=== PATIENT | female | born 1950 | race Caucasian/White ===

== ENCOUNTER 2016-12-21 20:24 | Emergency (ER) | payer MEDICARE, MEDICAID ==
[~2016-12-21] VITALS: Ht 152.4 cm; Wt 83.9 kg
[~2016-12-21 20:24] MED LIST: ACET-2267 PO; ALBU8.5H2 IH; ALPR.5T PO; ALPR0.5T7 PO; ALPR1T PO; AMIT75TA2 PO; AMLO2.5T PO; ASPI-693 PO; ASPI-983 PO; ATOR10TA66 PO; Atorvastatin Calcium PO; BUDE10.2 INH; CEFD300C3 PO; CELE-63 PO; CETI10TA17 PO; DULO30CA PO; DULO30CA48 PO; ETOD400T PO; FAMO-119 PO; FURO40TA4 PO; GABA-488 PO; GLIP10TA13 PO; HYDR1TAB75 PO; LANS30CA PO; LISI1TAB8 PO; MTF500T PO; MULT-874 PO; NF-ROPIN4T PO; NITR-33 PO; OMEP20CA12 PO; ONDA8TAB9 PO; OXYC-272 PO; OXYC-465 PO; PROM25TA14 PO; PROP40TA5 PO; ROPI2TAB3 PO; ROPI3TAB2 PO; ROPI4TAB3 PO; RT-ALBUINH INH; RT-COMBINH IH; SULF1TAB35 PO; TRZ100T PO; ZLP10T PO; ZOLP10TA5 PO; tylenol 3 PO
[2016-12-21] MEDS ORDERED: KETOROLAC 60 MG/2 ML VIAL IM STA (21:34)
[2016-12-21] MEDS ORDERED: CYCLOBENZAPRINE 10 MG (FLEXERIL) TAB PO STA (21:34)
[2016-12-21] MEDS ORDERED: CYCL10TA9 PO (22:37)
--- NOTE | 2016-12-21 22:37 | ED Lower Extremity ---
General Chief Complaint: Lower Extremity Stated Complaint: R FOOT PAIN Nursing Triage Note: c/o R foot pain, reports her percocet isn't helping pain Nursing Sepsis Screen: No Definite Risk History of Present Illness Time seen by provider: 21:15 Initial Comments Patient presents for acute right foot pain, she has history of peripheral neuropathy. She denies any injury but awoke this morning with acute right foot pain. She is on Neurontin and Percocet for her neuropathy. Onset: this morning Pain/Injury Location: right foot Method of Injury: unknown Modifying Factors: Improves With Pain Medication, Improves With Rest Allergies and Home Medications Allergies Coded Allergies: Iodinated Contrast Media - IV Dye (Verified Allergy, Unknown, 03/17/15) Home Medications Albuterol Sulfate 8.5 Gm Hfa.aer.ad, 2 PUFF INH Q4H PRN for SHORTNESS OF BREATH, (Reported) Alprazolam 0.5 Mg Tablet, 0.5 MG PO Q6H PRN for ANXIETY, (Reported) Aspirin 81 Mg Tablet.dr, 81 MG PO DAILY, (Reported) Atorvastatin Calcium 10 Mg Tablet, 10 MG PO HS, (Reported) Celecoxib 200 Mg Capsule, 200 MG PO DAILY, (Reported) Cyclobenzaprine HCl 10 Mg Tablet, 10 MG PO Q8H PRN for SPASMS, #15 Ref 0 Prescribed by: MYNOR ALEMNA on 12/21/162236 Duloxetine HCl 30 Mg Capsule.dr, 30 MG PO DAILY, (Reported) Etodolac 400 Mg Tablet, 400 MG PO BID, (Reported) Furosemide 40 Mg Tablet, 40 MG PO ROBERTSON,WE, (Reported) Gabapentin 300 Mg Capsule, 600 MG PO TID, (Reported) TAKES 2 (300MG) CAPSULES Omeprazole 20 Mg Capsule.dr, 20 MG PO DAILY, (Reported) Oxycodone Hcl/Acetaminophen 1 Tab Tablet, 1 TAB PO Q6H PRN for PAIN, (Reported) Propranolol HCl 40 Mg Tablet, 40 MG PO BID, (Reported) Ropinirole HCl 3 Mg Tablet, 3 MG PO HS, (Reported) Constitutional: no symptoms reported, see HPI EENTM: no symptoms reported, see HPI Respiratory: no symptoms reported, see HPI Cardiovascular: see HPI, other (peripheral neuropathy) Gastrointestinal: no symptoms reported, see HPI Genitourinary: no symptoms reported, see HPI Musculoskeletal: no symptoms reported, see HPI Skin: no symptoms reported, see HPI Psychiatric/Neurological: No Symptoms Reported, See HPI All Other Systems Reviewed Negative Unless Noted: Yes Past Xtnungd-Ixuvev-Ijcvef Hx Patient Social History Alcohol Use: Denies Use Recreational Drug Use: No Drug of Choice: marijuana Smoking Status: Current Everyday Smoker Type Used: Cigarettes Recent Foreign Travel: No Contact w/Someone Who Travel: No Recent Infectious Disease Expo: No Recent Hopitalizations: No Immunizations Up To Date Tetanus Booster (TDap): More than 5yrs Seasonal Allergies Seasonal Allergies: Yes Surgeries HX Surgeries: Yes Surgeries: Appendectomy, Gallbladder, Tubal Ligation Respiratory Hx Respiratory Disorders: Yes Respiratory Disorders: Asthma, Chronic Bronchitis, Sleep Apnea, COPD Cardiovascular Hx Cardiac Disorders: Yes Cardiac Disorders: Hypertension Neurological Hx Neurological Disorders: Yes (CVA'S) Neurological Disorders: Headaches /Migraines, Seizure Disorder, Stroke Reproductive System Hx Reproductive Disorders: No Sexually Transmitted Disease: No HIV/AIDS: No [employer] History: Tubal Ligation Genitourinary Hx Genitourinary Disorders: No Gastrointestinal Hx Gastrointestinal Disorders: Yes Gastrointestinal Disorders: Gastroesophageal Reflux, Chronic Constipation, Gall Bladder Disease Musculoskeletal Hx Musculoskeletal Disorders: Yes ([place]) Musculoskeletal Disorders: Arthritis, Chronic Back Pain Endocrine Hx Endocrine Disorders: No HEENT HX ENT Disorders: No Loss of Vision: Denies Hearing Impairment: Denies Cancer Hx Cancer: No Psychosocial Hx Psychiatric Problems: Yes Behavioral Health Disorders: Sleep Difficulties, Anxiety Integumentary HX Skin/Integumentary Disorder: No Blood Transfusions Hx Blood Disorders: No Reviewed Nursing Assessment Reviewed/Agree w Nursing PMH: Yes Family Medical History Significant Family History: No Pertinent Family Hx, Diabetes Family Medial History: Alzheimer's disease G8 BROTHER Completed stroke G8 BROTHER Diabetes mellitus 19 MOTHER Glaucoma 19 FATHER G8 BROTHER Hypertension 19 FATHER G8 BROTHER Myocardial infarction 19 FATHER Physical Exam Vital Signs Vital Sign - Last 12Hours 12/21/16 20:45 Temp 97.5 Pulse 79 Resp 18 B/P (MAP) 169/56 Pulse Ox 98 O2 Delivery Room Air Capillary Refill : Less Than 3 Seconds General Appearance: WD/WN, no apparent distress Neck: non-tender, full range of motion, normal inspection Cardiovascular: normal peripheral pulses, regular rate, rhythm, no edema, no JVD, no murmur Respiratory: chest non-tender, lungs clear, normal breath sounds Back: normal inspection, no CVA tenderness, no vertebral tenderness Feet: left foot non-tender, bilateral foot normal inspection, bilateral foot normal range of motion, bilateral foot no evidence of injury, right foot pain ( mid foot), right foot soft tissue tenderness (plantar surface) Neurologic/Tendon: normal sensation, normal motor functions, normal tendon functions Neurologic/Psychiatric: no motor/sensory deficits, alert, normal mood/affect, oriented x 3 Skin: normal color, warm/dry Lymphatic: no adenopathy Progress/Results/Core Measures Results/Orders My Orders Orders - MYNOR ALEMAN Cyclobenzaprine Tablet (Flexeril Tablet) (12/21/16 21:34) Ketorolac Injection (Toradol Injection) (12/21/16 21:34) Vital Signs/I&O Vital Sign - Last 12Hours 12/21/16 20:45 Temp 97.5 Pulse 79 Resp 18 B/P (MAP) 169/56 Pulse Ox 98 O2 Delivery Room Air Blood Pressure Mean: 93 Progress Note : Time: 22:15 Progress Note Patient reports improvement after Toradol 60 mg IM and Flexeril 10 mg by mouth. Will follow up with Dr. Mccarthy if symptoms persist. Departure Impression Impression: Primary Impression: Right foot pain Additional Impression: Peripheral neuropathy Qualified Codes: G58.9 - Mononeuropathy, unspecified Disposition: 01 HOME, SELF-CARE Condition: Stable Departure-Patient Inst. Decision time for Depature: 21:30 Referrals: NATALYA MCCARTHY MD (PCP/Family) Primary Care Physician Patient Instructions: Peripheral Neuropathy (DC) Add. Discharge Instructions: All discharge instructions reviewed with patient and/or family. Voiced understanding. Limit activities that cause pain in the right foot. Follow-up with Dr. Mccarthy for continued pain. Return to emergency department if symptoms worsen. Scripts Cyclobenzaprine HCl (Cyclobenzaprine HCl) 10 Mg Tablet 10 MG PO Q8H Y for SPASMS, #15 TAB 0 Refills Prov: MYNOR ALEMAN 12/21/16 MYNOR ALEMAN Dec 21, 2016 22:37
[2016-12-21 22:40] VITALS: BP 169/56
== END 2016-12-21 22:40 | disposition home or self-care (01) ==
LOC: EDUNIT# 20:24 → ER 20:26
DX: M79.671 Pain in right foot (principal); G62.9 Polyneuropathy, unspecified; J44.9 Chronic obstructive pulmonary disease, unspecified; F17.210 Nicotine dependence, cigarettes, uncomplicated; Z79.82 Long term (current) use of aspirin; Z79.899 Other long term (current) drug therapy
CPT/HCPCS: 96372; 99285

== ENCOUNTER 2016-12-24 16:15 | Emergency (ER) | payer MEDICARE, MEDICAID ==
[~2016-12-24] VITALS: Ht 152.4 cm; Wt 83.9 kg
[~2016-12-24 16:15] MED LIST changes: +CYCL10TA9 PO
[2016-12-24] MEDS ORDERED: ORPHENADRINE 60 MG/2 ML (NORFLEX) AMP IM STA (16:35)
[2016-12-24] MEDS ORDERED: oxyCODONE/APAP 5/325MG (PERCOCET 5) TABLET PO STA (17:30)
[2016-12-24] MEDS ORDERED: oxyCODONE/APAP 5/325MG (PERCOCET 5) TABLET ONE ×2 (17:33→17:35)
--- NOTE | 2016-12-24 17:45 | ED Lower Extremity ---
General Chief Complaint: General Problems/Pain Stated Complaint: BILAT FOOT AND HAND PAIN Nursing Triage Note: PT REPORTS BILAT HAND AND FEET PAIN. SHE HAS BEEN SEEN MULTIPLE TIMES BY DIFFERENT PROVIDERS IN THE LAST WEEK. SHE REPORTS NO IMPROVEMENT. Nursing Sepsis Screen: No Definite Risk History of Present Illness Time seen by provider: 16:25 Initial Comments reevaluation for pain. The patient reports her pain is now in both lower extremities and upper extremities. She was evaluated at [facility] on 12/22/16, they added Alupent when necessary I'll twice a day for treatment. the patient reports taking her Flexeril at 0600. she did not take a dose 8 hours after that. she denies any injuries. Her last pain medication was oxycodone 10 mg at 0600. she takes Celebrex 200 mg twice a day. Onset: this afternoon (symptoms got worse this afternoon) Pain/Injury Location: bilateral foot, bilateral ankle, bilateral other ( bilateral upper extremities) Method of Injury: unknown Modifying Factors: Improves With Pain Medication, Improves With Rest Associated Symptoms: she denies any neck or back pain. Allergies and Home Medications Allergies Coded Allergies: Iodinated Contrast Media - IV Dye (Verified Allergy, Unknown, 03/17/15) Home Medications Albuterol Sulfate 8.5 Gm Hfa.aer.ad, 2 PUFF INH Q4H PRN for SHORTNESS OF BREATH, (Reported) Alprazolam 0.5 Mg Tablet, 0.5 MG PO Q6H PRN for ANXIETY, (Reported) Aspirin 81 Mg Tablet.dr, 81 MG PO DAILY, (Reported) Atorvastatin Calcium 10 Mg Tablet, 10 MG PO HS, (Reported) Celecoxib 200 Mg Capsule, 200 MG PO DAILY, (Reported) Cyclobenzaprine HCl 10 Mg Tablet, 10 MG PO Q8H PRN for SPASMS, #15 Ref 0 Prescribed by: MYNOR ALEMAN on 12/21/162236 Duloxetine HCl 30 Mg Capsule.dr, 30 MG PO DAILY, (Reported) Etodolac 400 Mg Tablet, 400 MG PO BID, (Reported) Furosemide 40 Mg Tablet, 40 MG PO ROBERTSON,WE, (Reported) Gabapentin 300 Mg Capsule, 600 MG PO TID, (Reported) TAKES 2 (300MG) CAPSULES Omeprazole 20 Mg Capsule.dr, 20 MG PO DAILY, (Reported) Oxycodone Hcl/Acetaminophen 1 Tab Tablet, 1 TAB PO Q6H PRN for PAIN, (Reported) Propranolol HCl 40 Mg Tablet, 40 MG PO BID, (Reported) Ropinirole HCl 3 Mg Tablet, 3 MG PO HS, (Reported) Constitutional: no symptoms reported, see HPI EENTM: no symptoms reported, see HPI Respiratory: no symptoms reported, see HPI Cardiovascular: no symptoms reported, see HPI Gastrointestinal: no symptoms reported, see HPI Genitourinary: no symptoms reported, see HPI Musculoskeletal: no symptoms reported, see HPI Skin: no symptoms reported, see HPI Psychiatric/Neurological: No Symptoms Reported, See HPI All Other Systems Reviewed Negative Unless Noted: Yes Past Alkclyv-Apoyph-Antfad Hx Patient Social History Alcohol Use: Denies Use Recreational Drug Use: Yes Drug of Choice: marijuana Smoking Status: Current Everyday Smoker Type Used: Cigarettes Recent Foreign Travel: No Contact w/Someone Who Travel: No Recent Infectious Disease Expo: No Recent Hopitalizations: No Immunizations Up To Date Tetanus Booster (TDap): More than 5yrs Seasonal Allergies Seasonal Allergies: Yes Surgeries HX Surgeries: Yes Surgeries: Appendectomy, Gallbladder, Tubal Ligation Respiratory Hx Respiratory Disorders: Yes Respiratory Disorders: Asthma, Chronic Bronchitis, Sleep Apnea, COPD Cardiovascular Hx Cardiac Disorders: Yes Cardiac Disorders: Hypertension Neurological Hx Neurological Disorders: Yes (CVA'S) Neurological Disorders: Headaches /Migraines, Seizure Disorder, Stroke Reproductive System Hx Reproductive Disorders: No Sexually Transmitted Disease: No HIV/AIDS: No 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 Genitourinary Hx Genitourinary Disorders: No Gastrointestinal Hx Gastrointestinal Disorders: Yes Gastrointestinal Disorders: Gastroesophageal Reflux, Chronic Constipation, Gall Bladder Disease Musculoskeletal Hx Musculoskeletal Disorders: Yes ([place]) Musculoskeletal Disorders: Arthritis, Chronic Back Pain Endocrine Hx Endocrine Disorders: No HEENT HX ENT Disorders: No Loss of Vision: Denies Hearing Impairment: Denies Cancer Hx Cancer: No Psychosocial Hx Psychiatric Problems: Yes Behavioral Health Disorders: Sleep Difficulties, Anxiety Integumentary HX Skin/Integumentary Disorder: No Blood Transfusions Hx Blood Disorders: No Reviewed Nursing Assessment Reviewed/Agree w Nursing PMH: Yes Family Medical History Significant Family History: No Pertinent Family Hx, Diabetes Family Medial History: Alzheimer's disease G8 BROTHER Completed stroke G8 BROTHER Diabetes mellitus 19 MOTHER Glaucoma 19 FATHER G8 BROTHER Hypertension 19 FATHER G8 BROTHER Myocardial infarction 19 FATHER Physical Exam Vital Signs Vital Sign - Last 12Hours 12/24/16 16:24 Temp 97.3 Pulse 75 Resp 20 B/P (MAP) 155/75 Pulse Ox 97 O2 Delivery Room Air Capillary Refill : Less Than 3 Seconds General Appearance: WD/WN HEENT: PERRL/EOMI, normal ENT inspection, TMs normal, pharynx normal Neck: non-tender, full range of motion, supple Cardiovascular: normal peripheral pulses, regular rate, rhythm, no JVD Respiratory: chest non-tender Hips: bilateral hip non-tender, bilateral hip normal inspection, bilateral hip normal range of motion Ankles: bilateral ankle normal inspection, bilateral ankle normal range of motion, bilateral ankle no evidence of injury, bilateral ankle pain, bilateral ankle soft tissue tenderness Feet: bilateral foot normal inspection, bilateral foot normal range of motion, bilateral foot soft tissue tenderness Neurologic/Tendon: normal sensation, normal motor functions, normal tendon functions Neurologic/Psychiatric: no motor/sensory deficits, alert, normal mood/affect, oriented x 3 Skin: normal color, warm/dry Progress/Results/Core Measures Results/Orders My Orders Orders - MYNOR ALEMAN Orphenadrine Injection (Norflex Injectio (12/24/16 16:35) Tramadol Tablet (Ultram Tablet) (12/24/16 16:36) Oxycodone/Apap 5/325mg Tablet (Percocet (12/24/16 17:30) Oxycodone/Apap 5/325mg Tablet (Percocet (12/24/16 17:33) Oxycodone/Apap 5/325mg Tablet (Percocet (12/24/16 17:35) Vital Signs/I&O Vital Sign - Last 12Hours 12/24/16 16:24 Temp 97.3 Pulse 75 Resp 20 B/P (MAP) 155/75 Pulse Ox 97 O2 Delivery Room Air Blood Pressure Mean: 101 Progress Note : Time: 16:25 Progress Note initial evaluation completed. Will use Norflex 60 mg IM and Ultram 50 mg by mouth for pain management. Discussed at length with the patient that she needs to be compliant with her medication regimen. 1645 Per [facility], the patient filled Xanax and Oxycodone 10 mg on 12/06/16, prescribed by Dr. Mccarthy. [facility] reports she picked up Flexeril and Xanax on 12/22/16. patient does report concerns because she is out of Neurontin and oxycodone at home. This was discussed with her and the recommendation was that she get her scheduled medications from Dr. Mccarthy. 1740 within 5 minutes of being given the oxycodone, the patient requested discharge to home. She reports her pain is not relieved, but she wishes to return home to take care of her dog. Discussed the importance of taking medications as prescribed. And following up with Dr. Mancilla's office for refills of her medication. She verbalized understanding of this and agreed with this treatment plan. Departure Impression Impression: Primary Impression: Chronic pain Qualified Codes: G89.4 - Chronic pain syndrome Disposition: HOME, SELF-CARE Condition: Stable Departure-Patient Inst. Decision time for Depature: 17:30 Referrals: NATALYA MCCARTHY MD (PCP/Family) Primary Care Physician Patient Instructions: Chronic Pain (DC) Add. Discharge Instructions: Follow up with Dr. Mccarthy for medical management of Chronic Pain and medication refills. Return to emergency department for uncontrolled pain, difficulty breathing or fever. take prescription medication as directed. All discharge instructions reviewed with patient and/or family. Voiced understanding. Copy Copies To 1: NATALYA MCCARTHY MD, AMY ARNP Dec 24, 2016 17:45
[2016-12-24 17:55] VITALS: BP 155/75
== END 2016-12-24 17:55 | disposition home or self-care (01) ==
LOC: EDUNIT# 16:15 → ER 16:17
DX: M79.642 Pain in left hand (principal); M79.641 Pain in right hand; M79.671 Pain in right foot; M79.672 Pain in left foot; G89.29 Other chronic pain; F17.210 Nicotine dependence, cigarettes, uncomplicated; Z79.82 Long term (current) use of aspirin; Z79.899 Other long term (current) drug therapy
CPT/HCPCS: 96372; 99281

== ENCOUNTER → 2017-02-28 | Outpatient (CLI) | payer MEDICARE, MEDICAID ==
--- NOTE | 2017-02-28 18:02 | Diagnostic Imaging Report ---
PROCEDURE: US Bilateral lower extremity arterial. TECHNIQUE: Multiple real-time grayscale images are obtained through both lower extremity arterial systems with color Doppler imaging and color Doppler spectral analysis. INDICATION: Pulseless disease. Cold legs and tingling in the feet. FINDINGS: There is mild intimal irregularity seen in the femoropopliteal segments noted on grayscale images. Color Doppler demonstrates patency of the arteries from the common femoral to dorsalis pedis and posterior tibial arteries bilaterally. On the right side, there is triphasic waveforms seen in the femoropopliteal segments with velocities in the range of 86 to 177 cm/s. Triphasic waveform in the posterior tibial artery is also seen with normal velocity of 91 cm/s. The dorsalis pedis however demonstrates monophasic waveform with diminished flow velocity of 21 cm/s. The left lower extremity demonstrates biphasic waveforms in the femoropopliteal segments with normal velocities ranging from 105 to 146 cm/s. The posterior tibial artery has triphasic waveform with velocity of 43 cm/s. The dorsalis pedis has biphasic waveform with velocity of 100 cm/s. IMPRESSION: 1. Right lower extremity arteries are patent with no high-grade focal stenosis identified. Diminished monophasic waveforms in the right dorsalis pedis artery is suggestive of significant disease in the anterior tibial artery. 2. Left lower extremity demonstrates mostly biphasic waveforms which may relate to aortoiliac inflow disease. No evidence of focal high-grade stenosis. Dictated by: Dictated on workstation # [id number]
== END ==
LOC: RAD 14:36
PROVIDERS: ATTEND Family Medicine
DX: M31.4 Aortic arch syndrome [Takayasu] (principal); R20.2 Paresthesia of skin
CPT/HCPCS: 93925

== ENCOUNTER 2017-09-21 12:13 | Emergency (ER) | payer MEDICARE, MEDICAID ==
[~2017-09-21] VITALS: Ht 152.4 cm; Wt 83.9 kg
--- OUTSIDE RECORDS SUMMARY | 2017-09-21 12:20 | XMS REPORT | Continuity of Care Document ---
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 mg/dL <10 Complete blood count (CBC) with automated white blood cell (WBC) differential - 06/06/16 14:38 Blood leukocytes automated count (number/volume) 6.4 10*3/uL 4.3-11.0 Blood erythrocytes automated count (number/volume) 4.02 10*6/uL 4.35-5.85 Venous blood hemoglobin measurement (mass/volume) 11.2 g/dL 11.5-16.0 Blood hematocrit (volume fraction) 35 % 35-52 Automated erythrocyte mean corpuscular volume 88 [foz_us] 80-99 Automated erythrocyte mean corpuscular hemoglobin (mass per erythrocyte) 28 pg 25-34 Automated erythrocyte mean corpuscular hemoglobin concentration measurement ( mass/volume) 32 g/dL 32-36 Automated erythrocyte distribution width ratio 16.1 % 10.0-14.5 Automated blood platelet count (count/volume) 292 10*3/uL 130-400 Automated blood platelet mean volume measurement 9.8 [foz_us] 7.4-10.4 Automated blood neutrophils/100 leukocytes 65 % 42-75 Automated blood lymphocytes/100 leukocytes 19 % 12-44 Blood monocytes/100 leukocytes 13 % 0-12 Automated blood eosinophils/100 leukocytes 3 % 0-10 Automated blood basophils/100 leukocytes 1 % 0-10 Blood neutrophils automated count (number/volume) 4.2 10*3 1.8-7.8 Blood lymphocytes automated count (number/volume) 1.2 10*3 1.0-4.0 Blood monocytes automated count (number/volume) 0.9 10*3 0.0-1.0 Automated eosinophil count 0.2 10*3/uL 0.0-0.3 Automated blood basophil count (count/volume) 0.0 10*3/uL 0.0-0.1 Comprehensive metabolic panel - 06/06/16 14:38 Serum or plasma sodium measurement (moles/volume) 138 mmol/L 135-145 Serum or plasma potassium measurement (moles/volume) 4.7 mmol/L 3.6-5.0 Serum or plasma chloride measurement (moles/volume) 105 mmol/L 98-107 Carbon dioxide 20 mmol/L 21-32 Serum or plasma anion gap determination (moles/volume) 13 mmol/L 5-14 Serum or plasma urea nitrogen measurement (mass/volume) 28 mg/dL 7-18 Serum or plasma creatinine measurement (mass/volume) 1.74 mg/dL 0.60-1.30 Serum or plasma urea nitrogen/creatinine mass ratio 16 NRG Serum or plasma creatinine measurement with calculation of estimated glomerular filtration rate 29 NRG Serum or plasma glucose measurement (mass/volume) 145 mg/dL 70-105 Serum or plasma calcium measurement (mass/volume) 9.0 mg/dL 8.5-10.1 Serum or plasma total bilirubin measurement (mass/volume) 0.8 mg/dL 0.1-1.0 Serum or plasma alkaline phosphatase measurement (enzymatic activity/volume) 122 U/L 40-136 Serum or plasma aspartate aminotransferase measurement (enzymatic activity/ volume) 20 U/L 5-34 Serum or plasma alanine aminotransferase measurement (enzymatic activity/volume ) 16 U/L 0-55 Serum or plasma protein measurement (mass/volume) 6.7 g/dL 6.4-8.2 Serum or plasma albumin measurement (mass/volume) 3.7 g/dL 3.2-4.5 Serum or plasma troponin i.cardiac measurement (mass/volume) - 06/06/16 14:38 Serum or plasma troponin i.cardiac measurement (mass/volume) < ng/ mL <0.30 Lipase - 06/06/16 14:38 Lipase 13 U/L 878 Liver function panel (serum or plasma alk phos, alb, total and direct bili, total protein, ALT, AST) - 06/07/16 19:10 Serum or plasma total bilirubin measurement (mass/volume) 0.8 mg/dL 0.1-1.0 Serum or plasma alkaline phosphatase measurement (enzymatic activity/volume) 102 U/L 40-136 Serum or plasma aspartate aminotransferase measurement (enzymatic activity/ volume) 19 U/L 5-34 Serum or plasma alanine aminotransferase measurement (enzymatic activity/volume ) 20 U/L 0-55 Serum or plasma protein measurement (mass/volume) 6.4 g/dL 6.4-8.2 Serum or plasma albumin measurement (mass/volume) 3.6 g/dL 3.2-4.5 Bilirubin direct 0.4 mg/dL 0.0-0.3 Serum or plasma indirect bilirubin measurement (mass/volume) 0.4 mg/ dL NRG Magnesium - 06/07/16 19:10 Magnesium 1.8 mg/dL 1.8-2.4 Lipase - 06/07/16 19:10 Lipase 22 U/L 8-78 Complete blood count (CBC) with automated white blood cell (WBC) differential - 06/08/16 05:16 Blood leukocytes automated count (number/volume) 4.9 10*3/uL 4.3-11.0 Blood erythrocytes automated count (number/volume) 3.69 10*6/uL 4.35-5.85 Venous blood hemoglobin measurement (mass/volume) 10.1 g/dL 11.5-16.0 Blood hematocrit (volume fraction) 33 % 35-52 Automated erythrocyte mean corpuscular volume 88 [foz_us] 80-99 Automated erythrocyte mean corpuscular hemoglobin (mass per erythrocyte) 27 pg 25-34 Automated erythrocyte mean corpuscular hemoglobin concentration measurement ( mass/volume) 31 g/dL 32-36 Automated erythrocyte distribution width ratio 15.9 % 10.0-14.5 Automated blood platelet count (count/volume) 242 10*3/uL 130-400 Automated blood platelet mean volume measurement 10.4 [foz_us] 7.4-10.4 Automated blood neutrophils/100 leukocytes 59 % 42-75 Automated blood lymphocytes/100 leukocytes 25 % 12-44 Blood monocytes/100 leukocytes 11 % 0-12 Automated blood eosinophils/100 leukocytes 5 % 0-10 Automated blood basophils/100 leukocytes 0 % 0-10 Blood neutrophils automated count (number/volume) 2.9 10*3 1.8-7.8 Blood lymphocytes automated count (number/volume) 1.2 10*3 1.0-4.0 Blood monocytes automated count (number/volume) 0.5 10*3 0.0-1.0 Automated eosinophil count 0.3 10*3/uL 0.0-0.3 Automated blood basophil count (count/volume) 0.0 10*3/uL 0.0-0.1 Comprehensive metabolic panel - 06/08/16 05:16 Serum or plasma sodium measurement (moles/volume) 135 mmol/L 135-145 Serum or plasma potassium measurement (moles/volume) 4.5 mmol/L 3.6-5.0 Serum or plasma chloride measurement (moles/volume) 102 mmol/L 98-107 Carbon dioxide 19 mmol/L 21-32 Serum or plasma anion gap determination (moles/volume) 14 mmol/L 5-14 Serum or plasma urea nitrogen measurement (mass/volume) 42 mg/dL 7-18 Serum or plasma creatinine measurement (mass/volume) 2.92 mg/dL 0.60-1.30 Serum or plasma urea nitrogen/creatinine mass ratio 14 NRG Serum or plasma creatinine measurement with calculation of estimated glomerular filtration rate 16 NRG Serum or plasma glucose measurement (mass/volume) 89 mg/dL 70-105 Serum or plasma calcium measurement (mass/volume) 7.7 mg/dL 8.5-10.1 Serum or plasma total bilirubin measurement (mass/volume) 0.4 mg/dL 0.1-1.0 Serum or plasma alkaline phosphatase measurement (enzymatic activity/volume) 94 U/L 40-136 Serum or plasma aspartate aminotransferase measurement (enzymatic activity/ volume) 17 U/L 5-34 Serum or plasma alanine aminotransferase measurement (enzymatic activity/volume ) 17 U/L 0-55 Serum or plasma protein measurement (mass/volume) 5.9 g/dL 6.4-8.2 Serum or plasma albumin measurement (mass/volume) 3.3 g/dL 3.2-4.5 Complete urinalysis with reflex to culture - 06/08/16 08:48 Urine color determination YELLOW NRG Urine clarity determination CLEAR NRG Urine pH measurement by test strip 5 5-9 Specific gravity of urine by test strip 1.010 1.016- 1.022 Urine protein assay by test strip, semi-quantitative 2+ NEGATIVE Urine glucose detection by automated test strip NEGATIVE NEGATIVE Erythrocytes detection in urine sediment by light microscopy 3+ NEGATIVE Urine ketones detection by automated test strip NEGATIVE NEGATIVE Urine nitrite detection by test strip NEGATIVE NEGATIVE Urine total bilirubin detection by test strip NEGATIVE NEGATIVE Urine urobilinogen measurement by automated test strip (mass/volume) NORMAL NORMAL Urine leukocyte esterase detection by dipstick NEGATIVE NEGATIVE Automated urine sediment erythrocyte count by microscopy (number/high power field) [HPF] NRG Automated urine sediment leukocyte count by microscopy (number/high power field ) NONE NRG Bacteria detection in urine sediment by light microscopy TRACE NRG Squamous epithelial cells detection in urine sediment by light microscopy 2-5 NRG Crystals detection in urine sediment by light microscopy NONE NRG Casts detection in urine sediment by light microscopy NONE NRG Mucus detection in urine sediment by light microscopy NEGATIVE NRG Complete urinalysis with reflex to culture NO NRG Complete blood count (CBC) with automated white blood cell (WBC) differential - 06/09/16 04:47 Blood leukocytes automated count (number/volume) 5.5 10*3/uL 4.3-11.0 Blood erythrocytes automated count (number/volume) 3.65 10*6/uL 4.35-5.85 Venous blood hemoglobin measurement (mass/volume) 10.1 g/dL 11.5-16.0 Blood hematocrit (volume fraction) 34 % 35-52 Automated erythrocyte mean corpuscular volume 92 [foz_us] 80-99 Automated erythrocyte mean corpuscular hemoglobin (mass per erythrocyte) 28 pg 25-34 Automated erythrocyte mean corpuscular hemoglobin concentration measurement ( mass/volume) 30 g/dL 32-36 Automated erythrocyte distribution width ratio 16.3 % 10.0-14.5 Automated blood platelet count (count/volume) 259 10*3/uL 130-400 Automated blood platelet mean volume measurement 10.3 [foz_us] 7.4-10.4 Automated blood neutrophils/100 leukocytes 69 % 42-75 Automated blood lymphocytes/100 leukocytes 20 % 12-44 Blood monocytes/100 leukocytes 10 % 0-12 Automated blood eosinophils/100 leukocytes 2 % 0-10 Automated blood basophils/100 leukocytes 1 % 0-10 Blood neutrophils automated count (number/volume) 3.8 10*3 1.8-7.8 Blood lymphocytes automated count (number/volume) 1.1 10*3 1.0-4.0 Blood monocytes automated count (number/volume) 0.5 10*3 0.0-1.0 Automated eosinophil count 0.1 10*3/uL 0.0-0.3 Automated blood basophil count (count/volume) 0.0 10*3/uL 0.0-0.1 Comprehensive metabolic panel - 06/09/16 04:47 Serum or plasma sodium measurement (moles/volume) 140 mmol/L 135-145 Serum or plasma potassium measurement (moles/volume) 4.9 mmol/L 3.6-5.0 Serum or plasma chloride measurement (moles/volume) 111 mmol/L 98-107 Carbon dioxide 19 mmol/L 21-32 Serum or plasma anion gap determination (moles/volume) 10 mmol/L 5-14 Serum or plasma urea nitrogen measurement (mass/volume) 24 mg/dL 7-18 Serum or plasma creatinine measurement (mass/volume) 1.83 mg/dL 0.60-1.30 Serum or plasma urea nitrogen/creatinine mass ratio 13 NRG Serum or plasma creatinine measurement with calculation of estimated glomerular filtration rate 28 NRG Serum or plasma glucose measurement (mass/volume) 157 mg/dL 70-105 Serum or plasma calcium measurement (mass/volume) 7.6 mg/dL 8.5-10.1 Serum or plasma total bilirubin measurement (mass/volume) 0.2 mg/dL 0.1-1.0 Serum or plasma alkaline phosphatase measurement (enzymatic activity/volume) 89 U/L 40-136 Serum or plasma aspartate aminotransferase measurement (enzymatic activity/ volume) 16 U/L 5-34 Serum or plasma alanine aminotransferase measurement (enzymatic activity/volume ) 15 U/L 0-55 Serum or plasma protein measurement (mass/volume) 6.3 g/dL 6.4-8.2 Serum or plasma albumin measurement (mass/volume) 3.5 g/dL 3.2-4.5 Complete blood count (CBC) with automated white blood cell (WBC) differential - 08/03/16 20:20 Blood leukocytes automated count (number/volume) 12.0 10*3/uL 4.3-11.0 Blood erythrocytes automated count (number/volume) 3.64 10*6/uL 4.35-5.85 Venous blood hemoglobin measurement (mass/volume) 9.6 g/dL 11.5-16.0 Blood hematocrit (volume fraction) 30 % 35-52 Automated erythrocyte mean corpuscular volume 82 [foz_us] 80-99 Automated erythrocyte mean corpuscular hemoglobin (mass per erythrocyte) 26 pg 25-34 Automated erythrocyte mean corpuscular hemoglobin concentration measurement ( mass/volume) 32 g/dL 32-36 Automated erythrocyte distribution width ratio 16.6 % 10.0-14.5 Automated blood platelet count (count/volume) 352 10*3/uL 130-400 Automated blood platelet mean volume measurement 9.0 [foz_us] 7.4-10.4 Automated blood neutrophils/100 leukocytes 74 % 42-75 Automated blood lymphocytes/100 leukocytes 17 % 12-44 Blood monocytes/100 leukocytes 8 % 0-12 Automated blood eosinophils/100 leukocytes 1 % 0-10 Automated blood basophils/100 leukocytes 0 % 0-10 Blood neutrophils automated count (number/volume) 8.9 10*3 1.8-7.8 Blood lymphocytes automated count (number/volume) 2.1 10*3 1.0-4.0 Blood monocytes automated count (number/volume) 1.0 10*3 0.0-1.0 Automated eosinophil count 0.1 10*3/uL 0.0-0.3 Automated blood basophil count (count/volume) 0.0 10*3/uL 0.0-0.1 Comprehensive metabolic panel - 08/03/16 20:20 Serum or plasma sodium measurement (moles/volume) 126 mmol/L 135-145 Serum or plasma potassium measurement (moles/volume) 3.5 mmol/L 3.6-5.0 Serum or plasma chloride measurement (moles/volume) 76 mmol/L 98-107 Carbon dioxide 34 mmol/L 21-32 Serum or plasma anion gap determination (moles/volume) 16 mmol/L 5-14 Serum or plasma urea nitrogen measurement (mass/volume) 19 mg/dL 7-18 Serum or plasma creatinine measurement (mass/volume) 1.76 mg/dL 0.60-1.30 Serum or plasma urea nitrogen/creatinine mass ratio 11 NRG Serum or plasma creatinine measurement with calculation of estimated glomerular filtration rate 29 NRG Serum or plasma glucose measurement (mass/volume) 127 mg/dL 70-105 Serum or plasma calcium measurement (mass/volume) 10.0 mg/dL 8.5-10.1 Serum or plasma total bilirubin measurement (mass/volume) 0.4 mg/dL 0.1-1.0 Serum or plasma alkaline phosphatase measurement (enzymatic activity/volume) 103 U/L 40-136 Serum or plasma aspartate aminotransferase measurement (enzymatic activity/ volume) 27 U/L 5-34 Serum or plasma alanine aminotransferase measurement (enzymatic activity/volume ) 18 U/L 0-55 Serum or plasma protein measurement (mass/volume) 6.8 g/dL 6.4-8.2 Serum or plasma albumin measurement (mass/volume) 3.9 g/dL 3.2-4.5 Serum or plasma troponin i.cardiac measurement (mass/volume) - 08/03/16 20:20 Serum or plasma troponin i.cardiac measurement (mass/volume) < ng/ mL <0.30 Lipase - 08/03/16 20:20 Lipase 41 U/L 8-78 Complete urinalysis with reflex to culture - 08/03/16 20:24 Urine color determination YELLOW NRG Urine clarity determination SLIGHTLY CLOUDY NRG Urine pH measurement by test strip 6.5 5-9 Specific gravity of urine by test strip 1.010 1.016- 1.022 Urine protein assay by test strip, semi-quantitative 3+ NEGATIVE Urine glucose detection by automated test strip NEGATIVE NEGATIVE Erythrocytes detection in urine sediment by light microscopy 3+ NEGATIVE Urine ketones detection by automated test strip NEGATIVE NEGATIVE Urine nitrite detection by test strip NEGATIVE NEGATIVE Urine total bilirubin detection by test strip NEGATIVE NEGATIVE Urine urobilinogen measurement by automated test strip (mass/volume) NORMAL NORMAL Urine leukocyte esterase detection by dipstick 1+ NEGATIVE Automated urine sediment erythrocyte count by microscopy (number/high power field) [HPF] NRG Automated urine sediment leukocyte count by microscopy (number/high power field ) [HPF] NRG Bacteria detection in urine sediment by light microscopy LARGE NRG Squamous epithelial cells detection in urine sediment by light microscopy 5-10 NRG Crystals detection in urine sediment by light microscopy NONE NRG Casts detection in urine sediment by light microscopy NONE NRG Mucus detection in urine sediment by light microscopy NEGATIVE NRG Complete urinalysis with reflex to culture YES NRG Bacterial urine culture - 08/03/16 20:24 Bacterial urine culture [id number] NRG COLONY COUNT >100,000/ML NRG FTX;REPORTABLE SENSITIVITY REPORTED 08/04 14:25 NRG URINE CULTURE RESULTS PLUS NRG Bacterial susceptibility panel - 08/03/16 20:24 Gentamicin susceptibility test by minimum inhibitory concentration < = NRG Trimethoprim/sulfamethoxazole susceptibility test by minimum inhibitoryconcentration <= NRG Ampicillin susceptibility test by minimum inhibitory concentration < = NRG Tobramycin susceptibility test by minimum inhibitory concentration < = NRG Cefazolin susceptibility test by minimum inhibitory concentration < = NRG Ceftriaxone susceptibility test by minimum inhibitory concentration <= NRG Ampicillin/sulbactam susceptibility test by minimum inhibitory concentration <= NRG Piperacillin/tazobactam susceptibility test by minimum inhibitory concentration <= NRG Ciprofloxacin susceptibility test by minimum inhibitory concentration <= NRG Meropenem susceptibility test by minimum inhibitory concentration < = NRG Nitrofurantoin susceptibility test by minimum inhibitory concentration <= NRG Aztreonam susceptibility test by minimum inhibitory concentration < = NRG Extended spectrum beta lactamase (ESBL) producing bacteria susceptibility test by minimum inhibitory concentration - NRG Encounters ACCT No. Visit Date/Time Discharge Status Pt. 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 [id number] 12/24/2016 16:17:00 12/24/2016 17:55:00 DIS Emergency MYNOR ALEMAN [facility] ER BILAT FOOT AND HAND PAIN [id number] 12/21/2016 20:26:00 12/21/2016 22:40:00 DIS Emergency MYNOR ALEMAN [facility] ER R FOOT PAIN [id number] 08/03/2016 20:11:00 08/03/2016 22:00:00 DIS Emergency ABDIEL BE DO [facility] ER NAUSEA VOMITING [id number] 06/07/2016 15:00:00 06/09/2016 12:58:00 DIS Inpatient NATALYA MCKEON MD [facility] 4TH VOMITING,VOLUME DEPLETION [id number] 06/06/2016 14:27:00 06/06/2016 16:39:00 DIS Emergency BRYANT SHORT APRN [facility] ER CHEST TIGHTNESS/VOMITING [id number] 05/31/2016 11:55:00 05/31/2016 23:59:59 CLS Emergency VALENTINE COLES MD [facility] ER POSS MED OVERDOSE [id number] 04/04/2016 22:15:00 04/05/2016 00:29:00 DIS Emergency ABDIEL BE DO [facility] ER BRUISING/PAIN R LEG [id number] 04/03/2016 07:08:00 04/03/2016 08:31:00 DIS Emergency MIKE MAURICIO DO [facility] ER LOWER EXTREMITY [id number] 03/08/2016 10:47:00 03/08/2016 23:59:59 CLS Outpatient NATALYA MCKEON MD [facility] RAD CAN NOT EXTEND FINGER [id number] 01/24/2016 13:50:00 01/26/2016 06:54:00 DIS Inpatient NATALYA MCKEON MD [facility] 4TH ACUTE UPPER QUAD PAIN [id number] 01/12/2016 09:44:00 01/12/2016 23:59:59 CLS Outpatient NATALYA MCKEON MD [facility] RAD FALLING,BLURRED VISION [id number] 05/21/2015 19:49:00 05/22/2015 06:45:00 DIS Outpatient MANJIT TEAGUE DO [facility] SLEEP OBSERVED APNEAS SNORING CHOKING GASPING DRUING SLE [id number] 04/14/2015 13:07:00 04/14/2015 23:59:59 CLS Outpatient MANJIT TEAGUE DO [facility] RT OBESITY SNORING TOBACCO USER [id number] 03/17/2015 15:50:00 03/19/2015 10:41:00 DIS Inpatient NATALYA MCKEON MD [facility] 4TH UTI,AMS,RENAL INSUFFICIENCY,FREQUENT FALL [id number] 03/02/2015 08:34:00 03/02/2015 23:59:59 CLS Outpatient NAZIA POWELL APRN [facility] RAD PAD BILATERAL CLAUTIFICATION RESTLESS LEG SYNDROME [id number] 02/18/2015 11:07:00 02/18/2015 12:54:00 DIS Emergency BRYANT SHORT APRN [facility] ER FEET SWOLLEN RIGHT KNEE PAIN [id number] 01/04/2015 15:52:00 01/04/2015 23:59:59 CLS Outpatient NATALYA MCKEON MD [facility] RAD EDEMA LT LEG [id number] 01/02/2015 11:52:00 01/02/2015 23:59:59 CLS Outpatient NATALYA MCKEON MD [facility] RAD COOL;EDAMATOUS LT LEG [id number] 03/04/2014 13:25:00 03/04/2014 13:55:00 DIS Outpatient MARSHALL DAY MD [facility] REHAB BPPV [id number] 03/25/2013 10:06:00 03/25/2013 14:43:00 DIS Outpatient JUANA HORTON DO [facility] SDC LEFT CARPAL TUNNEL SYNDROME [id number] 03/19/2013 12:20:00 03/19/2013 23:59:59 CLS Outpatient JUANA HORTON DO [facility] PREOP LEFT CARPAL TUNNEL SYNDROME [id number] 01/21/2013 08:16:00 01/21/2013 13:22:00 DIS Outpatient JUANA HORTON DO [facility] SD RIGHT CARPAL CUBITAL TUNNEL SYNDROME [id number] 01/14/2013 07:38:00 01/14/2013 23:59:59 CLS Outpatient JUANA HORTON DO [facility] PREOP RIGHT CARPAL CUBITAL TUNNEL SYNDROMES [id number] 01/04/2015 15:52:00 Document Registration [id number] 12/11/2012 14:58:00 Document Registration [id number] 02/20/2012 11:07:00 Document Registration [id number] 02/14/2012 10:05:00 Document Registration [id number] 02/13/2012 20:49:00 Document Registration [id number] 01/20/2012 18:17:00 Document Registration [id number] 01/06/2012 19:10:00 Document Registration [id number] 12/11/2011 05:42:00 Document Registration [id number] 12/04/2011 09:31:00 Document Registration [id number] 03/01/2011 12:57:00 Document Registration [id number] 03/31/2010 13:31:00 Document Registration
[2017-09-21] MEDS ORDERED: NS IV 500 ML 500 ML IV ONE (12:25)
[2017-09-21 12:35] LABS: BASOPHILS % (AUTO) 1 % (0-10); EOSINOPHILS # (AUTO) 0.1 10^3/uL (0.0-0.3); EOSINOPHILS % (AUTO) 2 % (0-10); HEMATOCRIT 37 % (35-52); HEMOGLOBIN 11.7 G/DL (11.5-16.0); LYMPHOCYTES # (AUTO) 1.7 X 10^3 (1.0-4.0); LYMPHOCYTES % (AUTO) 23 % (12-44); MEAN CORPUSCULAR HEMOGLOBIN 27 PG (25-34); MEAN CORPUSCULAR HGB CONC 32 G/DL (32-36); MEAN CORPUSCULAR VOLUME 85 FL (80-99); MEAN PLATELET VOLUME 10.2 FL (7.4-10.4); MONOCYTES # (AUTO) 0.6 X 10^3 (0.0-1.0); MONOCYTES % (AUTO) 8 % (0-12); NEUTROPHILS # (AUTO) 4.8 X 10^3 (1.8-7.8); NEUTROPHILS % (AUTO) 66 % (42-75); PLATELET COUNT 265 10^3/uL (130-400); RED BLOOD COUNT 4.36 10^6/uL (4.35-5.85); RED CELL DISTRIBUTION WIDTH 17.1 % (10.0-14.5); WHITE BLOOD COUNT 7.2 10^3/uL (4.3-11.0)
[2017-09-21 12:46] LABS: INR 0.9 (0.8-1.4); PROTHROMBIN TIME PATIENT 12.1 SEC (12.2-14.7)
[2017-09-21 12:49] LABS: FIBRIN DEGRADATION PRODUCTS 0.49 UG/ML (0.00-0.49)
[2017-09-21 12:55] LABS: ALANINE AMINOTRANSFERASE 13 U/L (0-55); ALBUMIN 3.7 GM/DL (3.2-4.5); ALKALINE PHOSPHATASE 104 U/L (40-136); BILIRUBIN,TOTAL 0.2 MG/DL (0.1-1.0); BUN/CREATININE RATIO 12; CALCIUM 9.2 MG/DL (8.5-10.1); CARBON DIOXIDE 28 MMOL/L (21-32); CHLORIDE 104 MMOL/L (98-107); CREATININE SERUM 1.23 MG/DL (0.60-1.30); GFR ESTIMATED 44; GLUCOSE 133 MG/DL (70-105); POTASSIUM 5.3 MMOL/L (3.6-5.0); SODIUM 140 MMOL/L (135-145); TOTAL PROTEIN 6.9 GM/DL (6.4-8.2)
--- NOTE | 2017-09-21 12:56 | ED Neurological Problem ---
General Stated Complaint: ALTERED MENTAL STATUS Source: patient Exam Limitations: clinical condition History of Present Illness Time seen by provider: 12:22 Initial Comments Here with report of waking up this morning and having weakness of her legs. Friends report that it looked like she was walking drunk. They did assist her to the car and actually did go to [facility]. She was able to drive a powered cart at [facility] without difficulty. Afterwards things got worse in the could hardly get her in the car because her legs were too weak and ultimately decided to bring her to the hospital for evaluation. Last known well time was last night. After some time in the emergency department patient was able to relate better story. Woke up this morning with symptoms at 8 a.m. arrives greater than 3 hours after onset of symptoms. Denies nausea or vomiting. Patient states that she is very weak and can't move her legs although does have balance strength with her legs. Patient admits to take an extra dose of her Xanax due to being out of her Percocet and this may be partly what exacerbated her problems. Timing/Duration: other (last known well time midnight and woke up with symptoms at 8 a.m.) Severity: moderate Associated Symptoms: confusion, No fever/chills, No muscle spasms, No nausea/ vomiting, No paresthesia, sleepy, slurred speech, weakness Allergies and Home Medications Allergies Coded Allergies: Iodinated Contrast- Oral and IV Dye (Verified Allergy, Unknown, 09/21/17) Home Medications Albuterol Sulfate 8.5 Gm Hfa.aer.ad, 2 PUFF INH Q4H PRN for SHORTNESS OF BREATH, (Reported) Alprazolam 0.5 Mg Tablet, 0.5 MG PO Q6H PRN for ANXIETY, (Reported) Aspirin 81 Mg Tablet.dr, 81 MG PO DAILY, (Reported) Atorvastatin Calcium 10 Mg Tablet, 10 MG PO HS, (Reported) Celecoxib 200 Mg Capsule, 200 MG PO DAILY, (Reported) Cyclobenzaprine HCl 10 Mg Tablet, 10 MG PO Q8H PRN for SPASMS, #15 Ref 0 Prescribed by: MYNOR ALEMAN on 12/21/167 Duloxetine HCl 30 Mg Capsule.dr, 30 MG PO DAILY, (Reported) Etodolac 400 Mg Tablet, 400 MG PO BID, (Reported) Furosemide 40 Mg Tablet, 40 MG PO ROBERTSON,WE, (Reported) Gabapentin 300 Mg Capsule, 600 MG PO TID, (Reported) TAKES 2 (300MG) CAPSULES Omeprazole 20 Mg Capsule.dr, 20 MG PO DAILY, (Reported) Oxycodone Hcl/Acetaminophen 1 Tab Tablet, 1 TAB PO Q6H PRN for PAIN, (Reported) Propranolol HCl 40 Mg Tablet, 40 MG PO BID, (Reported) Ropinirole HCl 3 Mg Tablet, 3 MG PO HS, (Reported) Constitutional: see HPI, No chills, No fever Eyes: No Symptoms Reported Ears, Nose, Mouth, Throat: no symptoms reported Respiratory: No orthopnea, No short of breath Cardiovascular: no symptoms reported Gastrointestinal: No abdominal pain Genitourinary: no symptoms reported Musculoskeletal: muscle weakness Skin: no symptoms reported Psychiatric/Neurological: Weakness All Other Systems Reviewed Negative Unless Noted: Yes Past Suxwvkt-Zxtlcc-Wwslzl Hx Patient Social History Alcohol Use: Denies Use Recreational Drug Use: No Drug of Choice: marijuana Smoking Status: Current Everyday Smoker Type Used: Cigarettes Recent Foreign Travel: No Contact w/Someone Who Travel: No Recent Hopitalizations: No Immunizations Up To Date Tetanus Booster (TDap): More than 5yrs Seasonal Allergies Seasonal Allergies: Yes Surgeries History of Surgeries: Yes Surgeries: Appendectomy, Gallbladder, Tubal Ligation Respiratory Respiratory Disorders: Asthma, Chronic Bronchitis, Sleep Apnea, COPD Currently Using CPAP: No Currently Using BIPAP: No Cardiovascular Cardiac Disorders: Hypertension Neurological Neurological Disorders: Headaches /Migraines, Seizure Disorder, Stroke Reproductive System Hx Reproductive Disorders: No Sexually Transmitted Disease: No HIV/AIDS: No PROPERTY 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 History: Tubal Ligation Gastrointestinal Gastrointestinal Disorders: Gastroesophageal Reflux, Chronic Constipation, Gall Bladder Disease Musculoskeletal Musculoskeletal Disorders: Arthritis, Chronic Back Pain HEENT Loss of Vision: Denies Hearing Impairment: Denies Psychosocial Behavioral Health Disorders: Sleep Difficulties, Anxiety Reviewed Nursing Assessment Reviewed/Agree w Nursing PMH: Yes Family Medical History Significant Family History: No Pertinent Family Hx, Diabetes Family Medial History: Alzheimer's disease G8 BROTHER Completed stroke G8 BROTHER Diabetes mellitus 19 MOTHER Glaucoma 19 FATHER G8 BROTHER Hypertension 19 FATHER G8 BROTHER Myocardial infarction 19 FATHER Physical Exam Vital Signs Vital Sign - Last 12Hours 09/21/17 09/21/17 12:15 13:11 Temp 98.3 Pulse 62 Resp 18 B/P (MAP) 167/77 (107) Pulse Ox 99 O2 Delivery Nasal Cannula O2 Flow Rate 2.00 Capillary Refill : General Appearance: WD/WN, no apparent distress HEENT: PERRL/EOMI, pharynx normal Neck: full range of motion, supple Respiratory: lungs clear, normal breath sounds Cardiovascular: regular rate, rhythm, no murmur Peripheral Pulses: 2+ Dorsalis Pedis (R), 2+ Left Dors-Pedis (L), 2+ Radial Pulses (R), 2+ Radial Pulses (L) Gastrointestinal: non tender, soft Back: normal inspection, no CVA tenderness, no vertebral tenderness Extremities: non-tender, no pedal edema, other (reports unable to move her leg splint using X for balance when sitting and when transferring. No sensation problems noted on the extremities.) Neurologic/Psychiatric: depressed affect, other (slurred words and weak.) Crainal Nerves: abnormal speech, No facial asymmetry, No facial droop, No facial weakness Coordination/Gait: abnormal gait Motor/Sensory: weak motor strength RUE, weak motor strength LUE, weak motor strength RLE, weak motor strength LLE Skin: normal color, warm/dry Focused Exam Evaluation Lactate Level Laboratory Tests 09/21/17 12:24: Lactic Acid Level 1.01 Lactic Acid Level Laboratory Tests Test 09/21/17 12:24 Lactic Acid Level 1.01 MMOL/L (0.50-2.00) Progress/Results/Core Measures Results/Orders Lab Results Laboratory Tests Test 09/21/17 12:24 09/21/17 12:49 Range/Units White Blood Count 7.2 4.3-11.0 10^3/uL Red Blood Count 4.36 4.35-5.85 10^6/uL Hemoglobin 11.7 11.5-16.0 G/DL Hematocrit 37 35-52 % Mean Corpuscular Volume 85 80-99 FL Mean Corpuscular Hemoglobin 27 25-34 PG Mean Corpuscular Hemoglobin Concent 32 32-36 G/DL Red Cell Distribution Width 17.1 H 10.0-14.5 % Platelet Count 265 130-400 10^3/uL Mean Platelet Volume 10.2 7.4-10.4 FL Neutrophils (%) (Auto) 66 42-75 % Lymphocytes (%) (Auto) 23 12-44 % Monocytes (%) (Auto) 8 0-12 % Eosinophils (%) (Auto) 2 0-10 % Basophils (%) (Auto) 1 0-10 % Neutrophils # (Auto) 4.8 1.8-7.8 X 10^3 Lymphocytes # (Auto) 1.7 1.0-4.0 X 10^3 Monocytes # (Auto) 0.6 0.0-1.0 X 10^3 Eosinophils # (Auto) 0.1 0.0-0.3 10^3/uL Basophils # (Auto) 0.0 0.0-0.1 10^3/uL Prothrombin Time 12.1 L 12.2-14.7 SEC INR Comment 0.9 0.8-1.4 Activated Partial Thromboplast Time 32 24-35 SEC D-Dimer 0.49 0.00-0.49 UG/ML Sodium Level 140 135-145 MMOL/L Potassium Level 5.3 H 3.6-5.0 MMOL/L Chloride Level 104 98-107 MMOL/L Carbon Dioxide Level 28 21-32 MMOL/L Anion Gap 8 5-14 MMOL/L Blood Urea Nitrogen 15 7-18 MG/DL Creatinine 1.23 0.60-1.30 MG/DL Estimat Glomerular Filtration Rate 44 BUN/Creatinine Ratio 12 Glucose Level 133 H 70-105 MG/DL Lactic Acid Level 1.01 0.50-2.00 MMOL/L Calcium Level 9.2 8.5-10.1 MG/DL Total Bilirubin 0.2 0.1-1.0 MG/DL Aspartate Amino Transf (AST/SGOT) 13 5-34 U/L Alanine Aminotransferase (ALT/SGPT) 13 0-55 U/L Alkaline Phosphatase 104 40-136 U/L Troponin I < 0.30 <0.30 NG/ML Total Protein 6.9 6.4-8.2 GM/DL Albumin 3.7 3.2-4.5 GM/DL Urine Color YELLOW Urine Clarity SLIGHTLY CLOUDY Urine pH 6.5 5-9 Urine Specific [place] 1.010 L 1.016-1.022 Urine Protein 3+ H NEGATIVE Urine Glucose (UA) NEGATIVE NEGATIVE Urine Ketones NEGATIVE NEGATIVE Urine Nitrite NEGATIVE NEGATIVE Urine Bilirubin NEGATIVE NEGATIVE Urine Urobilinogen NORMAL NORMAL MG/DL Urine Leukocyte Esterase 2+ H NEGATIVE Urine RBC (Auto) 2+ H NEGATIVE Urine RBC 5-10 H /HPF Urine WBC 10-25 H /HPF Urine Squamous Epithelial Cells 2-5 /HPF Urine Crystals NONE /LPF Urine Bacteria LARGE H /HPF Urine Casts NONE /LPF Urine Mucus NEGATIVE /LPF Urine Culture Indicated YES Urine Opiates Screen NEGATIVE NEGATIVE Urine Oxycodone Screen NEGATIVE NEGATIVE Urine Methadone Screen NEGATIVE NEGATIVE Urine Propoxyphene Screen NEGATIVE NEGATIVE Urine Barbiturates Screen NEGATIVE NEGATIVE Ur Tricyclic Antidepressants Screen NEGATIVE NEGATIVE Urine Phencyclidine Screen NEGATIVE NEGATIVE Urine Amphetamines Screen NEGATIVE NEGATIVE Urine Methamphetamines Screen NEGATIVE NEGATIVE Urine Benzodiazepines Screen POSITIVE H NEGATIVE Urine Cocaine Screen NEGATIVE NEGATIVE Urine Cannabinoids Screen NEGATIVE NEGATIVE My Orders Orders - VALENTINE COLES MD Cbc With Automated Diff (09/21/17 12:25) Protime With Inr (09/21/17 12:25) Partial Thromboplastin Time (09/21/17 12:25) Comprehensive Metabolic Panel (09/21/17 12:) Fibrin Degradation Products (09/21/17 12:25) Troponin I (09/21/17 12:25) Ua Culture If Indicated (09/21/17 12:25) Chest 1 View, Ap/Pa Only (09/21/17 12:25) Catheter(Urinary) Insert & Ass 03,15 (09/21/17 12:25) Ekg Tracing (09/21/17 12:25) Nothing By Mouth (09/21/17 Dinner) Accucheck Stat ONCE (09/21/17 12:25) Saline Lock/Iv-Start (09/21/17 12:25) Vital Signs - Stroke Q15M (09/21/17 12:25) Ct Head Wo-R/O Stroke (09/21/17 12:25) O2 (09/21/17 12:25) Intake & Output 06,14,22 (09/21/17 12:25) Monitor-Rhythm Ecg Trace Only (09/21/17 12:25) Dysphagia Screening Tool (09/21/17 12:25) Lactic Acid Analyzer (09/21/17 12:25) Blood Culture (09/21/17 12:25) Sputum Culture (09/21/17 12:25) Vital Signs Adult Sepsis Patie Q1H (09/21/17 12:25) Remove Rings In Anticipation O (09/21/17 12:25) Ns Iv 500 Ml (Sodium Chloride 0.9%) (09/21/17 12:25) Drug Screen Stat (Urine) (09/21/17 12:46) Urine Culture (09/21/17 12:49) Ceftriaxone Injection (Rocephin Injectio (09/21/17 13:30) Medications Given in ED Current Medications Medications Dose Ordered Sig/Rylee Route Start Time Stop Time Status Last Admin Dose Admin Ceftriaxone Sodium 1000 mg/ Sodium Chloride 50 ml @ 100 mls/hr ONCE ONCE IV 09/21/17 13:30 09/21/17 13:59 DC 09/21/17 13:30 100 MLS/HR Sodium Chloride 500 ml @ 0 mls/hr Q0M ONCE IV 09/21/17 12:25 09/21/17 12:30 DC 09/21/17 12:30 500 MLS/HR Vital Signs/I&O Vital Sign - Last 12Hours 09/21/17 09/21/17 09/21/17 12:15 13:08 13:11 Temp 98.3 Pulse 62 65 Resp 18 18 B/P (MAP) 167/77 (107) 153/90 Pulse Ox 99 92 93 O2 Delivery Nasal Cannula O2 Flow Rate 2.00 Progress Note : Progress Note Seen and evaluated. We will initiate both stroke and sepsis workup. IV, labs, EKG, chest x-ray, blood cultures, chest x-ray, CT head, lactic acid and normal saline 500 mL bolus ordered. UA and UDS ordered. This was gained via urinary catheter placement. Monitor patient. 1330: Patient's improved overall. She was able answer questions and follow more details of the story. Rocephin 1 g IV for urinary tract infection that was noted on evaluation. Repeat normal saline 500 mL bolus. Monitor patient. 1455: Patient had walked to the bathroom without difficulty. She walked to the dentist asked to get her IV removed and is ready to go home. No acute findings otherwise except for urinary tract infection. We will treat that outpatient as well. Discharged home with return precautions. Patient verbalize understanding instructions and agreement with plan. ECG Initial ECG Impression Date: Sep 21, 2017 Initial ECG Impression Time: 12:25 Initial ECG Rate: 63 Initial ECG Comparisson: No Previous ECG Available Comment Sinus rhythm with normal axis. No evidence of ST elevation ME. No previous for comparison. Interpreted by me. Diagnostic Imaging Diagonstic Imaging: Xray Plain Films/CT/US/NM/MRI: chest Comments [place], [place] NAME: DENISE ALCOCER [facility] REC#: [id number] PT STATUS: REG ER : 1950 PHYSICIAN: VALENTINE COLES MD ADMIT DATE: 09/21/17/ER Draft Date of Exam:09/21/17 CHEST 1 VIEW, AP/PA ONLY INDICATION: Altered mental status. FINDINGS: The lungs are clear. The heart size and vascularity are normal. There is no effusion or pneumothorax. No acute finding or adverse change from the prior dated 06/07/2016. IMPRESSION: No acute-appearing abnormality. Dictated on workstation # [id number] Dict: 09/21/17 1252 Trans: 09/21/17 1258 [facility] [id number] Interpreted by: BRUCE BA Electronically signed by: Clementina Imaging: CT Plain Films/CT/US/NM/MRI: head Comments [place], [place] NAME: DENISE ALCOCER [facility] REC#: [id number] PT STATUS: REG ER : 1950 PHYSICIAN: VALENTINE COLES MD ADMIT DATE: 09/21/17/ER Draft Date of Exam:09/21/17 CT HEAD WO-R/O STROKE EXAM: CT HEAD WO-R/O STROKE INDICATION: Stroke. Upper and lower extremity weakness. COMPARISON: CT head without contrast 01/12/2016. FINDINGS: No CT evidence of acute infarction. No intracranial hemorrhage, mass effect, hydrocephalus or extra-axial fluid collection. Osseous structures are intact. The visualized paranasal sinuses and mastoids are clear. IMPRESSION: No acute intracranial CT findings. Dictated on workstation # [id number] Dict: 09/21/17 1312 Trans: 09/21/17 1319 [facility] [id number] Interpreted by: EVERETTE BOGGS MD Electronically signed by: Departure Impression Impression: Primary Impression: Benzodiazepine intoxication Additional Impression: Urinary tract infection Qualified Codes: N30.00 - Acute cystitis without hematuria Disposition: HOME, SELF-CARE Condition: Improved Departure-Patient Inst. Decision time for Depature: 15:01 Referrals: NATALYA MCKEON MD (PCP/Family) Primary Care Physician Patient Instructions: Urinary Tract Infection, Adult (DC) Add. Discharge Instructions: Take medications as directed. Drink plenty of fluids. Follow-up with your DrJenny next week for recheck and further evaluation. Return for worse pain, fever, vomiting, weakness, breathing problems or other concerns as needed. Scripts Cephalexin (Cephalexin) 500 Mg Tablet 500 MG PO BID, #14 TAB 0 Refills Prov: VALENTINE COLES MD 09/21/17 Copy Copies To 1: NATALYA MCKEON MD, TIMOTHY D MD Sep 21, 2017 12:56
--- NOTE | 2017-09-21 12:59 | Diagnostic Imaging Report ---
INDICATION: Altered mental status. FINDINGS: The lungs are clear. The heart size and vascularity are normal. There is no effusion or pneumothorax. No acute finding or adverse change from the prior dated 06/07/2016. IMPRESSION: No acute-appearing abnormality. Dictated by: Dictated on workstation # [id number]
[2017-09-21 13:00] LABS: BILIRUBIN,URINE NEGATIVE (NEGATIVE); CLARITY,URINE SLIGHTLY CLOUDY; COLOR,URINE YELLOW; GLUCOSE, URINE (UA) NEGATIVE (NEGATIVE); KETONES,URINE NEGATIVE (NEGATIVE); LEUKOCYTE ESTERASE ,URINE 2+ (NEGATIVE); NITRITE,URINE NEGATIVE (NEGATIVE); PH,URINE 6.5 (5-9); PROTEIN,URINE 3+ (NEGATIVE); UROBILINOGEN,URINE NORMAL (NORMAL)
[2017-09-21 13:08] VITALS: BP 153/90
[2017-09-21 13:09] LABS: AMPHETAMINE SCREEN, URINE NEGATIVE (NEGATIVE); BARBITURATE SCREEN URINE NEGATIVE (NEGATIVE); BENZODIAZEPINES SCREEN URINE POSITIVE (NEGATIVE); CANNABINOID SCREEN, URINE NEGATIVE (NEGATIVE); COCAINE SCREEN URINE NEGATIVE (NEGATIVE); METHADONE STAT NEGATIVE (NEGATIVE); METHAMPHETAMINE SCREEN URINE S NEGATIVE (NEGATIVE); OPIATE SCREEN URINE NEGATIVE (NEGATIVE); OXYCODONE STAT NEGATIVE (NEGATIVE); PROPOXYPHENE STAT NEGATIVE (NEGATIVE); TRICYCLIC ANTIDEPRESSANTS SCRE NEGATIVE (NEGATIVE)
[2017-09-21 13:15] LABS: BACTERIA,URINE LARGE /HPF
--- NOTE | 2017-09-21 13:19 | Diagnostic Imaging Report ---
EXAM: CT HEAD WO-R/O STROKE INDICATION: Stroke. Upper and lower extremity weakness. COMPARISON: CT head without contrast 01/12/2016. FINDINGS: No CT evidence of acute infarction. No intracranial hemorrhage, mass effect, hydrocephalus or extra-axial fluid collection. Osseous structures are intact. The visualized paranasal sinuses and mastoids are clear. IMPRESSION: No acute intracranial CT findings. Dictated by: Dictated on workstation # [id number]
[2017-09-21] MEDS ORDERED: cefTRIAXone INJECTION 1,000 MG in NS (IVPB) 50 ML IV ONE (13:30)
[2017-09-21] MEDS ORDERED: CEPH500T PO (15:03)
[2017-09-21 15:11] VITALS: BP 148/99
== END 2017-09-21 15:10 | disposition home or self-care (01) ==
LOC: EDUNIT# 12:13 → ER 12:14
DX: M62.81 Muscle weakness (generalized) (principal); T42.4X5A Adverse effect of benzodiazepines, initial encounter; N39.0 Urinary tract infection, site not specified; J44.9 Chronic obstructive pulmonary disease, unspecified; G47.30 Sleep apnea, unspecified; I10 Essential (primary) hypertension; G43.909 Migraine, unspecified, not intractable, without status migrainosus; G40.909 Epilepsy, unspecified, not intractable, without status epilepticus; K21.9 Gastro-esophageal reflux disease without esophagitis; F41.9 Anxiety disorder, unspecified; F17.210 Nicotine dependence, cigarettes, uncomplicated; F12.10 Cannabis abuse, uncomplicated; Z90.49 Acquired absence of other specified parts of digestive tract; Z82.49 Family history of ischemic heart disease and other diseases of the circulatory system; Z87.19 Personal history of other diseases of the digestive system; Z98.51 Tubal ligation status; Z79.82 Long term (current) use of aspirin
CPT/HCPCS: 36415; 70450; 71045; 80053; 80306; 81000; 83605; 84484; 85025; 85379; 85610; 85730; 87040; 87077; 87088; 87186; 93005; 93041

== ENCOUNTER 2019-07-13 05:28 | Observation (INO) | payer MEDICARE, MEDICAID ==
[2019-07-13] VITALS (12 sets, daily range): BP systolic 131–199; BP diastolic 60–109
[~2019-07-13] VITALS: Ht 152.4 cm; Wt 75.3 kg
[~2019-07-13 05:28] MED LIST changes: +CEPH500T PO; -DULO30CA48 PO; +DULO30CA49 PO; +OMEP20CA13 PO; +ROPI3TAB4 PO; -ROPI4TAB3 PO; +ROPI4TAB5 PO
[2019-07-13] MEDS: NITROGLYCERIN 0.4 MG SL TABS BTL 25'S SL PRN ×2 (05:30→05:45)
[2019-07-13 05:44] LABS: BASOPHILS # (AUTO) 0.1 10^3/uL (0.0-0.1); BASOPHILS % (AUTO) 1 % (0-10); EOSINOPHILS # (AUTO) 0.2 10^3/uL (0.0-0.3); EOSINOPHILS % (AUTO) 2 % (0-10); HEMATOCRIT 43 % (35-52); HEMOGLOBIN 14.2 G/DL (11.5-16.0); LYMPHOCYTES # (AUTO) 1.9 X 10^3 (1.0-4.0); LYMPHOCYTES % (AUTO) 20 % (12-44); MEAN CORPUSCULAR HEMOGLOBIN 31 PG (25-34); MEAN CORPUSCULAR HGB CONC 33 G/DL (32-36); MEAN CORPUSCULAR VOLUME 93 FL (80-99); MEAN PLATELET VOLUME 9.9 FL (7.4-10.4); MONOCYTES # (AUTO) 0.7 X 10^3 (0.0-1.0); MONOCYTES % (AUTO) 8 % (0-12); NEUTROPHILS # (AUTO) 6.6 X 10^3 (1.8-7.8); NEUTROPHILS % (AUTO) 70 % (42-75); PLATELET COUNT 244 10^3/uL (130-400); RED CELL DISTRIBUTION WIDTH 15.3 % (10.0-14.5); WHITE BLOOD COUNT 9.4 10^3/uL (4.3-11.0)
[2019-07-13] MEDS ORDERED: ASPIRIN 81 MG CHEW (CHILDREN'S ASA) PO ONE (05:45)
[2019-07-13] MEDS ORDERED: NITROGLYCERIN 2% OINT 1 GM UNIT DOSE PACKET TOP ONE (05:45)
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
[2019-07-13 05:58] LABS: INR 0.9 (0.8-1.4); PROTHROMBIN TIME PATIENT 12.6 SEC (12.2-14.7)
[2019-07-13 06:05] LABS: ALANINE AMINOTRANSFERASE 16 U/L (0-55); ALBUMIN 4.7 GM/DL (3.2-4.5); ALKALINE PHOSPHATASE 97 U/L (40-136); AMYLASE 30 U/L (25-125); BILIRUBIN,TOTAL 0.4 MG/DL (0.1-1.0); BUN/CREATININE RATIO 16; CALCIUM 10.7 MG/DL (8.5-10.1); CARBON DIOXIDE 23 MMOL/L (21-32); CHLORIDE 103 MMOL/L (98-107); CREATINE KINASE 75 U/L (29-168); GFR ESTIMATED 32; GLUCOSE 127 MG/DL (70-105); LIPASE 16 U/L (8-78); POTASSIUM 4.2 MMOL/L (3.6-5.0); SODIUM 138 MMOL/L (135-145); TOTAL PROTEIN 8.1 GM/DL (6.4-8.2)
[2019-07-13 06:13] LABS: CREATINE KINASE MB 1.5 NG/ML (<6.6)
[2019-07-13] MEDS ORDERED: hydrALAZINE (APESOLINE) 20 MG/ML VIAL IV ONE ×2 (06:30→07:45)
[2019-07-13] MEDS ORDERED: ENOXAPARIN 80 MG/0.8 ML (LOVENOX) SYR SC ONE (07:00)
--- NOTE | 2019-07-13 07:09 | Diagnostic Imaging Report ---
INDICATION: Chest pain COMPARISON: 09/21/2017 FINDINGS: Single view of the chest demonstrates clear lungs bilaterally. The heart is normal. There is no pneumothorax. Osseous structures are normal. IMPRESSION: Negative chest. Dictated by: Dictated on workstation # [id number]
[2019-07-13] MEDS ORDERED: morphine INJ 4 MG/ML 1 ML (VIAL/SYRINGE) IV PRN (09:30)
[2019-07-13] MEDS ORDERED: LORazepam INJ 2 MG/ML (ATIVAN) VIAL IV PRN (09:30)
[2019-07-13] MEDS ORDERED: hydrALAZINE (APESOLINE) 20 MG/ML VIAL IV PRN (09:30)
[2019-07-13] MEDS ORDERED: NS IV 1000 ML 1,000 ML ONE (09:37)
[2019-07-13] MEDS ORDERED: NS IV 1000 ML 1,000 ML IV SCH (09:45)
[2019-07-13] MEDS ORDERED: amLODIPine 10 MG (NORVASC) TAB PO ONE (11:15)
[2019-07-13] MEDS ORDERED: CLOPIDOGREL 300 MG (PLAVIX) TABLET PO ONE (11:15)
[2019-07-13] MEDS ORDERED: meTOprolol SUCCINATE 100 MG (TOPROL XL) TAB PO ONE (11:15)
[2019-07-13] MEDS: NITROGLYCERIN 2% OINT 1 GM UNIT DOSE PACKET TOP SCH ×2 (12:06→16:15)
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
[2019-07-13] MEDS ORDERED: NICOTINE 2 MG GUM (NICORETTE) PO PRN (14:00)
[2019-07-13] MEDS ORDERED: NICOTINE 21 MG (NICODERM) PATCH TD ONE (14:00)
[2019-07-13] MEDS ORDERED: ACETAMINOPHEN 325 MG TABLET PO PRN (20:15)
[2019-07-13] MEDS: RT-LEVALBUTEROL (XOPENEX) 1.25 MG/3 ML NEB NON-FORMULARY INH SCH ×2 (20:23→21:37)
[2019-07-13] MEDS: NS IV 1000 ML 1,000 ML IV SCH (21:40)
[2019-07-14] VITALS (7 sets, daily range): BP systolic 146–184; BP diastolic 60–112
[2019-07-14] MEDS: NITROGLYCERIN 2% OINT 1 GM UNIT DOSE PACKET TOP SCH ×3 (00:50→11:28)
[2019-07-14 03:53] LABS: BASOPHILS % (AUTO) 0 % (0-10); EOSINOPHILS # (AUTO) 0.2 10^3/uL (0.0-0.3); EOSINOPHILS % (AUTO) 3 % (0-10); HEMATOCRIT 39 % (35-52); HEMOGLOBIN 12.8 G/DL (11.5-16.0); LYMPHOCYTES # (AUTO) 1.5 X 10^3 (1.0-4.0); LYMPHOCYTES % (AUTO) 26 % (12-44); MEAN CORPUSCULAR HEMOGLOBIN 31 PG (25-34); MEAN CORPUSCULAR HGB CONC 33 G/DL (32-36); MEAN CORPUSCULAR VOLUME 94 FL (80-99); MEAN PLATELET VOLUME 10.3 FL (7.4-10.4); MONOCYTES # (AUTO) 0.4 X 10^3 (0.0-1.0); MONOCYTES % (AUTO) 8 % (0-12); NEUTROPHILS # (AUTO) 3.6 X 10^3 (1.8-7.8); NEUTROPHILS % (AUTO) 63 % (42-75); PLATELET COUNT 196 10^3/uL (130-400); RED CELL DISTRIBUTION WIDTH 15.2 % (10.0-14.5); WHITE BLOOD COUNT 5.8 10^3/uL (4.3-11.0)
[2019-07-14 04:12] LABS: ALBUMIN 3.5 GM/DL (3.2-4.5); BILIRUBIN,TOTAL 0.3 MG/DL (0.1-1.0); CALCIUM 9.1 MG/DL (8.5-10.1); CREATININE SERUM 1.15 MG/DL (0.60-1.30); TOTAL PROTEIN 6.1 GM/DL (6.4-8.2)
[2019-07-14 04:13] LABS: CHOLESTEROL 202 MG/DL (< 200); HDL CHOLESTEROL 35 MG/DL (40-60); TRIGLYCERIDES 201 MG/DL (<150); VLDL CHOLESTEROL 40 MG/DL (5-40)
[2019-07-14] MEDS: RT-LEVALBUTEROL (XOPENEX) 1.25 MG/3 ML NEB NON-FORMULARY INH SCH (07:03)
[2019-07-14] MEDS: NS IV 1000 ML 1,000 ML IV SCH (07:26)
--- NOTE | 2019-07-14 08:13 | Discharge Inst-Simple/Standard ---
Discharge Inst-Standard Reconcile Patient Problems Problems Reviewed?: Yes Patient Instructions/Follow Up Plan of Care/Instructions/FU: Please continue to take your medications as written. Please follow up with Dr Mccarthy and with Dr Sahu as scheduled to follow up this hospital stay. Activity as Tolerated: Yes Discharge Diet: Cardiac Diet Return to The Hospital For: Chest pain, shortness of breath, if you feel you are getting worse. FREDO GRANDE MD Jul 14, 2019 08:13 POS
--- NOTE | 2019-07-14 08:24 | NUR ---
THIS NURSE NOTIFIED DR LROA THAT PT HEART RATE WAS IN THE 40S LAST NIGHT. DC 200 MG OF METOPROLOL XL PO DAILY. NEW ORDER GIVEN FOR 100 MG OF METOPROLOL XL PO DAILY.
[2019-07-14] MEDS ORDERED: amLODIPine 10 MG (NORVASC) TAB PO SCH (09:00)
[2019-07-14] MEDS ORDERED: ASPIRIN 81 MG CHEW (CHILDREN'S ASA) PO SCH (09:00)
[2019-07-14] MEDS ORDERED: PATCH REMOVAL TP SCH (09:00)
[2019-07-14] MEDS ORDERED: meTOprolol SUCCINATE 100 MG (TOPROL XL) TAB PO SCH (09:00)
[2019-07-14] MEDS ORDERED: CLOPIDOGREL 75 MG (PLAVIX) TABLET PO SCH (09:00)
[2019-07-14] MEDS ORDERED: NICOTINE 21 MG (NICODERM) PATCH TD SCH (09:00)
[2019-07-14] MEDS ORDERED: ASPIRIN E.C. 81 MG (ECOTRIN) TAB PO SCH (09:00)
--- NOTE | 2019-07-14 09:00 | NUR ---
PT NOTIFIED NURSE SHE TOOK 1/2 A TAB OF HER PERCOCET LAST NIGHT. PT REFUSED TO GIVE THE NURSE HER HOME MEDICATIONS. NOTIFIED HYDROMETER CALIBRATOR KELLY. NOTIFIED DR GRANDE AT 0926. DR GRANDE STATED SHE WILL LOOK OVER MEDICATIONS ONCE MED REC IS COMPLETED.
[2019-07-14] MEDS ORDERED: ALPR1TAB7 PO (09:47)
[2019-07-14] MEDS ORDERED: OXYC-465 PO (09:47)
[2019-07-14] MEDS ORDERED: ALBU18HF2 INH (09:47)
[2019-07-14] MEDS ORDERED: PANT40TA3 PO (09:47)
[2019-07-14] MEDS ORDERED: OXYB10TA PO ×2 (09:47)
[2019-07-14] MEDS ORDERED: ZOLP10TA5 PO (09:47)
[2019-07-14] MEDS ORDERED: ACET-2267 PO (09:47)
[2019-07-14] MEDS ORDERED: SILV25CR21 TOP (09:47)
--- NOTE | 2019-07-14 09:51 | NUR ---
WENT OVER THE EXT MED HX WITH THE PATIENT AND SHE VERIFIED HOW SHE TAKES EACH MEDICATION. SHE TAKES TYLENOL NEEDED AND ASPIRIN 81MG DAILY OTC.
[2019-07-14] MEDS ORDERED: ALPRAZolam 1 MG (XANAX) TAB PO PRN (10:15)
[2019-07-14] MEDS ORDERED: PATIENT MAY USE OWN MEDS, ALL MC SCH (10:15)
[2019-07-14] MEDS ORDERED: oxyCODONE/APAP 10/325MG (PERCOCET 10) TABLET PO PRN (10:15)
[2019-07-14] MEDS ORDERED: ACETAMINOPHEN 500 MG TAB (TYLENOL) PO PRN (10:15)
[2019-07-14] MEDS ORDERED: OXYBUTYNIN CHLORIDE 5 MG PO PRN (10:15)
--- NOTE | 2019-07-14 10:24 | Progress Note - Cardiology ---
Cardiology SOAP Progress Note Subjective: No cp Shortness of breath much improved No palp or syncope Feels well. Does not wish to stay in the hospital any longer. Refuses cardiac w/u Objective: I&O/Vital Signs 07/13/19 07/13/19 07/13/19 07/14/19 23:00 23:15 23:49 00:00 Pulse 44 44 53 Resp 15 13 11 B/P (MAP) 182/90 (120) 159/76 (103) 189/88 (121) Pulse Ox 95 91 96 95 O2 Delivery Room Air Room Air Nasal Cannula Nasal Cannula O2 Flow Rate 3.00 3.00 07/14/19 07/14/19 07/14/19 07/14/19 00:00 01:00 01:00 02:00 Pulse 50 54 54 49 Resp 14 17 19 B/P (MAP) 170/83 (112) 153/112 (126) 184/85 (118) Pulse Ox 96 97 97 O2 Delivery Nasal Cannula Nasal Cannula Nasal Cannula O2 Flow Rate 3.00 3.00 3.00 07/14/19 07/14/19 07/14/19 07/14/19 04:00 04:00 05:00 06:00 Pulse 40 45 45 Resp 13 14 15 B/P (MAP) 166/67 (100) 157/75 (102) 146/60 (88) Pulse Ox 96 98 98 100 O2 Delivery Nasal Cannula Nasal Cannula Nasal Cannula Nasal Cannula O2 Flow Rate 3.00 3.00 3.00 3.00 07/14/19 07/14/19 07/14/19 07/14/19 07:00 07:03 08:00 08:00 Pulse 49 50 Resp 21 B/P (MAP) 153/71 (98) Pulse Ox 95 91 O2 Delivery Room Air Nasal Cannula Room Air O2 Flow Rate 0.00 3.00 07/14/19 00:00 Intake Total 3550 ml Output Total 3200 ml Balance 350 ml Weight (Pounds): 185 Weight (Ounces): 1.0 Weight (Calculated Kilograms): 83.009471 Constitutional: AAO x 3, well-developed, well-nourished Respiratory: No accessory muscle use; other (generally diminished air entry and prolonged exp phase; exp wheezes present) Cardiovascular: regular rate-rhythm, S1 and S2, systolic murmur (soft CLARENCE at card base) Gastrointestional: No tender; soft; No guarding, No rebound; audible bowel sounds Extremities: No clubbing, No cyanosis, No significant edema Neurologic/Psychiatric: oriented x 3, other (moves all limbs equally) Skin: No rash on exposed areas, No ulcerations on exposed areas Results/Procedures: Labs Laboratory Tests 07/13/19 18:35: Troponin I < 0.028 07/14/19 03:30: White Blood Count 5.8, Red Blood Count 4.16L, Hemoglobin 12.8, Hematocrit 39, Mean Corpuscular Volume 94, Mean Corpuscular Hemoglobin 31, Mean Corpuscular Hemoglobin Concent 33, Red Cell Distribution Width 15.2H, Platelet Count 196, Mean Platelet Volume 10.3, Neutrophils (%) (Auto) 63, Lymphocytes (%) (Auto) 26, Monocytes (%) (Auto) 8, Eosinophils (%) (Auto) 3, Basophils (%) (Auto) 0, Neutrophils # (Auto) 3.6, Lymphocytes # (Auto) 1.5, Monocytes # (Auto) 0.4, Eosinophils # (Auto) 0.2, Basophils # (Auto) 0.0, Sodium Level 144, Potassium Level 4.0, Chloride Level 113#H, Carbon Dioxide Level 20L, Anion Gap 11, Blood Urea Nitrogen 13, Creatinine 1.15, Estimat Glomerular Filtration Rate 47, BUN/Creatinine Ratio 11, Glucose Level 101, Calcium Level 9.1, Corrected Calcium 9.5, Total Bilirubin 0.3, Aspartate Amino Transf (AST/SGOT) 19, Alanine Aminotransferase (ALT/SGPT) 13, Alkaline Phosphatase 81, Total Protein 6.1L, Albumin 3.5, Triglycerides Level 201H, Cholesterol Level 202H, LDL Cholesterol Direct 133H, VLDL Cholesterol 40, HDL Cholesterol 35L Laboratory Tests 07/13/19 05:35 07/14/19 03:30 A/P: Assessment: Chest discomfort of undetermined etiology. No evidence of ACS Severe hypertension, improved Echo of 07/13/19: LVEF 60-65%, grade 1 diastolic dysfunction, RVSP estimated to be within normal limits Ac exacerbation of COPD, likely due to lower respiratory infection Hyperlipidemia Anxiety Chronic heavy tobacco use (smoking cigarettes). Advised to quit Ac kidney injury 2-3, likely due to volume contraction due to chronic diuretic use, resolved after iv fluids on 07/13/19 Plan: * She has many cor risk factors. We discussed them all. We advised risk factor modification. We advised compliance with meds * We advised coronary risk stratification, given symptoms in the presence of multiple risk factors. She fully understands the issues, yet refuses any further w/u. Wishes to home. Does agree to compliance with meds and outpt f/u * We advised her to quit smoking immediately and completely * Treat with beta-cornelio, DAPT, amlodipine, and statin. BB reduced today because of sinus alicia (albeit aymptomatic) * Given ac kidney injury from diuretic use, we recommend d/c diuretics Clinical Quality Measures AMI/AHF: ASA po Prior to arrival: Yes (81) CLEMENT LORA MD FACP FAC CCDS Jul 14, 2019 10:24 POS
[2019-07-14] MEDS ORDERED: AMLO10TA7 PO (10:36)
[2019-07-14] MEDS ORDERED: ATOR40TA PO (10:36)
[2019-07-14] MEDS ORDERED: CLOP75TA28 PO (10:36)
[2019-07-14] MEDS ORDERED: METO-395 PO (10:36)
--- NOTE | 2019-07-14 10:37 | Discharge Summary ---
Diagnosis/Chief Complaint Date of Admission Jul 13, 2019 at 06:35 Date of Discharge Discharge Date: Jul 14, 2019 Admission Diagnosis Chest pain Primary Care Cliff Mccarthy MD Discharge Diagnosis (1) Chest pain Status: Acute (2) Hypertensive urgency Status: Acute (3) COPD without exacerbation Status: Chronic (4) Tobacco abuse Status: Chronic Discharge Summary Procedures/Consulations Dr Sahu. cardiology Discharge Physical Exam Allergies: Coded Allergies: Iodinated Contrast Media (Verified Allergy, Unknown, 09/21/17) Vitals & I&Os Vital Signs Date Time Temp Pulse Resp B/P (MAP) Pulse Ox O2 Delivery O2 Flow Rate FiO2 07/14/19 14:58 07/14/19 12:00 62 13 Nasal Cannula 3.00 07/14/19 08:00 91 07/13/19 20:00 36.1 General Appearance: No Apparent Distress, Chronically ill Respiratory: Lungs Clear, No Respiratory Distress Cardiovascular: Regular Rate, Rhythm, No Murmur Neurologic/Psychiatric: Alert, Oriented x3 Hospital Course patient is a 68-year-old female who was admitted with chest pain. Serial troponins were done and were negative. Given her risk factors it was felt that MPI or cardiac would be the most appropriate course of action the patient declined. I discussed with her the risk and benefits of this including undetected coronary artery disease that could lead to her . she expressed understanding and still declined further evaluation. she was treated with conservative measures. She was started on high intensity statin and Plavix. She is to follow-up with Dr. Sahu as an outpatient. Labs (last 24 hrs) Patient resulted labs reviewed. Pending Labs Imaging: Reviewed Imaging Report Discussion & Recommendations Discharge Planning: >30 minutes discharge planning Discharge Home Medications: Active Scripts Active Lipitor (Atorvastatin Calcium) 40 Mg Tablet 40 Mg PO HS Amlodipine Besylate 10 Mg Tablet 10 Mg PO DAILY Metoprolol Succinate 100 Mg Tab.er.24h 100 Mg PO DAILY Clopidogrel (Clopidogrel Bisulfate) 75 Mg Tablet 75 Mg PO DAILY Reported Tylenol Extra Strength (Acetaminophen) 500 Mg Tablet 1,000 Mg PO Q4H PRN Ventolin Hfa (Albuterol Sulfate) 18 Gm Hfa.aer.ad 2 Puff INH Q4H PRN Pantoprazole Sodium 40 Mg Tablet.dr 40 Mg PO DAILY Oxybutynin Chloride ER (Oxybutynin Chloride) 10 Mg Tab.er.24 5 Mg PO HS PRN TAKES 1/2 (10MG) TABLET Oxybutynin Chloride ER (Oxybutynin Chloride) 10 Mg Tab.er.24 5 Mg PO DAILY TAKES 1/2 (10MG) TABLET Oxycodone-Acetaminophen 10-325 (Oxycodone HCl/Acetaminophen) 1 Each Tablet 1 Tab PO Q8H PRN Zolpidem Tartrate 10 Mg Tablet 10 Mg PO HS Ssd (Silver Sulfadiazine) 25 Gm Cream..g. TOP DAILY APPLY TO SORE ON LEG Alprazolam 1 Mg Tablet 1 Mg PO TID PRN Aspirin EC (Aspirin) 81 Mg Tablet.dr 81 Mg PO DAILY Gabapentin 300 Mg Capsule 600 Mg PO QID TAKES 2 (300MG) CAPSULES Instructions to patient/family Please see electronic discharge instructions given to patient. Clinical Quality Measures AMI/AHF: ASA po Prior to arrival: Yes (81) DVT/VTE Risk/Contraindication: Risk Factor Score Per Nursin RFS Level Per Nursing on Admit: 3=High Problem Qualifiers (1) Chest pain: Qualified Codes: R07.9 - Chest pain, unspecified FREDO GRANDE MD Jul 14, 2019 10:37 POS
[2019-07-14] MEDS ORDERED: PROPRANOLOL HCL 40 MG PO SCH (10:45)
[2019-07-14] MEDS ORDERED: OXYBUTYNIN (DITROPAN) 5 MG TAB PO SCH (11:45)
[2019-07-14] MEDS ORDERED: GABAPENTIN 300 MG (NEURONTIN) CAP PO SCH (13:00)
--- NOTE | 2019-07-14 14:53 | NUR ---
Initial visit. The pt is Mos[facility]. Pt shared she was being discharged to today and was feeling better. She said staff were helpful and kind during her stay.
[2019-07-14] MEDS ORDERED: ZOLPIDEM 10 MG PO SCH (21:00)
[2019-07-15] MEDS ORDERED: meTOprolol SUCCINATE 100 MG (TOPROL XL) TAB PO SCH (09:00)
[2019-07-15] MEDS ORDERED: PANTOPRAZOLE 40 MG (PROTONIX) TAB PO SCH (09:00)
[2019-07-15] MEDS ORDERED: ASPIRIN E.C. 81 MG (ECOTRIN) TAB PO SCH (09:00)
== END 2019-07-14 10:38 | disposition home or self-care (01) ==
LOC: EDUNIT# 05:28 → ER 05:30 → UNDOADMOB 06:35 → ICU 06:35 → UNDODISOB 07-14 12:49
PROVIDERS: ADMIT Internal Medicine; ATTEND Family Medicine
DX: R07.9 Chest pain, unspecified (principal); I16.0 Hypertensive urgency; G47.30 Sleep apnea, unspecified; F17.210 Nicotine dependence, cigarettes, uncomplicated; G43.909 Migraine, unspecified, not intractable, without status migrainosus; G40.909 Epilepsy, unspecified, not intractable, without status epilepticus; K21.9 Gastro-esophageal reflux disease without esophagitis; K59.09 Other constipation; G25.81 Restless legs syndrome; M19.90 Unspecified osteoarthritis, unspecified site; N28.9 Disorder of kidney and ureter, unspecified; J44.9 Chronic obstructive pulmonary disease, unspecified; R26.9 Unspecified abnormalities of gait and mobility; F41.9 Anxiety disorder, unspecified; Z91.041 Radiographic dye allergy status; Z79.82 Long term (current) use of aspirin; Z79.891 Long term (current) use of opiate analgesic; Z90.89 Acquired absence of other organs; Z98.51 Tubal ligation status; Z90.49 Acquired absence of other specified parts of digestive tract; Z82.49 Family history of ischemic heart disease and other diseases of the circulatory system; Z82.3 Family history of stroke
CPT/HCPCS: 36415; 71045; 80053; 80061; 82150; 82550; 82553; 83690; 83735; 83874; 83880; 84484; 85025; 85610; 85730; 93005; 93041; 93306; 94640

== ENCOUNTER 2022-11-11 18:47 | Inpatient (IN) | payer MEDICARE, MEDICAID ==
[~2022-11-11] VITALS: Ht 149.9 cm; Wt 67.8 kg
[~2022-11-11 18:47] MED LIST changes: +ALBU18HF2 INH; +ALBU8.5H6 INH; +ALPR1TAB7 PO; +AMLO-251 PO; +ASPI-1238 PO; -ASPI-983 PO; +ATOR40TA PO; +CLOP75TA28 PO; +CYCL10TA25 PO; -CYCL10TA9 PO; +ETOD400T3 PO; +MTP100TCR PO; -OMEP20CA13 PO; +OMEP20CA18 PO; +OXYB10TA29 PO; +OXYC-556 PO; +PANT40TA52 PO; -RT-ALBUINH INH; +SILV25CR21 TOP; -SULF1TAB35 PO; +SULF1TAB38 PO
[2022-11-11] MEDS ORDERED: methylPREDNISolone 125 MG (Solu-MEDROL) VIAL IV STA (18:58)
--- NOTE | 2022-11-11 19:27 | Diagnostic Imaging Report ---
INDICATION: Dyspnea. COMPARISON: 07/13/2019. FINDINGS: The lungs are clear. No failure, effusion or pneumothorax. IMPRESSION: No acute abnormality. Dictated by: Dictated on workstation # [id number]
--- NOTE | 2022-11-11 19:34 | ED Respiratory ---
General Chief Complaint: Respiratory Problems Stated Complaint: SOB Nursing Triage Note: PT BROUGHT IN BY [facility] FROM HOME WITH COMPLAINT OF SOA. PT HAS COPD AND IS SUPPOSED TO WEAR HOME O2, BUT STATES SHE ONLY WEARS IT WHEN SHE WANTS TO. STATES IS OUT OF HER INHALERS, BECAUSE SHE DOESNT USE THEM ALL THE TIME. DENIES CP Source: patient (EXTREMELY DIFFICULT HISTORIAN AND GIVES MUCH CONFLICTING INFORMATION. ), old records (ALL PMH IS FROM OLD RECORDS) History of Present Illness Date Seen by Provider: Nov 11, 2022 Time Seen by Provider: 18:53 Initial Comments PT ARRIVES VIA EMS FROM HOME C/O SHORTNESS OF BREATH--IS UNABLE TO STATE HOW LONG SHE HAS FELT THIS WAY OR WHEN SYMPTOMS WORSENED. PT ARRIVES WITH HEAVILY TOBACCO-STAINED OXYGEN TUBING IN PLACE, YET ON QUESTIONING HER ABOUT HOME OXYGEN USE, SHE STATES THAT SHE DOES NOT HAVE HOME O XYGEN. SHE LATER TOLD RN THAT SHE "HAS A LITTLE MACHINE" THAT SHE USES WHEN SHE WANTS TO --IS UNCLEAR IF THIS IS ACTUAL O2 OR IF IT IS A NEBULIZER. SHE IS ALSO UNABLE TO STATE WHEN SHE LAST USED "THE LITTLE MACHINE" IS EXTREMELY DIFFICULT TO DETERMINE WHEN OR IF SHE HAS INHALERS AT HOME OR IF SHE HAS BEEN USING THEM SHE LATER REPORTED TO RN THAT SHE IS OUT OF HER INHALERS, BUT CANNOT STATE WHAT THEY ARE OR WHEN SHE RAN OUT/WHEN SHE LAST USED THEM. PT STATES SHE CONTINUES TO SMOKE BUT WILL N0T STATE HOW MUCH SHE SMOKES SHE DOES DENY CHEST PAIN ON DIRECT QUESTIONING SHE DOES ADMIT TO LEFT LEG SWELLING, BUT IS UNABLE TO STATE HOW LONG THIS HAS BEEN PRESENT UNABLE TO OBTAIN ANY HISTORY BEYOND THIS. PT IS YELLING ON ARRIVAL, AND IS VERY UNCOOPERATIVE, AND INITIALLY SHE REFUSED AND IV AND ALL TREATMENT PT STATES ON ARRIVAL "I'M A FULL-FLEDGED BITCH" EMS REPORTS THAT HER O2 SATS WERE IN THE LOW 90'S ON THEIR ARRIVAL, PLACED ON O2 AT 2L/NC AND O2 SATS UP TO MID 90'S EMS ALSO GAVE DUO NEB TREATMENT PRIOR TO ARRIVAL PT REFUSED IV BY EMS. PCP: DANNA Allergies and Home Medications Allergies Coded Allergies: Iodinated Contrast Media (Verified Allergy, Unknown, 09/21/17) Patient Home Medication List Home Medication List Reviewed: Yes Acetaminophen (Tylenol Extra Strength) 500 Mg Tablet, 1,000 MG PO Q4H PRN for PAIN-MILD, (Reported) Entered as Reported by: JUANPABLO BARAHONA on 07/14/19 09 Albuterol Sulfate (Ventolin Hfa) 18 Gm Hfa.aer.ad, 2 PUFF INH Q4H PRN for SHORTNESS OF BREATH, (Reported) Entered as Reported by: JUANPABLO BARAHONA on 07/14/19946 Alprazolam (Alprazolam) 1 Mg Tablet, 1 MG PO TID PRN for ANXIETY, (Reported) Entered as Reported by: JUANPABLO BARAHONA on 07/14/19946 Amlodipine Besylate (Amlodipine Besylate) 10 Mg Tablet, 10 MG PO DAILY Prescribed by: FREDO GRANDE on 07/14/19 103 Aspirin (Aspirin EC) 81 Mg Tablet.dr, 81 MG PO DAILY, (Reported) Entered as Reported by: JUANPABLO BARAHONA on 01/24/16 1523 Atorvastatin Calcium (Lipitor) 40 Mg Tablet, 40 MG PO HS Prescribed by: FREDO GRANDE on 07/14/19 103 Clopidogrel Bisulfate (Clopidogrel) 75 Mg Tablet, 75 MG PO DAILY Prescribed by: FREDO GRANDE on 07/14/19 103 Gabapentin (Gabapentin) 300 Mg Capsule, 600 MG PO QID, (Reported) Entered as Reported by: JUANPABLO BARAHONA on 01/24/16 1513 Metoprolol Succinate (Metoprolol Succinate) 100 Mg Tab.er.24h, 100 MG PO DAILY Prescribed by: FREDO GRANDE on 07/14/19 1036 Oxybutynin Chloride (Oxybutynin Chloride ER) 10 Mg Tab.er.24, 5 MG PO DAILY, (Reported) Entered as Reported by: JUANPABLO BARAHONA on 07/14/19946 Oxybutynin Chloride (Oxybutynin Chloride ER) 10 Mg Tab.er.24, 5 MG PO HS PRN for URGENCY, (Reported) Entered as Reported by: JUANPABLO BARAHONA on 07/14/19946 Oxycodone HCl/Acetaminophen (Oxycodone-Acetaminophen 10-325) 1 Each Tablet, 1 TAB PO Q8H PRN for PAIN-MODERATE, (Reported) Entered as Reported by: JUANPABLO BARAHONA on 07/14/19 09 Pantoprazole Sodium (Pantoprazole Sodium) 40 Mg Tablet.dr, 40 MG PO DAILY, (Reported) Entered as Reported by: JUANPABLO BARAHONA on 07/14/19946 Silver Sulfadiazine (Ssd) 25 Gm Cream..g., TOP DAILY, (Reported) Entered as Reported by: JUANPABLO BARAHONA on 07/14/19946 Zolpidem Tartrate (Zolpidem Tartrate) 10 Mg Tablet, 10 MG PO HS, (Reported) Entered as Reported by: JUANPABLO BARAHONA on 07/14/19946 Review of Systems Review of Systems Constitutional: see HPI Respiratory: see HPI Cardiovascular: see HPI Musculoskeletal: see HPI, other (LEFT LEG SWELLING NOTED--PT IS UNABLE TO STATE HOW LONG THAT HAS BEEN PRESENT. ) Past Uesinjf-Jdziuz-Hdyleo Hx Patient Social History Tobacco Use?: Yes Tobacco type used: Cigarettes Smoking Status: Current Everyday Smoker Use of E-Cig and/or Vaping dev: No Substance use?: No Alcohol Use?: No Pt feels they are or have been: No Immunizations Up To Date Tetanus Booster (TDap): More than 5yrs PED Vaccines UTD: Yes Seasonal Allergies Seasonal Allergies: Yes Past Medical History Surgeries: Yes Appendectomy, Gallbladder, Tubal Ligation Respiratory: Yes (NO COMPLICANT WITH WEARING O2, AND CONTINUES TO SMOKE 3 PPD) Asthma, Chronic Bronchitis, Sleep Apnea, COPD Currently Using CPAP: No Currently Using BIPAP: No Cardiac: Yes Hypertension Neurological: Yes (CVA'S--NO RESIDUAL DEFICITS) Headaches /Migraines, Seizure Disorder, Stroke Reproductive Disorders: No 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, Menopausal Sexually Transmitted Disease: No HIV/AIDS: No Genitourinary: No Gastrointestinal: Yes (S/P RIDDHI) Gastroesophageal Reflux, Chronic Constipation, Gall Bladder Disease Musculoskeletal: Yes (FREQUENT FALLS; RESTLESS LEG SYNDROME; ) Arthritis, Chronic Back Pain Endocrine: No HEENT: No (GLASSES) Loss of Vision: Denies Hearing Impairment: Denies Cancer: No Psychosocial: Yes Sleep Difficulties, Anxiety Integumentary: No Blood Disorders: No Family Medical History Alzheimer's disease G8 BROTHER Completed stroke G8 BROTHER Diabetes mellitus 19 MOTHER Glaucoma 19 FATHER G8 BROTHER Hypertension 19 FATHER G8 BROTHER Myocardial infarction 19 FATHER No Pertinent Family Hx, Diabetes SOCIAL HISTORY: -SMOKES 3 PPD -ETOH--HISTORY OF ABUSE, CLAIMS NO RECENT USE -DRUGS--THC, BENZODIAZEPINE ABUSE/EXCESSIVE USE. CHRONIC OPIATE USE/EXCESSIVE USE. LONG HISTORY OF NON-COMPLIANCE IN ALL ASPECTS OF CARE. PER OLD RECORDS, PT IS SUPPOSED TO WEAR O2 AT 2-3L/NC CONTINUOUSLY, BUT DOES NOT PAST SURGICAL HISTORY: -APPENDECTOMY -BILATERAL TUBAL LIGATION -CHOLECYSTECTOMY Physical Exam Vital Signs - First Documented Capillary Refill : Height: 5'0" Weight: 185lbs. 1.0oz. [id number]; 29.00 BMI Method:Stated General Appearance: WD/WN, no apparent distress, other (VERY UNKEMPT, REEKS OF CIGARETTES. DOES NOT APPEAR TO BE IN ANY DISCOMFORT OR DISTRESS. ) HEENT: PERRL/EOMI Neck: normal inspection Respiratory: no respiratory distress, no accessory muscle use, other (MINIMAL END EXPIRATORY WHEEZING BILATERALLY) Cardiovascular: regular rate, rhythm, no JVD, no murmur Gastrointestinal: non tender, soft Extremities: normal range of motion, no calf tenderness, normal capillary refill, other (1-2+ EDEMA OF LEFT LOWER LEG AND FOOT, NO CALF TENDERNESS, NO CORDING. NO ERYTHEMA OR CYANOSIS. PULSES +1/4 BILATERALLY. RIGHT LEG IS WITHOUT EDEMA. MOTOR/SENSORY/VASCULAR INTACT. 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 MULTIPLE AREAS OF BRUSING ON ARMS AND HANDS. FEW ON LEGS. ) Focused Exam Sepsis Stage: Ruled Out Reason for ruling out sepsis: DOES NOT MEET CRITERIA Possible Source: Pulmonary Lactate Level 11/11/22 19:45: Lactic Acid Level 0.63 Time of Focused Exam: 20:45 Respiratory: No Accessory Muscle Use, No Respiratory Distress, Other (FAINT END EXPIRATORY WHEEZING BILATERALLY) Cardiovascular: Regular Rate, Rhythm, No Murmur Capillary Refill: Less Than 3 Seconds Skin: normal color, warm/dry Lactic Acid Level Laboratory Tests Test 11/11/22 19:45 Lactic Acid Level 0.63 MMOL/L (0.50-2.00) Within 3hrs of presentation: Admin fluids, Admin ABX, Blood cultures prior to ABX's, Focus exam, Lactate level Progress/Results/Core Measures Suspected Sepsis SIRS Temperature: Pulse: 92 Respiratory Rate: 13 Laboratory Tests 11/11/22 19:45: White Blood Count 7.0 Blood Pressure 202 /81 Mean: 121 11/11/22 19:45: Lactic Acid Level 0.63 Laboratory Tests 11/11/22 19:45: Creatinine 1.98H, INR Comment 1.0, Platelet Count 254, Total Bilirubin 0.3 Results/Orders Lab Results Laboratory Tests Test 11/11/22 19:27 11/11/22 19:45 11/11/22 20:07 Range/Units Influenza Type A (RT-PCR) Not Detected Not Detecte Influenza Type B (RT-PCR) Not Detected Not Detecte SARS-CoV-2 RNA (RT-PCR) Not Detected Not Detecte White Blood Count 7.0 4.3-11.0 10^3/uL Red Blood Count 3.85 3.80-5.11 10^6/uL Hemoglobin 12.1 11.5-16.0 g/dL Hematocrit 38 35-52 % Mean Corpuscular Volume 98 80-99 fL Mean Corpuscular Hemoglobin 31 25-34 pg Mean Corpuscular Hemoglobin Concent 32 32-36 g/dL Red Cell Distribution Width 14.8 H 10.0-14.5 % Platelet Count 254 130-400 10^3/uL Mean Platelet Volume 9.8 9.0-12.2 fL Immature Granulocyte % (Auto) 0 % Neutrophils (%) (Auto) 79 H 42-75 % Lymphocytes (%) (Auto) 10 L 12-44 % Monocytes (%) (Auto) 7 0-12 % Eosinophils (%) (Auto) 3 0-10 % Basophils (%) (Auto) 1 0-10 % Neutrophils # (Auto) 5.6 1.8-7.8 10^3/uL Lymphocytes # (Auto) 0.7 L 1.0-4.0 10^3/uL Monocytes # (Auto) 0.5 0.0-1.0 10^3/uL Eosinophils # (Auto) 0.2 0.0-0.3 10^3/uL Basophils # (Auto) 0.0 0.0-0.1 10^3/uL Immature Granulocyte # (Auto) 0.0 0.0-0.1 10^3/uL Erythrocyte Sedimentation Rate 35 H 0-30 MM/HR Prothrombin Time 14.0 12.2-14.7 SEC INR Comment 1.0 0.8-1.4 Activated Partial Thromboplast Time 35 24-35 SEC D-Dimer 0.85 H 0.00-0.49 UG/ML Sodium Level 138 135-145 MMOL/L Potassium Level 5.1 H 3.6-5.0 MMOL/L Chloride Level 105 98-107 MMOL/L Carbon Dioxide Level 23 21-32 MMOL/L Anion Gap 10 5-14 MMOL/L Blood Urea Nitrogen 20 H 7-18 MG/DL Creatinine 1.98 H 0.60-1.30 MG/DL Estimat Glomerular Filtration Rate 27 BUN/Creatinine Ratio 10 Glucose Level 118 H 70-105 MG/DL Lactic Acid Level 0.63 0.50-2.00 MMOL/L Calcium Level 9.3 8.5-10.1 MG/DL Corrected Calcium 9.6 8.5-10.1 MG/DL Magnesium Level 2.2 1.6-2.4 MG/DL Total Bilirubin 0.3 0.1-1.0 MG/DL Aspartate Amino Transf (AST/SGOT) 22 5-34 U/L Alanine Aminotransferase (ALT/SGPT) 18 0-55 U/L Alkaline Phosphatase 144 H 40-136 U/L Ammonia 21 11-32 UMOL/L Total Creatine Kinase 63 29-168 U/L Creatine Kinase MB 2.1 <6.6 NG/ML Myoglobin 72.5 10.0-92.0 NG/ML Troponin I 0.035 H <0.028 NG/ML C-Reactive Protein High Sensitivity 2.54 H 0.00-0.50 MG/DL B-Type Natriuretic Peptide 851.3 H <100.0 PG/ML Total Protein 7.1 6.4-8.2 GM/DL Albumin 3.6 3.2-4.5 GM/DL TSH [place] Testing 1.53 0.35-4.94 UIU/ML Serum Alcohol < 10 <10 MG/DL Urine Color YELLOW Urine Clarity CLOUDY Urine pH 6.5 5-9 Urine Specific [place] >=1.030 1.016-1.022 Urine Protein 3+ H NEGATIVE Urine Glucose (UA) NEGATIVE NEGATIVE Urine Ketones NEGATIVE NEGATIVE Urine Nitrite POSITIVE H NEGATIVE Urine Bilirubin NEGATIVE NEGATIVE Urine Urobilinogen 0.2 < = 1.0 MG/DL Urine Leukocyte Esterase NEGATIVE NEGATIVE Urine RBC (Auto) 3+ H NEGATIVE Urine RBC 10-25 H /HPF Urine WBC 5-10 H /HPF Urine Squamous Epithelial Cells 25-50 H /HPF Urine Renal Epithelial Cells RARE /HPF Urine Crystals NONE /LPF Urine Bacteria LARGE H /HPF Urine Casts NONE /LPF Urine Mucus MODERATE H /LPF Urine Culture Indicated CULTURE PENDING Urine Opiates Screen NEGATIVE NEGATIVE Urine Oxycodone Screen POSITIVE H NEGATIVE Urine Methadone Screen NEGATIVE NEGATIVE Urine Propoxyphene Screen NEGATIVE NEGATIVE Urine Barbiturates Screen NEGATIVE NEGATIVE Ur Tricyclic Antidepressants Screen NEGATIVE NEGATIVE Urine Phencyclidine Screen NEGATIVE NEGATIVE Urine Amphetamines Screen NEGATIVE NEGATIVE Urine Methamphetamines Screen NEGATIVE NEGATIVE Urine Benzodiazepines Screen NEGATIVE NEGATIVE Urine Cocaine Screen NEGATIVE NEGATIVE Urine Cannabinoids Screen NEGATIVE NEGATIVE My Orders Orders - MIKE MAURICIO DO Ed Iv/Invasive Line Start (11/11/22 18:58) Ekg Tracing (11/11/22 18:58) O2 (11/11/22 18:58) Monitor-Rhythm Ecg Trace Only (11/11/22 18:58) Chest 1 View, Ap/Pa Only (11/11/22 18:58) Alcohol (11/11/22 18:58) Ammonia (11/11/22 18:58) Arterial Blood Gas (11/11/22 18:58) Bnp [place] (11/11/22 18:58) Cbc With Automated Diff (11/11/22 18:58) Comprehensive Metabolic Panel (11/11/22 18:58) Creatine Kinase (11/11/22 18:58) Creatine Kinase Mb (11/11/22 18:58) Hs C Reactive Protein (11/11/22 18:58) Fibrin Degradation Products (11/11/22 18:58) Drug Screen Stat (Urine) (11/11/22 18:58) Lactic Acid Analyzer (11/11/22 18:58) Magnesium (11/11/22 18:58) Protime With Inr (11/11/22 18:58) Partial Thromboplastin Time (11/11/22 18:58) Thyroid Analyzer (11/11/22 18:58) Ua Culture If Indicated (11/11/22 18:58) Blood Culture (11/11/22 18:58) Erythrocyte Sedimentation Rate (11/11/22 18:58) Myoglobin Serum (11/11/22 18:58) Troponin I [place] (11/11/22 18:58) Covid 19 Inhouse Test (11/11/22 18:58) Sputum Culture (11/11/22 18:58) Urine Culture (11/11/22 18:58) Ed Iv/Invasive Line Start (11/11/22 18:58) Vital Signs Adult Sepsis Patie Q15M (11/11/22 18:58) O2 (11/11/22 18:58) Remove Rings In Anticipation O (11/11/22 18:58) Influenza A And B By Pcr (11/11/22 18:58) Isolation Central Supply Req (11/11/22 18:58) Methylprednisolone Sod Succ (Solu-Medrol (11/11/22 18:58) Furosemide Injection (Lasix Injection) (11/11/22 21:15) Enoxaparin Injection (Lovenox Injection) (11/11/22 21:15) Ceftriaxone 1 Gm Pre-Mix (Rocephin 1 Gm (11/11/22 21:15) Nitroglycerin Ointment (Nitrobid Ointme (11/11/22 21:30) Aspirin Chewable Tablet (Baby Aspirin Ch (11/11/22 21:30) Catheter(Urinary) Insert & Ass 03,15 (11/11/22 21:18) Lidocaine 2% (Urojet) (Xylocaine Urojet) (11/11/22 21:30) Hydralazine Injection (Apresoline Inject (11/11/22 22:45) Hydralazine Injection (Apresoline Inject (11/11/22 23:00) Medications Given in ED Current Medications Medications Dose Ordered Sig/Rylee Route Start Time Stop Time Status Last Admin Dose Admin Aspirin 324 mg ONCE ONCE PO 11/11/22 21:30 11/11/22 21:31 DC 11/11/22 21:59 324 MG Ceftriaxone Sodium/Dextrose 50 ml @ 100 mls/hr ONCE ONCE IV 11/11/22 21:15 11/11/22 21:44 DC 11/11/22 22:01 100 MLS/HR Enoxaparin Sodium 70 mg ONCE ONCE SC 11/11/22 21:15 11/11/22 21:16 DC 11/11/22 22:01 70 MG Furosemide 40 mg ONCE ONCE IVP 11/11/22 21:15 11/11/22 21:16 DC 11/11/22 22:00 40 MG Hydralazine HCl 10 mg ONCE ONCE IV 11/11/22 22:45 11/11/22 22:46 DC 11/11/22 22:40 10 MG Hydralazine HCl 10 mg ONCE ONCE IV 11/11/22 23:00 11/11/22 23:01 DC 11/11/22 23:06 10 MG Nitroglycerin 1 inch ONCE ONCE TOP 11/11/22 21:30 11/11/22 21:31 DC 11/11/22 22:01 1 INCH Vital Signs/I&O 11/11/22 11/11/22 11/11/22 11/11/22 18:50 18:50 18:50 23:57 Temp 35.4 Pulse 92 54 Resp 13 18 B/P (MAP) 202/81 (121) 134/47 Pulse Ox 96 93 O2 Delivery Nasal Cannula Nasal Cannula Nasal Cannula Nasal Cannula O2 Flow Rate 3.00 2.00 2.00 2.00 11/12/22 00:00 Intake Total 50 ml Balance 50 ml Capillary Refill : Blood Pressure Mean: 121 Progress Note : Progress Note PPE WORN COVID AND FLU TESTING DONE PT EVENTUALLY CALMED, AND WAS COOPERATIVE FOR IV AND LABS, AND CATHETER, BUT SHE WAS VERY DEMANDING THROUGHOUT ENTIRE ER STAY, YELLING OUT TO STAFF LITERALLY EVERY 5 MINUTES, WANTING VARIOUS THINGS, COMPLAINING ABOUT BP CUFF A MULTITUDE OF TIMES, COMPLAINING ABOUT O2 SAT MONITOR, WANTING TO GO TO BED, ETC. UNABLE TO OBTAIN ABG'S BP CONSISTENTLY REMAINED ELEVATED IN 200'S SYSTOLIC WAS GIVEN: -NITROPASTE -HYDRALAZINE -SOLU-MEDROL -LASIX -LOVENOX -ANTIBIOTICS BP DOWN TO 134/47, HR 55, RR 22, O2 SAT 94% ON 2L/NC HEART RATE REMAINED IN 40'S-MID 50'S THROUGHOUT ER STAY NO DETERIORATION IN PT'S CONDITION DURING ER STAY PT VOICED NO COMPLAINTS OF DYSPNEA OR ANY OTHER PHYSICAL COMPLAINTS FOR ENTIRE ER STAY NO COUGH NO FEVER NO HYPOXIA PT IS ALLERGIC TO IV CONTRAST AND GFR IS LOW, UNABLE TO DO CT CHEST ANGIOGRAM AT THIS TIME WILL TREAT EMPIRICALLY WITH LOVENOX AT THIS TIME, AND OBTAIN V/Q SCAN IN AM, ALONG WITH VENOUS DOPPLER OF LEFT LEG. REVIEWED OLD CHARTS, INCLUDING ER VISITS, ADMITS, H&P'S, CONSULTS, TESTS/PROCEDURES, DISCHARGE SUMMARIES. DISCUSSED TEST RESULTS, NEED FOR ADMIT AND PT AGREES TO THIS PLAN ECG Initial ECG Impression Date: Nov 11, 2022 Initial ECG Impression Time: 19:13 Initial ECG Rate: 49 Initial ECG Rhythm: S.Roni Initial ECG Impression: Nonspecific Changes Initial ECG Comparisson: Unchanged (EXCEPT FOR MILD AXIS VARIATION) Comment INTERPRETED BY ME Diagnostic Imaging Comments CXR--PER RADIOLOGIST REPORT AT 1934 FINDINGS: The lungs are clear. No failure, effusion or pneumothorax. IMPRESSION: No acute abnormality. Reviewed: Reviewed by Me Departure Communication (Admissions) 2108--SPOKE WITH DR. WOOD, HOSPITALIST FOR [facility]. ACCEPTS PT FOR ADMIT. Impression Primary Impression: COPD EXACERBATION Additional Impressions: Elevated troponin CHF (congestive heart failure) Left leg swelling ACTIVE SMOKER Uncontrolled hypertension UTI (urinary tract infection) Disposition: ADMITTED INPATIENT Condition: Stable Admissions Decision to Admit Reason: Admit from ER (General) Decision to Admit/Date: Nov 11, 2022 Time/Decision to Admit Time: 21:10 MIKE MAURICIO DO Nov 11, 2022 19:34
[2022-11-11 19:55] LABS: BASOPHILS % (AUTO) 1 % (0-10); EOSINOPHILS # (AUTO) 0.2 10^3/uL (0.0-0.3); EOSINOPHILS % (AUTO) 3 % (0-10); HEMATOCRIT 38 % (35-52); HEMOGLOBIN 12.1 g/dL (11.5-16.0); LYMPHOCYTES # (AUTO) 0.7 10^3/uL (1.0-4.0); LYMPHOCYTES % (AUTO) 10 % (12-44); MEAN CORPUSCULAR HEMOGLOBIN 31 pg (25-34); MEAN CORPUSCULAR HGB CONC 32 g/dL (32-36); MEAN CORPUSCULAR VOLUME 98 fL (80-99); MEAN PLATELET VOLUME 9.8 fL (9.0-12.2); MONOCYTES # (AUTO) 0.5 10^3/uL (0.0-1.0); MONOCYTES % (AUTO) 7 % (0-12); NEUTROPHILS # (AUTO) 5.6 10^3/uL (1.8-7.8); NEUTROPHILS % (AUTO) 79 % (42-75); PLATELET COUNT 254 10^3/uL (130-400)
[2022-11-11 20:11] LABS: FIBRIN DEGRADATION PRODUCTS 0.85 UG/ML (0.00-0.49)
[2022-11-11 20:15] LABS: ERYTHROCYTE SEDIMENTATION RATE 35 MM/HR (0-30)
[2022-11-11 20:20] LABS: BILIRUBIN,URINE NEGATIVE (NEGATIVE); CLARITY,URINE CLOUDY; COLOR,URINE YELLOW; GLUCOSE, URINE (UA) NEGATIVE (NEGATIVE); KETONES,URINE NEGATIVE (NEGATIVE); LEUKOCYTE ESTERASE ,URINE NEGATIVE (NEGATIVE); NITRITE,URINE POSITIVE (NEGATIVE); PH,URINE 6.5 (5-9); PROTEIN,URINE 3+ (NEGATIVE)
[2022-11-11 20:23] LABS: ALANINE AMINOTRANSFERASE 18 U/L (0-55); ALBUMIN 3.6 GM/DL (3.2-4.5); ALKALINE PHOSPHATASE 144 U/L (40-136); AMMONIA 21 UMOL/L (11-32); BILIRUBIN,TOTAL 0.3 MG/DL (0.1-1.0); BUN/CREATININE RATIO 10; CALCIUM 9.3 MG/DL (8.5-10.1); CARBON DIOXIDE 23 MMOL/L (21-32); CHLORIDE 105 MMOL/L (98-107); CREATINE KINASE 63 U/L (29-168); CREATININE SERUM 1.98 MG/DL (0.60-1.30); GFR ESTIMATED 27; GLUCOSE 118 MG/DL (70-105); MAGNESIUM 2.2 MG/DL (1.6-2.4); POTASSIUM 5.1 MMOL/L (3.6-5.0); SODIUM 138 MMOL/L (135-145); TOTAL PROTEIN 7.1 GM/DL (6.4-8.2)
[2022-11-11 20:35] LABS: AMPHETAMINE SCREEN, URINE NEGATIVE (NEGATIVE); BARBITURATE SCREEN URINE NEGATIVE (NEGATIVE); BENZODIAZEPINES SCREEN URINE NEGATIVE (NEGATIVE); CANNABINOID SCREEN, URINE NEGATIVE (NEGATIVE); COCAINE SCREEN URINE NEGATIVE (NEGATIVE); METHADONE STAT NEGATIVE (NEGATIVE); OPIATE SCREEN URINE NEGATIVE (NEGATIVE); OXYCODONE STAT POSITIVE (NEGATIVE); PROPOXYPHENE STAT NEGATIVE (NEGATIVE); TRICYCLIC ANTIDEPRESSANTS SCRE NEGATIVE (NEGATIVE)
[2022-11-11 20:42] LABS: CREATINE KINASE MB 2.1 NG/ML (<6.6); TSH (THYROID ANALYZER) 1.53 UIU/ML (0.35-4.94)
[2022-11-11 20:43] LABS: BACTERIA,URINE LARGE /HPF; RENAL EPITHELIAL CELLS,URINE RARE /HPF; SQUAMOUS EPITHELIAL CELL,UR 25-50 /HPF
[2022-11-11] MEDS ORDERED: cefTRIAXone 1 GM PRE-MIX 50 ML IV ONE (21:15)
[2022-11-11] MEDS ORDERED: ENOXAPARIN 80 MG/0.8 ML (LOVENOX) SYR SC ONE (21:15)
[2022-11-11] MEDS ORDERED: FUROSEMIDE 40 MG/4 ML INJ (LASIX) IVP ONE (21:15)
[2022-11-11] MEDS ORDERED: LIDOCAINE UROJET 2% GEL 10 ML PKG TOP ONE (21:30)
[2022-11-11] MEDS ORDERED: ASPIRIN 81 MG CHEW (CHILDREN'S ASA) PO ONE (21:30)
[2022-11-11] MEDS ORDERED: NITROGLYCERIN 2% OINT 1 GM UNIT DOSE PACKET TOP ONE (21:30)
[2022-11-11] MEDS ORDERED: hydrALAZINE (APESOLINE) 20 MG/ML VIAL IV ONE ×2 (22:45→23:00)
[2022-11-12] MEDS ORDERED: NS IV 500 ML 500 ML IV PRN (00:45)
[2022-11-12 01:27] VITALS: BP 208/81
[2022-11-12] MEDS ORDERED: CATHETER FLUSH 10 ML SYR IVP PRN (01:45)
[2022-11-12] MEDS ORDERED: RT-ALBUTEROL/IPRATROPIUM 3 ML (DUONEB) VIAL INH PRN (01:45)
[2022-11-12] MEDS: hydrALAZINE (APESOLINE) 20 MG/ML VIAL IV PRN ×3 (01:55→14:38)
--- NOTE | 2022-11-12 01:58 | Tele-ICU Progress Note ---
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 She has been unable to provide much of a history, can not confirm medications, can not confirm whether she has actually used inhalers. She denies home O2 despite tobacco stained oxygen tubing on her face on arrival. She has been intermittently uncooperative with staff. Has been making bizarre statements. Cognitive baseline unkonwn. - HTN: BP as high as 202/81. Unclear if she was taking her meds at home. Goal BP 150-170 for tonight. PRN hydralazine ordered. HR only in 40s and 50s, will avoid beta blockers and diltiazem. - COPD exac: no evidence of underlying infection. Continue steroids, nebs. No CTA due to renal function. Empiric lovenox already given. - CHF: Low suspicion. Last echo 2018 with EF 60-65%, grade 1 diastolic dysfunction. At that time was admitted for CP, declined cardiac cath. Does have some unilateral left leg swelling, probably not cardiac in nature. BNP elevated but nonspecific. - AMS: unclear cognitive baseline, has not been to this hospital since 2019 but there is no mention of this behaivior previously. Will need more recent history from family. Possible development/progression of some kind of dementia. Possible medication side effect, previously on xanax, opiates and ambien. Current tox positive for oxycodone but not xanax. If not improved by AM, consider MRI brain to evaluate for other organic pathologies including microvascular disease, me tastatic disease (no known cancer but high risk), etc. - JEANINE vs CKD: creatinine 1.98 last checked in 2019 was 1.15. JEANINE vs progression of baseline disease. - Hyperkalemia: mild with K 5.1 Patient assesed via real-time audiovisual communication system. CCT 22 min Focused Exam Lactate Level 11/11/22 19:45: Lactic Acid Level 0.63 Height, Weight, BMI Height: 5'0" Weight: 185lbs. 1.0oz. 83.288122yi; 30.44 BMI Method:Stated BAUDILIO ESQUIVEL MD Nov 12, 2022 01:58
[2022-11-12] MEDS ORDERED: ENALAPRILAT 2.5 MG/2 ML (VASOTEC) VIAL IV ONE (02:00)
[2022-11-12 02:24] LABS: ALBUMIN 3.5 GM/DL (3.2-4.5)
[2022-11-12 02:25] LABS: POTASSIUM 4.9 MMOL/L (3.6-5.0)
[2022-11-12 02:26] LABS: CALCIUM 8.9 MG/DL (8.5-10.1)
[2022-11-12 02:27] LABS: TOTAL PROTEIN 6.9 GM/DL (6.4-8.2)
[2022-11-12 02:29] LABS: BILIRUBIN,TOTAL 0.3 MG/DL (0.1-1.0)
[2022-11-12 02:31] LABS: CREATININE SERUM 1.8 MG/DL (0.60-1.30)
[2022-11-12 04:02] LABS: BASOPHILS % (AUTO) 1 % (0-10); EOSINOPHILS % (AUTO) 0 % (0-10); HEMATOCRIT 37 % (35-52); HEMOGLOBIN 12.2 g/dL (11.5-16.0); LYMPHOCYTES # (AUTO) 0.6 10^3/uL (1.0-4.0); LYMPHOCYTES % (AUTO) 7 % (12-44); MEAN CORPUSCULAR HEMOGLOBIN 31 pg (25-34); MEAN CORPUSCULAR HGB CONC 33 g/dL (32-36); MEAN CORPUSCULAR VOLUME 96 fL (80-99); MEAN PLATELET VOLUME 10.2 fL (9.0-12.2); MONOCYTES # (AUTO) 0.1 10^3/uL (0.0-1.0); MONOCYTES % (AUTO) 1 % (0-12); NEUTROPHILS % (AUTO) 91 % (42-75); PLATELET COUNT 289 10^3/uL (130-400); WHITE BLOOD COUNT 8.9 10^3/uL (4.3-11.0)
[2022-11-12 04:25] LABS: LYMPHOCYTES % (MANUAL) 6 %; MONOCYTES % (MANUAL) 1 %; NEUTROPHILS % (MANUAL) 93 %; RBC MORPH NORMAL
[2022-11-12] MEDS ORDERED: POTASSIUM CL 10MEQ/50ML IVPB 50 ML IV SCH (06:00)
[2022-11-12] MEDS ORDERED: KCL 20 MEQ TAB (K-DUR) PO SCH (06:00)
[2022-11-12] MEDS ORDERED: MAGNESIUM 1 GM/100 ML IVPB 100 ML IV SCH (06:00)
[2022-11-12] MEDS: CATHETER FLUSH 10 ML SYR IVP SCH ×3 (06:44→19:55)
[2022-11-12] MEDS: NITROGLYCERIN 2% OINT 1 GM UNIT DOSE PACKET TOP SCH ×4 (06:54→23:51)
--- NOTE | 2022-11-12 07:14 | History & Physical-Hospitalist ---
History of Present Illness HPI/Chief Complaint CC: AECOPD HPI: This is a 71yoWF clinic patient of [facility] who presented to the ER with dyspnea and found to have elevated troponin and AECOPD. IV steroids started by EICU. Patient was planning on leaving AMA but family could not come and get her so she will stay. Refuses most of our med recs. Nebs ordered along with O2. No details obtained since she refuses to interact with me. Source: RN/MD Exam Limitations: clinical condition (refuses to answer any questions) Date Seen 11/12/22 Time Seen by a Provider: 11:00 Attending Physician [facility] PCP Admitting Physician: Yvonne Solano DO Attending Physician: Yvonne Solano DO Referring Physician Date of Admission Nov 12, 2022 at 00:30 Home Medications & Allergies Home Medications Reviewed patient Home Medication Reconciliation performed by pharmacy medication reconciliations motion study technician and/or nursing. Patients Allergies have been reviewed. Allergies Allergies Coded Allergies Iodinated Contrast Media (Verified Allergy, Unknown, 09/21/17) Past Zcceebs-Kitcwg-Orgasn Hx Patient Social History Marrital Status: single Employed/Student: retired Tobacco Use?: Yes Tobacco type used: Cigarettes Smoking Status: Current Everyday Smoker Use of E-Cig and/or Vaping dev: No Substance use?: Yes Substance type: Marijuana Alcohol Use?: No Pt feels they are or have been: No Immunizations Up To Date Hepatitis A: No Hepatitis B: No PED Vaccines UTD: Yes Seasonal Allergies Seasonal Allergies: Yes Current Status status: No status: No Advance Directives: No Communicates: Verbally Primary Language: Japanese Preferred Spoken Language: Japanese Is interpretation needed?: No Sensory deficits: Vision impairment Implanted or Applied Medical D: None Past Medical History Surgeries: Appendectomy, Gallbladder, Tubal Ligation Asthma, Chronic Bronchitis, Sleep Apnea, COPD Currently Using CPAP: No Currently Using BIPAP: No Hypertension Headaches /Migraines, Seizure Disorder, Stroke PRESS TENDER SMOKE SIGNAL History: Tubal Ligation, Menopausal Sexually Transmitted Disease: No HIV/AIDS: No Gastroesophageal Reflux, Chronic Constipation, Gall Bladder Disease Arthritis, Chronic Back Pain Loss of Vision: Denies Hearing Impairment: Denies Sleep Difficulties, Anxiety Blood Disorders: No Family Medical History Alzheimer's disease G8 BROTHER Completed stroke G8 BROTHER Diabetes mellitus 19 MOTHER Glaucoma 19 FATHER G8 BROTHER Hypertension 19 FATHER G8 BROTHER Myocardial infarction 19 FATHER No Pertinent Family Hx, Diabetes SOCIAL HISTORY: -SMOKES 3 PPD -ETOH--HISTORY OF ABUSE, CLAIMS NO RECENT USE -DRUGS--THC, BENZODIAZEPINE ABUSE/EXCESSIVE USE. CHRONIC OPIATE USE/EXCESSIVE USE. LONG HISTORY OF NON-COMPLIANCE IN ALL ASPECTS OF CARE. PER OLD RECORDS, PT IS SUPPOSED TO WEAR O2 AT 2-3L/NC CONTINUOUSLY, BUT DOES NOT PAST SURGICAL HISTORY: -APPENDECTOMY -BILATERAL TUBAL LIGATION -CHOLECYSTECTOMY Review of Systems Constitutional: see HPI Respiratory: dyspnea on exertion Physical Exam Physical Exam Vital Signs Vital Signs - First Documented 11/12/22 01:27 FiO2 28 Capillary Refill : Less Than 3 Seconds Height, Weight, BMI Height: 5'0" Weight: 185lbs. 1.0oz. 83.580406or; 30.44 BMI Method:Stated General Appearance: No Apparent Distress Eyes: Right Eye Normal Inspection, Right Eye PERRL HEENT: PERRL/EOMI, Normal ENT Inspection, Pharynx Normal, Moist Mucous Membranes Neck: Full Range of Motion, Normal Inspection, Non Tender Respiratory: Chest Non Tender, No Accessory Muscle Use, No Respiratory Distress, Crackles, Decreased Breath Sounds, Wheezing Cardiovascular: Regular Rate, Rhythm, No Edema, No Gallop, No JVD, No Murmur, Normal Peripheral Pulses Gastrointestinal: Normal Bowel Sounds, No Organomegaly, No Pulsatile Mass, Non Tender, Soft Back: Normal Inspection, No CVA Tenderness, No Vertebral Tenderness Extremity: Normal Capillary Refill, Normal Inspection, Normal Range of Motion, Non Tender, No Calf Tenderness, No Pedal Edema Neurologic/Psychiatric: Alert, Oriented x3, No Motor/Sensory Deficits, is support analyst II- XII Norm as Tested, Depressed Affect Skin: Normal Color, Warm/Dry Lymphatic: No Adenopathy Results Results/Procedures Labs Laboratory Tests 11/11/22 19:45 11/12/22 02:04 11/12/22 03:38 Patient resulted labs reviewed. Assessment/Plan Admission Diagnosis Assessment: Acute on chronic respiratory failure AECOPD Elevated troponin CHF? Smoker JEANINE on CKD Plan: Monitor closely ICU Cardiology and EICU appreciated Admission Status: Inpatient Order (span 2 midnights) Reason for Inpatient Admission: resp failure YVONNE SOLANO DO Nov 12, 2022 07:14
[2022-11-12] MEDS: amLODIPine 10 MG (NORVASC) TAB PO SCH (07:35)
[2022-11-12] MEDS: NICOTINE 21 MG (NICODERM) PATCH TD SCH (07:36)
--- NOTE | 2022-11-12 08:29 | Diagnostic Imaging Report ---
EXAMINATION: Chest 1 view HISTORY: CHF, COPD. COMPARISON: 11/11/2022 FINDINGS: Heart size and pulmonary vasculature are normal. The lungs are clear without consolidation, pleural effusion, or pneumothorax. Degenerative changes of the thoracic spine. Osseous structures are otherwise intact. IMPRESSION: 1. No acute radiographic abnormality in the chest. Dictated by: Dictated on workstation # [id number]
[2022-11-12] MEDS: RT-ALBUTEROL/IPRATROPIUM 3 ML (DUONEB) VIAL INH SCH ×2 (08:32→21:32)
--- NOTE | 2022-11-12 09:40 | Consultation-Cardiology ---
HPI-Cardiology Cardiology Consultation Date of Consultation 11/12/22 Date of Admission Time Seen by Provider: 09:35 Indication: Shortness of breath HPI 71-year-old lady with history of COPD, active smoker, started to have increasing shortness of breath and cough which has been worsening. She was confused earlier. On my evaluation she was anxious about going home. Denied any chest pain. No palpitation. No syncope or near syncopal episode, she was noted to have elevation in troponin level and BNP level. Home Medications & Allergies Allergies: Coded Allergies: Iodinated Contrast Media (Verified Allergy, Unknown, 09/21/17) Home Medication List Reviewed: Yes [id number] Hx Patient Social History Employed/Student: retired Drug of Choice: THC ON REGULAR BASIS "FOR HEADACHES" ; BENZODIAZEPINE ABUSE/EXCESSIVE USE Smoking Status: Current Everyday Smoker Type Used: Cigarettes Recent Hopitalizations: No Have you traveled recently?: No Alcohol Use?: No Substance type: Marijuana Immunizations Up To Date Tetanus Booster (TDap): More than 5yrs Past Medical History Discussed below Family Medical History Significant Family History: No Pertinent Family Hx, Diabetes Family History: Alzheimer's disease G8 BROTHER Completed stroke G8 BROTHER Diabetes mellitus 19 MOTHER Glaucoma 19 FATHER G8 BROTHER Hypertension 19 FATHER G8 BROTHER Myocardial infarction 19 FATHER Review of Systems-General Review of Systems Constitutional: see HPI EENTM: see HPI, no symptoms reported Respiratory: see HPI, cough, dyspnea on exertion, short of breath Cardiovascular: see HPI; No chest pain, No edema, No Hx of Intervention, No palpitations, No syncope, No vascular heart diseas, No other Gastrointestinal: no symptoms reported, see HPI Genitourinary: no symptoms reported, see HPI Musculoskeletal: see HPI, other (LEFT LEG SWELLING NOTED--PT IS UNABLE TO STATE HOW LONG THAT HAS BEEN PRESENT. ) Skin: no symptoms reported, see HPI Psychiatric/Neurological: No Symptoms Reported, See HPI Reviewed Test Results Reviewed Test Results Lab Laboratory Tests Test 11/11/22 19:27 11/11/22 19:45 11/11/22 20:07 11/12/22 02:04 Range/Units Influenza Type A (RT-PCR) Not Detected Not Detecte Influenza Type B (RT-PCR) Not Detected Not Detecte SARS-CoV-2 RNA (RT-PCR) Not Detected Not Detecte White Blood Count 7.0 4.3-11.0 10^3/uL Red Blood Count 3.85 3.80-5.11 10^6/uL Hemoglobin 12.1 11.5-16.0 g/dL Hematocrit 38 35-52 % Mean Corpuscular Volume 98 80-99 fL Mean Corpuscular Hemoglobin 31 25-34 pg Mean Corpuscular Hemoglobin Concent 32 32-36 g/dL Red Cell Distribution Width 14.8 H 10.0-14.5 % Platelet Count 254 130-400 10^3/uL Mean Platelet Volume 9.8 9.0-12.2 fL Immature Granulocyte % (Auto) 0 % Neutrophils (%) (Auto) 79 H 42-75 % Lymphocytes (%) (Auto) 10 L 12-44 % Monocytes (%) (Auto) 7 0-12 % Eosinophils (%) (Auto) 3 0-10 % Basophils (%) (Auto) 1 0-10 % Neutrophils # (Auto) 5.6 1.8-7.8 10^3/uL Lymphocytes # (Auto) 0.7 L 1.0-4.0 10^3/uL Monocytes # (Auto) 0.5 0.0-1.0 10^3/uL Eosinophils # (Auto) 0.2 0.0-0.3 10^3/uL Basophils # (Auto) 0.0 0.0-0.1 10^3/uL Immature Granulocyte # (Auto) 0.0 0.0-0.1 10^3/uL Erythrocyte Sedimentation Rate 35 H 0-30 MM/HR Prothrombin Time 14.0 12.2-14.7 SEC INR Comment 1.0 0.8-1.4 Activated Partial Thromboplast Time 35 24-35 SEC D-Dimer 0.85 H 0.00-0.49 UG/ML Sodium Level 138 137 135-145 MMOL/L Potassium Level 5.1 H 4.9 3.6-5.0 MMOL/L Chloride Level 105 107 98-107 MMOL/L Carbon Dioxide Level 23 20 L 21-32 MMOL/L Anion Gap 10 10 5-14 MMOL/L Blood Urea Nitrogen 20 H 23 H 7-18 MG/DL Creatinine 1.98 H 1.80 H 0.60-1.30 MG/DL Estimat Glomerular Filtration Rate 27 30 BUN/Creatinine Ratio 10 13 Glucose Level 118 H 175 H 70-105 MG/DL Lactic Acid Level 0.63 0.50-2.00 MMOL/L Calcium Level 9.3 8.9 8.5-10.1 MG/DL Corrected Calcium 9.6 9.3 8.5-10.1 MG/DL Magnesium Level 2.2 1.6-2.4 MG/DL Total Bilirubin 0.3 0.3 0.1-1.0 MG/DL Aspartate Amino Transf (AST/SGOT) 22 20 5-34 U/L Alanine Aminotransferase (ALT/SGPT) 18 16 0-55 U/L Alkaline Phosphatase 144 H 136 40-136 U/L Ammonia 21 11-32 UMOL/L Total Creatine Kinase 63 29-168 U/L Creatine Kinase MB 2.1 <6.6 NG/ML Myoglobin 72.5 10.0-92.0 NG/ML Troponin I 0.035 H 0.039 H <0.028 NG/ML C-Reactive Protein High Sensitivity 2.54 H 0.00-0.50 MG/DL B-Type Natriuretic Peptide 851.3 H <100.0 PG/ML Total Protein 7.1 6.9 6.4-8.2 GM/DL Albumin 3.6 3.5 3.2-4.5 GM/DL TSH [place] Testing 1.53 0.35-4.94 UIU/ML Serum Alcohol < 10 <10 MG/DL Urine Color YELLOW Urine Clarity CLOUDY Urine pH 6.5 5-9 Urine Specific [place] >=1.030 1.016-1.022 Urine Protein 3+ H NEGATIVE Urine Glucose (UA) NEGATIVE NEGATIVE Urine Ketones NEGATIVE NEGATIVE Urine Nitrite POSITIVE H NEGATIVE Urine Bilirubin NEGATIVE NEGATIVE Urine Urobilinogen 0.2 < = 1.0 MG/DL Urine Leukocyte Esterase NEGATIVE NEGATIVE Urine RBC (Auto) 3+ H NEGATIVE Urine RBC 10-25 H /HPF Urine WBC 5-10 H /HPF Urine Squamous Epithelial Cells 25-50 H /HPF Urine Renal Epithelial Cells RARE /HPF Urine Crystals NONE /LPF Urine Bacteria LARGE H /HPF Urine Casts NONE /LPF Urine Mucus MODERATE H /LPF Urine Culture Indicated CULTURE PENDING Urine Opiates Screen NEGATIVE NEGATIVE Urine Oxycodone Screen POSITIVE H NEGATIVE Urine Methadone Screen NEGATIVE NEGATIVE Urine Propoxyphene Screen NEGATIVE NEGATIVE Urine Barbiturates Screen NEGATIVE NEGATIVE Ur Tricyclic Antidepressants Screen NEGATIVE NEGATIVE Urine Phencyclidine Screen NEGATIVE NEGATIVE Urine Amphetamines Screen NEGATIVE NEGATIVE Urine Methamphetamines Screen NEGATIVE NEGATIVE Urine Benzodiazepines Screen NEGATIVE NEGATIVE Urine Cocaine Screen NEGATIVE NEGATIVE Urine Cannabinoids Screen NEGATIVE NEGATIVE Test 11/12/22 03:38 Range/Units White Blood Count 8.9 4.3-11.0 10^3/uL Red Blood Count 3.90 3.80-5.11 10^6/uL Hemoglobin 12.2 11.5-16.0 g/dL Hematocrit 37 35-52 % Mean Corpuscular Volume 96 80-99 fL Mean Corpuscular Hemoglobin 31 25-34 pg Mean Corpuscular Hemoglobin Concent 33 32-36 g/dL Red Cell Distribution Width 14.9 H 10.0-14.5 % Platelet Count 289 130-400 10^3/uL Mean Platelet Volume 10.2 9.0-12.2 fL Immature Granulocyte % (Auto) 1 % Neutrophils (%) (Auto) 91 H 42-75 % Lymphocytes (%) (Auto) 7 L 12-44 % Monocytes (%) (Auto) 1 0-12 % Eosinophils (%) (Auto) 0 0-10 % Basophils (%) (Auto) 1 0-10 % Neutrophils # (Auto) 8.0 H 1.8-7.8 10^3/uL Lymphocytes # (Auto) 0.6 L 1.0-4.0 10^3/uL Monocytes # (Auto) 0.1 0.0-1.0 10^3/uL Eosinophils # (Auto) 0.0 0.0-0.3 10^3/uL Basophils # (Auto) 0.0 0.0-0.1 10^3/uL Immature Granulocyte # (Auto) 0.1 0.0-0.1 10^3/uL Neutrophils % (Manual) 93 % Lymphocytes % (Manual) 6 % Monocytes % (Manual) 1 % Blood Morphology Comment NORMAL B-Type Natriuretic Peptide 585.9 H <100.0 PG/ML Physical Exam Physical Exam Vital Signs Vital Signs - First Documented 11/12/22 01:27 FiO2 28 Capillary Refill : Less Than 3 Seconds Height, Weight, BMI Height: 5'0" Weight: 185lbs. 1.0oz. [id number]; 30.44 BMI Method:Stated General Appearance: No Apparent Distress, WD/WN Eyes: Bilateral Eye Normal Inspection, Bilateral Eye PERRL, Bilateral Eye EOMI HEENT: PERRL/EOMI, TMs Normal, Normal ENT Inspection, Pharynx Normal, Moist Mucous Membranes Neck: Full Range of Motion, Normal Inspection, Non Tender, Supple, Carotid Bruit Respiratory: No Accessory Muscle Use, No Respiratory Distress, Decreased Breath Sounds, Wheezing Cardiovascular: Regular Rate, Rhythm, No Murmur Gastrointestinal: Normal Bowel Sounds, No Organomegaly, No Pulsatile Mass, Non Tender, Soft Back: Normal Inspection, No CVA Tenderness, No Vertebral Tenderness Extremity: Normal Capillary Refill, Normal Inspection, Normal Range of Motion, Non Tender, No Calf Tenderness, No Pedal Edema Neurologic/Psychiatric: Alert, Oriented x3, No Motor/Sensory Deficits, Normal Mood/Affect Skin: Normal Color, Warm/Dry Lymphatic: No Adenopathy A/P-Cardiology Admission Diagnosis Shortness of breath Acute exacerbation of COPD Type II myocardial infarction Hypertension Assessment/Plan Shortness of breath, acute respiratory failure secondary to exacerbation of COPD Patient received 1 dose of Solu-Medrol, recommend continuing with steroids No signs of pneumonia. Managed by medical team Change in mental status, probably secondary to hypoxemia Receiving oxygen. Continue to monitor closely Elevation in BNP, no signs of congestive heart failure Evaluate 2D echo Type II myocardial infarction, elevation in troponin level secondary to hypoxemia EKG did not show any acute changes Underlying coronary artery disease cannot be entirely excluded, consider ischemic work-up once clinically stable or as an outpatient Hypertension, labile blood pressure Was severely hypertensive on admission, currently blood pressure is better controlled. Continue to monitor Acute renal insufficiency, monitor renal function ESTEFANY POLANCO MD Nov 12, 2022 09:40
--- NOTE | 2022-11-12 10:01 | Diagnostic Imaging Report ---
EXAMINATION: PULMONARY PERFUSION IMAGING (V/Q SCAN) (CPT 55163) DATE: November 12, 2022. COMPARISON: Chest radiograph November 12, 2022. INDICATION: 71-year-old female, shortness of breath and chest pain. PROCEDURE: 5.48 mCi of Tc-99m MAA (particulate) was administered intravenously and pulmonary perfusion imaging was performed in multiple projections. FINDINGS: There are multiple large wedge-shaped perfusion defects in the right lung extending to the pleural surface. Ventilation imaging was not obtained. There is no corresponding airspace consolidation at sites of altered perfusion. IMPRESSION: Multiple large peripheral wedge-shaped perfusion defects extending to the pleural surface involving the right lung without corresponding consolidation on the current chest radiograph. This is concerning for pulmonary emboli; however, lack of ventilation imaging does limit the specificity of exam. Dictated by: Dictated on workstation # [id number]
[2022-11-12] MEDS ORDERED: HYDROmorphone 2 MG/ML VIAL (DILAUDID) IVP PRN (10:15)
[2022-11-12] MEDS ORDERED: MENTHOL/ZINC OXIDE (CALMOSEPTINE) 113 GM TUBE TP PRN (10:15)
[2022-11-12] MEDS ORDERED: ACETAMINOPHEN 325 MG TABLET PO PRN (10:15)
[2022-11-12] MEDS ORDERED: LOPERAMIDE 2 MG (IMODIUM) TABLET PO PRN (10:15)
[2022-11-12] MEDS ORDERED: ALPRAZolam 0.25 MG (XANAX) TAB PO PRN (10:15)
[2022-11-12] MEDS ORDERED: ONDANSETRON 4 MG/2 ML (SDV) Z0FRAN IVP PRN (10:15)
[2022-11-12] MEDS ORDERED: DOCUSATE SODIUM 100 MG (COLACE) CAP PO PRN (10:15)
[2022-11-12] MEDS ORDERED: CALCIUM CARBONATE 500 MG (TUMS) TAB.CHEW PO PRN (10:15)
[2022-11-12] MEDS ORDERED: diphenhydrAMINE 25 MG TAB (BENADRYL) PO PRN ×2 (10:15)
[2022-11-12] MEDS ORDERED: LACTULOSE SYRUP 10GM/15ML (ENULOSE) 30ML UDC PO PRN (10:15)
[2022-11-12] MEDS ORDERED: MELATONIN 3 MG TABLET PO PRN (10:15)
[2022-11-12] MEDS ORDERED: ONDANSETRON 4 MG (ZOFRAN) ORAL DISSOLVE TAB PO PRN (10:15)
--- NOTE | 2022-11-12 10:19 | Diagnostic Imaging Report ---
INDICATION: Swelling. EXAMINATION: Left lower extremity venous Doppler on 11/12/2022. TECHNIQUE: Waveform and spectral analysis of the lower extremity venous structures. Imaging was performed to the ankle. FINDINGS: There is no evidence for deep vein thrombosis with normal compressibility, augmentation, and spontaneity of all visualized venous structures. IMPRESSION: No evidence for deep vein thrombosis. Dictated by: Dictated on workstation # [id number]
[2022-11-12] MEDS: methylPREDNISolone 40 MG/ML (Solu-MEDROL) VIAL IV SCH ×3 (14:38→23:51)
[2022-11-12] MEDS: HYDROcodone/APAP 5 MG/325 MG (LORTAB) TAB PO PRN (16:55)
[2022-11-12] MEDS ORDERED: cloNIDine 0.1 MG (CATAPRES) TAB PO PRN (17:45)
[2022-11-12] MEDS ORDERED: ALPRAZolam 1 MG (XANAX) TAB ONE (19:46)
[2022-11-12] MEDS: polyethylene glycoL POWDER 17 GM (MIRALAX) PACK PO SCH (19:54)
[2022-11-12] MEDS: SENNA W/DOCUSATE (SENOKOT S) TABLET PO SCH (19:54)
[2022-11-12] MEDS: ALPRAZolam 1 MG (XANAX) TAB PO PRN (19:54)
[2022-11-12 20:07] VITALS: BP 150/63
[2022-11-12] MEDS ORDERED: cefTRIAXone 1 GM/50 ML (PRE-MIX) IV SCH (21:00)
[2022-11-12] MEDS ORDERED: MELATONIN 3 MG TABLET PO SCH (21:00)
[2022-11-12] MEDS ORDERED: ENOXAPARIN 80 MG/0.8 ML (LOVENOX) SYR SC SCH (21:00)
[2022-11-12] MEDS: guaiFENesin/CODEINE (ROBITUSSIN AC) 10ML UDC PO PRN (21:21)
[2022-11-13 00:02] VITALS: BP 138/59
[2022-11-13] MEDS: ALPRAZolam 1 MG (XANAX) TAB PO PRN ×2 (02:42→09:25)
[2022-11-13] MEDS: guaiFENesin/CODEINE (ROBITUSSIN AC) 10ML UDC PO PRN (03:05)
[2022-11-13 03:45] VITALS: BP 151/77
[2022-11-13] MEDS ORDERED: ZIPRASIDONE 20 MG INJ (GEODON) VIAL IM ONE (03:53)
[2022-11-13] MEDS ORDERED: WATER (STERILE) FOR INJECTION 10 ML ONE (03:54)
[2022-11-13] MEDS ORDERED: ZIPRASIDONE 20 MG INJ (GEODON) VIAL IM PRN (04:00)
[2022-11-13] MEDS ORDERED: WATER (STERILE) FOR INJ 10 ML BTL INJ SCH (04:00)
[2022-11-13 04:40] LABS: BASOPHILS % (AUTO) 0 % (0-10); EOSINOPHILS % (AUTO) 0 % (0-10); HEMATOCRIT 30 % (35-52); HEMOGLOBIN 9.8 g/dL (11.5-16.0); LYMPHOCYTES # (AUTO) 0.6 10^3/uL (1.0-4.0); LYMPHOCYTES % (AUTO) 7 % (12-44); MEAN CORPUSCULAR HEMOGLOBIN 31 pg (25-34); MEAN CORPUSCULAR HGB CONC 33 g/dL (32-36); MEAN CORPUSCULAR VOLUME 94 fL (80-99); MEAN PLATELET VOLUME 10.2 fL (9.0-12.2); MONOCYTES # (AUTO) 0.1 10^3/uL (0.0-1.0); MONOCYTES % (AUTO) 2 % (0-12); NEUTROPHILS # (AUTO) 6.7 10^3/uL (1.8-7.8); NEUTROPHILS % (AUTO) 90 % (42-75); PLATELET COUNT 247 10^3/uL (130-400); WHITE BLOOD COUNT 7.5 10^3/uL (4.3-11.0)
[2022-11-13 04:58] LABS: ALBUMIN 3.2 GM/DL (3.2-4.5); BILIRUBIN,TOTAL 0.2 MG/DL (0.1-1.0); CALCIUM 8.9 MG/DL (8.5-10.1); CREATININE SERUM 1.96 MG/DL (0.60-1.30); TOTAL PROTEIN 6.1 GM/DL (6.4-8.2)
[2022-11-13] MEDS: methylPREDNISolone 40 MG/ML (Solu-MEDROL) VIAL IV SCH (05:04)
[2022-11-13] MEDS: NITROGLYCERIN 2% OINT 1 GM UNIT DOSE PACKET TOP SCH (05:04)
[2022-11-13] MEDS: CATHETER FLUSH 10 ML SYR IVP SCH (05:04)
[2022-11-13 07:47] VITALS: BP 169/50
[2022-11-13] MEDS: HYDROcodone/APAP 5 MG/325 MG (LORTAB) TAB PO PRN (08:07)
[2022-11-13] MEDS: amLODIPine 10 MG (NORVASC) TAB PO SCH (08:08)
[2022-11-13] MEDS: polyethylene glycoL POWDER 17 GM (MIRALAX) PACK PO SCH (08:09)
[2022-11-13] MEDS: SENNA W/DOCUSATE (SENOKOT S) TABLET PO SCH (08:09)
[2022-11-13] MEDS: NICOTINE 21 MG (NICODERM) PATCH TD SCH (08:09)
[2022-11-13] MEDS ORDERED: ASPIRIN 81 MG CHEW (CHILDREN'S ASA) PO SCH (09:00)
--- NOTE | 2022-11-13 09:13 | Cardiology Progress Note ---
Subjective Date Seen by Provider: Nov 13, 2022 Time Seen by Provider: 09:12 Subjective/Events-last exam Patient was seen at bedside, laying down comfortably, feeling better Review of Systems General: No Chills, No Night Sweats, No Fatigue, No Malaise, No Appetite, No Other HEENT: No Head Aches, No Visual Changes, No Eye Pain, No Ear Pain, No Dysphasia, No Sinus Congestion, No Post Nasal Drip, No Sore Throat, No Other Pulmonary: Dyspnea, Cough; No Pleuritic Chest Pain, No Other Cardiovascular: No: Chest Pain, Palpitations, Orthopnea, Paroxysmal Noc. Dyspnea, Edema, Lt Headedness, Other Focused Exam Lactate Level 11/11/22 19:45: Lactic Acid Level 0.63 Time of Focused Exam: 20:45 Objective-Cardiology Exam Last Set of Vital Signs Vital Signs 11/12/22 11/13/22 01:27 07:47 Temp 35.9 Pulse 52 Resp 18 B/P (MAP) 169/50 (89) Pulse Ox 91 O2 Delivery Nasal Cannula O2 Flow Rate 4.00 FiO2 28 I&O Intake and Output 11/13/22 00:00 Intake Total 545 ml Output Total 1351 ml Balance -806 ml Intake Oral 545 ml Output Urine Total 1350 ml Stool Total 1 ml # Bowel Movements 1 Daily Weight Change No General: Alert, Oriented X3, Cooperative HEENT: Atraumatic, PERRLA Neck: Supple, No JVD, No Thyromegaly Lungs: Normal Air Movement, Other (Improvement in the wheezing) Heart: Regular Rate, Normal S1, Normal S2, No Murmurs Abdomen: Normal Bowel Sounds, Soft, No Tenderness, No Hepatosplenomegaly, No Masses Extremities: No Clubbing, No Cyanosis, No Edema, Normal Pulses, No Tenderness/Swelling Skin: No Rashes, No Breakdown, No Significant Lesion Neuro: Normal Gait, Normal Speech, Strength at 5/5 X4 Ext, Normal Tone, Sensation Intact Psych/Mental Status: Mental Status NL, Mood NL Results Lab Laboratory Tests 11/13/22 04:27 A/P-Cardiology Admission Diagnosis Shortness of breath Acute exacerbation of COPD Type II myocardial infarction Hypertension Assessment/Plan Shortness of breath, acute respiratory failure secondary to exacerbation of COPD Receiving steroids Improving Managed by medical team Change in mental status, probably secondary to hypoxemia Receiving oxygen. Continue to monitor closely Elevation in BNP, no signs of congestive heart failure 2D echo done on November 12, 2022 normal LV size and systolic function ejection fraction 55 to 65%, PA pressure 20 mmHg Type II myocardial infarction, elevation in troponin level secondary to hypoxemia EKG did not show any acute changes Underlying coronary artery disease cannot be entirely excluded, consider ischemic work-up once clinically stable or as an outpatient Hypertension, labile blood pressure Was severely hypertensive on admission, currently blood pressure is better controlled. Continue to monitor Acute renal insufficiency, monitor renal function ESTEFANY POLANCO MD Nov 13, 2022 09:13
[2022-11-13] MEDS ORDERED: predniSONE 20 MG TAB PO SCH (10:15)
[2022-11-13] MEDS ORDERED: CEFDINIR 300 MG (OMNICEF) CAP PO NR (10:30)
[2022-11-13] MEDS ORDERED: PRED10TA22 PO (10:52)
[2022-11-13] MEDS ORDERED: CEFD300C3 PO (10:52)
--- NOTE | 2022-11-13 10:52 | Discharge Summary ---
Discharge Summary Hospital Course Was the Problem List Reviewed?: Yes Problems/Dx: (1) Chest pain Status: Acute (2) COPD (chronic obstructive pulmonary disease) Status: Acute Hospital Course Date of Admission: Nov 12, 2022 at 00:30 Admission Diagnosis : [facility] Date of Discharge: 11/13/22 Discharge Diagnosis: [ ] Hospital Course: Hospital Course: 71 year old female who presented to [facility] ER on the evening of 11/11 with a chief complaint of SOA. Patient has a known history of COPD on home oxygen, but stated she is not very compliant with wearing her oxygen or taking any of her medications that she is supposed to take at home. Patient was noted to have altered mental status and an elevated creatinine of 1.89. Patient underwent initial work-up for a COPD exacerbation and was found to have an elevated troponin level, so standard chest pain workup and treatment was initiated. Initial EKG was not concerning for any ACS. Initial CXR showed no acute abnormality. Patient was started on Duoneb, solumedrol, and oxygen for her AECOPD. Patient was noted to have a UTI and started on ceftriaxone. Patient also had refractory hypertension w/ a systolic BP as high as 200's in the ED. Patient was given Nitropaste, hydralazine, vasotec, and clonidine before BP was able to be controlled. Patient was started on ambulatory amlodipine 10mg and required the clonidine to keep SBP <160 throughout hospitalization. On 11/12 patient underwent a VQ scan, without ventilation imaging being obtained, which had the following findings: Multiple large peripheral wedge-shaped perfusion defects extending to the pleural surface involving the right lung without corresponding consolidation on the current chest radiograph. This is concerning for pulmonary emboli; however, lack of ventilation imaging does limit the specificity of exam. Patient also underwent LLE Venous Double Study which had the following findings: No evidence for deep vein thrombosis. On 11/13 patient stated she was feeling b delores and was noted to be slightly agitated and had stopped wearing her oxygen and removed her IVs, stating repeatedly that she wanted to go home. Patient had been maintained on 4L O2 NC, although her sats were in the low 90s while on room air. All of patients medications were switched to oral route with prescriptions sent to ambulatory pharmacy. Patient was discharged home with need to get close follow up with her PCP to monitor COPD status and to monitor BP. Labs and Pending Lab Test: Laboratory Tests 11/13/22 04:27: White Blood Count 7.5, Red Blood Count 3.21L, Hemoglobin 9.8L, Hematocrit 30L, Mean Corpuscular Volume 94, Mean Corpuscular Hemoglobin 31, Mean Corpuscular Hemoglobin Concent 33, Red Cell Distribution Width 14.7H, Platelet Count 247, Mean Platelet Volume 10.2, Immature Granulocyte % (Auto) 1, Neutrophils (%) (Auto) 90H, Lymphocytes (%) (Auto) 7L, Monocytes (%) (Auto) 2, Eosinophils (%) (Auto) 0, Basophils (%) (Auto) 0, Neutrophils # (Auto) 6.7, Lymphocytes # (Auto) 0.6L, Monocytes # (Auto) 0.1, Eosinophils # (Auto) 0.0, Basophils # (Auto) 0.0, Immature Granulocyte # (Auto) 0.0, Sodium Level 139, Potassium Level 5.0, Chloride Level 106, Carbon Dioxide Level 21, Anion Gap 12, Blood Urea Nitrogen 52H, Creatinine 1.96H, Estimat Glomerular Filtration Rate 27, BUN/Creatinine Ratio 27, Glucose Level 166H, Calcium Level 8.9, Corrected Calcium 9.5, Total Bilirubin 0.2, Aspartate Amino Transf (AST/SGOT) 19, Alanine Aminotransferase (ALT/SGPT) 18, Alkaline Phosphatase 107, Total Protein 6.1L, Albumin 3.2 Microbiology 11/12/22 MRSA Screen - Final, Complete MRSA not isolated 11/11/22 Blood Culture - Preliminary, Resulted No growth 11/11/22 Urine Culture - Preliminary, Resulted Escherichia coli Mixed Bacterial Yennifer Home Meds Active Lipitor (Atorvastatin Calcium) 40 Mg Tablet 40 Mg PO HS Amlodipine Besylate 10 Mg Tablet 10 Mg PO DAILY Metoprolol Succinate 100 Mg Tab.er.24h 100 Mg PO DAILY Clopidogrel (Clopidogrel Bisulfate) 75 Mg Tablet 75 Mg PO DAILY Reported Tylenol Extra Strength (Acetaminophen) 500 Mg Tablet 1,000 Mg PO Q4H PRN Ventolin Hfa (Albuterol Sulfate) 18 Gm Hfa.aer.ad 2 Puff INH Q4H PRN Pantoprazole Sodium 40 Mg Tablet.dr 40 Mg PO DAILY Oxybutynin Chloride ER (Oxybutynin Chloride) 10 Mg Tab.er.24 5 Mg PO HS PRN TAKES 1/2 (10MG) TABLET Oxybutynin Chloride ER (Oxybutynin Chloride) 10 Mg Tab.er.24 5 Mg PO DAILY TAKES 1/2 (10MG) TABLET Oxycodone-Acetaminophen 10-325 (Oxycodone HCl/Acetaminophen) 1 Each Tablet 1 Tab PO Q8H PRN Zolpidem Tartrate 10 Mg Tablet 10 Mg PO HS Ssd (Silver Sulfadiazine) 25 Gm Cream..g. TOP DAILY APPLY TO SORE ON LEG Alprazolam 1 Mg Tablet 1 Mg PO TID PRN Aspirin EC (Aspirin) 81 Mg Tablet.dr 81 Mg PO DAILY Gabapentin 300 Mg Capsule 600 Mg PO QID TAKES 2 (300MG) CAPSULES Assessment/Pt Instructions pcp 1 week Discharge Planning: <30 minutes discharge planning Discharge Instructions Discharge Diet: No Restrictions Discharge Physical Examination Vital Signs Vital Signs Date Time Temp Pulse Resp B/P (MAP) Pulse Ox O2 Delivery O2 Flow Rate FiO2 11/13/22 08:00 91 Nasal Cannula 4.00 11/13/22 07:47 35.9 52 18 169/50 (89) 11/12/22 01:27 28 Allergies: Coded Allergies: Iodinated Contrast Media (Verified Allergy, Unknown, 09/21/17) Discharge Summary Date of Admission Nov 12, 2022 at 00:30 Date of Discharge Discharge Date: Nov 13, 2022 Admission Diagnosis Assessment: Acute on chronic respiratory failure AECOPD Elevated troponin CHF? Smoker JEANINE on CKD Plan: Monitor closely ICU Cardiology and EICU appreciated LATA WOOD DO Nov 13, 2022 10:52
[2022-11-13] MEDS: RT-ALBUTEROL/IPRATROPIUM 3 ML (DUONEB) VIAL INH SCH (10:55)
[2022-11-13 11:30] VITALS: BP 155/57
[2022-11-13 12:04] VITALS: BP 155/57
--- NOTE | 2022-11-13 12:57 | Physical Therapy Progress Note ---
Therapy Progress Note Patient dismissed prior to PT availability. KELLY NARANJO PT Nov 13, 2022 12:57
--- NOTE | 2022-11-13 15:31 | Progress Note - Hospitalist ---
ELEAZAR RODRIGUEZ 11/13/22 1531: Subjective HPI/CC On Admission Date Seen by Provider: Nov 13, 2022 Time Seen by Provider: 15:26 CC: AECOPD HPI: This is a 71yoWF clinic patient of [facility] who presented to the ER with dyspnea and found to have elevated troponin and AECOPD. IV steroids started by EICU. Patient was planning on leaving AMA but family could not come and get her so she will stay. Refuses most of our med recs. Nebs ordered along with O2. No details obtained since she refuses to interact with me. Subjective/Events-last exam Patient is being seen in follow up for AECOPD and Type II LA. Patient agitated this morning. States she wants to leave the hospital and that she feels fine. Patient removed her IVs so medications will need to be switched to PO. Patient states she has no other complaints and that she would like to go home and that her nurses lied to her. Hospital Course: 71 year old female who presented to [facility] ER on the evening of 11/11 with a chief complaint of SOA. Patient has a known history of COPD on home oxygen, but stated she is not very compliant with wearing her oxygen or taking any of her medications that she is supposed to take at home. Patient was noted to have altered mental status and an elevated creatinine of 1.89. Patient underwent initial work-up for a COPD exacerbation and was found to have an elevated troponin level, so standard chest pain workup and treatment was initiated. Initial EKG was not concerning for any ACS. Initial CXR showed no acute abnormality. Patient was started on Duoneb, solumedrol, and oxygen for her AECOPD. Patient was noted to have a UTI and started on ceftriaxone. Patient also had refractory hypertension w/ a systolic BP as high as 200's in the ED. Patient was given Nitropaste, hydralazine, vasotec, and clonidine before BP was able to be controlled. Patient was started on ambulatory amlodipine 10mg and required t he clonidine to keep SBP <160 throughout hospitalization. On 11/12 patient underwent a VQ scan, without ventilation imaging being obtained, which had the following findings: Multiple large peripheral wedge-shaped perfusion defects extending to the pleural surface involving the right lung without corresponding consolidation on the current chest radiograph. This is concerning for pulmonary emboli; however, lack of ventilation imaging does limit the specificity of exam. Patient also underwent LLE Venous Double Study which had the following findings: No evidence for deep vein thrombosis. On 11/13 patient stated she was feeling better and was noted to be slightly agitated and had stopped wearing her oxygen and removed her IVs, stating repeatedly that she wanted to go home. Patient had been maintained on 4L O2 NC, although her sats were in the low 90s while on room air. All of patients medications were switched to oral route with prescriptions sent to ambulatory pharmacy. Patient was discharged home with need to get close follow up with her PCP to monitor COPD status and to monitor BP. Review of Systems Pulmonary: No Dyspnea, No Cough Cardiovascular: No: Chest Pain, Palpitations Gastrointestinal: No: Nausea, Vomiting, Abdominal Pain Genitourinary: No Dysuria, No Frequency Focused Exam Lactate Level 11/11/22 19:45: Lactic Acid Level 0.63 Time of Focused Exam: 20:45 Objective Exam Vital Signs Vital Signs Date Time Temp Pulse Resp B/P (MAP) Pulse Ox O2 Delivery O2 Flow Rate FiO2 11/13/22 12:04 36.0 55 18 155/57 92 Room Air 4.00 11/12/22 01:27 28 Capillary Refill : Less Than 3 Seconds General Appearance: WD/WN, Other (mildly agitated ) HEENT: PERRL/EOMI (EOMI) Neck: Non Tender, Supple Respiratory: Lungs Clear, No Accessory Muscle Use, No Respiratory Distress Cardiovascular: No Murmur, Bradycardia (Sinus Rhythm. Borderline alicia ) Gastrointestinal: Non Tender, Soft Neurologic/Psychiatric: Alert, Other (Agitated. Patient wouldn't answer orientation based questions. ) Skin: Normal Color, Warm/Dry Results/Procedures Lab Laboratory Tests 11/13/22 04:27 Patient resulted labs reviewed. Assessment/Plan Assessment and Plan Assess & Plan/Chief Complaint Acute Hypoxic Respiratory Failure AECOPD Receiving steroids Improving Managed by medical team Altered Mental Status - probably 2/2 hypoxemia but unsure of baseline - Patient receiving oxygen and breathing txs - Continue to monitor Type II Myocardial Infarction - Cardiology following - Troponin elevation believed to be due to hypoxemia - Underwent 2D echo which showed normal LV size and systolic function ejection fraction 55 to 65%, PA pressure 20 mmHg - Cardiology team recommending outpatient CAD workup JEANINE vs CKD -Creatinine 1.98 on admission, currently 1.96. 1.15 at discharge of last visit. - Avoid Nephrotoxic agents and Hypotensive agents. - Continue to monitor Hypertension - On Amlodipine 10 from ambulatory. Requiring clonidine to manage inpatient. Will need outpatient medication adjustments for better HTN control. YVONNE WOOD DO 11/14/22 0451: Supervisory-Addendum Brief Verification & Attestation Participated in pt care: history, MDM, physical Personally performed: exam, history, MDM, supervision of care Care discussed with: Medical Student Procedures: n/a Results interpretation: Verified all documentation Verification and Attestation of Medical Student E/M Service A medical student performed and documented this service in my presence. I reviewed and verified all information documented by the medical student and made modifications to such information, when appropriate. I personally performed the physical exam and medical decision making. Yvonne Wood Nov 14, 2022,04:51 ELEAZAR RODRIGUEZ Nov 13, 2022 15:31 YVONNE WOOD DO Nov 14, 2022 04:51
[2022-11-13] MEDS ORDERED: CEFDINIR 300 MG (OMNICEF) CAP PO SCH (21:00)
== END 2022-11-13 12:42 | disposition home or self-care (01) | DRG 189 ==
LOC: EDUNIT# 18:47 → ER 18:48 → ICU 11-12 00:30 → 4TH 11-12 18:03
PROVIDERS: ADMIT Internal Medicine; ATTEND Internal Medicine
DX: J96.21 Acute and chronic respiratory failure with hypoxia (principal); I21.A1 Myocardial infarction type 2; J44.1 Chronic obstructive pulmonary disease with (acute) exacerbation; N17.9 Acute kidney failure, unspecified; N39.0 Urinary tract infection, site not specified; F17.210 Nicotine dependence, cigarettes, uncomplicated; N18.9 Chronic kidney disease, unspecified; I12.9 Hypertensive chronic kidney disease with stage 1 through stage 4 chronic kidney disease, or unspecified chronic kidney disease; G47.33 Obstructive sleep apnea (adult) (pediatric); Z86.73 Personal history of transient ischemic attack (TIA), and cerebral infarction without residual deficits; G43.909 Migraine, unspecified, not intractable, without status migrainosus; E87.5 Hyperkalemia; G40.909 Epilepsy, unspecified, not intractable, without status epilepticus; K21.9 Gastro-esophageal reflux disease without esophagitis; M19.90 Unspecified osteoarthritis, unspecified site; G89.29 Other chronic pain; M54.9 Dorsalgia, unspecified; F41.9 Anxiety disorder, unspecified; Z99.81 Dependence on supplemental oxygen; Z20.822 Contact with and (suspected) exposure to COVID-19
CPT/HCPCS: 36415; 51702; 71045; 80053; 80306; 80320; 81000; 82140; 82550; 82553; 83605; 83735; 83874; 83880; 84443; 84484; 85007; 85025; 85027; 85379; 85610; 85652; 85730; 86141; 87040; 87077; 87081; 87088; 87186; 87636; 93005; 93041; 93306; 94640; 94761

== ENCOUNTER 2022-11-20 18:08 | Inpatient (IN) | payer MEDICARE, MEDICAID ==
[2022-11-20] VITALS (9 sets, daily range): BP systolic 105–160; BP diastolic 56–93
[~2022-11-20] VITALS: Ht 150 cm; Wt 67.7 kg
[~2022-11-20 18:08] MED LIST changes: +PRED10TA22 PO
[2022-11-20] MEDS ORDERED: LIDOCAINE UROJET 2% GEL 10 ML PKG TOP ONE (18:15)
--- NOTE | 2022-11-20 18:25 | ED General ---
General Chief Complaint: Respiratory Problems Stated Complaint: WEAKNESS Source of Information: Patient (VERY POOR HISTORIAN), Old Records (ALL HISTORY IS FROM OLD RECORDS) History of Present Illness Date Seen by Provider: Nov 20, 2022 Time Seen by Provider: 18:09 Initial Comments PT ARRIVES VIA EMS FROM HOME PT STATES SHE DOES NOT KNOW WHY SHE IS HERE, AND ANSWERS "I HAVE NO IDEA" AND "I DON'T KNOW" TO NEARLY ALL QUESTIONS PT STATES SHE DOES NOT KNOW WHAT MEDICAL PROBLEMS SHE HAS, OR WHAT MEDICATIONS SHE TAKES, OR WHY SHE IS HERE SHE STATES THAT HER [id number] CALLED EMS, BUT STATES SHE DOES NOT KNOW WHY--LATER STATES "I GUESS SHE THOUGHT I WAS WEAK OR SOMETHING" PT HAS COPD AND CONTINUES TO SMOKE CIGARETTES WELL MARIJUANA. SHE HAS HOME O2 BUT STATES SHE DOES NOT WEAR IT ALL THE TIME. SHE STATES WHEN SHE DOES WEAR IT, IT IS AT 3L/NC PT STATES "I FEEL PRETTY GOOD" ON DIRECT QUESTIONING, SHE DENIES ANY PAIN ANYWHERE, NO CHEST PAIN, DENIES SHORTNESS OF BREATH, DENIES FEVER/SWEATS/CHILLS, DENIES COUGH, DENIES ANY GI SYMPTOMS, DENIES ANY URINARY SYMPTOMS, DENIES PARESTHESIAS OR MOTOR DEFICITS. PT WAS ADMITTED Allergies and Home Medications Allergies Coded Allergies: Iodinated Contrast Media (Verified Allergy, Unknown, 09/21/17) Patient Home Medication List Acetaminophen (Tylenol Extra Strength) 500 Mg Tablet, 1,000 MG PO Q4H PRN for PAIN-MILD, (Reported) Entered as Reported by: JUANPABLO BARAHONA on 07/14/19 0947 Albuterol Sulfate (Ventolin Hfa) 18 Gm Hfa.aer.ad, 2 PUFF INH Q4H PRN for SHORTNESS OF BREATH, (Reported) Entered as Reported by: JUANPABLO BARAHONA on 07/14/19 0947 Alprazolam (Alprazolam) 1 Mg Tablet, 1 MG PO TID PRN for ANXIETY, (Reported) Entered as Reported by: JUANPABLO BARAHONA on 07/14/19 0947 Amlodipine Besylate (Amlodipine Besylate) 10 Mg Tablet, 10 MG PO DAILY Prescribed by: FREDO GRANDE on 07/14/19 1036 Aspirin (Aspirin EC) 81 Mg Tablet.dr, 81 MG PO DAILY, (Reported) Entered as Reported by: JUANPABLO BARAHONA on 01/24/16 1523 Atorvastatin Calcium (Lipitor) 40 Mg Tablet, 40 MG PO HS Prescribed by: FREDO GRANDE on 07/14/19 1036 Cefdinir (Cefdinir) 300 Mg Capsule, 300 MG PO BID Prescribed by: LATA WOOD on 11/13/22 1052 Clopidogrel Bisulfate (Clopidogrel) 75 Mg Tablet, 75 MG PO DAILY Prescribed by: FREDO GRANDE on 07/14/19 1036 Gabapentin (Gabapentin) 300 Mg Capsule, 600 MG PO QID, (Reported) Entered as Reported by: JUANPABLO BARAHONA on 01/24/16 1513 Metoprolol Succinate (Metoprolol Succinate) 100 Mg Tab.er.24h, 100 MG PO DAILY Prescribed by: FREDO GRANDE on 07/14/19 1036 Oxybutynin Chloride (Oxybutynin Chloride ER) 10 Mg Tab.er.24, 5 MG PO DAILY, (Reported) Entered as Reported by: JUANPABLO BARAHONA on 07/14/19 09 Oxybutynin Chloride (Oxybutynin Chloride ER) 10 Mg Tab.er.24, 5 MG PO HS PRN for URGENCY, (Reported) Entered as Reported by: JUANPABLO BARAHONA on 07/14/19 09 Oxycodone HCl/Acetaminophen (Oxycodone-Acetaminophen 10-325) 1 Each Tablet, 1 TAB PO Q8H PRN for PAIN-MODERATE, (Reported) Entered as Reported by: JUANPABLO BARAHONA on 07/14/19 09 Pantoprazole Sodium (Pantoprazole Sodium) 40 Mg Tablet.dr, 40 MG PO DAILY, (Reported) Entered as Reported by: JUANPABLO BARAHONA on 07/14/19 09 Prednisone (Prednisone) 10 Mg Tab.ds.pk, 10 MG PO DAILY Prescribed by: LATA WOOD on 11/13/22 1052 Silver Sulfadiazine (Ssd) 25 Gm Cream..g., TOP DAILY, (Reported) Entered as Reported by: JUANPABLO BARAHONA on 07/14/19 09 Zolpidem Tartrate (Zolpidem Tartrate) 10 Mg Tablet, 10 MG PO HS, (Reported) Entered as Reported by: JUANPABLO BARAHONA on 07/14/19 09 Past Kbtabuo-Snrcov-Bxmjqo Hx Patient Social History Tobacco Use?: Yes Tobacco type used: Cigarettes Smoking Status: Current Everyday Smoker Substance use?: Yes Substance type: Marijuana Substance frequency: Once in a while Alcohol Use?: No Pt feels they are or have been: No Immunizations Up To Date Tetanus Booster (TDap): More than 5yrs PED Vaccines UTD: Yes Seasonal Allergies Seasonal Allergies: Yes Past Medical History Surgery/Hospitalization HX: PMH: COPD, Surgeries: Yes Appendectomy, Gallbladder, Tubal Ligation Respiratory: Yes (NO COMPLICANT WITH WEARING O2, AND CONTINUES TO SMOKE 3 PPD) Asthma, Chronic Bronchitis, Sleep Apnea, COPD Currently Using CPAP: No Currently Using BIPAP: No Cardiac: Yes Hypertension Neurological: Yes (CVA'S--NO RESIDUAL DEFICITS) Headaches /Migraines, Seizure Disorder, Stroke Reproductive Disorders: No 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, 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 Sexually Transmitted Disease: No HIV/AIDS: No Genitourinary: No Gastrointestinal: Yes (S/P RIDDHI) Gastroesophageal Reflux, Chronic Constipation, Gall Bladder Disease Musculoskeletal: Yes (FREQUENT FALLS; RESTLESS LEG SYNDROME; ) Arthritis, Chronic Back Pain Endocrine: No HEENT: No (GLASSES) Loss of Vision: Denies Hearing Impairment: Denies Cancer: No Psychosocial: Yes Sleep Difficulties, Anxiety Integumentary: No Blood Disorders: No Family Medical History Alzheimer's disease G8 BROTHER Completed stroke G8 BROTHER Diabetes mellitus 19 MOTHER Glaucoma 19 FATHER G8 BROTHER Hypertension 19 FATHER G8 BROTHER Myocardial infarction 19 FATHER No Pertinent Family Hx, Diabetes SOCIAL HISTORY: -SMOKES 3 PPD -ETOH--HISTORY OF ABUSE, CLAIMS NO RECENT USE -DRUGS--THC, BENZODIAZEPINE ABUSE/EXCESSIVE USE. CHRONIC OPIATE USE/EXCESSIVE USE. LONG HISTORY OF NON-COMPLIANCE IN ALL ASPECTS OF CARE. PER OLD RECORDS, PT IS SUPPOSED TO WEAR O2 AT 2-3L/NC CONTINUOUSLY, BUT DOES NOT PAST SURGICAL HISTORY: -APPENDECTOMY -BILATERAL TUBAL LIGATION -CHOLECYSTECTOMY Physical Exam Vital Signs Vital Signs - First Documented 11/20/22 18:11 Temp 36.0 Pulse 42 Resp 16 B/P (MAP) 105/93 (97) Pulse Ox 96 O2 Delivery Nasal Cannula O2 Flow Rate 4.00 Capillary Refill : Height, Weight, BMI Height: 5'0" Weight: 185lbs. 1.0oz. 83.844354mt; 30.17 BMI Method:Stated Focused Exam Lactate Level 11/20/22 18:48: Lactic Acid Level 1.14 Lactic Acid Level Laboratory Tests Test 11/20/22 18:48 Lactic Acid Level 1.14 MMOL/L (0.50-2.00) Progress/Results/Core Measures Suspected Sepsis SIRS Temperature: Pulse: Respiratory Rate: Laboratory Tests 11/20/22 18:48: White Blood Count 12.8H Blood Pressure / Mean: 11/20/22 18:48: Lactic Acid Level 1.14 Laboratory Tests 11/20/22 18:48: Creatinine 3.04H, INR Comment 1.1, Platelet Count 218, Total Bilirubin 0.2 Results/Orders Lab Results Laboratory Tests Test 11/20/22 18:32 11/20/22 18:48 11/20/22 19:23 11/20/22 19:44 Range/Units Influenza Type A (RT-PCR) Not Detected Not Detecte Influenza Type B (RT-PCR) Not Detected Not Detecte SARS-CoV-2 RNA (RT-PCR) Not Detected Not Detecte White Blood Count 12.8 H 4.3-11.0 10^3/uL Red Blood Count 2.93 L 3.80-5.11 10^6/uL Hemoglobin 9.3 L 11.5-16.0 g/dL Hematocrit 29 L 35-52 % Mean Corpuscular Volume 100 H 80-99 fL Mean Corpuscular Hemoglobin 32 25-34 pg Mean Corpuscular Hemoglobin Concent 32 32-36 g/dL Red Cell Distribution Width 16.0 H 10.0-14.5 % Platelet Count 218 130-400 10^3/uL Mean Platelet Volume 10.2 9.0-12.2 fL Immature Granulocyte % (Auto) 2 % Neutrophils (%) (Auto) 75 42-75 % Lymphocytes (%) (Auto) 14 12-44 % Monocytes (%) (Auto) 7 0-12 % Eosinophils (%) (Auto) 1 0-10 % Basophils (%) (Auto) 0 0-10 % Neutrophils # (Auto) 9.7 H 1.8-7.8 10^3/uL Lymphocytes # (Auto) 1.8 1.0-4.0 10^3/uL Monocytes # (Auto) 0.9 0.0-1.0 10^3/uL Eosinophils # (Auto) 0.1 0.0-0.3 10^3/uL Basophils # (Auto) 0.0 0.0-0.1 10^3/uL Immature Granulocyte # (Auto) 0.3 H 0.0-0.1 10^3/uL Erythrocyte Sedimentation Rate 38 H 0-30 MM/HR Prothrombin Time 14.8 H 12.2-14.7 SEC INR Comment 1.1 0.8-1.4 Activated Partial Thromboplast Time 20 L 24-35 SEC Sodium Level 136 135-145 MMOL/L Potassium Level 5.6 H 3.6-5.0 MMOL/L Chloride Level 106 98-107 MMOL/L Carbon Dioxide Level 18 L 21-32 MMOL/L Anion Gap 12 5-14 MMOL/L Blood Urea Nitrogen 77 H 7-18 MG/DL Creatinine 3.04 H 0.60-1.30 MG/DL Estimat Glomerular Filtration Rate 16 BUN/Creatinine Ratio 25 Glucose Level 115 H 70-105 MG/DL Lactic Acid Level 1.14 0.50-2.00 MMOL/L Calcium Level 7.8 L 8.5-10.1 MG/DL Corrected Calcium 8.5 8.5-10.1 MG/DL Magnesium Level 2.5 H 1.6-2.4 MG/DL Total Bilirubin 0.2 0.1-1.0 MG/DL Aspartate Amino Transf (AST/SGOT) 26 5-34 U/L Alanine Aminotransferase (ALT/SGPT) 53 0-55 U/L Alkaline Phosphatase 73 40-136 U/L Ammonia 23 11-32 UMOL/L Total Creatine Kinase 157 29-168 U/L Creatine Kinase MB 3.1 <6.6 NG/ML Myoglobin 324.4 H 10.0-92.0 NG/ML Troponin I < 0.028 <0.028 NG/ML C-Reactive Protein High Sensitivity 0.96 H 0.00-0.50 MG/DL Total Protein 5.8 L 6.4-8.2 GM/DL Albumin 3.1 L 3.2-4.5 GM/DL Amylase Level 30 25-125 U/L Lipase 24 8-78 U/L TSH [place] Testing 3.87 0.35-4.94 UIU/ML Serum Alcohol < 10 <10 MG/DL B-Type Natriuretic Peptide 116.0 H <100.0 PG/ML My Orders Orders - MIKE MAURICIO DO Ed Iv/Invasive Line Start (11/20/22 18:09) Ekg Tracing (11/20/22 18:09) Catheter(Urinary) Insert & Ass 03,15 (11/20/22 18:09) O2 (11/20/22 18:09) Monitor-Rhythm Ecg Trace Only (11/20/22 18:09) Bnp Lalit (11/20/22 18:09) Cbc With Automated Diff (11/20/22 18:09) Comprehensive Metabolic Panel (11/20/22 18:09) Creatine Kinase (11/20/22 18:09) Creatine Kinase Mb (11/20/22 18:09) Hs C Reactive Protein (11/20/22 18:09) Magnesium (11/20/22 18:09) Protime With Inr (11/20/22 18:09) Partial Thromboplastin Time (11/20/22 18:09) Ua Culture If Indicated (11/20/22 18:09) Erythrocyte Sedimentation Rate (11/20/22 18:09) Myoglobin Serum (11/20/22 18:09) Troponin I Haakon (11/20/22 18:09) Lidocaine 2% (Urojet) (Xylocaine Urojet) (11/20/22 18:15) Alcohol (11/20/22 18:16) Ammonia (11/20/22 18:16) Amylase (11/20/22 18:16) Drug Screen Stat (Urine) (11/20/22 18:16) Lactic Acid Analyzer (11/20/22 18:16) Lipase (11/20/22 18:16) Thyroid Analyzer (11/20/22 18:16) Blood Culture (11/20/22 18:16) Covid 19 Inhouse Test (11/20/22 18:16) Sputum Culture (11/20/22 18:16) Urinalysis (11/20/22 18:16) Urine Culture (11/20/22 18:16) Chest 1 View, Ap/Pa Only (11/20/22 18:16) Ed Iv/Invasive Line Start (11/20/22 18:16) Vital Signs Adult Sepsis Patie Q15M (11/20/22 18:16) Remove Rings In Anticipation O (11/20/22 18:16) Cefepime Injection (Maxipime Injection) (11/20/22 18:30) Influenza A And B By Pcr (11/20/22 18:16) Isolation Central Supply Req (11/20/22 18:16) Arterial Blood Gas (11/20/22 18:19) Ed Iv/Invasive Line Start (11/20/22 18:33) Lactated Ringers (Lr 1000 Ml Iv Solution (11/20/22 18:45) Ed Iv/Invasive Line Start (11/20/22 19:51) Ns Iv 1000 Ml (Sodium Chloride 0.9%) (11/20/22 20:00) Calcium Chloride 10% Injection (Calcium (11/20/22 20:00) Medications Given in ED Current Medications Medications Dose Ordered Sig/Rylee Route Start Time Stop Time Status Last Admin Dose Admin Cefepime HCl 1000 mg/Sodium Chloride 50 ml @ 100 mls/hr ONCE ONCE IV 11/20/22 18:30 11/20/22 18:59 DC 11/20/22 19:30 100 MLS/HR Lactated Ringer's 1,000 ml @ 0 mls/hr Q0M ONCE IV 11/20/22 18:45 11/20/22 18:46 DC 11/20/22 19:30 999 MLS/HR Vital Signs/I&O 11/20/22 11/20/22 11/20/22 18:11 18:11 19:00 Temp 36.0 Pulse 42 Resp 16 B/P (MAP) 105/93 (97) Pulse Ox 96 O2 Delivery Nasal Cannula Nasal Cannula Nasal Cannula O2 Flow Rate 4.00 4.00 5.00 Capillary Refill : Progress Note : Progress Note PT YELLS "OW" AND "QUIT", MOVES / PULLS AWAY, ETC WITH ANY ATTEMPTS WITH ANY CARE, INCLUDING PLACING MONITOR LEADS, BP CUFF, TOURNIQUET, IV ATTEMPTS, ETC. UNABLE TO OBTAIN ABG'S DUE TO THE ABOVE DESPITE MULTIPLE ATTEMPTS BY ER AND RT STAFF. ECG Initial ECG Impression Date: Nov 20, 2022 Initial ECG Impression Time: 18:21 Initial ECG Rate: 46 Initial ECG Rhythm: S.Roni Initial ECG Impression: Nonspecific Changes Initial ECG Comparisson: Unchanged Comment INTERPRETED BY ME Diagnostic Imaging Comments CXR--PER RADIOLOGIST REPORT AT 1921 Findings: No focal airspace disease in the visualized lungs. No pleural effusion or pneumothorax. Normal cardiomediastinal silhouette. Impression: 1. No acute cardiopulmonary process by portable radiography. Reviewed: Reviewed by Me Departure Impression Primary Impression: Weakness Additional Impressions: Acute on chronic renal insufficiency Hyperkalemia Leg edema, left Departure-Patient Inst. Referrals: [facility] (PCP/Family) Primary Care Physician MIKE MAURICIO 13, 2023 18:25
[2022-11-20] MEDS ORDERED: CEFEPIME INJECTION 1,000 MG in NS (IVPB) 50 ML IV ONE (18:30)
--- NOTE | 2022-11-20 18:44 | Diagnostic Imaging Report ---
CHEST 1 VIEW, AP/PA ONLY Indication: Dyspnea Comparison: 11/12/2022 Findings: No focal airspace disease in the visualized lungs. No pleural effusion or pneumothorax. Normal cardiomediastinal silhouette. Impression: 1. No acute cardiopulmonary process by portable radiography. Dictated by: Dictated on workstation # [id number]
[2022-11-20] MEDS ORDERED: LACTATED RINGERS 1,000 ML IV ONE (18:45)
[2022-11-20 18:59] LABS: BASOPHILS % (AUTO) 0 % (0-10); EOSINOPHILS # (AUTO) 0.1 10^3/uL (0.0-0.3); EOSINOPHILS % (AUTO) 1 % (0-10); HEMATOCRIT 29 % (35-52); HEMOGLOBIN 9.3 g/dL (11.5-16.0); LYMPHOCYTES # (AUTO) 1.8 10^3/uL (1.0-4.0); LYMPHOCYTES % (AUTO) 14 % (12-44); MEAN CORPUSCULAR HEMOGLOBIN 32 pg (25-34); MEAN CORPUSCULAR HGB CONC 32 g/dL (32-36); MEAN CORPUSCULAR VOLUME 100 fL (80-99); MEAN PLATELET VOLUME 10.2 fL (9.0-12.2); MONOCYTES # (AUTO) 0.9 10^3/uL (0.0-1.0); MONOCYTES % (AUTO) 7 % (0-12); NEUTROPHILS # (AUTO) 9.7 10^3/uL (1.8-7.8); NEUTROPHILS % (AUTO) 75 % (42-75); PLATELET COUNT 218 10^3/uL (130-400); WHITE BLOOD COUNT 12.8 10^3/uL (4.3-11.0)
[2022-11-20 19:13] LABS: ALBUMIN 3.1 GM/DL (3.2-4.5); CHLORIDE 106 MMOL/L (98-107); POTASSIUM 5.6 MMOL/L (3.6-5.0); SODIUM 136 MMOL/L (135-145)
[2022-11-20 19:14] LABS: CALCIUM 7.8 MG/DL (8.5-10.1)
[2022-11-20 19:15] LABS: AMYLASE 30 U/L (25-125); ERYTHROCYTE SEDIMENTATION RATE 38 MM/HR (0-30)
[2022-11-20 19:16] LABS: AMMONIA 23 UMOL/L (11-32); GLUCOSE 115 MG/DL (70-105); TOTAL PROTEIN 5.8 GM/DL (6.4-8.2)
[2022-11-20 19:17] LABS: BILIRUBIN,TOTAL 0.2 MG/DL (0.1-1.0); CARBON DIOXIDE 18 MMOL/L (21-32)
[2022-11-20 19:19] LABS: ALKALINE PHOSPHATASE 73 U/L (40-136)
[2022-11-20 19:20] LABS: CREATININE SERUM 3.04 MG/DL (0.60-1.30); GFR ESTIMATED 16; INR 1.1 (0.8-1.4); PROTHROMBIN TIME PATIENT 14.8 SEC (12.2-14.7)
[2022-11-20 19:21] LABS: BUN/CREATININE RATIO 25
[2022-11-20 19:22] LABS: ALANINE AMINOTRANSFERASE 53 U/L (0-55); MAGNESIUM 2.5 MG/DL (1.6-2.4)
[2022-11-20 19:23] LABS: LIPASE 24 U/L (8-78)
[2022-11-20 19:24] LABS: CREATINE KINASE 157 U/L (29-168)
[2022-11-20 19:31] LABS: CREATINE KINASE MB 3.1 NG/ML (<6.6)
[2022-11-20 19:44] LABS: TSH (THYROID ANALYZER) 3.87 UIU/ML (0.35-4.94)
[2022-11-20 19:53] LABS: BILIRUBIN,URINE NEGATIVE (NEGATIVE); CLARITY,URINE CLEAR; COLOR,URINE YELLOW; GLUCOSE, URINE (UA) NEGATIVE (NEGATIVE); KETONES,URINE NEGATIVE (NEGATIVE); LEUKOCYTE ESTERASE ,URINE NEGATIVE (NEGATIVE); NITRITE,URINE NEGATIVE (NEGATIVE); PH,URINE 5.5 (5-9); PROTEIN,URINE 1+ (NEGATIVE)
[2022-11-20] MEDS ORDERED: RT-ALBUTEROL SULF 2.5 MG/3 ML PRE-MIX VIAL INH STA ×2 (19:56)
[2022-11-20] MEDS ORDERED: NS IV 1000 ML 1,000 ML IV SCH (20:00)
[2022-11-20] MEDS ORDERED: CALC GLUC 1 GM/100 ML IVPB 100 ML IV ONE (20:00)
[2022-11-20] MEDS ORDERED: CALCIUM CHLORIDE 1 GM/10 ML (IMS) SYR INJ ONE (20:00)
[2022-11-20 20:03] LABS: BACTERIA,URINE TRACE /HPF; WBC,URINE RARE /HPF; YEAST,URINE MODERATE /HPF
[2022-11-20 20:05] LABS: AMPHETAMINE SCREEN, URINE NEGATIVE (NEGATIVE); BARBITURATE SCREEN URINE NEGATIVE (NEGATIVE); BENZODIAZEPINES SCREEN URINE NEGATIVE (NEGATIVE); CANNABINOID SCREEN, URINE NEGATIVE (NEGATIVE); COCAINE SCREEN URINE NEGATIVE (NEGATIVE); METHADONE STAT NEGATIVE (NEGATIVE); OPIATE SCREEN URINE POSITIVE (NEGATIVE); OXYCODONE STAT POSITIVE (NEGATIVE); PROPOXYPHENE STAT NEGATIVE (NEGATIVE); TRICYCLIC ANTIDEPRESSANTS SCRE NEGATIVE (NEGATIVE)
[2022-11-20] MEDS ORDERED: ACETAMINOPHEN 500 MG TAB (TYLENOL) PO PRN (22:45)
[2022-11-20] MEDS ORDERED: ONDANSETRON 4 MG/2 ML (SDV) Z0FRAN IV PRN (22:45)
[2022-11-20] MEDS ORDERED: VASOPRESSIN INJECTION 20 UNIT in NS (IVPB) 100 ML IV SCH (22:45)
[2022-11-20] MEDS ORDERED: EPINEPHrine 1 MG INJECTION 4 MG in NS (IVPB) 248 ML IV SCH (22:45)
[2022-11-20] MEDS ORDERED: NOREPINEPHRINE 8 MG/250 ML 250 ML IV SCH (22:45)
[2022-11-20] MEDS: LACTATED RINGERS 1,000 ML IV SCH (23:36)
[2022-11-21] VITALS (12 sets, daily range): BP systolic 90–166; BP diastolic 55–80
[2022-11-21] MEDS ORDERED: RT-ALBUTEROL SULF 2.5 MG/3 ML PRE-MIX VIAL INH PRN
[2022-11-21 05:10] LABS: BASOPHILS % (AUTO) 0 % (0-10); EOSINOPHILS # (AUTO) 0.1 10^3/uL (0.0-0.3); EOSINOPHILS % (AUTO) 1 % (0-10); HEMATOCRIT 26 % (35-52); HEMOGLOBIN 8.3 g/dL (11.5-16.0); LYMPHOCYTES # (AUTO) 1.4 10^3/uL (1.0-4.0); LYMPHOCYTES % (AUTO) 14 % (12-44); MEAN CORPUSCULAR HEMOGLOBIN 32 pg (25-34); MEAN CORPUSCULAR HGB CONC 32 g/dL (32-36); MEAN CORPUSCULAR VOLUME 101 fL (80-99); MEAN PLATELET VOLUME 10.1 fL (9.0-12.2); MONOCYTES # (AUTO) 0.9 10^3/uL (0.0-1.0); MONOCYTES % (AUTO) 8 % (0-12); NEUTROPHILS # (AUTO) 7.6 10^3/uL (1.8-7.8); NEUTROPHILS % (AUTO) 74 % (42-75); PLATELET COUNT 201 10^3/uL (130-400); WHITE BLOOD COUNT 10.2 10^3/uL (4.3-11.0)
[2022-11-21 05:32] LABS: ALBUMIN 2.7 GM/DL (3.2-4.5); BILIRUBIN,TOTAL 0.3 MG/DL (0.1-1.0); CALCIUM 8.1 MG/DL (8.5-10.1); CREATININE SERUM 2.38 MG/DL (0.60-1.30)
[2022-11-21] MEDS: LACTATED RINGERS 1,000 ML IV SCH ×2 (05:38→13:15)
[2022-11-21] MEDS ORDERED: CATHETER FLUSH 10 ML SYR IVP PRN (07:15)
[2022-11-21] MEDS ORDERED: CEFEPIME 1,000 MG/NS 50 ML IVPB IV SCH ×2 (07:30)
--- NOTE | 2022-11-21 11:25 | Physical Therapy Evaluation ---
PT Evaluation-General Medical Diagnosis Admission Date Nov 20, 2022 at 21:51 Medical Diagnosis: generalized weakness Onset Date: Nov 20, 2022 Therapy Diagnosis Therapy Diagnosis: debility/weakness Height/Weight Height (Feet): 5 Height (Inches): 0 Weight (Pounds): 185 Weight (Ounces): 1.0 Precautions Precautions/Isolations: Fall Prevention, Standard Precautions Referral Physician: Oscar Reason for Referral: Evaluation/Treatment Medical History Pertinent Medical History: COPD (2-3L ), HTN, Smoking Current History EMS secondary to weakness Reviewed History: Yes Social History Home: Single Level Current Living Status: Other Family Entry Into Home: Stairs With Railing PT Steps Into Home: 4 Prior Prior Level of Function SCALE: Activities may be completed with or without assistive devices. 5-Ojscvsgotx-zydjngm completes the activity by him/herself with no assistance f rom a helper. 5-Set-up or Clean-up Assistance-helper sets up or cleans up; patient completes activity. Norton assists only prior to or following the activity. 4-Supervision or Touching Assistance-helper provides verbal cues and/or touching/steadying and/or contact guard assistance as patient completes activity. Assistance may be provided throughout the activity or intermittently. 3-Partial/Moderate Assistance-helper does LESS THAN HALF the effort. Norton lifts, holds or supports trunk or limbs, but provides less than half the effort. 2-Substantial/Maximal Assistance-helper does MORE THAN HALF the effort. Norton lifts or holds trunk or limbs and provides more than half the effort. 1-Gmyrlcfjq-inmmsz does ALL the effort. Patient does none of the effort to complete the activity. Or, the assistance of 2 or more helpers is required for the patient to complete the activity. If activity was not attempted, code reason: 7-Patient Refused. 9-Not Applicable-not attempted and the patient did not perform the activity before the current illness, exacerbation or injury. 10-Not Attempted due to Environmental Limitations-(lack of equipment, weather restraints, etc.). 88-Not Attempted due to Medical Conditions or Safety Concerns. Bed Mobility: 6 Transfers (B,C,W/C): 6 Gait: 6 Stairs: 6 Indoor Mobility (Ambulation): Independent Stairs: Independent Prior Devices Use: None per patient report PT Evaluation-Current Subjective Patient states she is tired but agrees to PT. Objective Patient Orientation: Person, Time Attachments: Oxygen, Burden Catheter, IV ROM/Strength ROM Lower Extremities bilateral LE WFL Strength Lower Extremities 3/5 grossly bilateral LE all planes Integumentary/Posture Integumentary refer to nursing notes Bowel Incontinence: Yes Bladder Incontinence: Burden Cath Posture WFL Neuromuscular (Tone, Coordination, Reflexes) diminished coordination due to weakness Sensory Vision: Functional Hearing: Functional Transfers Lying to Sitting/Side of Bed(Q: 4 Sit to Stand (QC): 3 Chair/Vjr-oi-Yvtvg Xfer(QC): 3 Toilet Transfer (QC): 3 Patient incontinent BM requiring dependent assist to cleanse Gait Mode of Locomotion: Walk Anticipated Mode of Locomotion: Walk Walk 10 feet (QC): 3 Walk 50 ft with 2 Turns(QC): 88 Walk 150 ft (QC): 88 Gait Assistive Device: FWW Comments/Gait Description slightly unsteady with PT correct Balance Sitting Static: Fair Sitting Dynamic: Fair Standing Static: Poor Standing Dynamic: Poor Assessment/Needs Patient will benefit from skilled PT to address functional strength and mobility to improve current LOF to safely return to home with family at maximum LOF. 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 PT Usp Goals Time Frame: Dec 02, 2022 Roll Left & Right (QC): 6 Sit to Lying (QC): 6 Lying-Sitting on Side/Bed(QC): 6 Sit to Stand (QC): 6 Chair/Zyw-ul-Uqfyd Xfer(QC): 6 Toilet Transfer (QC): 6 Walk 10 feet (QC): 6 Walk 50ft with 2 Turns (QC): 6 Walk 150 ft (QC): 6 PT Plan Problem List Problem List: Activity Tolerance, Functional Strength, Safety, Balance, Gait, Transfer, Bed Mobility Treatment/Plan Treatment Plan: Continue Plan of Care Treatment Plan: Bed Mobility, Education, Functional Activity Delfino, Functional Strength, Gait, Safety, Therapeutic Exercise, Transfers Treatment Duration: Dec 02, 2022 Frequency: 6 times per week Estimated Hrs Per Day: .25 hour per day Patient and/or Family Agrees t: Yes Time Time In: 1050 Time Out: 1115 DATE: Nov 21, 2022 Total Billed Treatment Time: 25 Total Billed Treatment 1 visit EVModC 10 min FA 15 min KELLY NARANJO PT Nov 21, 2022 11:25
--- NOTE | 2022-11-21 11:42 | History & Physical ---
MARCELLBRENDA 11/21/22 1142: History of Present Illness History of Present Illness Reason for visit/HPI This is a 71y F who presented to the ED last night after her [id number]-[id number] who helps take care of her expressed concerns about weakness, pt states she "is fine." Today she notes she has oxygen, 3L/NC, at home that she does not always use. Reports she is able to walk as far as she wants without issue. Denies any pain or symptoms at this time; no chest pain, SOB, fevers. Patient would like to get out of bed. Date of Admission Nov 20, 2022 at 21:51 Date Seen by a Provider: Nov 21, 2022 Time Seen by a Provider: 11:36 I consulted on this patient on 11/21/22 11:36 Attending Physician [facility] Admitting Physician Admitting Physician: Amy Garcia MD Attending Physician: Amy Garcia MD Consult Allergies and Home Medications Allergies Coded Allergies: Iodinated Contrast Media (Verified Allergy, Unknown, 09/21/17) Patient Home Medication List Home Medication List Reviewed: Yes Aspirin (Aspirin EC) 81 Mg Tablet.dr, 81 MG PO DAILY, (Reported) Entered as Reported by: NIKKI LUCIANO on 11/21/221207 Last Action: Continued Atenolol (Atenolol) 100 Mg Tablet, 100 MG PO DAILY, (Reported) Entered as Reported by: NIKKI LUCIANO on 11/21/221207 Last Action: Reviewed Atorvastatin Calcium (Atorvastatin Calcium) 40 Mg Tablet, 40 MG PO HS, (Reported) Entered as Reported by: NIKKI LUCIANO on 11/21/221207 Last Action: Continued Cefdinir (Cefdinir) 300 Mg Capsule, 300 MG PO BID, (Reported) Entered as Reported by: NIKKI LUCIANO on 11/21/221207 Last Action: Reviewed Clopidogrel Bisulfate (Clopidogrel) 75 Mg Tablet, 75 MG PO DAILY, (Reported) Entered as Reported by: NIKKI LUCIANO on 11/21/221207 Last Action: Continued Gabapentin (Gabapentin) 800 Mg Tablet, 800 MG PO QID, (Reported) Entered as Reported by: NIKKI LUCIANO on 11/21/221207 Last Action: Converted Lisinopril (Lisinopril) 10 Mg Tablet, 10 MG PO DAILY, (Reported) Entered as Reported by: NIKKI LUCIANO on 11/21/221207 Last Action: Continued Metoprolol Succinate (Metoprolol Succinate) 100 Mg Tab.er.24h, 100 MG PO DAILY, (Reported) Entered as Reported by: NIKKI LUCIANO on 11/21/221207 Last Action: Reviewed Oxycodone HCl/Acetaminophen (Endocet 10-325 mg Tablet) 10 Mg-325 Mg Tablet, 1 EA PO TID PRN for PAIN-MODERATE (5-7), (Reported) Entered as Reported by: NIKKI LUCIANO on 11/21/221207 Last Action: Continued Prednisone (Prednisone) 10 Mg Tab, MG PO DAILY, (Reported) Entered as Reported by: NIKKI LUCIANO on 11/21/221207 Last Action: Reviewed Trazodone HCl (Trazodone HCl) 100 Mg Tablet, 100 MG PO HS, (Reported) Entered as Reported by: NIKKI LUCIANO on 11/21/221207 Last Action: Continued Zolpidem Tartrate (Ambien) 10 Mg Tablet, 10 MG PO HS PRN for SLEEP, (Reported) Entered as Reported by: NIKKI LUCIANO on 11/21/221207 Last Action: Reviewed Discontinued Medications Acetaminophen (Tylenol Extra Strength) 500 Mg Tablet, 1,000 MG PO Q4H PRN for PAIN-MILD, (Reported) Discontinued Reason: No Longer Taking Entered as Reported by: JUANPABLO BARAHONA on 07/14/19946 Last Action: Discontinued Albuterol Sulfate (Ventolin Hfa) 18 Gm Hfa.aer.ad, 2 PUFF INH Q4H PRN for SHORTNESS OF BREATH, (Reported) Discontinued Reason: No Longer Taking Entered as Reported by: JUANPABLO BARAHONA on 07/14/19946 Last Action: Discontinued Alprazolam (Alprazolam) 1 Mg Tablet, 1 MG PO TID PRN for ANXIETY, (Reported) Discontinued Reason: No Longer Taking Entered as Reported by: JUANPABLO BARAHONA on 07/14/19946 Last Action: Discontinued Amlodipine Besylate (Amlodipine Besylate) 10 Mg Tablet, 10 MG PO DAILY Discontinued Reason: No Longer Taking Prescribed by: FREDO GRANDE on 07/14/19 1036 Last Action: Discontinued Aspirin (Aspirin EC) 81 Mg Tablet.dr, 81 MG PO DAILY, (Reported) Discontinued Reason: No Longer Taking Entered as Reported by: JUANPABLO BARAHONA on 01/24/16 1523 Last Action: Discontinued Atorvastatin Calcium (Lipitor) 40 Mg Tablet, 40 MG PO HS Discontinued Reason: No Longer Taking Prescribed by: FREDO GRANDE on 07/14/19 103 Last Action: Discontinued Cefdinir (Cefdinir) 300 Mg Capsule, 300 MG PO BID Discontinued Reason: No Longer Taking Prescribed by: LATA WOOD on 11/13/22 1052 Last Action: Discontinued Clopidogrel Bisulfate (Clopidogrel) 75 Mg Tablet, 75 MG PO DAILY Discontinued Reason: No Longer Taking Prescribed by: FREDO GRANDE on 07/14/191035 Last Action: Discontinued Gabapentin (Gabapentin) 300 Mg Capsule, 600 MG PO QID, (Reported) Discontinued Reason: No Longer Taking Entered as Reported by: JUANPABLO BARAHONA on 01/24/16 151 Last Action: Discontinued Metoprolol Succinate (Metoprolol Succinate) 100 Mg Tab.er.24h, 100 MG PO DAILY Discontinued Reason: No Longer Taking Prescribed by: FREDO GRANDE on 07/14/191035 Last Action: Discontinued Oxybutynin Chloride (Oxybutynin Chloride ER) 10 Mg Tab.er.24, 5 MG PO DAILY, (Reported) Discontinued Reason: No Longer Taking Entered as Reported by: JUANPABLO BARAHONA on 07/14/19946 Last Action: Discontinued Oxybutynin Chloride (Oxybutynin Chloride ER) 10 Mg Tab.er.24, 5 MG PO HS PRN for URGENCY, (Reported) Discontinued Reason: No Longer Taking Entered as Reported by: JUANPABLO BARAHONA on 07/14/19946 Last Action: Discontinued Oxycodone HCl/Acetaminophen (Oxycodone-Acetaminophen 10-325) 1 Each Tablet, 1 TAB PO Q8H PRN for PAIN-MODERATE, (Reported) Discontinued Reason: No Longer Taking Entered as Reported by: JUANPABLO BARAHONA on 07/14/19946 Last Action: Discontinued Pantoprazole Sodium (Pantoprazole Sodium) 40 Mg Tablet.dr, 40 MG PO DAILY, (Reported) Discontinued Reason: No Longer Taking Entered as Reported by: JUANPABLO BARAHONA on 07/14/19946 Last Action: Discontinued Prednisone (Prednisone) 10 Mg Tab.ds.pk, 10 MG PO DAILY Discontinued Reason: No Longer Taking Prescribed by: LATA WOOD on 11/13/22 1052 Last Action: Discontinued Silver Sulfadiazine (Ssd) 25 Gm Cream..g., TOP DAILY, (Reported) Discontinued Reason: No Longer Taking Entered as Reported by: JUANPABLO BARAHONA on 07/14/19946 Last Action: Discontinued Zolpidem Tartrate (Zolpidem Tartrate) 10 Mg Tablet, 10 MG PO HS, (Reported) Discontinued Reason: No Longer Taking Entered as Reported by: JUANPABLO BARAHONA on 07/14/19946 Last Action: Discontinued Past Ebqcpmj-Msqaav-Tjbhuf Hx Patient Social History Tobacco Use?: Yes Tobacco type used: Cigarettes Smoking Status: Current Everyday Smoker Substance use?: Yes Substance type: Opiates/Opioids, Misuse of prescript meds, Marijuana Substance frequency: Daily Alcohol Use?: No Pt feels they are or have been: No Immunizations Up To Date Tetanus Booster (TDap): More Than 5 Years Hepatitis A: No Hepatitis B: No PED Vaccines UTD: Yes Seasonal Allergies Seasonal Allergies: Yes Current Status Advance Directives: Yes Advance Directive Location: Scanned into EMR Communicates: Verbally Primary Language: Greek Preferred Spoken Language: Greek Is interpretation needed?: No Implanted or Applied Medical D: None Past Medical History Surgeries: Appendectomy, Gallbladder, Tubal Ligation Asthma, Chronic Bronchitis, Sleep Apnea, COPD Currently Using CPAP: No Currently Using BIPAP: No Hypertension Headaches /Migraines, Seizure Disorder, Stroke [employer] History: Tubal Ligation, Menopausal Sexually Transmitted Disease: No HIV/AIDS: No Gastroesophageal Reflux, Chronic Constipation, Gall Bladder Disease Arthritis, Chronic Back Pain Loss of Vision: Denies Hearing Impairment: Denies Sleep Difficulties, Anxiety Blood Disorders: No Family Medical History Alzheimer's disease G8 BROTHER Completed stroke G8 BROTHER Diabetes mellitus 19 MOTHER Glaucoma 19 FATHER G8 BROTHER Hypertension 19 FATHER G8 BROTHER Myocardial infarction 19 FATHER No Pertinent Family Hx, Diabetes SOCIAL HISTORY: -SMOKES 3 PPD -ETOH--HISTORY OF ABUSE, CLAIMS NO RECENT USE -DRUGS--THC, BENZODIAZEPINE ABUSE/EXCESSIVE USE. CHRONIC OPIATE USE/EXCESSIVE USE. LONG HISTORY OF NON-COMPLIANCE IN ALL ASPECTS OF CARE. PER OLD RECORDS, PT IS SUPPOSED TO WEAR O2 AT 2-3L/NC CONTINUOUSLY, BUT DOES NOT PAST SURGICAL HISTORY: -APPENDECTOMY -BILATERAL TUBAL LIGATION -CHOLECYSTECTOMY Review of Systems Constitutional: No chills, No fever Respiratory: No cough, No short of breath Cardiovascular: No chest pain, No edema Gastrointestinal: No abdominal pain, No nausea Physical Exam Vital Signs Vital Signs - First Documented 11/20/22 11/20/22 18:11 23:37 Temp 36.0 Pulse 42 Resp 16 B/P (MAP) 105/93 (97) Pulse Ox 96 O2 Delivery Nasal Cannula O2 Flow Rate 4.00 FiO2 32 Capillary Refill : Greater Than 3 Seconds Height, Weight, BMI Height: 5'0" Weight: 185lbs. 1.0oz. 83.425561lp; 27.20 BMI Method:Stated General Appearance: No Apparent Distress, Chronically ill HEENT: PERRL/EOMI, Moist Mucous Membranes Respiratory: Chest Non Tender, Accessory Muscle Use, Crackles, Wheezing Cardiovascular: No Edema, No Murmur, Normal Peripheral Pulses, Bradycardia Gastrointestinal: Normal Bowel Sounds, Non Tender, Soft Extremity: Normal Capillary Refill, Normal Inspection, Non Tender, No Calf Tenderness, No Pedal Edema Neurologic/Psychiatric: Alert, Oriented x3 Skin: Normal Color, Warm/Dry Assessment/Plan Assessment and Plan 71y F admitted for generalized weakness Generalized weakness - IV fluids - Monitor kidney function - PT and OT ordered Acute on chronic kidney disease - Creat down to 2.38 from 3.04 and BUN 66 down from 77 - Decrease rate of IV fluids from 150 to 100 ml/h - Urine output is good at this time, continue to monitor - Encouraged patient to drink fluids Hyperkalemia - Decreased to 5 from 5.6 - Ca gluconate and albuterol given in ED - Continue IV fluids and monitor HTN Bradycardia - Restart home meds - Hold beta cornelio given bradycardia DVT Prophylaxis - Lovenox at renal dosing Expect d/c tomorrow if renal function improves Admission Diagnosis Generalized weakness, Acute on chronic kidney disease Admission Status: Observation AMY GARCIA MD 11/21/22 1414: Allergies and Home Medications Allergies Coded Allergies: Iodinated Contrast Media (Verified Allergy, Unknown, 09/21/17) Patient Home Medication List Home Medication List Reviewed: Yes Aspirin (Aspirin EC) 81 Mg Tablet., 81 MG PO DAILY, (Reported) Entered as Reported by: NIKKI LUCIANO on 11/21/22 0449 Last Action: Continued Atenolol (Atenolol) 100 Mg Tablet, 100 MG PO DAILY, (Reported) Entered as Reported by: NIKKI LUCIANO on 11/21/221207 Last Action: Reviewed Atorvastatin Calcium (Atorvastatin Calcium) 40 Mg Tablet, 40 MG PO HS, (Reported) Entered as Reported by: NIKKI LUCIANO on 11/21/221207 Last Action: Continued Cefdinir (Cefdinir) 300 Mg Capsule, 300 MG PO BID, (Reported) Entered as Reported by: NIKKI LUCIANO on 11/21/221207 Last Action: Reviewed Clopidogrel Bisulfate (Clopidogrel) 75 Mg Tablet, 75 MG PO DAILY, (Reported) Entered as Reported by: NIKKI LUCIANO on 11/21/221207 Last Action: Continued Gabapentin (Gabapentin) 800 Mg Tablet, 800 MG PO QID, (Reported) Entered as Reported by: NIKKI LUCIANO on 11/21/221207 Last Action: Converted Lisinopril (Lisinopril) 10 Mg Tablet, 10 MG PO DAILY, (Reported) Entered as Reported by: NIKKI LUCIANO on 11/21/221207 Last Action: Continued Metoprolol Succinate (Metoprolol Succinate) 100 Mg Tab.er.24h, 100 MG PO DAILY, (Reported) Entered as Reported by: NIKKI LUCIANO on 11/21/221207 Last Action: Reviewed Oxycodone HCl/Acetaminophen (Endocet 10-325 mg Tablet) 10 Mg-325 Mg Tablet, 1 EA PO TID PRN for PAIN-MODERATE (5-7), (Reported) Entered as Reported by: NIKKI LUCIANO on 11/21/221207 Last Action: Continued Prednisone (Prednisone) 10 Mg Tab, MG PO DAILY, (Reported) Entered as Reported by: NIKKI LUCIANO on 11/21/221207 Last Action: Reviewed Trazodone HCl (Trazodone HCl) 100 Mg Tablet, 100 MG PO HS, (Reported) Entered as Reported by: NIKKI LUCIANO on 11/21/221207 Last Action: Continued Zolpidem Tartrate (Ambien) 10 Mg Tablet, 10 MG PO HS PRN for SLEEP, (Reported) Entered as Reported by: NIKKI LUCIANO on 11/21/221207 Last Action: Reviewed Discontinued Medications Acetaminophen (Tylenol Extra Strength) 500 Mg Tablet, 1,000 MG PO Q4H PRN for PAIN-MILD, (Reported) Discontinued Reason: No Longer Taking Entered as Reported by: JUANPABLO BARAHONA on 07/14/19946 Last Action: Discontinued Albuterol Sulfate (Ventolin Hfa) 18 Gm Hfa.aer.ad, 2 PUFF INH Q4H PRN for SHORTNESS OF BREATH, (Reported) Discontinued Reason: No Longer Taking Entered as Reported by: JUANPABLO BARAHONA on 07/14/19946 Last Action: Discontinued Alprazolam (Alprazolam) 1 Mg Tablet, 1 MG PO TID PRN for ANXIETY, (Reported) Discontinued Reason: No Longer Taking Entered as Reported by: JUANPABLO BARAHONA on 07/14/19946 Last Action: Discontinued Amlodipine Besylate (Amlodipine Besylate) 10 Mg Tablet, 10 MG PO DAILY Discontinued Reason: No Longer Taking Prescribed by: FREDO GRANDE on 07/14/19 103 Last Action: Discontinued Aspirin (Aspirin EC) 81 Mg Tablet.dr, 81 MG PO DAILY, (Reported) Discontinued Reason: No Longer Taking Entered as Reported by: JUANPABLO BARAHONA on 01/24/16 1523 Last Action: Discontinued Atorvastatin Calcium (Lipitor) 40 Mg Tablet, 40 MG PO HS Discontinued Reason: No Longer Taking Prescribed by: FREDO GRANDE on 07/14/191035 Last Action: Discontinued Cefdinir (Cefdinir) 300 Mg Capsule, 300 MG PO BID Discontinued Reason: No Longer Taking Prescribed by: LATA WOOD on 11/13/22 1052 Last Action: Discontinued Clopidogrel Bisulfate (Clopidogrel) 75 Mg Tablet, 75 MG PO DAILY Discontinued Reason: No Longer Taking Prescribed by: FREDO GRANDE on 07/14/19 103 Last Action: Discontinued Gabapentin (Gabapentin) 300 Mg Capsule, 600 MG PO QID, (Reported) Discontinued Reason: No Longer Taking Entered as Reported by: JUANPABLO BARAHONA on 01/24/16 151 Last Action: Discontinued Metoprolol Succinate (Metoprolol Succinate) 100 Mg Tab.er.24h, 100 MG PO DAILY Discontinued Reason: No Longer Taking Prescribed by: FREDO GRANDE on 07/14/19 1036 Last Action: Discontinued Oxybutynin Chloride (Oxybutynin Chloride ER) 10 Mg Tab.er.24, 5 MG PO DAILY, (Reported) Discontinued Reason: No Longer Taking Entered as Reported by: JUANPABLO BARAHONA on 07/14/19946 Last Action: Discontinued Oxybutynin Chloride (Oxybutynin Chloride ER) 10 Mg Tab.er.24, 5 MG PO HS PRN for URGENCY, (Reported) Discontinued Reason: No Longer Taking Entered as Reported by: JUANPABLO BARAHONA on 07/14/19946 Last Action: Discontinued Oxycodone HCl/Acetaminophen (Oxycodone-Acetaminophen 10-325) 1 Each Tablet, 1 TAB PO Q8H PRN for PAIN-MODERATE, (Reported) Discontinued Reason: No Longer Taking Entered as Reported by: JUANPABLO BARAHONA on 07/14/19946 Last Action: Discontinued Pantoprazole Sodium (Pantoprazole Sodium) 40 Mg Tablet.dr, 40 MG PO DAILY, (Reported) Discontinued Reason: No Longer Taking Entered as Reported by: JUANPABLO BARAHONA on 07/14/19946 Last Action: Discontinued Prednisone (Prednisone) 10 Mg Tab.ds.pk, 10 MG PO DAILY Discontinued Reason: No Longer Taking Prescribed by: LATA WOOD on 11/13/22 1052 Last Action: Discontinued Silver Sulfadiazine (Ssd) 25 Gm Cream..g., TOP DAILY, (Reported) Discontinued Reason: No Longer Taking Entered as Reported by: JUANPABLO BARAHONA on 07/14/19946 Last Action: Discontinued Zolpidem Tartrate (Zolpidem Tartrate) 10 Mg Tablet, 10 MG PO HS, (Reported) Discontinued Reason: No Longer Taking Entered as Reported by: JUANPABLO BARAHONA on 07/14/19946 Last Action: Discontinued Past Augvhvo-Bafhdt-Xyfwkm Hx Patient Social History Living Status: Lives home independently and daughter helps with house Family Medical History Alzheimer's disease G8 BROTHER Completed stroke G8 BROTHER Diabetes mellitus 19 MOTHER Glaucoma 19 FATHER G8 BROTHER Hypertension 19 FATHER G8 BROTHER Myocardial infarction 19 FATHER Review of Systems Constitutional: No chills, No fever; malaise, weakness EENTM: no symptoms reported; No mouth pain, No nose congestion, No nose pain Respiratory: No cough; dyspnea on exertion; No short of breath Cardiovascular: no symptoms reported; No chest pain, No edema Gastrointestinal: no symptoms reported; No abdominal pain, No constipation, No diarrhea, No nausea, No vomiting Genitourinary: frequency Musculoskeletal: no symptoms reported; No back pain, No joint pain, No muscle pain Skin: no symptoms reported Psychiatric/Neurological: No Symptoms Reported Physical Exam General Appearance: No Apparent Distress HEENT: PERRL/EOMI, Moist Mucous Membranes Neck: Full Range of Motion, Non Tender, Supple Respiratory: Chest Non Tender, No Respiratory Distress, Crackles Cardiovascular: No Edema, No Murmur, Bradycardia Gastrointestinal: Normal Bowel Sounds, Non Tender, Soft Back: No CVA Tenderness, No Vertebral Tenderness Extremity: Normal Capillary Refill, Normal Inspection, Normal Range of Motion, Non Tender, No Calf Tenderness, No Pedal Edema Neurologic/Psychiatric: Alert, Oriented x3, 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 I reviewed and verified all information documented by the medical student and made modifications to such information, when appropriate. I personally performed the physical exam and medical decision making. Amy Garcia, Nov 21, 2022,14:15 Generalized weakness - PT and focus on hydration and lab improvement Acute on Chronic CKD - Improving with IVFs, will continue to monitor Hyperkalemia - 5.0 today, will continue to monitor with hydration Dehydration HTN - Holding BB due to bradycardia CAD - Restart home meds DVT PPX BRENAD FAITH Nov 21, 2022 11:42 AMY GARCIA MD Nov 21, 2022 14:14
[2022-11-21] MEDS ORDERED: MTP100TCR PO (12:08)
[2022-11-21] MEDS ORDERED: ZOLP10TA PO (12:08)
[2022-11-21] MEDS ORDERED: ATOR40TA70 PO (12:08)
[2022-11-21] MEDS ORDERED: CLOP75TA28 PO (12:08)
[2022-11-21] MEDS ORDERED: PRD10T PO (12:08)
[2022-11-21] MEDS ORDERED: GABA800T10 PO (12:08)
[2022-11-21] MEDS ORDERED: OXYC-191 PO (12:08)
[2022-11-21] MEDS ORDERED: TRAZ-227 PO (12:08)
[2022-11-21] MEDS ORDERED: LISI10TA25 PO (12:08)
[2022-11-21] MEDS ORDERED: ATEN100T PO (12:08)
[2022-11-21] MEDS ORDERED: CEFD300C3 PO (12:08)
[2022-11-21] MEDS ORDERED: ASPI-1238 PO (12:08)
--- NOTE | 2022-11-21 15:18 | Occupational Therapy Eval ---
OT Evaluation-General/PLF Medical Diagnosis Admission Date Nov 20, 2022 at 21:51 Medical Diagnosis: generalized weakness Onset Date: Nov 20, 2022 Therapy Diagnosis Therapy Diagnosis: weakness Height/Weight Height (Feet): 5 Height (Inches): 0 Weight (Pounds): 185 Weight (Ounces): 1.0 Precautions Precautions/Isolations: Fall Prevention, Standard Precautions Weight Bear Status Weight Bearing Restriction: Full Weight Bearing Referral Physician: Oscar Referral Reason: Evaluation/Treatment Medical History Pertinent Medical History: COPD (2-3L ), HTN, Smoking Social History Home: Single Level Current Living Status: Other Family Entry Into Home: Stairs With Railing Steps Into Home: 4 mobile home ADL-Prior Level of Function SCALE: Activities may be completed with or without assistive devices. 9-Bwfxzipavf-fcjpixf completes the activity by him/herself with no assistance from a helper. 5-Set-up or Clean-up Assistance-helper sets up or cleans up; patient completes activity. [place] assists only prior to or following the activity. 4-Supervision or Touching Assistance-helper provides verbal cues and/or touching/steadying and/or contact guard assistance as patient completes activity. Assistance may be provided throughout the activity or intermittently. 3-Partial/Moderate Assistance-helper does LESS THAN HALF the effort. [place] lifts, holds or supports trunk or limbs, but provides less than half the effort. 2-Substantial/Maximal Assistance-helper does MORE THAN HALF the effort. [place] lifts or holds trunk or limbs and provides more than half the effort. 8-Vpsbdqllb-odoetc does ALL the effort. Patient does none of the effort to complete the activity. Or, the assistance of 2 or more helpers is required for the patient to complete the activity. If activity was not attempted, code reason: 7-Patient Refused. 9-Not Applicable-not attempted and the patient did not perform the activity befo re the current illness, exacerbation or injury. 10-Not Attempted due to Environmental Limitations-(lack of equipment, weather re straints, etc.). 88-Not Attempted due to Medical Conditions or Safety Concerns. Self Care: Independent Functional Cognition: Independent Drive Self: No OT Current Status Subjective On BSC w/ staff, agreeable to OT Mental Status/Objective Patient Orientation: Person, Place, Time, Situation Attachments: IV, Oxygen (refuses to wear) Current Upper Extremity ROM BUE ROM WFLS Upper Extremity Strength -4/5 BUE ADL-Treatment Eating (QC): 6 Oral Hygiene (QC): 5 Shower/Bathe Self (QC): 88 Upper Body Dressing (QC): 4 Lower Body Dressing (QC): 2 On/Off Footwear (QC): 2 Toileting Hygiene (QC): 2 Education OT Patient Education: Correct positioning, Energy conservation, Modified ADL techniques, Progress toward Goal/Update tx plan, Purpose of tx/functional activities, Reviewed precautions, Rehab process, Safety issues, Transfer techniques Teaching Recipient: Patient Teaching Methods: Demonstration, Discussion Response to Teaching: Verbalize Understanding, Reinforcement Needed OT Skilled Nursing Goals Claims Investigator Goals Eating (QC): 6 Oral Hygiene (QC): 6 Toileting Hygiene (QC): 6 Shower/Bathe Self (QC): 6 Upper Body Dressing (QC): 6 Lower Body Dressing (QC): 6 On/Off Footwear (QC): 6 1=Demonstrate adherence to instructed precautions during ADL tasks. 2=Patient will verbalize/demonstrate understanding of assistive devices/modifications for ADL. 3=Patient will improve strength/tolerance for activity to enable patient to perform ADL's. OT Education/Plan Problem List/Assessment Assessment: Decreased Activ Tolerance, Decreased Safety Aware, Impaired Cognition, Impaired Coordination, Impaired Funct Balance, Impaired Self-Care Skills Discharge Recommendations Plan/Recommendations: Continue POC Treatment Plan/Plan of Care Treatment,Training & Education: Yes Patient would benefit from OT for education, treatment and training to promote independence in ADL's, mobility, safety and/or upper extremity function for ADL's. Plan of Care: ADL Retraining, Functional Mobility, Group Exercise/Act as Ind, UE Funct Exercise/Act Treatment Duration: Nov 25, 2022 Frequency: 3 times per week (3-5 times per week) Estimated Hrs Per Day: .25 hour per day Agreement: Yes Rehab Potential: Fair Time Start Time: 14:00 Stop Time: 14:40 DATE: Nov 21, 2022 Total Time Billed (hr/min): 40 Billed Treatment Time EVM ADL 2 40 min JEAN-PIERRE FOWLER OT Nov 21, 2022 15:18
[2022-11-21] MEDS: RT-ALBUTEROL SULF 2.5 MG/3 ML PRE-MIX VIAL INH SCH ×2 (16:33→18:25)
[2022-11-21] MEDS: GABAPENTIN 400 MG (NEURONTIN) CAP PO SCH ×2 (18:30→20:28)
[2022-11-21] MEDS: traZODone 100 MG (DESYREL) TAB PO SCH (20:28)
[2022-11-21] MEDS: CEPHALEXIN 250 MG (KEFLEX) CAP PO SCH (20:29)
[2022-11-22 03:28] VITALS: BP 123/49
[2022-11-22] MEDS: RT-ALBUTEROL SULF 2.5 MG/3 ML PRE-MIX VIAL INH SCH ×2 (07:36→22:11)
[2022-11-22 08:00] VITALS: BP 139/57
[2022-11-22] MEDS ORDERED: lisINopril 10 MG (PRINIVIL) TABLET PO SCH (09:00)
[2022-11-22] MEDS: CLOPIDOGREL 75 MG (PLAVIX) TABLET PO SCH (09:41)
[2022-11-22] MEDS: ASPIRIN E.C. 81 MG (ECOTRIN) TAB PO SCH (09:41)
[2022-11-22] MEDS: GABAPENTIN 400 MG (NEURONTIN) CAP PO SCH ×4 (09:42→20:43)
[2022-11-22] MEDS: CEPHALEXIN 250 MG (KEFLEX) CAP PO SCH ×2 (09:42→20:43)
[2022-11-22 10:23] LABS: BASOPHILS % (AUTO) 0 % (0-10); EOSINOPHILS # (AUTO) 0.1 10^3/uL (0.0-0.3); EOSINOPHILS % (AUTO) 1 % (0-10); HEMATOCRIT 23 % (35-52); HEMOGLOBIN 7.2 g/dL (11.5-16.0); LYMPHOCYTES # (AUTO) 1.2 10^3/uL (1.0-4.0); LYMPHOCYTES % (AUTO) 13 % (12-44); MEAN CORPUSCULAR HEMOGLOBIN 31 pg (25-34); MEAN CORPUSCULAR HGB CONC 32 g/dL (32-36); MEAN CORPUSCULAR VOLUME 100 fL (80-99); MEAN PLATELET VOLUME 10.2 fL (9.0-12.2); MONOCYTES # (AUTO) 0.7 10^3/uL (0.0-1.0); MONOCYTES % (AUTO) 8 % (0-12); NEUTROPHILS % (AUTO) 77 % (42-75); PLATELET COUNT 178 10^3/uL (130-400); WHITE BLOOD COUNT 9.2 10^3/uL (4.3-11.0)
[2022-11-22 10:33] LABS: ALBUMIN 2.6 GM/DL (3.2-4.5)
[2022-11-22 10:34] LABS: POTASSIUM 4.8 MMOL/L (3.6-5.0)
[2022-11-22 10:35] LABS: CALCIUM 7.8 MG/DL (8.5-10.1)
[2022-11-22 10:36] LABS: TOTAL PROTEIN 4.8 GM/DL (6.4-8.2)
[2022-11-22 10:38] LABS: BILIRUBIN,TOTAL 0.2 MG/DL (0.1-1.0)
[2022-11-22 10:40] LABS: CREATININE SERUM 1.75 MG/DL (0.60-1.30)
--- NOTE | 2022-11-22 11:11 | Progress Note ---
Subjective Date Seen by a Provider: Nov 22, 2022 Time Seen by a Provider: 11:04 Subjective/Events-last exam Today pt is feeling well and sprits are up. She met with PT/OT yesterday and was able to get up and move to chair. Notes she does not feel she would be able to walk as far as needed at home after d/c. She is agreeable to home health aid. Review of Systems General: No Chills, No Night Sweats HEENT: No Sinus Congestion, No Sore Throat Pulmonary: No Cough, No Pleuritic Chest Pain Cardiovascular: No: Chest Pain, Edema Gastrointestinal: No: Nausea, Abdominal Pain Focused Exam Lactate Level 11/20/22 18:48: Lactic Acid Level 1.14 Objective Exam Last Set of Vital Signs Vital Signs Date Time Temp Pulse Resp B/P (MAP) Pulse Ox O2 Delivery O2 Flow Rate FiO2 11/22/22 08:00 36.8 65 20 139/57 (84) 88 High Flow N/C 3.00 11/20/22 23:37 32 Capillary Refill : Greater Than 3 Seconds I&O Intake and Output 11/22/22 00:00 Intake Total 1120 ml Output Total 2850 ml Balance -1730 ml Intake Oral 1070 ml IV Total 50 ml Output Urine Total 2850 ml # Bowel Movements 1 General: Alert, Oriented X3, Cooperative HEENT: Atraumatic, Mucous Memb Moist/[place] Lungs: Normal Air Movement, Other (coarse lung sounds throughout) Heart: Regular Rate, Normal S1, Normal S2, No Murmurs Abdomen: Normal Bowel Sounds, Soft, No Tenderness Extremities: No Edema, Normal Pulses Skin: No Rashes, No Significant Lesion Neuro: Normal Speech Psych/Mental Status: Mental Status NL, Mood NL Results Lab Laboratory Tests 11/22/22 10:12: White Blood Count 9.2, Red Blood Count 2.29L, Hemoglobin 7.2L, Hematocrit 23L, Mean Corpuscular Volume 100H, Mean Corpuscular Hemoglobin 31, Mean Corpuscular Hemoglobin Concent 32, Red Cell Distribution Width 16.4H, Platelet Count 178, Mean Platelet Volume 10.2, Immature Granulocyte % (Auto) 1, Neutrophils (%) (Auto) 77H, Lymphocytes (%) (Auto) 13, Monocytes (%) (Auto) 8, Eosinophils (%) (Auto) 1, Basophils (%) (Auto) 0, Neutrophils # (Auto) 7.0, Lymphocytes # (Auto) 1.2, Monocytes # (Auto) 0.7, Eosinophils # (Auto) 0.1, Basophils # (Auto) 0.0, Immature Granulocyte # (Auto) 0.1, Sodium Level 139, Potassium Level 4.8, Chloride Level 110H, Carbon Dioxide Level 22, Anion Gap 7, Blood Urea Nitrogen 41H, Creatinine 1.75H, Estimat Glomerular Filtration Rate 31, BUN/Creatinine Ratio 23, Glucose Level 199H, Calcium Level 7.8L, Corrected Calcium 8.9, Total Bilirubin 0.2, Aspartate Amino Transf (AST/SGOT) 19, Alanine Aminotransferase (ALT/SGPT) 43, Alkaline Phosphatase 60, Total Protein 4.8L, Albumin 2.6L Microbiology 11/20/22 Urine Culture - Final, Complete NO GROWTH 11/20/22 Blood Culture - Preliminary, Resulted No growth Assessment/Plan Assessment/Plan Assess & Plan/Chief Complaint Generalized weakness - Home health aid, PT/strengthening, encouraged her to use walker, focus on hydration Acute on Chronic CKD - Improved with IVF Hyperkalemia - 4.8 today, continue hydration Dehydration HTN - Improved CAD - Continue home meds Discharge home today with home health aid and f/u labs in 1 week Clinical Quality Measures Admission Status Admission Dx Generalized weakness, Acute on chronic kidney disease BRENDA FAITH Nov 22, 2022 11:11
--- NOTE | 2022-11-22 11:28 | Discharge Summary ---
Diagnosis/Chief Complaint Date of Admission Nov 20, 2022 at 21:51 Date of Discharge 11/22/22 Admission Diagnosis Admission Diagnosis Generalize Weakness Acute on chronic CKD Macrocytic anemia Hyperkalemia Dehydration HTN CAD Debility Discharge Diagnosis See Above Discharge Summary-Simple/Stand Discharge Physical Examination Allergies: Coded Allergies: Iodinated Contrast Media (Verified Allergy, Unknown, 09/21/17) Vitals & I&Os Vital Sign - Last 12Hours Date Time Temp Pulse Resp B/P (MAP) Pulse Ox O2 Delivery O2 Flow Rate FiO2 11/22/22 08:00 36.8 65 20 139/57 (84) 88 High Flow N/C 3.00 11/20/22 23:37 32 Intake and Output 11/22/22 00:00 Intake Total 770 ml Output Total 1300 ml Balance -530 ml General Appearance: Alert, Oriented X3, No Acute Distress HEENT: Mucous Memb Moist/[place] Respiratory: Clear to Auscultation, Normal Air Movement Cardiovascular: Regular Rate, No Murmurs Abdominal: Normal Bowel Sounds, Soft, No Tenderness, No Masses Extremities: No Edema, No Tenderness/Swelling Neuro: Normal Speech, Sensation Intact, Cranial Nerves 3-12 NL Psych/Mental Status: Mental Status NL, Mood NL Hospital Course See final discharge diagnosis. Discharge Instructions to patient/family Please see electronic discharge instructions given to patient. Discharge Medications Reviewed and agree with Discharge Medication list on patient's Discharge Instruction sheet AMY GARCIA MD Nov 22, 2022 11:28
--- NOTE | 2022-11-22 11:33 | Discharge Summary ---
Discharge Summary Instructions for Patient Via [facility], Assessment/Instructions Generalized Weakness Acute on chronic Renal Failure Macrocytic anemia Hyperkalemia Dehydration HTN CAD Debility Physician to follow Patient: MICHAEL Discharge Diet for Home: No Restrictions (push fluid hydration) Hospital Course Date of Admission: Nov 20, 2022 at 21:51 Admission Diagnosis : Family Physician/Provider: [facility] Date of Discharge: 11/22/22 Discharge Diagnosis: Generalized weakness Acute on Chronic renal failure: prerenal Macrocytic anemia Hyperkalemia: Resoved Dehydration HTN CAD Debilty Hospital Course: 71 yo F that presented with generalized weakness found to have acute on chronic renal failure that seems to be pre renal in nature due to dehydration. Patient feels improved with IVFs. BUN/Cr and hyperkalemia improved. She is will d/c home with to continue to work on strength. She will need repeat CMP in 1 week post discharge. Labs and Pending Lab Test: Laboratory Tests 11/22/22 10:12: White Blood Count 9.2, Red Blood Count 2.29L, Hemoglobin 7.2L, Hematocrit 23L, Mean Corpuscular Volume 100H, Mean Corpuscular Hemoglobin 31, Mean Corpuscular Hemoglobin Concent 32, Red Cell Distribution Width 16.4H, Platelet Count 178, Mean Platelet Volume 10.2, Immature Granulocyte % (Auto) 1, Neutrophils (%) (Auto) 77H, Lymphocytes (%) (Auto) 13, Monocytes (%) (Auto) 8, Eosinophils (%) (Auto) 1, Basophils (%) (Auto) 0, Neutrophils # (Auto) 7.0, Lymphocytes # (Auto) 1.2, Monocytes # (Auto) 0.7, Eosinophils # (Auto) 0.1, Basophils # (Auto) 0.0, Immature Granulocyte # (Auto) 0.1, Sodium Level 139, Potassium Level 4.8, Chlor cecilia Level 110H, Carbon Dioxide Level 22, Anion Gap 7, Blood Urea Nitrogen 41H, Creatinine 1.75H, Estimat Glomerular Filtration Rate 31, BUN/Creatinine Ratio 23, Glucose Level 199H, Calcium Level 7.8L, Corrected Calcium 8.9, Total Bilirubin 0.2, Aspartate Amino Transf (AST/SGOT) 19, Alanine Aminotransferase (ALT/SGPT) 43, Alkaline Phosphatase 60, Total Protein 4.8L, Albumin 2.6L Microbiology 11/20/22 Urine Culture - Final, Complete NO GROWTH 11/20/22 Blood Culture - Preliminary, Resulted No growth Home Meds Active Reported Ambien (Zolpidem Tartrate) 10 Mg Tablet 10 Mg PO HS PRN Aspirin EC (Aspirin) 81 Mg Tablet.dr 81 Mg PO DAILY Lisinopril 10 Mg Tablet 10 Mg PO DAILY Atorvastatin Calcium 40 Mg Tablet 40 Mg PO HS Trazodone HCl 100 Mg Tablet 100 Mg PO HS Metoprolol Succinate 100 Mg Tab.er.24h 100 Mg PO DAILY Clopidogrel (Clopidogrel Bisulfate) 75 Mg Tablet 75 Mg PO DAILY Atenolol 100 Mg Tablet 100 Mg PO DAILY Gabapentin 800 Mg Tablet 800 Mg PO QID Endocet 10-325 mg Tablet (Oxycodone HCl/Acetaminophen) 10 Mg-325 Mg Tablet 1 Ea PO TID PRN Cefdinir 300 Mg Capsule 300 Mg PO BID FILLED 11-13-2022 #10/5 DAY SUPPLY Prednisone 10 Mg Tab Mg PO DAILY FILLED 11-13-2022 #21/6 DAY SUPPLY TAKE 6 TABS DAY 1 AND DECREASE BY 1 TAB EVERY DAY UNTIL ALL TAKEN Patient Allergies: Coded Allergies: Iodinated Contrast Media (Verified Allergy, Unknown, 09/21/17) Height (Feet): 5 Height (Inches): 0 Weight (Pounds): 185 Weight (Ounces): 1.0 New Medications: Cephalexin (Cephalexin) 250 Mg Capsule 500 MG PO BID, #6 CAP Continued Medications: Aspirin (Aspirin EC) 81 Mg Tablet.dr 81 MG PO DAILY, TAB Atorvastatin Calcium (Atorvastatin Calcium) 40 Mg Tablet 40 MG PO HS, TAB Clopidogrel Bisulfate (Clopidogrel) 75 Mg Tablet 75 MG PO DAILY, TAB Gabapentin (Gabapentin) 800 Mg Tablet 800 MG PO QID, TAB Lisinopril (Lisinopril) 10 Mg Tablet 10 MG PO DAILY, TAB Oxycodone HCl/Acetaminophen (Endocet 10-325 mg Tablet) 10 Mg-325 Mg Tablet 1 EA PO TID PRN for PAIN-MODERATE (5-7), TAB Trazodone HCl (Trazodone HCl) 100 Mg Tablet 100 MG PO HS, TAB Zolpidem Tartrate (Ambien) 10 Mg Tablet 10 MG PO HS PRN for SLEEP, TAB Discontinued Medications: Atenolol (Atenolol) 100 Mg Tablet 100 MG PO DAILY, TAB Cefdinir (Cefdinir) 300 Mg Capsule 300 MG PO BID, CAP FILLED 11-13-2022 #10/5 DAY SUPPLY Metoprolol Succinate (Metoprolol Succinate) 100 Mg Tab.er.24h 100 MG PO DAILY, TAB Prednisone (Prednisone) 10 Mg Tab MG PO DAILY, TAB FILLED 11-13-2022 #21/6 DAY SUPPLY TAKE 6 TABS DAY 1 AND DECREASE BY 1 TAB EVERY DAY UNTIL ALL TAKEN Home Health Need/Face to Face Date of Face to Face: Nov 22, 2022 Clinical Findings: Generalized weakness and fatigue, Instability, Unsteady gait I have seen Pt [id number]: Yes Discharged To: Home Diagnosis/Conditions: See above Patient is Homebound due to: Sonam fall risk due to instabilty, Muscle weakness Homebound Status Due to the above stated illness, injury or surgical procedure (medical condition or diagnosis) and associated clinical findings, the patient is homebound because of his/her inability to leave home except with aid of a supportive device and/or person AND leaving the home requires a considerable and taxing effort or is medically contraindicated. Pt req the following assistanc: Walker Home Health Nursing Orders Home Health Services Order: Nursing Services, Physical Therapy-Evaluate & Treat CMP 1 week from discharge from hospital Hold lisinopril until repeat lab results Home Health Infusion Therapy Line Start Date: Nov 20, 2022 Therapy Orders Therapy Orders: PT to assess for OT Therapy Specific Orders: Increase strength/endurance Certify Stmt I certify that this patient is under my care and that I, a nurse practitioner or a physician; a anesthesiologist assistant certified working with me, had a face to face encounter that - meets the physician face to face encounter requirements with this patient as dated. Discharge Physical Exam General: Alert, Oriented X3, No Acute Distress Lungs: Clear to Auscultation, Normal Air Movement Heart: Regular Rate, No Murmurs Abdomen: Normal Bowel Sounds, Soft, No Tenderness, No Masses Extremities: No Edema, No Tenderness/Swelling Neuro: Normal Speech, Sensation Intact, Cranial Nerves 3-12 NL Psych/Mental Status: Mental Status NL, Mood NL AMY GARCIA MD Nov 22, 2022 11:33
[2022-11-22] MEDS ORDERED: CEPH250C PO (11:35)
[2022-11-22 11:43] VITALS: BP 127/75
--- NOTE | 2022-11-22 13:17 | Physical Therapy Daily Note ---
PT Daily Note-Current Subjective Patient sitting in chair upon PT arrival, agreeable to treatment but requests no out of chair activity as she just got into the chair in is very tired. Patient rates pain at 0/10 currently. Pain Section J - Health Conditions 1. Rarely or not at all 2. Occasionally 3. Frequently 4. Almost constantly 8. Unable to answer Pain Effect on Sleep: 1 Pain Interference with Therapy: 1 Pain Interference w/Day-to-Day: 1 Mental Status Patient Orientation: Person, Place, Time, Situation Attachments: Oxygen, Burden Catheter, IV Transfers SCALE: Activities may be completed with or without assistive devices. 5-Rvszqwhjuw-fkwflmz completes the activity by him/herself with no assistance from a helper. 5-Set-up or Clean-up Assistance-helper sets up or cleans up; patient completes activity. [place] assists only prior to or following the activity. 4-Supervision or Touching Assistance-helper provides verbal cues and/or touching/steadying and/or contact guard assistance as patient completes activity. Assistance may be provided throughout the activity or intermittently. 3-Partial/Moderate Assistance-helper does LESS THAN HALF the effort. [place] lifts, holds or supports trunk or limbs, but provides less than half the effort. 2-Substantial/Maximal Assistance-helper does MORE THAN HALF the effort. [place] lifts or holds trunk or limbs and provides more than half the effort. 9-Olndzyhtn-morxky does ALL the effort. Patient does none of the effort to complete the activity. Or, the assistance of 2 or more helpers is required for the patient to complete the activity. If activity was not attempted, code reason: 7-Patient Refused. 9-Not Applicable-not attempted and the patient did not perform the activity before the current illness, exacerbation or injury. 10-Not Attempted due to Environmental Limitations-(lack of equipment, weather restraints, etc.). 88-Not Attempted due to Medical Conditions or Safety Concerns. Gait Training Does the Patient Walk?: No and Walking Goal IS indicated Exercises Supine Ex: Ankle pumps, Quad Set, Glut sets Supine Reps: 20 Seated Therapy Exercises: Long arc quads, Hip flexion, Hamstring Curls, Hip abd/add Seated Reps: 20 Assessment Current Status: Fair Progress Patient tolerated therapeutic exercise well. Patient refused no gait due to being tired. Patient in chair post treatment with all needs met, nursing notified, call light in hand. PT Track Sweeper Goals Track Sweeper Goals PT Detention Goals Time Frame: Dec 02, 2022 Roll Left & Right (QC): 6 Sit to Lying (QC): 6 Lying-Sitting on Side/Bed(QC): 6 Sit to Stand (QC): 6 Chair/Xbu-ft-Gnhka Xfer(QC): 6 Toilet Transfer (QC): 6 Walk 10 feet (QC): 6 Walk 50ft with 2 Turns (QC): 6 Walk 150 ft (QC): 6 PT Plan Treatment/Plan Treatment Plan: Continue Plan of Care Treatment Plan: Bed Mobility, Education, Functional Activity Delfino, Functional Strength, Gait, Safety, Therapeutic Exercise, Transfers Treatment Duration: Dec 02, 2022 Frequency: 6 times per week Estimated Hrs Per Day: .25 hour per day Patient and/or Family Agrees t: Yes Time Time In: 1121 Time Out: 1133 DATE: Nov 22, 2022 Total Billed Treatment Time: 12 Total Billed Treatment Visit, Ex ADRIENNE SANCHEZ PT Nov 22, 2022 13:17
[2022-11-22 16:00] VITALS: BP 134/86
[2022-11-22 19:44] VITALS: BP 134/50
[2022-11-22] MEDS: oxyCODONE/APAP 10/325MG (PERCOCET 10) TABLET PO PRN (20:44)
[2022-11-22] MEDS: traZODone 100 MG (DESYREL) TAB PO SCH (20:44)
[2022-11-22 23:50] VITALS: BP 90/66
[2022-11-23] MEDS ORDERED: RT-ALBUTEROL SULF 2.5 MG/3 ML PRE-MIX VIAL INH PRN (00:30)
[2022-11-23 04:11] VITALS: BP 109/48
[2022-11-23 05:22] LABS: BASOPHILS % (AUTO) 0 % (0-10); EOSINOPHILS # (AUTO) 0.2 10^3/uL (0.0-0.3); EOSINOPHILS % (AUTO) 2 % (0-10); HEMATOCRIT 23 % (35-52); HEMOGLOBIN 7.3 g/dL (11.5-16.0); LYMPHOCYTES # (AUTO) 1.9 10^3/uL (1.0-4.0); LYMPHOCYTES % (AUTO) 22 % (12-44); MEAN CORPUSCULAR HEMOGLOBIN 31 pg (25-34); MEAN CORPUSCULAR HGB CONC 31 g/dL (32-36); MEAN CORPUSCULAR VOLUME 100 fL (80-99); MEAN PLATELET VOLUME 10.5 fL (9.0-12.2); MONOCYTES # (AUTO) 0.7 10^3/uL (0.0-1.0); MONOCYTES % (AUTO) 8 % (0-12); NEUTROPHILS # (AUTO) 5.9 10^3/uL (1.8-7.8); NEUTROPHILS % (AUTO) 67 % (42-75); PLATELET COUNT 170 10^3/uL (130-400); WHITE BLOOD COUNT 8.7 10^3/uL (4.3-11.0)
[2022-11-23 06:04] LABS: ALBUMIN 2.5 GM/DL (3.2-4.5); BILIRUBIN,TOTAL 0.3 MG/DL (0.1-1.0); CREATININE SERUM 1.69 MG/DL (0.60-1.30); POTASSIUM 4.9 MMOL/L (3.6-5.0); TOTAL PROTEIN 4.8 GM/DL (6.4-8.2)
--- NOTE | 2022-11-23 06:15 | Progress Note - Hospitalist ---
Subjective HPI/CC On Admission Date Seen by Provider: Nov 23, 2022 Time Seen by Provider: 11:00 Subjective/Events-last exam No major events Moving to 4th floor Awaiting placement? Review of Systems General: Fatigue, Malaise Focused Exam Lactate Level Objective Exam Vital Signs Vital Signs Date Time Temp Pulse Resp B/P (MAP) Pulse Ox O2 Delivery O2 Flow Rate FiO2 11/23/22 20:14 Nasal Cannula 4.00 11/23/22 19:21 37.0 76 20 118/56 (76) 98 11/20/22 23:37 32 Capillary Refill : Greater Than 3 Seconds General Appearance: No Apparent Distress, WD/WN, Chronically ill Respiratory: Lungs Clear, Normal Breath Sounds Cardiovascular: Regular Rate, Rhythm Neurologic/Psychiatric: Alert, Oriented x3, Depressed Affect Results/Procedures Lab Laboratory Tests 11/23/22 04:31 Patient resulted labs reviewed. Assessment/Plan Assessment and Plan Assess & Plan/Chief Complaint Generalized weakness - Home health aid, PT/strengthening, encouraged her to use walker, focus on hydration Acute on Chronic CKD - Improved with IVF Hyperkalemia - 4.8 today, continue hydration Dehydration HTN - Improved CAD - Continue home meds Anemia -chronic LATA WOOD DO Nov 23, 2022 06:15
[2022-11-23 08:00] VITALS: BP 122/50
[2022-11-23] MEDS: ASPIRIN E.C. 81 MG (ECOTRIN) TAB PO SCH (08:46)
[2022-11-23] MEDS: GABAPENTIN 400 MG (NEURONTIN) CAP PO SCH ×4 (08:46→20:11)
[2022-11-23] MEDS: CEPHALEXIN 250 MG (KEFLEX) CAP PO SCH ×2 (08:47→20:11)
[2022-11-23] MEDS: CLOPIDOGREL 75 MG (PLAVIX) TABLET PO SCH (08:47)
--- NOTE | 2022-11-23 09:15 | Physical Therapy Daily Note ---
PT Daily Note-Current Subjective Patient agrees to PT. Pain Section J - Health Conditions 1. Rarely or not at all 2. Occasionally 3. Frequently 4. Almost constantly 8. Unable to answer Pain Effect on Sleep: 1 Pain Interference with Therapy: 1 Pain Interference w/Day-to-Day: 1 Mental Status Patient Orientation: Person, Time, Situation Attachments: Oxygen, Burden Catheter Transfers SCALE: Activities may be completed with or without assistive devices. 5-Xixnlsllko-cfqxaxq completes the activity by him/herself with no assistance from a helper. 5-Set-up or Clean-up Assistance-helper sets up or cleans up; patient completes activity. [place] assists only prior to or following the activity. 4-Supervision or Touching Assistance-helper provides verbal cues and/or touching/steadying and/or contact guard assistance as patient completes activity. Assistance may be provided throughout the activity or intermittently. 3-Partial/Moderate Assistance-helper does LESS THAN HALF the effort. [place] lifts, holds or supports trunk or limbs, but provides less than half the effort. 2-Substantial/Maximal Assistance-helper does MORE THAN HALF the effort. [place] lifts or holds trunk or limbs and provides more than half the effort. 1-Wixrucobh-hchkhq does ALL the effort. Patient does none of the effort to complete the activity. Or, the assistance of 2 or more helpers is required for the patient to complete the activity. If activity was not attempted, code reason: 7-Patient Refused. 9-Not Applicable-not attempted and the patient did not perform the activity before the current illness, exacerbation or injury. 10-Not Attempted due to Environmental Limitations-(lack of equipment, weather restraints, etc.). 88-Not Attempted due to Medical Conditions or Safety Concerns. Lying to Sitting/Side of Bed(Q: 3 Sit to Stand (QC): 3 Chair/Ucr-kc-Dggfd Xfer(QC): 3 Toilet Transfer (QC): 3 Gait Training Distance: 10' x 2 Walk 10 feet (QC): 3 Gait Assistive Device: FWW slightly unsteady with PT correct (mod assist) Assessment Patient incontinent BM requiring assist to cleanse. Patient requires mod assist with all mobility and is up in recliner with chair alarm activated. PT to increase activity as tolerated by patient. PT Grinder Set Up Operator Goals Halfway Goals PT Halfway Goals Time Frame: Dec 02, 2022 Roll Left & Right (QC): 6 Sit to Lying (QC): 6 Lying-Sitting on Side/Bed(QC): 6 Sit to Stand (QC): 6 Chair/Zuf-dd-Omasf Xfer(QC): 6 Toilet Transfer (QC): 6 Walk 10 feet (QC): 6 Walk 50ft with 2 Turns (QC): 6 Walk 150 ft (QC): 6 PT Plan Treatment/Plan Treatment Plan: Continue Plan of Care Treatment Plan: Bed Mobility, Education, Functional Activity Delfino, Functional Strength, Gait, Safety, Therapeutic Exercise, Transfers Treatment Duration: Dec 02, 2022 Frequency: 6 times per week Estimated Hrs Per Day: .25 hour per day Patient and/or Family Agrees t: Yes Time Time In: 846 Time Out: 900 DATE: Nov 23, 2022 Total Billed Treatment Time: 14 Total Billed Treatment 1 visit FA 14 min KELLY NARANJO PT Nov 23, 2022 09:15
[2022-11-23 11:46] VITALS: BP 105/49
[2022-11-23 16:00] VITALS: BP 110/50
--- NOTE | 2022-11-23 16:29 | Occ Therapy Progress Note ---
Therapy Progress Note Patient moved to medical. JEAN-PIERRE FOWLER OT Nov 23, 2022 16:29
[2022-11-23 19:21] VITALS: BP 118/56
[2022-11-23] MEDS: traZODone 100 MG (DESYREL) TAB PO SCH (20:11)
[2022-11-23] MEDS: oxyCODONE/APAP 10/325MG (PERCOCET 10) TABLET PO PRN (20:14)
[2022-11-23] MEDS ORDERED: ZOLPIDEM 5 MG (AMBIEN) TAB PO PRN (21:30)
[2022-11-23 23:09] VITALS: BP 125/80
--- NOTE | 2022-11-24 05:46 | Progress Note - Hospitalist ---
Subjective HPI/CC On Admission Date Seen by Provider: Nov 24, 2022 Time Seen by Provider: 11:00 Subjective/Events-last exam No major issues Trying to get approval for admit to [facility] Reviewed labs Refused transfusion Review of Systems General: Fatigue, Malaise Objective Exam Vital Signs Vital Signs Date Time Temp Pulse Resp B/P (MAP) Pulse Ox O2 Delivery O2 Flow Rate FiO2 11/24/22 20:00 Nasal Cannula 4.00 11/24/22 15:26 36.4 52 20 138/62 (87) 97 11/20/22 23:37 32 Capillary Refill : Greater Than 3 Seconds General Appearance: No Apparent Distress, WD/WN, Chronically ill Respiratory: Lungs Clear, Normal Breath Sounds Cardiovascular: Regular Rate, Rhythm Neurologic/Psychiatric: Alert, Oriented x3 Results/Procedures Lab Laboratory Tests 11/24/22 05:45 Patient resulted labs reviewed. Assessment/Plan Assessment and Plan Assess & Plan/Chief Complaint Generalized weakness - Home health aid, PT/strengthening, encouraged her to use walker, focus on hydration Acute on Chronic CKD - Improved with IVF Hyperkalemia Dehydration HTN - Improved CAD - Continue home meds Anemia -chronic Clinical Quality Measures DVT/VTE Risk/Contraindication: Contraindications-Pharm: Other *list below* Other: anemia LATA WOOD DO Nov 24, 2022 05:46
[2022-11-24 06:11] LABS: BASOPHILS % (AUTO) 0 % (0-10); EOSINOPHILS # (AUTO) 0.3 10^3/uL (0.0-0.3); EOSINOPHILS % (AUTO) 4 % (0-10); HEMATOCRIT 22 % (35-52); LYMPHOCYTES # (AUTO) 1.7 10^3/uL (1.0-4.0); LYMPHOCYTES % (AUTO) 21 % (12-44); MEAN CORPUSCULAR HEMOGLOBIN 32 pg (25-34); MEAN CORPUSCULAR HGB CONC 31 g/dL (32-36); MEAN CORPUSCULAR VOLUME 101 fL (80-99); MEAN PLATELET VOLUME 10.8 fL (9.0-12.2); MONOCYTES # (AUTO) 0.6 10^3/uL (0.0-1.0); MONOCYTES % (AUTO) 7 % (0-12); NEUTROPHILS # (AUTO) 5.6 10^3/uL (1.8-7.8); NEUTROPHILS % (AUTO) 68 % (42-75); PLATELET COUNT 175 10^3/uL (130-400); WHITE BLOOD COUNT 8.3 10^3/uL (4.3-11.0)
[2022-11-24 06:32] LABS: HEMOGLOBIN 6.9 g/dL (11.5-16.0)
[2022-11-24 06:34] LABS: ALBUMIN 2.3 GM/DL (3.2-4.5); BILIRUBIN,TOTAL 0.2 MG/DL (0.1-1.0); CALCIUM 7.9 MG/DL (8.5-10.1); CREATININE SERUM 1.81 MG/DL (0.60-1.30); POTASSIUM 5.4 MMOL/L (3.6-5.0); TOTAL PROTEIN 4.7 GM/DL (6.4-8.2)
[2022-11-24 07:05] VITALS: BP 103/46
[2022-11-24] MEDS: GABAPENTIN 400 MG (NEURONTIN) CAP PO SCH ×4 (08:45→19:43)
[2022-11-24] MEDS: CEPHALEXIN 250 MG (KEFLEX) CAP PO SCH (08:45)
[2022-11-24] MEDS: meTOprolol SUCCINATE 100 MG (TOPROL XL) TAB PO SCH (08:45)
[2022-11-24] MEDS: CLOPIDOGREL 75 MG (PLAVIX) TABLET PO SCH (08:45)
[2022-11-24] MEDS: ASPIRIN E.C. 81 MG (ECOTRIN) TAB PO SCH (08:45)
[2022-11-24] MEDS ORDERED: NON-FORMULARY MEDICATION 1 EA EA (Atenolol 100 MG) PO SCH (09:00)
--- NOTE | 2022-11-24 11:02 | Physical Therapy Daily Note ---
PT Daily Note-Current Subjective Patient more alert and cooperative on this date. Agrees to therapy. Pain Section J - Health Conditions 1. Rarely or not at all 2. Occasionally 3. Frequently 4. Almost constantly 8. Unable to answer Pain Effect on Sleep: 1 Pain Interference with Therapy: 1 Pain Interference w/Day-to-Day: 1 Mental Status Patient Orientation: Person, Time, Situation Attachments: Oxygen, Burden Catheter Transfers SCALE: Activities may be completed with or without assistive devices. 9-Caogesrhif-cqmuwdz completes the activity by him/herself with no assistance from a helper. 5-Set-up or Clean-up Assistance-helper sets up or cleans up; patient completes activity. [place] assists only prior to or following the activity. 4-Supervision or Touching Assistance-helper provides verbal cues and/or touching/steadying and/or contact guard assistance as patient completes activity. Assistance may be provided throughout the activity or intermittently. 3-Partial/Moderate Assistance-helper does LESS THAN HALF the effort. [place] lifts, holds or supports trunk or limbs, but provides less than half the effort. 2-Substantial/Maximal Assistance-helper does MORE THAN HALF the effort. [place] lifts or holds trunk or limbs and provides more than half the effort. 4-Dhozvnigp-rivlpm does ALL the effort. Patient does none of the effort to complete the activity. Or, the assistance of 2 or more helpers is required for the patient to complete the activity. If activity was not attempted, code reason: 7-Patient Refused. 9-Not Applicable-not attempted and the patient did not perform the activity before the current illness, exacerbation or injury. 10-Not Attempted due to Environmental Limitations-(lack of equipment, weather restraints, etc.). 88-Not Attempted due to Medical Conditions or Safety Concerns. Sit to Stand (QC): 4 Chair/Vhz-zg-Qnifk Xfer(QC): 4 Gait Training Distance: 225' Walk 10 feet (QC): 4 Walk 50 ft with 2 Turns(QC): 4 Walk 150 ft (QC): 4 Gait Assistive Device: FWW VC's for body placement in FWW/slow, steady gait sequence Assessment Patient remains up in recliner with chair alarm activated. PT to continue to increase activity as tolerated by patient. PT Short Term Goals Short Term Goals Time Frame: Nov 24, 2022 PT Care Home Goals Care Home Goals PT Pencil Inspector Goals Time Frame: Dec 02, 2022 Roll Left & Right (QC): 6 Sit to Lying (QC): 6 Lying-Sitting on Side/Bed(QC): 6 Sit to Stand (QC): 6 Chair/Rkx-lx-Sezte Xfer(QC): 6 Toilet Transfer (QC): 6 Walk 10 feet (QC): 6 Walk 50ft with 2 Turns (QC): 6 Walk 150 ft (QC): 6 PT Plan Treatment/Plan Treatment Plan: Continue Plan of Care Treatment Plan: Bed Mobility, Education, Functional Activity Delfino, Functional Strength, Gait, Safety, Therapeutic Exercise, Transfers Treatment Duration: Dec 02, 2022 Frequency: 6 times per week Estimated Hrs Per Day: .25 hour per day Patient and/or Family Agrees t: Yes Time Time In: 1000 Time Out: 1010 DATE: Nov 24, 2022 Total Billed Treatment Time: 10 Total Billed Treatment 1 visit GT 10 min KELLY NARANJO PT Nov 24, 2022 11:02
--- NOTE | 2022-11-24 11:30 | Occupational Ther Daily Note ---
OT Current Status-Daily Note Subjective UP IN CHAIR AGREEABLE TO OT Mental Status/Objective Patient Orientation: Situation Attachments: Burden Catheter, IV ADL-Treatment Therapy Code Descriptions/Definitions Functional [place] Measure: 0=Not Assessed/NA 4=Minimal Assistance 1=Total Assistance 5=Supervision or Setup 2=Maximal Assistance 6=Modified [place] 3=Moderate Assistance 7=Complete IndependenceSCALE: Activities may be completed with or without assistive devices. 8-Uhn[place]juzbq-mwtuvig completes the activity by him/herself with no assistance from a helper. 5-Set-up or Clean-up Assistance-helper sets up or cleans up; patient completes activity. [place] assists only prior to or following the activity. 4-Supervision or Touching Assistance-helper provides verbal cues and/or touching/steadying and/or contact guard assistance as patient completes activity. Assistance may be provided throughout the activity or intermittently. 3-Partial/Moderate Assistance-helper does LESS THAN HALF the effort. [place] lifts, holds or supports trunk or limbs, but provides less than half the effort. 2-Substantial/Maximal Assistance-helper does MORE THAN HALF the effort. [place] lifts or holds trunk or limbs and provides more than half the effort. 7-[place]tiiv[place]wib-[place] does ALL the effort. Patient does none of the effort to complete the activity. Or, the assistance of 2 or more helpers is required for the patient to complete the activity. If activity was not attempted, code reason: 7-Patient Refused. 9-Not Applicable-not attempted and the patient did not perform the activity before the current illness, exacerbation or injury. 10-Not Attempted due to Environmental Limitations-(lack of equipment, weather restraints, etc.). 88-Not Attempted due to Medical Conditions or Safety Concerns. Eating (QC): 6 Oral Hygiene (QC): 5 Shower/Bathe Self (QC): 7 (DECLINED) Upper Body Dressing (QC): 4 Lower Body Dressing (QC): 4 On/Off Footwear: 5 Toileting Hygiene (QC): 4 Toilet Transfer (QC): 4 Other Treatment FUNCTIONAL MOBILITY AND SAFETY EDUCATION W/ SCENARIOS Education OT Patient Education: Exercise program, Modified ADL techniques, Progress toward Goal/Update tx plan, Purpose of tx/functional activities, Reviewed precautions, Rehab process, Safety issues, Transfer techniques Teaching Recipient: Patient Teaching Methods: Demonstration, Discussion Response to Teaching: Verbalize Understanding, Reinforcement Needed OT Assisted Goals Supervisor [employer] Goals Eating (QC): 6 Oral Hygiene (QC): 6 Toileting Hygiene (QC): 6 Shower/Bathe Self (QC): 6 Upper Body Dressing (QC): 6 Lower Body Dressing (QC): 6 On/Off Footwear (QC): 6 1=Demonstrate adherence to instructed precautions during ADL tasks. 2=Patient will verbalize/demonstrate understanding of assistive jaime marcelino/modifications for ADL. 3=Patient will improve strength/tolerance for activity to enable patient to perform ADL's. OT Education/Plan Discharge Recommendations Plan/Recommendations: Continue POC Treatment Plan/Plan of Care Treatment,Training & Education: Yes Patient would benefit from OT for education, treatment and training to promote independence in ADL's, mobility, safety and/or upper extremity function for ADL's. Plan of Care: ADL Retraining, Functional Mobility, Group Exercise/Act as Ind, UE Funct Exercise/Act Treatment Duration: Nov 25, 2022 Frequency: 3 times per week (3-5 times per week) Estimated Hrs Per Day: .25 hour per day Agreement: Yes Rehab Potential: Fair Time Start Time: 09:59 Stop Time: 10:14 DATE: Nov 24, 2022 Total Time Billed (hr/min): 15 Billed Treatment Time ADL 15 JEAN-PIERRE FOWLER OT Nov 24, 2022 11:30
[2022-11-24 15:26] VITALS: BP 138/62
[2022-11-24] MEDS: traZODone 100 MG (DESYREL) TAB PO SCH (19:44)
[2022-11-25 00:18] VITALS: BP 157/75
[2022-11-25 06:23] LABS: BASOPHILS % (AUTO) 0 % (0-10); EOSINOPHILS # (AUTO) 0.3 10^3/uL (0.0-0.3); EOSINOPHILS % (AUTO) 3 % (0-10); HEMATOCRIT 25 % (35-52); HEMOGLOBIN 7.7 g/dL (11.5-16.0); LYMPHOCYTES # (AUTO) 1.4 10^3/uL (1.0-4.0); LYMPHOCYTES % (AUTO) 14 % (12-44); MEAN CORPUSCULAR HEMOGLOBIN 32 pg (25-34); MEAN CORPUSCULAR HGB CONC 31 g/dL (32-36); MEAN CORPUSCULAR VOLUME 101 fL (80-99); MEAN PLATELET VOLUME 10.4 fL (9.0-12.2); MONOCYTES # (AUTO) 0.6 10^3/uL (0.0-1.0); MONOCYTES % (AUTO) 6 % (0-12); NEUTROPHILS # (AUTO) 7.5 10^3/uL (1.8-7.8); NEUTROPHILS % (AUTO) 76 % (42-75); PLATELET COUNT 215 10^3/uL (130-400); WHITE BLOOD COUNT 9.8 10^3/uL (4.3-11.0)
[2022-11-25 06:47] LABS: ALBUMIN 2.7 GM/DL (3.2-4.5); BILIRUBIN,TOTAL 0.2 MG/DL (0.1-1.0); CALCIUM 8.6 MG/DL (8.5-10.1); CREATININE SERUM 1.58 MG/DL (0.60-1.30); POTASSIUM 5.4 MMOL/L (3.6-5.0); TOTAL PROTEIN 5.4 GM/DL (6.4-8.2)
[2022-11-25 07:28] VITALS: BP 145/65
--- NOTE | 2022-11-25 08:50 | Physical Therapy Progress Note ---
Therapy Progress Note Patient adamantly declined PT stating, "I'm not doing anything today." Will attempt Sunday. 1 ref KELLY NARANJO PT Nov 25, 2022 08:50
[2022-11-25] MEDS: meTOprolol SUCCINATE 100 MG (TOPROL XL) TAB PO SCH (09:07)
[2022-11-25] MEDS: GABAPENTIN 400 MG (NEURONTIN) CAP PO SCH ×4 (09:07→20:15)
[2022-11-25] MEDS: ASPIRIN E.C. 81 MG (ECOTRIN) TAB PO SCH (09:07)
[2022-11-25] MEDS: CLOPIDOGREL 75 MG (PLAVIX) TABLET PO SCH (09:07)
--- NOTE | 2022-11-25 11:26 | Progress Note - Hospitalist ---
Subjective HPI/CC On Admission Date Seen by Provider: Nov 25, 2022 Time Seen by Provider: 10:25 Subjective/Events-last exam Patient pleasant other than generalized weakness voices no complaints. Objective Exam Vital Signs Vital Signs Date Time Temp Pulse Resp B/P (MAP) Pulse Ox O2 Delivery O2 Flow Rate FiO2 11/25/22 08:00 97 Nasal Cannula 4.00 11/25/22 07:28 36.6 56 20 145/65 (91) 11/20/22 23:37 32 Capillary Refill : Greater Than 3 Seconds General Appearance: No Apparent Distress Respiratory: No Accessory Muscle Use, No Respiratory Distress, Other (Diminished breath sounds throughout without wheezes rales or rhonchi.) Cardiovascular: Regular Rate, Rhythm, No Murmur, Other ( Distant heart sounds.) Extremity: No Pedal Edema Results/Procedures Lab Laboratory Tests 11/25/22 05:57 Patient resulted labs reviewed. Assessment/Plan Assessment and Plan Assess & Plan/Chief Complaint Generalized weakness - Home health aid, PT/strengthening, encouraged her to use walker, focus on hydration Acute on Chronic CKD - Improved with IVF Hyperkalemia Dehydration HTN - Improved CAD - Continue home meds Anemia -chronic 11/25: Condition stable awaiting fdc placement. Clinical Quality Measures DVT/VTE Risk/Contraindication: Contraindications-Pharm: Other *list below* Other: anemia JOCELINE TESFAYE MD Nov 25, 2022 11:26
[2022-11-25 15:45] VITALS: BP 145/77
[2022-11-25] MEDS: traZODone 100 MG (DESYREL) TAB PO SCH (20:15)
[2022-11-25 23:19] VITALS: BP 166/72
[2022-11-26 06:03] LABS: BASOPHILS % (AUTO) 0 % (0-10); EOSINOPHILS # (AUTO) 0.3 10^3/uL (0.0-0.3); EOSINOPHILS % (AUTO) 3 % (0-10); HEMATOCRIT 24 % (35-52); HEMOGLOBIN 7.4 g/dL (11.5-16.0); LYMPHOCYTES # (AUTO) 1.6 10^3/uL (1.0-4.0); LYMPHOCYTES % (AUTO) 15 % (12-44); MEAN CORPUSCULAR HEMOGLOBIN 31 pg (25-34); MEAN CORPUSCULAR HGB CONC 31 g/dL (32-36); MEAN CORPUSCULAR VOLUME 100 fL (80-99); MEAN PLATELET VOLUME 10.4 fL (9.0-12.2); MONOCYTES # (AUTO) 0.5 10^3/uL (0.0-1.0); MONOCYTES % (AUTO) 5 % (0-12); NEUTROPHILS # (AUTO) 8.1 10^3/uL (1.8-7.8); NEUTROPHILS % (AUTO) 77 % (42-75); PLATELET COUNT 240 10^3/uL (130-400); WHITE BLOOD COUNT 10.5 10^3/uL (4.3-11.0)
[2022-11-26 06:27] LABS: ALBUMIN 2.6 GM/DL (3.2-4.5); BILIRUBIN,TOTAL 0.3 MG/DL (0.1-1.0); CALCIUM 8.5 MG/DL (8.5-10.1); CREATININE SERUM 1.54 MG/DL (0.60-1.30); POTASSIUM 5.1 MMOL/L (3.6-5.0); TOTAL PROTEIN 5.4 GM/DL (6.4-8.2)
[2022-11-26 08:13] VITALS: BP 137/55
[2022-11-26] MEDS: GABAPENTIN 400 MG (NEURONTIN) CAP PO SCH ×4 (08:44→20:17)
[2022-11-26] MEDS: CLOPIDOGREL 75 MG (PLAVIX) TABLET PO SCH (08:44)
[2022-11-26] MEDS: meTOprolol SUCCINATE 100 MG (TOPROL XL) TAB PO SCH (08:44)
[2022-11-26] MEDS: ASPIRIN E.C. 81 MG (ECOTRIN) TAB PO SCH (08:44)
--- NOTE | 2022-11-26 12:10 | Progress Note - Hospitalist ---
Subjective HPI/CC On Admission Date Seen by Provider: Nov 26, 2022 Time Seen by Provider: 10:15 Subjective/Events-last exam Patient reports dyspnea on exertion is stable with no dyspnea at rest voices no complaints and is awaiting discharge [facility] tomorrow. Objective Exam Vital Signs Vital Signs Date Time Temp Pulse Resp B/P (MAP) Pulse Ox O2 Delivery O2 Flow Rate FiO2 11/26/22 08:13 37.0 51 18 137/55 (82) 98 Nasal Cannula 4.00 11/20/22 23:37 32 Capillary Refill : Greater Than 3 Seconds General Appearance: No Apparent Distress, Chronically ill Respiratory: No Accessory Muscle Use, No Respiratory Distress, Other (Minutes breath sounds in the bases with scattered rhonchi no wheezing noted) Cardiovascular: Regular Rate, Rhythm, No Edema, No Gallop, No JVD, No Murmur, Normal Peripheral Pulses Gastrointestinal: Non Tender, Soft Results/Procedures Lab Laboratory Tests 11/26/22 05:47 Patient resulted labs reviewed. Assessment/Plan Assessment and Plan Assess & Plan/Chief Complaint Generalized weakness - Home health aid, PT/strengthening, encouraged her to use walker, focus on hydration Acute on Chronic CKD - Improved with IVF Hyperkalemia Dehydration HTN - Improved CAD - Continue home meds Anemia -chronic 11/25: Condition stable awaiting residential placement. 11/26: Above medical issues stable patient set up for discharge to [facility] in the morning. Clinical Quality Measures DVT/VTE Risk/Contraindication: Contraindications-Pharm: Other *list below* Other: anemia JOCELINE TESFAYE MD Nov 26, 2022 12:10
[2022-11-26 15:37] VITALS: BP 132/54
[2022-11-26] MEDS: traZODone 100 MG (DESYREL) TAB PO SCH (20:17)
[2022-11-27 00:10] VITALS: BP 140/65
[2022-11-27] MEDS ORDERED: ASPI-1238 PO (05:05)
[2022-11-27] MEDS ORDERED: TRAZ-227 PO (05:05)
[2022-11-27] MEDS ORDERED: CLOP75TA28 PO (05:05)
[2022-11-27] MEDS ORDERED: ATEN100T PO (05:05)
[2022-11-27] MEDS ORDERED: OXYC-191 PO (05:05)
[2022-11-27] MEDS ORDERED: ZOLP10TA PO (05:05)
[2022-11-27] MEDS ORDERED: GABA800T10 PO (05:05)
[2022-11-27] MEDS ORDERED: LISI10TA25 PO (05:05)
[2022-11-27] MEDS ORDERED: ATOR40TA70 PO (05:05)
--- NOTE | 2022-11-27 05:07 | Discharge Inst-Skilled Nursing ---
Discharge Inst-Skilled NF Reconcile Patient Problems Problems Reviewed?: Yes Patient Instructions Patient Problems: Debility Consult/Follow Up/Orders Skilled NF [place]: [facility] [place]) I certify that SNF services are required to be given on an inpatient basis because of the above named patient's need for intermediate care on a continuing basis for the conditions(s) for which he/she was receiving inpatient hospital services prior to his/her transfer to the SNF. [facility] Facility Order: Nursing Services, Manager Quality-Evaluate & Treat, Physical Therapy-Evaluate & Treat Oxygen Delivery Method: Nasal Cannula Discharge Diet: No Restrictions Resuscitation Status: Do Not Resuscitate New & Resume Previous Orders Continued Medications: Aspirin (Aspirin EC) 81 Mg Tablet.dr 81 MG PO DAILY, #30 TAB (This prescription has been renewed) Atenolol (Atenolol) 100 Mg Tablet 100 MG PO DAILY, #30 TAB (This prescription has been renewed) Atorvastatin Calcium (Atorvastatin Calcium) 40 Mg Tablet 40 MG PO HS, #30 TAB (This prescription has been renewed) Clopidogrel Bisulfate (Clopidogrel) 75 Mg Tablet 75 MG PO DAILY, #30 TAB (This prescription has been renewed) Gabapentin (Gabapentin) 800 Mg Tablet 800 MG PO QID, #120 TAB (This prescription has been renewed) Lisinopril (Lisinopril) 10 Mg Tablet 10 MG PO DAILY, #30 TAB (This prescription has been renewed) Oxycodone HCl/Acetaminophen (Endocet 10-325 mg Tablet) 10 Mg-325 Mg Tablet 1 EA PO TID PRN for PAIN-MODERATE (5-7), #30 TAB (This prescription has been renewed) Trazodone HCl (Trazodone HCl) 100 Mg Tablet 100 MG PO HS, #30 TAB (This prescription has been renewed) Zolpidem Tartrate (Ambien) 10 Mg Tablet 10 MG PO HS PRN for SLEEP, #10 TAB (This prescription has been renewed) Discontinued Medications: Cefdinir (Cefdinir) 300 Mg Capsule 300 MG PO BID, CAP FILLED 11-13-2022 #10/5 DAY SUPPLY Metoprolol Succinate (Metoprolol Succinate) 100 Mg Tab.er.24h 100 MG PO DAILY, TAB Prednisone (Prednisone) 10 Mg Tab MG PO DAILY, TAB FILLED 11-13-2022 #21/6 DAY SUPPLY TAKE 6 TABS DAY 1 AND DECREASE BY 1 TAB EVERY DAY UNTIL ALL TAKEN Yvonne S Solano Nov 27, 2022 05:06 YVONNE SOLANO DO Nov 27, 2022 05:07
[2022-11-27 06:07] LABS: BASOPHILS % (AUTO) 0 % (0-10); EOSINOPHILS # (AUTO) 0.2 10^3/uL (0.0-0.3); EOSINOPHILS % (AUTO) 2 % (0-10); HEMATOCRIT 25 % (35-52); HEMOGLOBIN 7.8 g/dL (11.5-16.0); LYMPHOCYTES # (AUTO) 1.5 10^3/uL (1.0-4.0); LYMPHOCYTES % (AUTO) 16 % (12-44); MEAN CORPUSCULAR HEMOGLOBIN 32 pg (25-34); MEAN CORPUSCULAR HGB CONC 31 g/dL (32-36); MEAN CORPUSCULAR VOLUME 101 fL (80-99); MEAN PLATELET VOLUME 10.3 fL (9.0-12.2); MONOCYTES # (AUTO) 0.5 10^3/uL (0.0-1.0); MONOCYTES % (AUTO) 5 % (0-12); NEUTROPHILS # (AUTO) 7.1 10^3/uL (1.8-7.8); NEUTROPHILS % (AUTO) 76 % (42-75); PLATELET COUNT 212 10^3/uL (130-400); WHITE BLOOD COUNT 9.3 10^3/uL (4.3-11.0)
[2022-11-27 06:42] LABS: ALBUMIN 2.5 GM/DL (3.2-4.5); BILIRUBIN,TOTAL 0.2 MG/DL (0.1-1.0); CALCIUM 8.5 MG/DL (8.5-10.1); CREATININE SERUM 1.44 MG/DL (0.60-1.30); POTASSIUM 5.5 MMOL/L (3.6-5.0); TOTAL PROTEIN 5.2 GM/DL (6.4-8.2)
[2022-11-27 08:27] VITALS: BP 122/69
[2022-11-27] MEDS: ASPIRIN E.C. 81 MG (ECOTRIN) TAB PO SCH (09:26)
[2022-11-27] MEDS: GABAPENTIN 400 MG (NEURONTIN) CAP PO SCH (09:26)
[2022-11-27] MEDS: CLOPIDOGREL 75 MG (PLAVIX) TABLET PO SCH (09:26)
[2022-11-27] MEDS: meTOprolol SUCCINATE 100 MG (TOPROL XL) TAB PO SCH (09:26)
--- NOTE | 2022-11-27 11:02 | Occ Therapy Progress Note ---
Therapy Progress Note Patient refused therapy this morning, being discharged from hospital JEAN-PIERRE FOWLER OT Nov 27, 2022 11:02
== END 2022-11-27 11:45 | DRG 684 ==
LOC: EDUNIT# 18:08 → ER 18:09 → CSD 21:51 → 4TH 11-23 15:30
PROVIDERS: ADMIT Family Medicine; ATTEND Internal Medicine
DX: N17.9 Acute kidney failure, unspecified (principal); E87.5 Hyperkalemia; E86.0 Dehydration; J44.9 Chronic obstructive pulmonary disease, unspecified; Z99.81 Dependence on supplemental oxygen; Z91.199 Patient's noncompliance with other medical treatment and regimen due to unspecified reason; R53.1 Weakness; R53.81 Other malaise; Z66 Do not resuscitate; Z20.822 Contact with and (suspected) exposure to COVID-19; F17.210 Nicotine dependence, cigarettes, uncomplicated; F12.90 Cannabis use, unspecified, uncomplicated; F11.90 Opioid use, unspecified, uncomplicated; F19.10 Other psychoactive substance abuse, uncomplicated; G47.30 Sleep apnea, unspecified; I12.9 Hypertensive chronic kidney disease with stage 1 through stage 4 chronic kidney disease, or unspecified chronic kidney disease; N18.9 Chronic kidney disease, unspecified; G40.909 Epilepsy, unspecified, not intractable, without status epilepticus; K21.9 Gastro-esophageal reflux disease without esophagitis; G25.81 Restless legs syndrome; M19.91 Primary osteoarthritis, unspecified site; F41.9 Anxiety disorder, unspecified; R60.0 Localized edema; I25.10 Atherosclerotic heart disease of native coronary artery without angina pectoris; Z91.81 History of falling; D53.9 Nutritional anemia, unspecified; Z79.82 Long term (current) use of aspirin; Z79.52 Long term (current) use of systemic steroids; Z79.899 Other long term (current) drug therapy
CPT/HCPCS: 36415; 51702; 71045; 80053; 80306; 80320; 81000; 82140; 82150; 82550; 82553; 83605; 83690; 83735; 83874; 83880; 84443; 84484; 85025; 85610; 85652; 85730; 86141; 87040; 87088; 87636; 93005; 93041; 94640; 94760

== ENCOUNTER 2023-03-18 03:24 | Inpatient (IN) | payer MEDICARE, MEDICAID ==
[~2023-03-18] VITALS: Ht 149.7 cm; Wt 73.0 kg
[~2023-03-18 03:24] MED LIST changes: +ATEN100T PO; +ATOR40TA70 PO; +CEPH250C PO; +GABA800T10 PO; +LISI10TA25 PO; +OXYC-191 PO; +PRD10T PO; +TRAZ-227 PO; +ZOLP10TA PO
[2023-03-18] MEDS ORDERED: LIDOCAINE UROJET 2% GEL 10 ML PKG TOP ONE (03:30)
--- NOTE | 2023-03-18 03:47 | ED Neurological Problem ---
General Chief Complaint: Neuro-Stroke Like Symptoms Stated Complaint: STROKE LIKE SYMPTOMS Source: patient (LIMITED HISTORIAN), EMS, old records History of Present Illness Date Seen by Provider: Mar 18, 2023 Time Seen by Provider: 03:23 Initial Comments PT ARRIVES VIA EMS FROM HOME [id number] CALLED EMS, AFTER HEARING DOG BARKING AND PT YELLING IN BATHROOM LAST KNOWN WELL TIME WAS 1830 TONIGHT PT STATES SHE GOT UP TO GO TO THE BATHROOM AND THEN COULD NOT GET OFF THE TOILET--UNABLE TO STAND. EMS REPORT LEFT FACIAL DROOP AND LEFT SIDE WEAKNESS. NO CONFUSION AND SPEECH IS CLEAR. NO DIZZINESS NO HEADACHE NO VISION CHANGES NO NUMBNESS OR TINGLING ANYWHERE NO NAUSEA/VOMITING NO CHEST PAIN OR PALPITATIONS NO SHORTNESS OF BREATH NO SYNCOPE. ACCUCHECK BY EMS 143, BP 158/59 FOR EMS STROKE ACTIVATION ON ARRIVAL AND PT TAKEN STRAIGHT TO CT. ON ARRIVAL, PT IS WANTING TO LEAVE, STATING "I NEED TO GO HOME" SHE STATES SHE FEELS FINE. 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 SHE CLAIMS NO RECENT USE. PT HAS LONG HISTORY OF NONCOMPLIANCE ON ALL ASPECTS OF CARE. PT STATES SHE DID SEE DR. CHILDS ABOUT A MONTH AGO FOR ROUTINE FOLLOW UP AND HAD 90 DAY REFILLS ON ALL MEDICATIONS. SHE DOES NOT KNOW ANY OF HER MEDICATIONS OR WHAT SHE TAKES THEM FOR, BUT STATES SHE HAS BEEN TAKING THEM EVERY DAY. PCP; [facility] Allergies and Home Medications Allergies Coded Allergies: Iodinated Contrast Media (Verified Allergy, Unknown, 09/21/17) Patient Home Medication List Home Medication List Reviewed: Yes Aspirin (Aspirin EC) 81 Mg Tablet., 81 MG PO DAILY Prescribed by: LATA WOOD on 11/27/22 0505 Atenolol (Atenolol) 100 Mg Tablet, 100 MG PO DAILY Prescribed by: LATA WOOD on 11/27/22 0505 Atorvastatin Calcium (Atorvastatin Calcium) 40 Mg Tablet, 40 MG PO HS Prescribed by: LATA WOOD on 11/27/22 0505 Clopidogrel Bisulfate (Clopidogrel) 75 Mg Tablet, 75 MG PO DAILY Prescribed by: LATA WOOD on 11/27/22 050 Gabapentin (Gabapentin) 800 Mg Tablet, 800 MG PO QID Prescribed by: LATA WOOD on 11/27/22 0505 Lisinopril (Lisinopril) 10 Mg Tablet, 10 MG PO DAILY Prescribed by: LATA WOOD on 11/27/22 050 Oxycodone HCl/Acetaminophen (Endocet 10-325 mg Tablet) 10 Mg-325 Mg Tablet, 1 EA PO TID PRN for PAIN-MODERATE (5-7) Prescribed by: LATA WOOD on 11/27/22 050 Trazodone HCl (Trazodone HCl) 100 Mg Tablet, 100 MG PO HS Prescribed by: LATA WOOD on 11/27/22 050 Zolpidem Tartrate (Ambien) 10 Mg Tablet, 10 MG PO HS PRN for SLEEP Prescribed by: LATA WOOD on 11/27/22 050 Review of Systems Review of Systems Constitutional: No dizziness Eyes: No Symptoms Reported Ears, Nose, Mouth, Throat: no symptoms reported Respiratory: no symptoms reported Cardiovascular: no symptoms reported Gastrointestinal: no symptoms reported Genitourinary: no symptoms reported Musculoskeletal: see HPI, other (LEFT SIDE WEAKNESS) Skin: no symptoms reported Psychiatric/Neurological: See HPI, Anxiety; Denies Cognitive Dysfunction, Denies Headache, Denies Numbness; Tingling, Weakness (LEFT SIDE) Endocrine: No Symptoms Reported Hematologic/Lymphatic: No Symptoms Reported Past Almzaef-Mxydgl-Yzncfb Hx Patient Social History Tobacco Use?: Yes Tobacco type used: Cigarettes Substance use?: Yes Substance type: Opiates/Opioids, Misuse of prescript meds, Marijuana Alcohol Use?: Yes Alcohol type: Beer, Hard Liquor Pt feels they are or have been: No Immunizations Up To Date Tetanus Booster (TDap): More than 5yrs PED Vaccines UTD: Yes Seasonal Allergies Seasonal Allergies: Yes Past Medical History Surgery/Hospitalization HX: PMH: COPD, HOME O2, CVS, STROKE, DAI, SEIZURE, GERD, CONSTIPATION, RLS, FALLS, ANXIETY, PSH: APPY, RIDDHI, TUBAL Surgeries: Yes Appendectomy, Gallbladder, Tubal Ligation Respiratory: Yes (NO COMPLICANT WITH WEARING O2, AND CONTINUES TO SMOKE 3 PPD) Asthma, Chronic Bronchitis, Sleep Apnea, COPD Currently Using CPAP: No Currently Using BIPAP: No Cardiac: Yes Hypertension Neurological: Yes (CVA'S--NO RESIDUAL DEFICITS) Headaches /Migraines, Seizure Disorder, Stroke Reproductive Disorders: No [employer]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, Menopausal Sexually Transmitted Disease: No HIV/AIDS: No Genitourinary: No Gastrointestinal: Yes (S/P RIDDHI) Gastroesophageal Reflux, Chronic Constipation, Gall Bladder Disease Musculoskeletal: Yes (FREQUENT FALLS; RESTLESS LEG SYNDROME; ) Arthritis, Chronic Back Pain Endocrine: No HEENT: No (GLASSES; DENTURES) Loss of Vision: Denies Hearing Impairment: Denies Cancer: No Psychosocial: Yes Sleep Difficulties, Anxiety, Depression Integumentary: No Blood Disorders: No Family Medical History Alzheimer's disease G8 BROTHER Completed stroke G8 BROTHER Diabetes mellitus 19 MOTHER Glaucoma 19 FATHER G8 BROTHER Hypertension 19 FATHER G8 BROTHER Myocardial infarction 19 FATHER No Pertinent Family Hx, Diabetes SOCIAL HISTORY: -SMOKES 3 PPD -ETOH--HISTORY OF ABUSE, CLAIMS NO RECENT USE -DRUGS--THC, BENZODIAZEPINE ABUSE/EXCESSIVE USE. CHRONIC OPIATE USE/EXCESSIVE USE. LONG HISTORY OF NON-COMPLIANCE IN ALL ASPECTS OF CARE. PER OLD RECORDS, PT IS SUPPOSED TO WEAR O2 AT 2-3L/NC CONTINUOUSLY, BUT DOES NOT PAST SURGICAL HISTORY: -APPENDECTOMY -BILATERAL TUBAL LIGATION -CHOLECYSTECTOMY Physical Exam Vital Signs Vital Signs - First Documented 03/18/23 03/18/23 03:24 03:34 Temp 36.0 Pulse 51 Resp 16 B/P (MAP) 138/65 (89) Pulse Ox 92 O2 Delivery Room Air O2 Flow Rate 2.00 Capillary Refill : Height, Weight, BMI Height: 5'0" Weight: 185lbs. 1.0oz. 83.923842ro; 30.08 BMI Method:Stated General Appearance: WD/WN, no apparent distress HEENT: PERRL/EOMI, normal ENT inspection, TMs normal, pharynx normal Neck: non-tender, full range of motion, supple, normal inspection; No carotid bruit Respiratory: normal breath sounds, no respiratory distress, no accessory muscle use Cardiovascular: normal peripheral pulses, regular rate, rhythm, no edema, no JVD, no murmur Peripheral Pulses: 2+ Dorsalis Pedis (R), 2+ Left Dors-Pedis (L), 2+ Radial Pulses (R), 2+ Radial Pulses (L) Gastrointestinal: non tender, soft Back: no CVA tenderness Extremities: non-tender, normal inspection, no pedal edema, no calf tenderness, normal capillary refill Neurologic/Psychiatric: machine skiver II-XII nml as tested, alert, oriented x 3, other (SPEECH CLEAR; NO FACIAL DROOP APPRECIATED AT THIS TIME. PT WITH GROSS TREMOR OF RIGHT ARM. MOTOR STRENGTH OF UPPER EXTREMITIES IS EQUAL BILATERALLY, BUT DOES HAVE LIMB ATAXIA IN BOTH ARMS, AND IS UNABLE TO DO EGEVEK-LB-BIZE WITH EITHER HAND. RIGHT LEG WITH NORMAL STRENGTH. LEFT LEG--NO EFFORT AGAINST GRAVITY, BUT IS ABLE TO MOVE FOOT/TOES. SENSATION IS INTACT IN ALL EXTREMITIES AND IN FACE. TONGUE IS MIDLINE. ) Coordination/Gait: ABN nose to finger (R), ABN nose to finger (L) Motor/Sensory: No sensory deficit; other ( ABOVE) Skin: normal color, warm/dry, tattoos/piercings (MULTIPLE TATTOOS) Stroke Onset of Symptoms Onset of Symptoms: No Symptoms onset unknown: Yes NIH Stroke Scale Assessment Select: Initial Level of Consciousness: 0=Alert (0), Level of Consciousness-Questions: 0=Answers both month/age (0), LOC Commands: 0=Performs both tasks (0), Gaze: Normal (0), Visual Skinner: 0=No visual loss (0), Facial Movement (Facial Paresis): 0=Normal symmetrical mnt (0), Motor Function-Arms Right: 0=No drift (0), Motor Function-Arms Left: 0=No drift (0), Motor Function-Legs Right: 0=No drift (0), Motor Function-Legs Left: 3=No effort/gravity (3), Limb Ataxia: 2=Present in two limbs (2), Sensory: 0=Normal:no loss (0), Best Language: 0=No aphasia (0), Dysarthria: 0=Normal (0), Extinction & Inattention: 0=No abnormality (0), Total: 5 Stroke Thrombolytic Exclusion Age 18 or Over: Yes Acute intenal hemorrhage: No History of CVA: Yes Uncontrolled Coagulation Defec: No Intracranial Hemorrhage: No Severe Hypertension: Yes GI or Bleed: No Subarachnoid Hemorrhage: No Intracranial Neoplasm/Aneurysm: No Oral Anticoagulants: Yes Surgery or Trauma: No Puncture of Non-Compressible V: No Recent CPR: No Diabetic Hemorrhagic Retinopat: No Organ Biopsy: No Recent Obstetric Delivery: No Glucose: No Significant Hepatic Dysfunctio: No NIH Stoke Scale >22: No Bacterial Endocarditis: No Pericarditis: No Improving Symptoms: No Platelets: No TPA Contraindication: No IV - TPa Received IV - TPa Procedure Performed?: No (OUTSIDE OF TIME FRAME) Progress/Results/Core Measures Results/Orders Lab Results Laboratory Tests Test 03/18/23 03:43 03/18/23 04:04 03/18/23 04:14 Range/Units White Blood Count 8.1 4.3-11.0 10^3/uL Red Blood Count 3.36 L 3.80-5.11 10^6/uL Hemoglobin 9.6 L 11.5-16.0 g/dL Hematocrit 31 L 35-52 % Mean Corpuscular Volume 92 80-99 fL Mean Corpuscular Hemoglobin 29 25-34 pg Mean Corpuscular Hemoglobin Concent 31 L 32-36 g/dL Red Cell Distribution Width 16.2 H 10.0-14.5 % Platelet Count 201 130-400 10^3/uL Mean Platelet Volume 9.5 9.0-12.2 fL Immature Granulocyte % (Auto) 0 % Neutrophils (%) (Auto) 73 42-75 % Lymphocytes (%) (Auto) 17 12-44 % Monocytes (%) (Auto) 8 0-12 % Eosinophils (%) (Auto) 2 0-10 % Basophils (%) (Auto) 1 0-10 % Neutrophils # (Auto) 6.0 1.8-7.8 10^3/uL Lymphocytes # (Auto) 1.3 1.0-4.0 10^3/uL Monocytes # (Auto) 0.6 0.0-1.0 10^3/uL Eosinophils # (Auto) 0.2 0.0-0.3 10^3/uL Basophils # (Auto) 0.0 0.0-0.1 10^3/uL Immature Granulocyte # (Auto) 0.0 0.0-0.1 10^3/uL Prothrombin Time 13.8 12.2-14.7 SEC INR Comment 1.0 0.8-1.4 Activated Partial Thromboplast Time 32 24-35 SEC D-Dimer 1.01 H 0.00-0.49 UG/ML Sodium Level 142 135-145 MMOL/L Potassium Level 4.9 3.6-5.0 MMOL/L Chloride Level 110 H 98-107 MMOL/L Carbon Dioxide Level 21 21-32 MMOL/L Anion Gap 11 5-14 MMOL/L Blood Urea Nitrogen 27 H 7-18 MG/DL Creatinine 2.22 H 0.60-1.30 MG/DL Estimat Glomerular Filtration Rate 23 BUN/Creatinine Ratio 12 Glucose Level 106 H 70-105 MG/DL Calcium Level 8.9 8.5-10.1 MG/DL Corrected Calcium 9.3 8.5-10.1 MG/DL Magnesium Level 2.2 1.6-2.4 MG/DL Total Bilirubin 0.2 0.1-1.0 MG/DL Aspartate Amino Transf (AST/SGOT) 26 5-34 U/L Alanine Aminotransferase (ALT/SGPT) 17 0-55 U/L Alkaline Phosphatase 90 40-136 U/L Myoglobin 49.1 10.0-92.0 NG/ML Troponin I < 0.028 <0.028 NG/ML Total Protein 6.4 6.4-8.2 GM/DL Albumin 3.5 3.2-4.5 GM/DL Free Thyroxine 0.75 0.70-1.48 NG/DL TSH Randle Testing 5.74 H 0.35-4.94 UIU/ML Acetaminophen Level < 10 L 10-30 UG/ML Serum Alcohol < 10 <10 MG/DL Urine Color YELLOW Urine Clarity CLOUDY Urine pH 6.0 5-9 Urine Specific [place] 1.025 H 1.016-1.022 Urine Protein 2+ H NEGATIVE Urine Glucose (UA) NEGATIVE NEGATIVE Urine Ketones NEGATIVE NEGATIVE Urine Nitrite NEGATIVE NEGATIVE Urine Bilirubin NEGATIVE NEGATIVE Urine Urobilinogen 0.2 < = 1.0 MG/DL Urine Leukocyte Esterase 1+ H NEGATIVE Urine RBC (Auto) TRACE-I H NEGATIVE Urine RBC NONE /HPF Urine WBC 10-25 H /HPF Urine Squamous Epithelial Cells RARE /HPF Urine Crystals NONE /LPF Urine Bacteria LARGE H /HPF Urine Casts PRESENT /LPF Urine Hyaline Casts RARE /LPF Urine Mucus NEGATIVE /LPF Urine Culture Indicated YES Urine Opiates Screen NEGATIVE NEGATIVE Urine Oxycodone Screen NEGATIVE NEGATIVE Urine Methadone Screen NEGATIVE NEGATIVE Urine Propoxyphene Screen NEGATIVE NEGATIVE Urine Barbiturates Screen NEGATIVE NEGATIVE Ur Tricyclic Antidepressants Screen NEGATIVE NEGATIVE Urine Phencyclidine Screen NEGATIVE NEGATIVE Urine Amphetamines Screen NEGATIVE NEGATIVE Urine Methamphetamines Screen NEGATIVE NEGATIVE Urine Benzodiazepines Screen NEGATIVE NEGATIVE Urine Cocaine Screen NEGATIVE NEGATIVE Urine Cannabinoids Screen NEGATIVE NEGATIVE Glucometer 84 70-110 MG/DL My Orders Orders - MIKE MAURICIO DO Cbc With Automated Diff (03/18/23 03:26) Protime With Inr (03/18/23 03:26) Partial Thromboplastin Time (03/18/23 03:26) Comprehensive Metabolic Panel (03/18/23 03:26) Fibrin Degradation Products (03/18/23 03:26) Troponin I Lalit (03/18/23 03:26) Ua Culture If Indicated (03/18/23 03:26) Chest 1 View, Ap/Pa Only (03/18/23 03:26) Catheter(Urinary) Insert & Ass 03,15 (03/18/23 03:26) Ekg Tracing (03/18/23 03:26) Nothing By Mouth (03/18/23 Breakfast) Accucheck Stat ONCE (03/18/23 03:26) Ed Iv/Invasive Line Start (03/18/23 03:26) Ed Iv/Invasive Line Start (03/18/23 03:26) Vital Signs Stroke Patient Q15M (03/18/23 03:26) Ct Head Wo-R/O Stroke (03/18/23 03:26) O2 (03/18/23 03:26) Monitor-Rhythm Ecg Trace Only (03/18/23 03:26) Dysphagia Screening Tool [id number] (03/18/23 03:26) Lipid Panel (03/19/23 06:00) Acetaminophen (03/18/23 03:26) Alcohol (03/18/23 03:26) Drug Screen Stat (Urine) (03/18/23 03:26) Magnesium (03/18/23 03:26) Thyroid Analyzer (03/18/23 03:26) Myoglobin Serum (03/18/23 03:26) Lidocaine 2% (Urojet) (Xylocaine Urojet) (03/18/23 03:30) Labetalol Injection (Normodyne Injection (03/18/23 04:30) Urine Culture (03/18/23 04:04) Free T4 (Free Thyroxine) (03/18/23 03:43) Hydralazine Injection (Apresoline Inject (03/18/23 05:30) Ed Admission (Communication) (03/18/23 07:58) Medications Given in ED Current Medications Medications Dose Ordered Sig/Rylee Route Start Time Stop Time Status Last Admin Dose Admin Hydralazine HCl 10 mg ONCE ONCE IV 03/18/23 05:30 03/18/23 05:31 DC 03/18/23 05:34 10 MG Labetalol HCl 20 mg ONCE ONCE IV 03/18/23 04:30 03/18/23 04:31 DC 03/18/23 04:33 20 MG Lidocaine HCl 10 ml ONCE ONCE TOP 03/18/23 03:30 03/18/23 03:31 DC 03/18/23 03:47 10 ML Vital Signs/I&O 03/18/23 03/18/23 03:24 03:34 Temp 36.0 Pulse 51 Resp 16 B/P (MAP) 138/65 (89) Pulse Ox 92 O2 Delivery Room Air Nasal Cannula O2 Flow Rate 2.00 Progress Progress Note : Progress Note STROKE ACTIVATION ON ARRIVAL, AND PT TAKEN STRAIGHT TO CT SCAN ROUTINE STROKE LABS/TESTS ORDERED VITALS ON ARRIVAL: TEMP 36.0, PULSE 51, RR 16, BP 138/65, O2 SAT 92% ON ROOM AIR. PLACED ON O2 AT 2L/NC AND O2 SATS UP TO 96% BLOOD PRESSURE TRENDING UP TO > 200 SYSTOLIC--LABETALOL ORDERED. BP STILL > 200 SYSTOLIC, HR IN 50'S--HYDRALAZINE ORDERED. 0600--BP DOWN TO 158 SYSTOLIC, HR IN 60'S. PERTINENT LABS: -CBC WITH HGB 9.7--HGB WAS INITIALLY 12.2 IN NOVEMBER, THEN TRENDED DOWN TO LOW 6.9, AND WAS 7.8 ON 11/27/22. -CMP--ELECTROLYTES NORMAL, GLUCOSE 106, BUN 27, CR 2.2, GFR 23 -TROPONIN NEGATIVE -PT/PTT/INR 13.8/32/1.0, D-DIMER 1.01 -UA WITH LARGE BACTERIA, 10-25 WBC, 1+ LEUKOCYTES, 2+ PROTEIN -ETOH AND UDS NEGATIVE. EKG UNREMARKABLE CXR UNREMARKABLE CT HEAD DOES NOT SHOW ANY ACUTE PROCESS, AND OLD CHRONIC INFARCTS DISCUSSED TEST RESULTS, NEED FOR ADMIT AND PT IS AGREEABLE TO ADMIT PT WISHES TO BE DNR/DNI REVIEWED PRIOR RECORDS, INCLUDING ER VISITS, ADMITS/H&P'S/CONSULTS/DISCHARGE SUMMARIES, TESTS/ PROCEDURES. Initial ECG Impression Date: Mar 18, 2023 Initial ECG Impression Time: 03:46 Initial ECG Rate: 49 Initial ECG Rhythm: Normal Sinus Initial ECG Intervals: Normal Initial ECG Impression: Nonspecific Changes Initial ECG Comparisson: Unchanged Comment INTERPRETED BY ME Diagnostic Imaging Comments CXR--NO ACUTE PROCESS, PENDING RADIOLOGIST REVIEW CT HEAD--PER [facility] VIA FAX AT [phone], AND PER [facility] RADIOLOGIST VIA PHONE AT [phone] -NO ACUTE PROCESS -OLD/CHRONIC APPEARING INFARCTS RIGHT POSTERIOR MAXWELL RADIATA, RIGHT CAUDATE AND LEFT THALAMIC LACUNAR INFARCTS. Reviewed: Reviewed by Me, Discussed w/Radiologist Departure Communication (Admissions) 354--SPOKE WITH DR. WOOD, HOSPITALIST FOR [facility]. ACCEPTS PT FOR ADMIT TO ICU. WILL BE HOLDING PT / BOARDING PT IN ER UNTIL AFTER 0700 DUE TO STAFFING IN ICU. 418--CALLED [facility] AND SPOKE WITH STROKE NEUROLOGIST. HE DOES NOT ADVISE THROMBOLYTICS, PT'S LAST KNOW WELL TIME IS > [address] ANGIOGRAM, BUT PT IS ALLERGIC TO IODINEATED CONTRAST MEDIA AND GFR IS 23, AM NOT COMFORTABLE WITH THAT OPTION. HE ALSO ADVISES THAT MRI AND MR ANGIOGRAM COULD BE DONE TO RULE OUT VASCULAR OCCLUSION, PT IS IN THE 24 HOUR WINDOW FOR THROMBECTOMY. HE DOES NOT RECOMMEND ORAL OR IV ANTICOAGULANTS AT THIS TIME, OTHER THAN ASPIRIN. 444--REPORT TO E-ICU PHYSICIAN. 30--[facility] CALLED BACK FOR UPDATE, MRI/MRA IS STILL PENDING AT THIS TIME. NO CHANGE IN PT'S CONDITION 629--SPOKE WITH DR. WOOD, UPDATE GIVEN. SHE WILL DO ADMIT ORDERS Impression Primary Impression: Stroke-like symptoms Additional Impressions: Time of onset of stroke symptoms unknown Uncontrolled hypertension History of CVA (cerebrovascular accident) COPD (chronic obstructive pulmonary disease) Acute on chronic renal insufficiency Anemia UTI (urinary tract infection) HX OF COPD HX OF VERY HEAVY SMOKING Disposition: ADMITTED INPATIENT Condition: Stable Admissions Decision to Admit Reason: Admit from ER (General) Decision to Admit/Date: Mar 18, 2023 Time/Decision to Admit Time: 04:00 Departure-Patient Inst. Referrals: [facility] (PCP/Family) Primary Care Physician MIKE MAURICIO DO Mar 18, 2023 03:47
[2023-03-18 03:53] LABS: BASOPHILS % (AUTO) 1 % (0-10); EOSINOPHILS # (AUTO) 0.2 10^3/uL (0.0-0.3); EOSINOPHILS % (AUTO) 2 % (0-10); HEMATOCRIT 31 % (35-52); HEMOGLOBIN 9.6 g/dL (11.5-16.0); LYMPHOCYTES # (AUTO) 1.3 10^3/uL (1.0-4.0); LYMPHOCYTES % (AUTO) 17 % (12-44); MEAN CORPUSCULAR HEMOGLOBIN 29 pg (25-34); MEAN CORPUSCULAR HGB CONC 31 g/dL (32-36); MEAN CORPUSCULAR VOLUME 92 fL (80-99); MEAN PLATELET VOLUME 9.5 fL (9.0-12.2); MONOCYTES # (AUTO) 0.6 10^3/uL (0.0-1.0); MONOCYTES % (AUTO) 8 % (0-12); NEUTROPHILS % (AUTO) 73 % (42-75); PLATELET COUNT 201 10^3/uL (130-400); WHITE BLOOD COUNT 8.1 10^3/uL (4.3-11.0)
[2023-03-18 04:10] LABS: ALBUMIN 3.5 GM/DL (3.2-4.5); CHLORIDE 110 MMOL/L (98-107); POTASSIUM 4.9 MMOL/L (3.6-5.0); PROTHROMBIN TIME PATIENT 13.8 SEC (12.2-14.7); SODIUM 142 MMOL/L (135-145)
[2023-03-18 04:11] LABS: CALCIUM 8.9 MG/DL (8.5-10.1)
[2023-03-18 04:13] LABS: FIBRIN DEGRADATION PRODUCTS 1.01 UG/ML (0.00-0.49); GLUCOSE 106 MG/DL (70-105); TOTAL PROTEIN 6.4 GM/DL (6.4-8.2)
[2023-03-18 04:14] LABS: BILIRUBIN,TOTAL 0.2 MG/DL (0.1-1.0); CARBON DIOXIDE 21 MMOL/L (21-32)
[2023-03-18 04:16] LABS: ALKALINE PHOSPHATASE 90 U/L (40-136); CREATININE SERUM 2.22 MG/DL (0.60-1.30); GFR ESTIMATED 23
[2023-03-18 04:17] LABS: BILIRUBIN,URINE NEGATIVE (NEGATIVE); CLARITY,URINE CLOUDY; COLOR,URINE YELLOW; GLUCOSE, URINE (UA) NEGATIVE (NEGATIVE); KETONES,URINE NEGATIVE (NEGATIVE); LEUKOCYTE ESTERASE ,URINE 1+ (NEGATIVE); NITRITE,URINE NEGATIVE (NEGATIVE); PROTEIN,URINE 2+ (NEGATIVE)
[2023-03-18 04:17] LABS: BUN/CREATININE RATIO 12
[2023-03-18 04:19] LABS: ALANINE AMINOTRANSFERASE 17 U/L (0-55); MAGNESIUM 2.2 MG/DL (1.6-2.4)
[2023-03-18 04:25] LABS: ACETAMINOPHEN < 10 UG/ML (10-30)
[2023-03-18] MEDS ORDERED: LABETALOL HCL 20 MG/4 ML VIAL IV ONE (04:30)
[2023-03-18 04:32] LABS: AMPHETAMINE SCREEN, URINE NEGATIVE (NEGATIVE); BARBITURATE SCREEN URINE NEGATIVE (NEGATIVE); BENZODIAZEPINES SCREEN URINE NEGATIVE (NEGATIVE); CANNABINOID SCREEN, URINE NEGATIVE (NEGATIVE); COCAINE SCREEN URINE NEGATIVE (NEGATIVE); METHADONE STAT NEGATIVE (NEGATIVE); OPIATE SCREEN URINE NEGATIVE (NEGATIVE); OXYCODONE STAT NEGATIVE (NEGATIVE); PROPOXYPHENE STAT NEGATIVE (NEGATIVE); TRICYCLIC ANTIDEPRESSANTS SCRE NEGATIVE (NEGATIVE)
[2023-03-18 04:33] LABS: BACTERIA,URINE LARGE /HPF; HYALINE CASTS, URINE RARE /LPF; SQUAMOUS EPITHELIAL CELL,UR RARE /HPF
[2023-03-18 04:40] LABS: TSH (THYROID ANALYZER) 5.74 UIU/ML (0.35-4.94)
[2023-03-18 05:18] LABS: FREE T4 (FREE THYROXINE) 0.75 NG/DL (0.70-1.48)
[2023-03-18] MEDS ORDERED: hydrALAZINE (APESOLINE) 20 MG/ML VIAL IV ONE (05:30)
--- NOTE | 2023-03-18 06:22 | Diagnostic Imaging Report ---
EXAMINATION: CT head without contrast. TECHNIQUE: Multiple contiguous axial images were obtained through the brain without the use of intravenous contrast. All CT scans use one or more of the following dose optimizing techniques: automated exposure control, MA and/or KvP adjustment based on patient size and exam type or iterative reconstruction. HISTORY: Focal neurologic deficits. Concern for acute ischemia. COMPARISON: 09/21/2017. FINDINGS: Chronic bilateral basal ganglia infarcts are seen. There is a chronic appearing infarct in the right frontal parietal region which is new since the prior exam from 2018. No evidence of large acute territorial ischemia. No acute hemorrhage or mass. No midline shift or mass effect. No hydrocephalus. The basilar cisterns are clear. The orbits are normal. There is opacification of the left sphenoid sinus. Mastoid air cells are clear. No soft tissue abnormality is seen. No osseus lesions or fractures are seen. IMPRESSION: 1. No large acute territorial ischemia. No acute hemorrhage or mass. 2. Chronic appearing infarcts in the bilateral basal ganglia and right frontoparietal region. 3. Paranasal sinus disease involving the left sphenoid sinus. Dictated by: Dictated on workstation # [id number]
--- NOTE | 2023-03-18 06:35 | Diagnostic Imaging Report ---
EXAMINATION: Chest radiograph, portable AP view. DATE: 03/18/2023 3:37 AM INDICATION: 72-year-old female, altered mental status. Shortness of breath. COMPARISON: November 20, 2022. FINDINGS: Heart size and mediastinal contours are unchanged. There is no identified pneumothorax. There is no large pleural effusion. There is no identified focal airspace consolidation. There are bilateral carotid vascular calcifications. IMPRESSION: 1. No identified acute cardiopulmonary abnormality. Dictated by: Dictated on workstation # [id number]
--- NOTE | 2023-03-18 06:49 | History & Physical-Hospitalist ---
History of Present Illness HPI/Chief Complaint CC: Left sided weakness c/w subacute CVA not a tPa candidate c/w extension of prior CVA residual from 12/2022 HPI: This is a 72yoWF clinic patient of [facility] who presented 9 hours after left sided weakness was noted. She has a h/o CVA 12/2022 and left sided residual has been fairly minor. She stopped smoking 12/2022. Cardiology consulted for risk factor reduction due to ASA and Plavix and statin maintained since last CVA and has apparently suffered another CVA. Patient does have a tremor of the right hand that appears to be Parkinsonism but denies this issue formally diagnosed. Source: patient, RN/MD, old records Exam Limitations: no limitations Date Seen 03/18/23 Time Seen by a Provider: 11:00 Attending Physician [place] PCP Admitting Physician: Attending Physician: Referring Physician Date of Admission Home Medications & Allergies Home Medications Reviewed patient Home Medication Reconciliation performed by pharmacy medication reconciliations field operations technician and/or nursing. Patients Allergies have been reviewed. Allergies Allergies Coded Allergies Iodinated Contrast Media (Verified Allergy, Unknown, 09/21/17) Past Kjaltav-Zlqssx-Dgpvex Hx Patient Social History Marrital Status: single Employed/Student: retired Tobacco Use?: Yes Tobacco type used: Cigarettes Smoking Status: Former Smoker Substance use?: Yes Substance type: Opiates/Opioids, Misuse of prescript meds, Marijuana Alcohol Use?: Yes Alcohol type: Beer, Hard Liquor Pt feels they are or have been: No Immunizations Up To Date Tetanus Booster (TDap): More Than 5 Years Hepatitis A: No Hepatitis B: No PED Vaccines UTD: Yes Seasonal Allergies Seasonal Allergies: Yes Current Status Advance Directives: No Communicates: Verbally Primary Language: Scottish Preferred Spoken Language: Scottish Is interpretation needed?: No Past Medical History Surgeries: Appendectomy, Gallbladder, Tubal Ligation Asthma, Chronic Bronchitis, Sleep Apnea, COPD Currently Using CPAP: No Currently Using BIPAP: No Hypertension Headaches /Migraines, Seizure Disorder, Stroke 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 History: Tubal Ligation, Menopausal Sexually Transmitted Disease: No HIV/AIDS: No Gastroesophageal Reflux, Chronic Constipation, Gall Bladder Disease Arthritis, Chronic Back Pain Loss of Vision: Denies Hearing Impairment: Denies Sleep Difficulties, Anxiety, Depression Blood Disorders: No Family Medical History Alzheimer's disease G8 BROTHER Completed stroke G8 BROTHER Diabetes mellitus 19 MOTHER Glaucoma 19 FATHER G8 BROTHER Hypertension 19 FATHER G8 BROTHER Myocardial infarction 19 FATHER No Pertinent Family Hx, Diabetes SOCIAL HISTORY: -SMOKES 3 PPD -ETOH--HISTORY OF ABUSE, CLAIMS NO RECENT USE -DRUGS--THC, BENZODIAZEPINE ABUSE/EXCESSIVE USE. CHRONIC OPIATE USE/EXCESSIVE USE. LONG HISTORY OF NON-COMPLIANCE IN ALL ASPECTS OF CARE. PER OLD RECORDS, PT IS SUPPOSED TO WEAR O2 AT 2-3L/NC CONTINUOUSLY, BUT DOES NOT PAST SURGICAL HISTORY: -APPENDECTOMY -BILATERAL TUBAL LIGATION -CHOLECYSTECTOMY Review of Systems Constitutional: see HPI, malaise, weakness Respiratory: no symptoms reported Cardiovascular: no symptoms reported Gastrointestinal: no symptoms reported Genitourinary: no symptoms reported Musculoskeletal: no symptoms reported Skin: no symptoms reported Psychiatric/Neurological: No Symptoms Reported All Other Systems Reviewed Negative Unless Noted: Yes Physical Exam Physical Exam Vital Signs Vital Signs - First Documented 03/18/23 03/18/23 03/18/23 03:24 03:34 11:58 Temp 36.0 Pulse 51 Resp 16 B/P (MAP) 138/65 (89) Pulse Ox 92 O2 Delivery Room Air O2 Flow Rate 2.00 FiO2 21 Capillary Refill : Height, Weight, BMI Height: 5'0" Weight: 185lbs. 1.0oz. 83.815519bf; 30.00 BMI Method:Stated General Appearance: No Apparent Distress, Chronically ill Eyes: Right Eye Normal Inspection, Right Eye PERRL HEENT: PERRL/EOMI, Normal ENT Inspection, Pharynx Normal, Moist Mucous Membranes Neck: Full Range of Motion, Normal Inspection, Non Tender Respiratory: Chest Non Tender, Lungs Clear, Normal Breath Sounds, No Accessory Muscle Use, No Respiratory Distress Cardiovascular: Regular Rate, Rhythm, No Edema, No Gallop, No JVD, No Murmur, Normal Peripheral Pulses Gastrointestinal: Normal Bowel Sounds, No Organomegaly, No Pulsatile Mass, Non Tender, Soft Back: Normal Inspection, No CVA Tenderness, No Vertebral Tenderness Extremity: Normal Capillary Refill, Normal Inspection, Normal Range of Motion, Non Tender, No Calf Tenderness, No Pedal Edema Neurologic/Psychiatric: Alert, Oriented x3, Normal Mood/Affect, Abnormal Gait, Motor Weakness (left sided weakness upper and lower extremities lower 1/5 upper 2/5) Skin: Normal Color, Warm/Dry Lymphatic: No Adenopathy Results Results/Procedures Labs Laboratory Tests 03/18/23 03:43 Patient resulted labs reviewed. Assessment/Plan Admission Diagnosis Assessment: Acute on chronic CVA not a tPa candidate Former smoker quit 12/2022 HTN Tremor right hand Plan: CVA protocol Cardiology consultation Monitor closely PT OT Admission Status: Observation Clinical Quality Measures Stroke: Symptoms onset unknown: Yes LATA WOOD DO Mar 18, 2023 06:49
[2023-03-18] MEDS ORDERED: polyethylene glycoL POWDER 17 GM (MIRALAX) PACK PO PRN (08:30)
[2023-03-18] MEDS ORDERED: diphenhydrAMINE 50 MG/ML INJ (BENADRYL) IVP PRN (08:30)
[2023-03-18] MEDS ORDERED: ANTACID SUSP 30 ML UDC (MYLANTA) PO PRN (08:30)
[2023-03-18] MEDS ORDERED: NS IV 1000 ML 1,000 ML IV SCH (08:30)
[2023-03-18] MEDS ORDERED: NS IV 500 ML 500 ML IV PRN (08:30)
[2023-03-18] MEDS ORDERED: diphenhydrAMINE 25 MG TAB (BENADRYL) PO PRN (08:30)
[2023-03-18] MEDS ORDERED: MILK OF MAGNESIA 400 MG/5 ML 30 ML UDC PO PRN (08:30)
[2023-03-18] MEDS ORDERED: ONDANSETRON 4 MG/2 ML (SDV) Z0FRAN IV PRN (08:30)
[2023-03-18] MEDS ORDERED: ONDANSETRON 4 MG (ZOFRAN) ORAL DISSOLVE TAB PO PRN (08:30)
[2023-03-18] MEDS ORDERED: HYDROmorphone 2 MG/ML VIAL (DILAUDID) IV PRN (08:30)
[2023-03-18] MEDS ORDERED: ACETAMINOPHEN 325 MG TABLET PO PRN (08:30)
[2023-03-18] MEDS ORDERED: CALCIUM CARBONATE 500 MG (TUMS) TAB.CHEW PO PRN (08:30)
[2023-03-18] MEDS ORDERED: MELATONIN 3 MG TABLET PO PRN (08:30)
[2023-03-18] MEDS ORDERED: LACTULOSE SYRUP 10GM/15ML (ENULOSE) 30ML UDC PO PRN (08:30)
[2023-03-18] MEDS ORDERED: BISACODYL 10 MG SUPP (DULCOLAX) PR PRN (08:30)
--- NOTE | 2023-03-18 09:23 | Tele-ICU Consult ---
Progress Note video rounds completed 72 y/o female presents with left facial droop and LE weakness S/S consistent with CVA Last prior known time when normal [address] head: FINDINGS: Chronic bilateral basal ganglia infarcts are seen. There is a chronic appearing infarct in the right frontal parietal region which is new since the prior exam from 2018. No evidence of large acute territorial ischemia. No acute hemorrhage or mass. No midline shift or mass effect. No hydrocephalus. The basilar cisterns are clear. The orbits are normal. There is opacification of the left sphenoid sinus. Mastoid air cells are clear. No soft tissue abnormality is seen. No osseus lesions or fractures are seen. IMPRESSION: 1. No large acute territorial ischemia. No acute hemorrhage or mass. 2. Chronic appearing infarcts in the bilateral basal ganglia and right frontoparietal region. 3. Paranasal sinus disease involving the left sphenoid sinus. Labs: wbc normal UA : LE positive, WBC: 10-25 Bacteria Large: uncertain if symptomatic. CVA may prevent identification of symptoms IMP: CVA, no hemorrahe on CT. Outside window for tPa Will treat urine for now Focused Exam Height, Weight, BMI Height: 5'0" Weight: 185lbs. 1.0oz. 83.480026jv; 30.00 BMI Method:Stated Labs Laboratory Tests 03/18/23 03:43 Labs Laboratory Tests 03/18/23 03:43 Results Results/Procedures Labs Laboratory Tests 03/18/23 03:43 Patient resulted labs reviewed. Results Labs Labs Laboratory Tests 03/18/23 03:43: White Blood Count 8.1, Red Blood Count 3.36L, Hemoglobin 9.6L, Hematocrit 31L, Mean Corpuscular Volume 92, Mean Corpuscular Hemoglobin 29, Mean Corpuscular Hemoglobin Concent 31L, Red Cell Distribution Width 16.2H, Platelet Count 201, Mean Platelet Volume 9.5, Immature Granulocyte % (Auto) 0, Neutrophils (%) (Auto) 73, Lymphocytes (%) (Auto) 17, Monocytes (%) (Auto) 8, Eosinophils (%) (Auto) 2, Basophils (%) (Auto) 1, Neutrophils # (Auto) 6.0, Lymphocytes # (Auto) 1.3, Monocytes # (Auto) 0.6, Eosinophils # (Auto) 0.2, Basophils # (Auto) 0.0, Immature Granulocyte # (Auto) 0.0, Prothrombin Time 13.8, INR Comment 1.0, Activated Partial Thromboplast Time 32, D-Dimer 1.01H, Sodium Level 142, Potassium Level 4.9, Chloride Level 110H, Carbon Dioxide Level 21, Anion Gap 11, Blood Urea Nitrogen 27H, Creatinine 2.22H, Estimat Glomerular Filtration Rate 23, BUN/Creatinine Ratio 12, Glucose Level 106H, Calcium Level 8.9, Corrected Calcium 9.3, Magnesium Level 2.2, Total Bilirubin 0.2, Aspartate Amino Transf (AST/SGOT) 26, Alanine Aminotransferase (ALT/SGPT) 17, Alkaline Phosphatase 90, Myoglobin 49.1, Troponin I < 0.028, Total Protein 6.4, Albumin 3.5, Free Th yroxine 0.75, TSH [place] Testing 5.74H, Acetaminophen Level < 10L, Serum Alcohol < 10 03/18/23 04:04: Urine Color YELLOW, Urine Clarity CLOUDY, Urine pH 6.0, Urine Specific [place] 1.025H, Urine Protein 2+H, Urine Glucose (UA) NEGATIVE, Urine Ketones NEGATIVE, Urine Nitrite NEGATIVE, Urine Bilirubin NEGATIVE, Urine Urobilinogen 0.2, Urine Leukocyte Esterase 1+H, Urine RBC (Auto) TRACE-IH, Urine RBC NONE, Urine WBC 10- 25H, Urine Squamous Epithelial Cells RARE, Urine Crystals NONE, Urine Bacteria LARGEH, Urine Casts PRESENT, Urine Hyaline Casts RARE, Urine Mucus NEGATIVE, Urine Culture Indicated YES, Urine Opiates Screen NEGATIVE, Urine Oxycodone Screen NEGATIVE, Urine Methadone Screen NEGATIVE, Urine Propoxyphene Screen NEGATIVE, Urine Barbiturates Screen NEGATIVE, Ur Tricyclic Antidepressants Screen NEGATIVE, Urine Phencyclidine Screen NEGATIVE, Urine Amphetamines Screen NEGATIVE, Urine Methamphetamines Screen NEGATIVE, Urine Benzodiazepines Screen NEGATIVE, Urine Cocaine Screen NEGATIVE, Urine Cannabinoids Screen NEGATIVE 03/18/23 04:14: Glucometer 84 DAYNE CANTU MD Mar 18, 2023 09:23
[2023-03-18] MEDS: ASPIRIN 81 MG CHEW (CHILDREN'S ASA) PO SCH (09:26)
[2023-03-18] MEDS: ENOXAPARIN 80 MG/0.8 ML (LOVENOX) SYR SC SCH (09:27)
[2023-03-18] MEDS: DOCUSATE SODIUM 100 MG (COLACE) CAP PO SCH ×2 (09:28→21:07)
[2023-03-18] MEDS: SENNOSIDES 8.6 MG (SENOKOT) TAB PO SCH ×2 (09:28→21:07)
[2023-03-18] MEDS ORDERED: CIPROFLOXACIN IV 400MG/200ML 200 ML IV ONE (09:45)
[2023-03-18] MEDS ORDERED: inSUlin ASPART (NovoLOG) 1 UNIT/0.01 ML (CHARGE PER UNIT) SC SCH (11:00)
[2023-03-18] MEDS ORDERED: CLOPIDOGREL 75 MG (PLAVIX) TABLET PO ONE (11:15)
--- NOTE | 2023-03-18 11:31 | Consultation-Cardiology ---
HPI-Cardiology Cardiology Consultation: Date of Consultation 03/18/23 Time Seen by a Provider: 11:20 Date of Admission Attending Physician [place] Admitting Physician Admitting Physician: Yvonne Solano DO Attending Physician: Yvonne Solano DO Consulting Physician CLEMENT LORA MD, MA, FACP, FACC, [facility], CCDS Physician requesting consult: Dr Solano HPI: Chief Complaint: L-sided weakness [address] to [address] Solano this am after she presented with L-sided weakness. She denies cp or palp or syncope or leg swelling. Quit smoking in December 2022 Review of Systems-Cardiology Review of Systems Constitutional: malaise, tiredness; No weight loss, No weight gain Eyes: No vision change Ears/Nose/Throat: No ear discharge, No nasal drainage, No recent hearing loss Respiratory: As described under HPI Cardiovascular: As described under HPI Gastrointestinal: No diarrhea, No nausea, No vomiting, No stool coloration changes Genitourinary: No dysuria, No hematuria, No urine frequency changes Musculoskeletal: back pain (chronic) Skin: No rash, No ulcerations Psychiatric/Neurological: No seizure, No focal weakness, No syncope Hematologic: No bleeding abnormalities HDH-Jzyhms-Dlcppk Hx Patient Social History Smoking Status: Former Smoker Former smoker/When Quit: Dec 09, 2022 Alcohol Use?: Yes Substance type: Opiates/Opioids, Misuse of prescript meds, Marijuana Pt feels they are or have been: No Tobacco type used: Cigarettes Immunizations Up To Date Tetanus Booster (TDap): More than 5yrs Past Medical History PMH As described under Assessment. Family Medical History Family Medical History: both parents heart disease when they were in their 60s or 70s but pt does not know detials Family History: Alzheimer's disease G8 BROTHER Completed stroke G8 BROTHER Diabetes mellitus 19 MOTHER Glaucoma 19 FATHER G8 BROTHER Hypertension 19 FATHER G8 BROTHER Myocardial infarction 19 FATHER Allergies and Home Medications Allergies Coded Allergies: Iodinated Contrast Media (Verified Allergy, Unknown, 09/21/17) Patient Home Medication List Home Medication List Reviewed: Yes Aspirin (Aspirin EC) 81 Mg Tablet.dr 81 MG PO DAILY Prescribed by: YVONNE SOLANO on 11/27/22 0508 Atenolol (Atenolol) 100 Mg Tablet, 100 MG PO DAILY Prescribed by: YVONNE SOLANO on 11/27/22 050 Atorvastatin Calcium (Atorvastatin Calcium) 40 Mg Tablet, 40 MG PO HS Prescribed by: YVONNE SOLANO on 11/27/22 050 Clopidogrel Bisulfate (Clopidogrel) 75 Mg Tablet, 75 MG PO DAILY Prescribed by: YVONNE SOLANO on 11/27/22 050 Gabapentin (Gabapentin) 800 Mg Tablet, 800 MG PO QID Prescribed by: YVONNE SOLANO on 11/27/22504 Lisinopril (Lisinopril) 10 Mg Tablet, 10 MG PO DAILY Prescribed by: YVONNE SOLANO on 11/27/22 050 Oxycodone HCl/Acetaminophen (Endocet 10-325 mg Tablet) 10 Mg-325 Mg Tablet, 1 EA PO TID PRN for PAIN-MODERATE (5-7) Prescribed by: YVONNE SOLANO on 11/27/22 050 Trazodone HCl (Trazodone HCl) 100 Mg Tablet, 100 MG PO HS Prescribed by: YVONNE SOLANO on 11/27/22504 Zolpidem Tartrate (Ambien) 10 Mg Tablet, 10 MG PO HS PRN for SLEEP Prescribed by: YVONNE SOLANO on 11/27/22505 Physical Exam-Cardiology Physical Exam Vital Signs/I&O 03/18/23 03/18/23 03/18/23 03/18/23 03:24 03:34 08:00 09:00 Temp 36.0 36.5 Pulse 51 84 56 Resp 16 17 17 B/P (MAP) 138/65 (89) 139/75 146/61 (89) Pulse Ox 92 95 94 O2 Delivery Room Air Nasal Cannula Room Air Room Air O2 Flow Rate 2.00 03/18/23 03/18/23 03/18/23 09:23 10:00 11:00 Pulse 60 50 57 Resp 12 17 B/P (MAP) 160/60 (89) 180/79 (109) Pulse Ox 96 95 O2 Delivery Room Air Room Air Capillary Refill : Constitutional: AAO x 3, well-developed, well-nourished, other (frail appearing) HEENT: PERRL, EOMI, hearing is well preserved Neck: carotid pulses are 2 + bilaterally, with good upstrokes Respiratory: No accessory muscle use; chest expansion is symmetric, chest is bilaterally symmetric, other (fair, bilat air entry; somewhat prolong exp) Cardiovascular: regular rate-rhythm, systolic murmur (soft CLARENCE at card base) Gastrointestinal: No tender; soft; No guarding, No rebound; audible bowel sounds Extremities: No clubbing, No cyanosis, No significant edema Neurologic/Psychiatric: oriented x 3, other (L - sided weakness, more in the l leg (3/5 power in the L leg)) Skin: normal color, warm/dry; No cyanosis, No cool, No diaphoresis, No rash on exposed areas, No ulcerations on exposed areas Data Review Labs Laboratory Tests 03/18/23 03:43: White Blood Count 8.1, Red Blood Count 3.36L, Hemoglobin 9.6L, Hematocrit 31L, Mean Corpuscular Volume 92, Mean Corpuscular Hemoglobin 29, Mean Corpuscular Hemoglobin Concent 31L, Red Cell Distribution Width 16.2H, Platelet Count 201, Mean Platelet Volume 9.5, Immature Granulocyte % (Auto) 0, Neutrophils (%) (Auto) 73, Lymphocytes (%) (Auto) 17, Monocytes (%) (Auto) 8, Eosinophils (%) (Auto) 2, Basophils (%) (Auto) 1, Neutrophils # (Auto) 6.0, Lymphocytes # (Auto) 1.3, Monocytes # (Auto) 0.6, Eosinophils # (Auto) 0.2, Basophils # (Auto) 0.0, Immature Granulocyte # (Auto) 0.0, Prothrombin Time 13.8, INR Comment 1.0, Activated Partial Thromboplast Time 32, D-Dimer 1.01H, Sodium Level 142, Potassium Level 4.9, Chloride Level 110H, Carbon Dioxide Level 21, Anion Gap 11, Blood Urea Nitrogen 27H, Creatinine 2.22H, Estimat Glomerular Filtration Rate 23, BUN/Creatinine Ratio 12, Glucose Level 106H, Calcium Level 8.9, Corrected Calcium 9.3, Magnesium Level 2.2, Total Bilirubin 0.2, Aspartate Amino Transf (AST/SGOT) 26, Alanine Aminotransferase (ALT/SGPT) 17, Alkaline Phosphatase 90, Myoglobin 49.1, Troponin I < 0.028, Total Protein 6.4, Albumin 3.5, Free Thyroxine 0.75, TSH [place] Testing 5.74H, Acetaminophen Level < 10L, Serum Alcohol < 10 03/18/23 04:04: Urine Color YELLOW, Urine Clarity CLOUDY, Urine pH 6.0, Urine Specific [place] 1.025H, Urine Protein 2+H, Urine Glucose (UA) NEGATIVE, Urine Ketones NEGATIVE, Urine Nitrite NEGATIVE, Urine Bilirubin NEGATIVE, Urine Urobilinogen 0.2, Urine Leukocyte Esterase 1+H, Urine RBC (Auto) TRACE-IH, Urine RBC NONE, Urine WBC 10- 25H, Urine Squamous Epithelial Cells RARE, Urine Crystals NONE, Urine Bacteria LARGEH, Urine Casts PRESENT, Urine Hyaline Casts RARE, Urine Mucus NEGATIVE, Urine Culture Indicated YES, Urine Opiates Screen NEGATIVE, Urine Oxycodone Screen NEGATIVE, Urine Methadone Screen NEGATIVE, Urine Propoxyphene Screen NEGATIVE, Urine Barbiturates Screen NEGATIVE, Ur Tricyclic Antidepressants Screen NEGATIVE, Urine Phencyclidine Screen NEGATIVE, Urine Amphetamines Screen NEGATIVE, Urine Methamphetamines Screen NEGATIVE, Urine Benzodiazepines Screen NEGATIVE, Urine Cocaine Screen NEGATIVE, Urine Cannabinoids Screen NEGATIVE 03/18/23 04:14: Glucometer 84 03/18/23 10:54: Glucometer 120H Laboratory Tests 03/18/23 03:43 A/P-Cardiology Assessment/Admission Diagnosis Ac CVA resulting in L-sided weakness - Dr Solano managing JEANINE on CKD 3b - Dr Solano managing Anemia of undetermined etiology - Dr Solano managing Hypertension Quit smoking in December 2022 Discussion and Recomendations * Dr Solano managing stroke * Amlodipine for hypertension * Advised to continue to refrain from tobacco use * Echo * Consider ILR if no distinct cause found for stroke * Monitor labs Clinical Quality Measures Stroke: Symptoms onset unknown: Yes CLEMENT LORA MD FACP FAC CCDS Mar 18, 2023 11:31
[2023-03-18 11:58] VITALS: BP 138/65
[2023-03-18] MEDS ORDERED: RT-ALBUTEROL/IPRATROPIUM 3 ML (DUONEB) VIAL INH PRN (13:00)
[2023-03-18] MEDS: amLODIPine 10 MG (NORVASC) TAB PO SCH (13:02)
[2023-03-18] MEDS ORDERED: ZOLPIDEM 5 MG (AMBIEN) TAB PO PRN (17:00)
[2023-03-18] MEDS ORDERED: oxyCODONE/APAP 10/325MG (PERCOCET 10) TABLET PO PRN (17:00)
[2023-03-18] MEDS ORDERED: NON-FORMULARY MEDICATION 1 EA EA (Zolpidem Tartrate (Ambien) 10 MG) PO PRN (17:00)
[2023-03-18] MEDS: GABAPENTIN 400 MG (NEURONTIN) CAP PO SCH ×2 (17:45→21:11)
[2023-03-18 19:37] VITALS: BP 172/73
[2023-03-18] MEDS ORDERED: CIPROFLOXACIN IV 400MG/200ML 200 ML IV SCH (21:00)
[2023-03-18] MEDS: traZODone 100 MG (DESYREL) TAB PO SCH (21:11)
[2023-03-18] MEDS: RT-ALBUTEROL/IPRATROPIUM 3 ML (DUONEB) VIAL INH SCH (21:28)
[2023-03-18 23:22] VITALS: BP 157/72
[2023-03-19 03:54] VITALS: BP 150/82
[2023-03-19 05:39] LABS: BASOPHILS % (AUTO) 1 % (0-10); EOSINOPHILS # (AUTO) 0.2 10^3/uL (0.0-0.3); EOSINOPHILS % (AUTO) 3 % (0-10); HEMATOCRIT 30 % (35-52); HEMOGLOBIN 9.3 g/dL (11.5-16.0); LYMPHOCYTES # (AUTO) 1.1 10^3/uL (1.0-4.0); LYMPHOCYTES % (AUTO) 18 % (12-44); MEAN CORPUSCULAR HEMOGLOBIN 29 pg (25-34); MEAN CORPUSCULAR HGB CONC 32 g/dL (32-36); MEAN CORPUSCULAR VOLUME 91 fL (80-99); MEAN PLATELET VOLUME 9.8 fL (9.0-12.2); MONOCYTES # (AUTO) 0.5 10^3/uL (0.0-1.0); MONOCYTES % (AUTO) 8 % (0-12); NEUTROPHILS # (AUTO) 4.3 10^3/uL (1.8-7.8); NEUTROPHILS % (AUTO) 70 % (42-75); PLATELET COUNT 183 10^3/uL (130-400); WHITE BLOOD COUNT 6.1 10^3/uL (4.3-11.0)
[2023-03-19] MEDS ORDERED: MAGNESIUM 1 GM/100 ML IVPB 100 ML IV SCH (06:00)
[2023-03-19] MEDS ORDERED: POTASSIUM CL 10MEQ/50ML IVPB 50 ML IV SCH (06:00)
[2023-03-19] MEDS ORDERED: KCL 20 MEQ TAB (K-DUR) PO SCH (06:00)
[2023-03-19 06:01] LABS: ALBUMIN 3.3 GM/DL (3.2-4.5); BILIRUBIN,TOTAL 0.3 MG/DL (0.1-1.0); CALCIUM 8.9 MG/DL (8.5-10.1); CREATININE SERUM 1.92 MG/DL (0.60-1.30); MAGNESIUM 2.1 MG/DL (1.6-2.4); POTASSIUM 5.3 MMOL/L (3.6-5.0); TOTAL PROTEIN 5.9 GM/DL (6.4-8.2)
[2023-03-19] MEDS: RT-ALBUTEROL/IPRATROPIUM 3 ML (DUONEB) VIAL INH SCH (07:14)
[2023-03-19 07:38] VITALS: BP 173/77
[2023-03-19] MEDS ORDERED: CIPROFLOXACIN IV 400MG/200ML 200 ML IV SCH (09:00)
[2023-03-19] MEDS ORDERED: ATENOLOL 25 MG (TENORMIN) TAB PO SCH (09:00)
--- NOTE | 2023-03-19 09:01 | Diagnostic Imaging Report ---
PROCEDURE: US carotid duplex bilateral. TECHNIQUE: Multiple Real-time grayscale images were obtained over the carotid arteries in various projections bilaterally. Additional spectral analysis and color Doppler Duplex images were also obtained. INDICATION: Cerebral vascular accident. FINDINGS: There is mild plaque throughout the distal common carotid arteries and carotid bulbs which extends into the proximal internal carotid arteries. There is no significant velocity elevation to indicate a hemodynamically significant stenosis. No occlusion is identified. There is antegrade flow within both vertebral arteries. IMPRESSION: Mild bilateral carotid atherosclerotic disease without ultrasound evidence of hemodynamically significant stenosis. Incidental note is made of an approximately 1 cm nodule in the right lobe of the thyroid gland. Parameters based on the consensus panel Whitlock-Scale and Doppler ultrasound criteria published July 2003, Radiology, Volume 229. DOPPLER (peak systolic velocity M/S Right Left CCA .86 1.05 ICA Proximal .89 1.13 ICA Mid 1.00 .95 ICA Distal .70 .82 RATIO 1.17 1.08 ECA .84 1.00 VERT .53 .88 Dictated by: Dictated on workstation # [id number]
[2023-03-19] MEDS: ASPIRIN 81 MG CHEW (CHILDREN'S ASA) PO SCH (09:09)
[2023-03-19] MEDS: DOCUSATE SODIUM 100 MG (COLACE) CAP PO SCH ×2 (09:09→20:59)
[2023-03-19] MEDS: GABAPENTIN 400 MG (NEURONTIN) CAP PO SCH ×4 (09:09→20:59)
[2023-03-19] MEDS: amLODIPine 10 MG (NORVASC) TAB PO SCH (09:09)
[2023-03-19] MEDS: ENOXAPARIN 80 MG/0.8 ML (LOVENOX) SYR SC SCH (09:09)
[2023-03-19] MEDS: lisINopril 10 MG (PRINIVIL) TABLET PO SCH (09:10)
[2023-03-19] MEDS: CLOPIDOGREL 75 MG (PLAVIX) TABLET PO SCH (09:10)
[2023-03-19] MEDS: SENNOSIDES 8.6 MG (SENOKOT) TAB PO SCH ×2 (09:10→21:00)
--- NOTE | 2023-03-19 09:47 | Occupational Therapy Eval ---
OT Evaluation-General/PLF Medical Diagnosis Admission Date Mar 18, 2023 at 08:03 Medical Diagnosis: Left sided weakness c/w subacute CVA Onset Date: Mar 18, 2023 Therapy Diagnosis Therapy Diagnosis: impiared balance Height/Weight Height (Feet): 5 Height (Inches): 0 Weight (Pounds): 185 Weight (Ounces): 1.0 Precautions Precautions/Isolations: Standard Precautions Referral Referral Reason: Self Care, Evaluation/Treatment Medical History Pertinent Medical History: COPD, HTN, Smoking Additional Medical History per chart on admission 72yoWF clinic patient of [facility] who presented 9 hours after left sided weakness was noted. She has a h/o CVA 12/2022 and left sided residual has been fairly minor. She stopped smoking 12/2022. Cardiology consulted for risk factor reduction due to ASA and Plavix and statin maintained since last CVA and has apparently suffered another CVA. Patient does have a tremor of the right hand that appears to be Parkinsonism but denies this issue formally diagnosed. Reviewed History: Yes Social History Home: mobile home Current Living Status: daughter Entry Into Home: Stairs With Railing Steps Into Home: 5 ADL-Prior Level of Function SCALE: Activities may be completed with or without assistive devices. 3-Kfrtfpokdo-qkrtfak completes the activity by him/herself with no assistance from a helper. 5-Set-up or Clean-up Assistance-helper sets up or cleans up; patient completes activity. [place] assists only prior to or following the activity. 4-Supervision or Touching Assistance-helper provides verbal cues and/or touching/steadying and/or contact guard assistance as patient completes activity. Assistance may be provided throughout the activity or intermittently. 3-Partial/Moderate Assistance-helper does LESS THAN HALF the effort. [place] lifts, holds or supports trunk or limbs, but provides less than half the effort. 2-Substantial/Maximal Assistance-helper does MORE THAN HALF the effort. [place] lifts or holds trunk or limbs and provides more than half the effort. 0-Fpujauobr-ituuqu does ALL the effort. Patient does none of the effort to complete the activity. Or, the assistance of 2 or more helpers is required for the patient to complete the activity. If activity was not attempted, code reason: 7-Patient Refused. 9-Not Applicable-not attempted and the patient did not perform the activity before the current illness, exacerbation or injury. 10-Not Attempted due to Environmental Limitations-(lack of equipment, weather restraints, etc.). 88-Not Attempted due to Medical Conditions or Safety Concerns. ADL PLOF Comments Alicia reports she takes a shower once a week, receives assistance w/ shower and getting dressed. Usually wears toe puller gowns and no socks. Patient is able to don socks in hospital bed supine without assistance today Self Care: Needed Some Help Functional Cognition: Independent DME/Equipment: Shower Drive Self: No OT Current Status Subjective Agreeable to OT Pain Numeric Pain Scale: 0-No Pain Mental Status/Objective Patient Orientation: Person, Place, Time, Situation (couldnt get off toilet to pull pants up) Attachments: Burden Catheter Current Glasses/Contacts: Yes Hearing Aids: No Upper Extremity ROM BUE ROM WFLS Upper Extremity Coordination impaired Upper Extremity Strength -4/5 grossly ADL-Treatment Eating (QC): 6 Oral Hygiene (QC): 5 (sitting) Shower/Bathe Self (QC): 7 Upper Body Dressing (QC): 7 Lower Body Dressing (QC): 7 On/Off Footwear (QC): 5 Toileting Hygiene (QC): 7 Education OT Patient Education: Correct positioning, Modified ADL techniques, Progress toward Goal/Update tx plan, Purpose of tx/functional activities, Reviewed precautions, Rehab process, Safety issues, Transfer techniques, Use of adapted equipment Teaching Recipient: Patient Teaching Methods: Demonstration, Discussion Response to Teaching: Verbalize Understanding, Reinforcement Needed OT Correction Goals Correction Goals Eating (QC): 6 Oral Hygiene (QC): 6 Toileting Hygiene (QC): 6 Shower/Bathe Self (QC): 4 Upper Body Dressing (QC): 5 Lower Body Dressing (QC): 5 On/Off Footwear (QC): 6 1=Demonstrate adherence to instructed precautions during ADL tasks. 2=Patient will verbalize/demonstrate understanding of assistive devices/modifications for ADL. 3=Patient will improve strength/tolerance for activity to enable patient to perform ADL's. OT Education/Plan Problem List/Assessment Assessment: Decreased Activ Tolerance, Decreased Safety Aware, Decreased UE Strength, Impaired Coordination, Impaired Funct Balance, Impaired Self-Care Skills Discharge Recommendations Plan/Recommendations: Continue POC Treatment Plan/Plan of Care Treatment,Training & Education: Yes Patient would benefit from OT for education, treatment and training to promote independence in ADL's, mobility, safety and/or upper extremity function for ADL's. Plan of Care: ADL Retraining, Functional Mobility, Group Exercise/Act as Ind, UE Funct Exercise/Act, UE Neuromus Re-Ed/Coord Treatment Duration: Mar 23, 2023 Frequency: 3 times per week (3-5 times per week) Estimated Hrs Per Day: .25 hour per day Agreement: Yes Rehab Potential: Guarded Time Start Time: 09:17 Stop Time: 09:30 DATE: Mar 19, 2023 Total Time Billed (hr/min): 13 Billed Treatment Time EVM 13 JEAN-PIERRE FOWLER OT Mar 19, 2023 09:47
--- NOTE | 2023-03-19 09:48 | Physical Therapy Evaluation ---
PT Evaluation-General Medical Diagnosis Admission Date Mar 18, 2023 at 08:03 Medical Diagnosis: stroke like symptoms/HTN/UTI Onset Date: Mar 18, 2023 Therapy Diagnosis Therapy Diagnosis: generalized weakness/debility Height/Weight Height (Feet): 5 Height (Inches): 0 Weight (Pounds): 185 Weight (Ounces): 1.0 Precautions Precautions/Isolations: Standard Precautions Weight Bear Status Right Lower Extremity: Right Weight Bearing/Tolerated Left Lower Extremity: Left Weight Bearing/Tolerated Referral Physician: Xiomara Reason for Referral: Evaluation/Treatment Medical History Pertinent Medical History: COPD, HTN, Smoking Additional Medical History polysubstance abuse Current History EMS secondary to left facial droop and inability to stand Reviewed History: Yes Social History Home: mobile home Current Living Status: Other Family Entry Into Home: Stairs With Railing PT Steps Into Home: 5 Prior Prior Level of Function SCALE: Activities may be completed with or without assistive devices. 7-Gibpfrunxk-cwdmsqw completes the activity by him/herself with no assistance from a helper. 5-Set-up or Clean-up Assistance-helper sets up or cleans up; patient completes activity. [place] assists only prior to or following the activity. 4-Supervision or Touching Assistance-helper provides verbal cues and/or t ouching/steadying and/or contact guard assistance as patient completes activity. Assistance may be provided throughout the activity or intermittently. 3-Partial/Moderate Assistance-helper does LESS THAN HALF the effort. [place] lifts, holds or supports trunk or limbs, but provides less than half the effort. 2-Substantial/Maximal Assistance-helper does MORE THAN HALF the effort. [place] lifts or holds trunk or limbs and provides more than half the effort. 1-Zhafnnwnx-eowssq does ALL the effort. Patient does none of the effort to complete the activity. Or, the assistance of 2 or more helpers is required for the patient to complete the activity. If activity was not attempted, code reason: 7-Patient Refused. 9-Not Applicable-not attempted and the patient did not perform the activity before the current illness, exacerbation or injury. 10-Not Attempted due to Environmental Limitations-(lack of equipment, weather restraints, etc.). 88-Not Attempted due to Medical Conditions or Safety Concerns. Bed Mobility: 4 Transfers (B,C,W/C): 4 Gait: 4 Stairs: 3 Indoor Mobility (Ambulation): Needed Some Help Stairs: Needed Some Help Prior Devices Use: Walker (4WW and furniture walks) PT Evaluation-Current Subjective Patient agrees to therapy. Objective Patient Orientation: Person, Time Attachments: Burden Catheter, IV ROM/Strength ROM Lower Extremities bilateral LE WFL Strength Lower Extremities 3/5 grossly bilateral LE all planes Integumentary/Posture Bladder Incontinence: Burden Cath Posture WFL Neuromuscular (Tone, Coordination, Reflexes) ataxic/diminished coordination Sensory Vision: Functional Hearing: Functional Transfers Lying to Sitting/Side of Bed(Q: 3 Sit to Stand (QC): 3 Chair/Fay-be-Rsqlw Xfer(QC): 3 Gait Mode of Locomotion: Walk Anticipated Mode of Locomotion: Walk Walk 10 feet (QC): 3 Walk 50 ft with 2 Turns(QC): 3 Walk 150 ft (QC): 3 Distance: 150' Gait Assistive Device: FWW Comments/Gait Description ataxic/unsteady gait sequence with PT correct/WBOS Balance Sitting Static: Fair Sitting Dynamic: Fair Standing Static: Fair Standing Dynamic: Poor Assessment/Needs Patient will benefit from skilled PT to address functional strength and mobility to improve current LOF to safely return to home with family at maximum LOF. Rehab Potential: Fair PT Senior Care Goals Senior Care Goals PT Senior Care Goals Time Frame: Mar 31, 2023 Roll Left & Right (QC): 5 Sit to Lying (QC): 5 Lying-Sitting on Side/Bed(QC): 5 Sit to Stand (QC): 5 Chair/Wht-hd-Jmlll Xfer(QC): 5 Walk 10 feet (QC): 4 Walk 50ft with 2 Turns (QC): 4 Walk 150 ft (QC): 4 1 Step (curb) (QC): 3 4 Steps (QC): 3 PT Plan Problem List Problem List: Activity Tolerance, Functional Strength, Safety, Balance, Gait, Transfer, Bed Mobility Treatment/Plan Treatment Plan: Continue Plan of Care Treatment Plan: Bed Mobility, Education, Functional Activity Delfino, Functional Strength, Gait, Safety, Therapeutic Exercise, Transfers Treatment Duration: Mar 31, 2023 Frequency: 5 times per week Estimated Hrs Per Day: .25 hour per day Time Time In: 920 Time Out: 930 DATE: Mar 19, 2023 Total Billed Treatment Time: 10 Total Billed Treatment 1 visit EVMod 10 min KELLY NARANJO PT Mar 19, 2023 09:48
--- NOTE | 2023-03-19 09:59 | Progress Note - Cardiology ---
Cardiology SOAP Progress Note Subjective: Up ambulating with PT Objective: I&O/Vital Signs 03/20/23 03/20/23 03/20/23 03/20/23 01:00 03:41 07:00 07:32 Temp 36.6 36.1 Pulse 62 59 51 53 Resp 18 16 B/P (MAP) 128/57 (80) 189/69 (109) Pulse Ox 93 94 O2 Delivery Room Air Room Air 03/20/23 08:00 Pulse Ox 94 O2 Delivery Room Air 03/20/23 00:00 Intake Total 1190 ml Output Total 575 ml Balance 615 ml Weight (Pounds): 185 Weight (Ounces): 1.0 Weight (Calculated Kilograms): 83.215074 Constitutional: AAO x 3, well-developed, well-nourished, other (frail son earing) Respiratory: No accessory muscle use; chest expansion is symmetric, chest is bilaterally symmetric, other (fair, bilat air entry; somewhat prolong exp) Cardiovascular: regular rate-rhythm, systolic murmur (soft CLARENCE at card base) Gastrointestional: No tender; soft; No guarding, No rebound; audible bowel sounds Extremities: No clubbing, No cyanosis, No significant edema Neurologic/Psychiatric: oriented x 3, other (L - sided weakness, more in the l leg (3/5 power in the L leg)) Skin: normal color, warm/dry; No cyanosis, No cool, No diaphoresis, No rash on exposed areas, No ulcerations on exposed areas Results/Procedures: Labs Laboratory Tests 03/20/23 05:45: White Blood Count 5.3, Red Blood Count 3.22L, Hemoglobin 9.1L, Hematocrit 30L, Mean Corpuscular Volume 92, Mean Corpuscular Hemoglobin 28, Mean Corpuscular Hemoglobin Concent 31L, Red Cell Distribution Width 16.8H, Platelet Count 184, Mean Platelet Volume 9.9, Immature Granulocyte % (Auto) 1, Neutrophils (%) (Auto) 62, Lymphocytes (%) (Auto) 24, Monocytes (%) (Auto) 8, Eosinophils (%) (Auto) 5, Basophils (%) (Auto) 1, Neutrophils # (Auto) 3.3, Lymphocytes # (Auto) 1.3, Monocytes # (Auto) 0.4, Eosinophils # (Auto) 0.2, Basophils # (Auto) 0.1, Immature Granulocyte # (Auto) 0.0, Sodium Level 138, Potassium Level 4.8, Chloride Level 110H, Carbon Dioxide Level 21, Anion Gap 7, Blood Urea Nitrogen 23H, Creatinine 1.77H, Estimat Glomerular Filtration Rate 30, BUN/Creatinine Ratio 13, Glucose Level 89, Calcium Level 8.8, Corrected Calcium 9.4, Magnesium Level 2.2, Total Bilirubin 0.2, Aspartate Amino Transf (AST/SGOT) 42H, Alanine Aminotransferase (ALT/SGPT) 31, Alkaline Phosphatase 98, Total Protein 6.0L, Albumin 3.3 Microbiology 03/18/23 MRSA Screen - Final, Complete 03/18/23 Urine Culture - Final, Complete Escherichia coli A/P: Assessment: 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 Grade 1 diastolic dysfunction. PASP 30-35 mmHg Carotid u/s of 03-19-23: Mild bilateral carotid atherosclerotic disease without ultrasound evidence of hemodynamically significant stenosis. Incidental note is made of an approximately 1 cm nodule in the right lobe of the thyroid gland. Hypertension Quit smoking in December 2022 Elevated TSH - indicative of hypothyroidism - management per medical services Plan: * Dr Solano managing stroke * BP not well controlled - adjust regimen - not suitable candidate of BB d/t bradycardia (albeit asymptomatic) * Advised to continue to refrain from tobacco use * MRI - pending * Consider ILR if no distinct cause found for stroke * Monitor labs Clinical Quality Measures Stroke: Symptoms onset unknown: Yes IRWIN BREAUX CELLAR HAND Mar 19, 2023 09:59
--- NOTE | 2023-03-19 10:18 | Progress Note - Hospitalist ---
Subjective HPI/CC On Admission Date Seen by Provider: Mar 19, 2023 Time Seen by Provider: 10:15 CC: Left sided weakness c/w subacute CVA not a tPa candidate c/w extension of prior CVA residual from 12/2022 HPI: This is a 72yoWF clinic patient of [facility] who presented 9 hours after left sided weakness was noted. She has a h/o CVA 12/2022 and left sided residual has been fairly minor. She stopped smoking 12/2022. Cardiology consulted for risk factor reduction due to ASA and Plavix and statin maintained since last CVA and has apparently suffered another CVA. Patient does have a tremor of the right hand that appears to be Parkinsonism but denies this issue formally diagnosed. Subjective/Events-last exam Patient doing better Ambulation is very disjointed Slow recovery suspected Checked meds and labs Review of Systems General: Fatigue, Malaise Neurological: Weakness, Incoordination Objective Exam Vital Signs Vital Signs Date Time Temp Pulse Resp B/P (MAP) Pulse Ox O2 Delivery O2 Flow Rate FiO2 03/19/23 16:32 37.0 60 17 142/70 (94) 91 Room Air 03/18/23 16:16 0.00 03/18/23 11:58 21 Capillary Refill : General Appearance: No Apparent Distress, WD/WN, Chronically ill Respiratory: Lungs Clear, Normal Breath Sounds Cardiovascular: Regular Rate, Rhythm Neurologic/Psychiatric: Alert, Oriented x3 Results/Procedures Lab Laboratory Tests 03/19/23 05:00 Patient resulted labs reviewed. Assessment/Plan Assessment and Plan Assess & Plan/Chief Complaint Assessment: Acute on chronic CVA not a tPa candidate Former smoker quit 12/2022 HTN Tremor right hand Plan: CVA protocol Cardiology consultation Monitor closely PT OT Inpatient rehab consult Clinical Quality Measures Stroke: Symptoms onset unknown: Yes LATA WOOD DO Mar 19, 2023 10:18
[2023-03-19] MEDS ORDERED: ATOR40TA70 PO (10:27)
--- NOTE | 2023-03-19 10:27 | Diagnostic Imaging Report ---
CLINICAL INDICATION: Patient has chronic tremors. Rule out stroke. EXAM: MRI of the brain without contrast. Axial T2, axial DWI and ADC map images were only able to be obtained. Patient was unable to tolerate exam and it was ended early. Comparisons: Head CT without contrast dated 03/18/2023. FINDINGS: There is a chronic area of infarct involving the high right parietal region. Again seen small areas of likely chronic infarcts involving the right caudate and left thalamus region. There is a small chronic infarct involving the right of midline aspect of the andrei. There is interval development of high T2 signal involving the rest of the andrei and measures 6 mm which is new compared to prior MRI. The brain parenchymal volume appears appropriate for patient's age. There is no brain herniation or midline shift. There is no hydrocephalus. Basal cisterns are unremarkable. The visualized [place] vascular structures are unremarkable. The extracranial soft tissue, skull, and orbits. There is moderate mucosal thickening involving the sphenoid sinus. There is mild mucosal thickening involving right maxillary sinus and ethmoid sinus. There is a small amount of fluid involving left mastoid air cells. IMPRESSION: 1: Limited exam due to early termination by patient. There is no evidence of acute cerebral infarct, intracranial hemorrhage, brain herniation or midline shift. 2: There is interval development of a small area of high T2 signal involving the right side of the andrei which may be from ischemic process, but does not appear acute. 3: There is a chronic infarct involving the high right parietal lobe region. 4: The remainder of this exam shows no significant interval change compared to the prior study of comparison. Dictated by: Dictated on workstation # [id number]
[2023-03-19] MEDS ORDERED: ATEN100T PO (10:28)
[2023-03-19] MEDS ORDERED: GABA800T10 PO (10:28)
[2023-03-19] MEDS ORDERED: LISI10TA25 PO (10:28)
[2023-03-19] MEDS ORDERED: TRAZ-227 PO (10:29)
[2023-03-19] MEDS ORDERED: MULT-1136 PO (10:29)
[2023-03-19] MEDS ORDERED: CLOP75TA28 PO (10:29)
[2023-03-19] MEDS ORDERED: ASPI-1238 PO (10:30)
[2023-03-19 11:24] VITALS: BP 194/79
--- NOTE | 2023-03-19 13:35 | Progress Note - Cardiology ---
Cardiology SOAP Progress Note Subjective: Strength in the L arm and leg have improved but balance is worse No n/v/d No cp or palp or syncope No swelling Gen weakness Objective: I&O/Vital Signs 03/19/23 03/19/23 03/19/23 03/19/23 03:54 07:00 07:14 07:38 Temp 36.5 36.8 Pulse 59 50 54 Resp 16 18 B/P (MAP) 150/82 (104) 173/77 (109) Pulse Ox 92 92 92 O2 Delivery Room Air Room Air Room Air 03/19/23 03/19/23 03/19/23 08:00 11:24 12:45 Temp 36.6 Pulse 58 59 Resp 16 B/P (MAP) 194/79 (117) Pulse Ox 92 O2 Delivery Room Air Room Air 03/19/23 00:00 Intake Total 880 ml Output Total 950 ml Balance -70 ml Weight (Pounds): 185 Weight (Ounces): 1.0 Weight (Calculated Kilograms): 83.618143 Constitutional: AAO x 3, well-developed, well-nourished, other (frail appearing) Respiratory: No accessory muscle use; chest expansion is symmetric, chest is bilaterally symmetric, other (fair, bilat air entry; somewhat prolong exp) Cardiovascular: regular rate-rhythm, systolic murmur (soft CLARENCE at card base) Gastrointestional: No tender; soft; No guarding, No rebound; audible bowel sounds Extremities: No clubbing, No cyanosis, No significant edema Neurologic/Psychiatric: oriented x 3, other (L - sided weakness, more in the l leg (3/5 power in the L leg)) Skin: normal color, warm/dry; No cyanosis, No cool, No diaphoresis, No rash on exposed areas, No ulcerations on exposed areas Results/Procedures: Labs Laboratory Tests 03/19/23 05:00: White Blood Count 6.1, Red Blood Count 3.24L, Hemoglobin 9.3L, Hematocrit 30L, Mean Corpuscular Volume 91, Mean Corpuscular Hemoglobin 29, Mean Corpuscular Hemoglobin Concent 32, Red Cell Distribution Width 16.6H, Platelet Count 183, Mean Platelet Volume 9.8, Immature Granulocyte % (Auto) 0, Neutrophils (%) (Auto) 70, Lymphocytes (%) (Auto) 18, Monocytes (%) (Auto) 8, Eosinophils (%) (Auto) 3, Basophils (%) (Auto) 1, Neutrophils # (Auto) 4.3, Lymphocytes # (Auto) 1.1, Monocytes # (Auto) 0.5, Eosinophils # (Auto) 0.2, Basophils # (Auto) 0.0, Immature Granulocyte # (Auto) 0.0, Sodium Level 140, Potassium Level 5.3H, Chl oride Level 114H, Carbon Dioxide Level 18L, Anion Gap 8, Blood Urea Nitrogen 24H , Creatinine 1.92H, Estimat Glomerular Filtration Rate 28, BUN/Creatinine Ratio 13, Glucose Level 98, Calcium Level 8.9, Corrected Calcium 9.5, Magnesium Level 2.1, Total Bilirubin 0.3, Aspartate Amino Transf (AST/SGOT) 27, Alanine Aminotransferase (ALT/SGPT) 22, Alkaline Phosphatase 94, Total Protein 5.9L, Albumin 3.3, Triglycerides Level 59, Cholesterol Level 132, LDL Cholesterol Direct 55, VLDL Cholesterol 12, HDL Cholesterol 56 03/19/23 05:23: Glucometer 100 Microbiology 03/18/23 MRSA Screen - Final, Complete 03/18/23 Urine Culture - Final, Complete Escherichia coli A/P: Assessment: 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 Grade 1 diastolic dysfunction. PASP 30-35 mmHg Carotid u/s of 03-19-23: Mild bilateral carotid atherosclerotic disease without ultrasound evidence of hemodynamically significant stenosis. Incidental note is made of an approximately 1 cm nodule in the right lobe of the thyroid gland. Hypertension Quit smoking in December 2022 Elevated TSH - indicative of hypothyroidism - management per medical services Plan: * Dr Solano managing stroke * BP not well controlled - adjust regimen - not suitable candidate of BB d/t bradycardia (albeit asymptomatic) * Advised to continue to refrain from tobacco use * Consider ILR if no distinct cause found for stroke * Monitor labs Clinical Quality Measures Stroke: Symptoms onset unknown: Yes CLEMENT LORA MD FACP FACC CCDS Mar 19, 2023 13:35
--- NOTE | 2023-03-19 13:40 | Speech Therapy Progress Note ---
Therapy Progress Note Speech pathology received a consultation for a clinical bedside swallowing evaluation and a chart review was completed. Per chart review, the patient "passed" her RN Dysphagia Screening and is currently receiving a regular consistency diet with thin liquids. The clinician followed up with the patient regarding diet tolerance. The patient denied difficulties or concerns with her current oropharyngeal swallowing function or the s/s of suspected aspiration with her current P.O. intake. The clinician encouraged the patient to contact staff with any speech pathology needs. At this time, skilled speech pathology services are not warranted and will sign off. LAUREN BISWAS Mar 19, 2023 13:40
[2023-03-19 16:32] VITALS: BP 142/70
[2023-03-19 20:05] VITALS: BP 143/65
[2023-03-19] MEDS: traZODone 100 MG (DESYREL) TAB PO SCH (20:59)
[2023-03-19 23:04] VITALS: BP 152/74
[2023-03-20 03:41] VITALS: BP 128/57
--- NOTE | 2023-03-20 05:39 | Progress Note - Hospitalist ---
Subjective HPI/CC On Admission Date Seen by Provider: Mar 20, 2023 Time Seen by Provider: 11:00 CC: Left sided weakness c/w subacute CVA not a tPa candidate c/w extension of prior CVA residual from 12/2022 HPI: This is a 72yoWF clinic patient of [facility] who presented 9 hours after left sided weakness was noted. She has a h/o CVA 12/2022 and left sided residual has been fairly minor. She stopped smoking 12/2022. Cardiology consulted for risk factor reduction due to ASA and Plavix and statin maintained since last CVA and has apparently suffered another CVA. Patient does have a tremor of the right hand that appears to be Parkinsonism but denies this issue formally diagnosed. Subjective/Events-last exam Much improved but ambulation is still very unreliable PT OT ordered Reviewed med and labs Review of Systems General: Fatigue, Malaise Objective Exam Vital Signs Vital Signs Date Time Temp Pulse Resp B/P (MAP) Pulse Ox O2 Delivery O2 Flow Rate FiO2 03/20/23 19:50 36.8 65 18 144/68 (93) 93 Room Air 03/18/23 16:16 0.00 03/18/23 11:58 21 Capillary Refill : General Appearance: No Apparent Distress, WD/WN, Chronically ill Respiratory: Lungs Clear, Normal Breath Sounds Cardiovascular: Regular Rate, Rhythm Results/Procedures Lab Laboratory Tests 03/20/23 05:45 Patient resulted labs reviewed. Assessment/Plan Assessment and Plan Assess & Plan/Chief Complaint Assessment: Acute on chronic CVA not a tPa candidate Former smoker quit 12/2022 HTN Tremor right hand Plan: CVA protocol Cardiology consultation Monitor closely PT OT Inpatient rehab consult [place]? Clinical Quality Measures Stroke: Symptoms onset unknown: Yes LATA WOOD DO Mar 20, 2023 05:39
[2023-03-20 06:04] LABS: BASOPHILS # (AUTO) 0.1 10^3/uL (0.0-0.1); BASOPHILS % (AUTO) 1 % (0-10); EOSINOPHILS # (AUTO) 0.2 10^3/uL (0.0-0.3); EOSINOPHILS % (AUTO) 5 % (0-10); HEMATOCRIT 30 % (35-52); HEMOGLOBIN 9.1 g/dL (11.5-16.0); LYMPHOCYTES # (AUTO) 1.3 10^3/uL (1.0-4.0); LYMPHOCYTES % (AUTO) 24 % (12-44); MEAN CORPUSCULAR HEMOGLOBIN 28 pg (25-34); MEAN CORPUSCULAR HGB CONC 31 g/dL (32-36); MEAN CORPUSCULAR VOLUME 92 fL (80-99); MEAN PLATELET VOLUME 9.9 fL (9.0-12.2); MONOCYTES # (AUTO) 0.4 10^3/uL (0.0-1.0); MONOCYTES % (AUTO) 8 % (0-12); NEUTROPHILS # (AUTO) 3.3 10^3/uL (1.8-7.8); NEUTROPHILS % (AUTO) 62 % (42-75); PLATELET COUNT 184 10^3/uL (130-400); WHITE BLOOD COUNT 5.3 10^3/uL (4.3-11.0)
[2023-03-20 06:12] LABS: ALBUMIN 3.3 GM/DL (3.2-4.5); POTASSIUM 4.8 MMOL/L (3.6-5.0)
[2023-03-20 06:13] LABS: CALCIUM 8.8 MG/DL (8.5-10.1)
[2023-03-20 06:16] LABS: BILIRUBIN,TOTAL 0.2 MG/DL (0.1-1.0)
[2023-03-20 06:18] LABS: CREATININE SERUM 1.77 MG/DL (0.60-1.30)
[2023-03-20 06:21] LABS: MAGNESIUM 2.2 MG/DL (1.6-2.4)
[2023-03-20 07:32] VITALS: BP 189/69
--- NOTE | 2023-03-20 08:04 | Occupational Ther Daily Note ---
OT Current Status-Daily Note Subjective Up in bed eating breakfast, difficulty cutting food d/t tremors Mental Status/Objective Patient Orientation: Person, Place, Time, Situation ADL-Treatment OT setup food on plate and cut difficult substances, oral and face care supplies set up for post meal. Therapy Code Descriptions/Definitions Functional [place] Measure: 0=Not Assessed/NA 4=Minimal Assistance 1=Total Assistance 5=Supervision or Setup 2=Maximal Assistance 6=Modified [place] 3=Moderate Assistance 7=Complete IndependenceSCALE: Activities may be completed with or without assistive devices. 3-Yljnceocfg-ydeumro completes the activity by him/herself with no assistance from a helper. 5-Set-up or Clean-up Assistance-helper sets up or cleans up; patient completes activity. [place] assists only prior to or following the activity. 4-Supervision or Touching Assistance-helper provides verbal cues and/or touching/steadying and/or contact guard assistance as patient completes activity. Assistance may be provided throughout the activity or intermittently. 3-Partial/Moderate Assistance-helper does LESS THAN HALF the effort. [place] lifts, holds or supports trunk or limbs, but provides less than half the effort. 2-Substantial/Maximal Assistance-helper does MORE THAN HALF the effort. [place] lifts or holds trunk or limbs and provides more than half the effort. 7-Thmgxzdlh-myiasq does ALL the effort. Patient does none of the effort to complete the activity. Or, the assistance of 2 or more helpers is required for the patient to complete the activity. If activity was not attempted, code reason: 7-Patient Refused. 9-Not Applicable-not attempted and the patient did not perform the activity befo re the current illness, exacerbation or injury. 10-Not Attempted due to Environmental Limitations-(lack of equipment, weather re straints, etc.). 88-Not Attempted due to Medical Conditions or Safety Concerns. Eating (QC): 5 Oral Hygiene (QC): 5 Upper Body Dressing (QC): 4 Education OT Patient Education: Correct positioning, Modified ADL techniques, Progress toward Goal/Update tx plan, Purpose of tx/functional activities, Reviewed precautions, Rehab process, Safety issues, Use of adapted equipment Teaching Recipient: Patient Teaching Methods: Demonstration, Discussion Response to Teaching: Verbalize Understanding, Reinforcement Needed OT Skilled Nursing Goals Skilled Nursing Goals Eating (QC): 6 Oral Hygiene (QC): 6 Toileting Hygiene (QC): 6 Shower/Bathe Self (QC): 4 Upper Body Dressing (QC): 5 Lower Body Dressing (QC): 5 On/Off Footwear (QC): 6 1=Demonstrate adherence to instructed precautions during ADL tasks. 2=Patient will verbalize/demonstrate understanding of assistive devices/modifications for ADL. 3=Patient will improve strength/tolerance for activity to enable patient to perform ADL's. OT Education/Plan Problem List/Assessment Assessment: Decreased Activ Tolerance, Decreased UE Strength, Impaired Coordination, Impaired Self-Care Skills Discharge Recommendations Plan/Recommendations: Continue POC Treatment Plan/Plan of Care Patient would benefit from OT for education, treatment and training to promote independence in ADL's, mobility, safety and/or upper extremity function for ADL's. Plan of Care: ADL Retraining, Functional Mobility, Group Exercise/Act as Ind, UE Funct Exercise/Act, UE Neuromus Re-Ed/Coord Treatment Duration: Mar 23, 2023 Frequency: 3 times per week (3-5 times per week) Estimated Hrs Per Day: .25 hour per day Agreement: Yes Rehab Potential: Guarded continues breakfast in recliner, all needs met Time Start Time: 07:49 Stop Time: 08:04 DATE: Mar 20, 2023 Total Time Billed (hr/min): 15 Billed Treatment Time ADL 15 min JEAN-PIERRE FOWLER OT Mar 20, 2023 08:04
[2023-03-20] MEDS: ASPIRIN 81 MG CHEW (CHILDREN'S ASA) PO SCH (08:57)
[2023-03-20] MEDS: amLODIPine 10 MG (NORVASC) TAB PO SCH (08:57)
[2023-03-20] MEDS: DOCUSATE SODIUM 100 MG (COLACE) CAP PO SCH ×2 (08:57→20:18)
[2023-03-20] MEDS: lisINopril 10 MG (PRINIVIL) TABLET PO SCH (08:57)
[2023-03-20] MEDS: CLOPIDOGREL 75 MG (PLAVIX) TABLET PO SCH (08:58)
[2023-03-20] MEDS: GABAPENTIN 400 MG (NEURONTIN) CAP PO SCH ×4 (08:58→20:18)
[2023-03-20] MEDS: ENOXAPARIN 80 MG/0.8 ML (LOVENOX) SYR SC SCH (08:58)
[2023-03-20] MEDS: SENNOSIDES 8.6 MG (SENOKOT) TAB PO SCH ×2 (09:01→20:18)
--- NOTE | 2023-03-20 10:42 | Physical Therapy Progress Note ---
Therapy Progress Note Patient in bed and adamantly declined PT due to back pain. Upon entering room, patient was calmly watching TV, then looked at PT and began writhing and said her back hurt too bad to participate. PT attempted to educate patient on importance of OOB activity. Patient continued to refuse. RN notified. 1 ref KELLY NARANJO PT Mar 20, 2023 10:42
--- NOTE | 2023-03-20 11:24 | Progress Note - Cardiology ---
Cardiology SOAP Progress Note Subjective: Sitting up on the side of the bed States continues to have problems with balance No c/o CP, palpitations Reports some CHAUDHARY Objective: I&O/Vital Signs 03/21/23 03/22/23 03/22/23 03/22/23 23:18 01:00 03:39 07:47 Temp 36.4 36.4 Pulse 75 70 77 76 Resp 18 18 B/P (MAP) 174/67 (102) 128/67 (87) Pulse Ox 94 96 O2 Delivery Room Air Room Air O2 Flow Rate 0.00 0.00 0.00 0.00 03/22/23 03/22/23 03/22/23 07:58 08:00 08:08 Temp 36.8 Pulse 75 75 Resp 18 18 B/P (MAP) 137/61 (86) 137/61 (86) Pulse Ox 93 93 O2 Delivery Room Air Room Air O2 Flow Rate 0.00 03/22/23 00:00 Intake Total 1395 ml Output Total 1200 ml Balance 195 ml Weight (Pounds): 185 Weight (Ounces): 1.0 Weight (Calculated Kilograms): 83.586217 Constitutional: AAO x 3, well-developed, well-nourished, other (frail appearing) Respiratory: No accessory muscle use; chest expansion is symmetric, chest is bilaterally symmetric, other (fair, bilat air entry; somewhat prolong exp) Cardiovascular: regular rate-rhythm, systolic murmur (soft CLARENCE at card base) Gastrointestional: No tender; soft; No guarding, No rebound; audible bowel sounds Extremities: No clubbing, No cyanosis, No significant edema Neurologic/Psychiatric: oriented x 3, other (L - sided weakness, more in the l leg (3/5 power in the L leg)) Skin: normal color, warm/dry; No cyanosis, No cool, No diaphoresis, No rash on exposed areas, No ulcerations on exposed areas Results/Procedures: Labs Laboratory Tests 03/22/23 05:05: White Blood Count 4.5, Red Blood Count 3.02L, Hemoglobin 8.6L, Hematocrit 28L, Mean Corpuscular Volume 92, Mean Corpuscular Hemoglobin 29, Mean Corpuscular Hemoglobin Concent 31L, Red Cell Distribution Width 17.2H, Platelet Count 188, Mean Platelet Volume 9.7, Immature Granulocyte % (Auto) 1, Neutrophils (%) ( Auto) 64, Lymphocytes (%) (Auto) 22, Monocytes (%) (Auto) 9, Eosinophils (%) (Auto) 4, Basophils (%) (Auto) 1, Neutrophils # (Auto) 2.9, Lymphocytes # (Auto) 1.0, Monocytes # (Auto) 0.4, Eosinophils # (Auto) 0.2, Basophils # (Auto) 0.0, Immature Granulocyte # (Auto) 0.0, Sodium Level 138, Potassium Level 6.1H, Chloride Level 112H, Carbon Dioxide Level 21, Anion Gap 5, Blood Urea Nitrogen 23H, Creatinine 1.66H, Estimat Glomerular Filtration Rate 33, BUN/Creatinine Ratio 14, Glucose Level 88, Calcium Level 8.7, Corrected Calcium 9.3, Magnesium Level 2.2, Total Bilirubin 0.2, Aspartate Amino Transf (AST/SGOT) 74H, Alanine Aminotransferase (ALT/SGPT) 27, Alkaline Phosphatase 98, Total Protein 5.8L, Albumin 3.2, Triglycerides Level 52, Cholesterol Level 140, LDL Cholesterol Direct 55, VLDL Cholesterol 10, HDL Cholesterol 63H Microbiology 03/18/23 MRSA Screen - Final, Complete 03/18/23 Urine Culture - Final, Complete Escherichia coli A/P: Assessment: 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 Grade 1 diastolic dysfunction. PASP 30-35 mmHg Carotid u/s of 03-19-23: Mild bilateral carotid atherosclerotic disease without ultrasound evidence of hemodynamically significant stenosis. Incidental note is made of an approximately 1 cm nodule in the right lobe of the thyroid gland. Hypertension Quit smoking in December 2022 Elevated TSH - indicative of hypothyroidism - management per medical services Plan: * Dr Solano managing stroke * BP not well controlled - adjust regimen - not suitable candidate of BB d/t bradycardia (albeit asymptomatic) * Advised to continue to refrain from tobacco use * Discussed ILR implant with her at length on 03-10-23; she verbalizes understanding of our recs, but declines * Monitor labs Clinical Quality Measures Stroke: Symptoms onset unknown: Yes IRWIN BREAUX Mar 20, 2023 11:24
[2023-03-20 11:33] VITALS: BP 160/72
[2023-03-20 16:14] VITALS: BP 134/56
--- NOTE | 2023-03-20 18:30 | Progress Note - Cardiology ---
Cardiology SOAP Progress Note Subjective: gen weakness and malaise present improvement of focal weakness no n/v/d no cp or palp or syncope no shortness of breath at rest Objective: I&O/Vital Signs 03/20/23 03/20/23 03/20/23 03/20/23 07:00 07:32 08:00 11:33 Temp 36.1 36.0 Pulse 51 53 58 Resp 16 18 B/P (MAP) 189/69 (109) 160/72 (101) Pulse Ox 94 94 95 O2 Delivery Room Air Room Air Room Air 03/20/23 03/20/23 13:00 16:14 Temp 36.5 Pulse 59 63 Resp 20 B/P (MAP) 134/56 (82) Pulse Ox 94 O2 Delivery Room Air 03/19/23 23:59 Intake Total 1190 ml Output Total 575 ml Balance 615 ml Weight (Pounds): 185 Weight (Ounces): 1.0 Weight (Calculated Kilograms): 83.077452 Constitutional: AAO x 3, well-developed, well-nourished, other (frail appearing) Respiratory: No accessory muscle use; chest expansion is symmetric, chest is bilaterally symmetric, other (fair, bilat air entry; somewhat prolong exp) Cardiovascular: regular rate-rhythm, systolic murmur (soft CLARENCE at card base) Gastrointestional: No tender; soft; No guarding, No rebound; audible bowel sounds Extremities: No clubbing, No cyanosis, No significant edema Neurologic/Psychiatric: oriented x 3, other (L - sided weakness, more in the l leg (3/5 power in the L leg)) Skin: normal color, warm/dry; No cyanosis, No cool, No diaphoresis, No rash on exposed areas, No ulcerations on exposed areas Results/Procedures: Labs Laboratory Tests 03/20/23 05:45: White Blood Count 5.3, Red Blood Count 3.22L, Hemoglobin 9.1L, Hematocrit 30L, Mean Corpuscular Volume 92, Mean Corpuscular Hemoglobin 28, Mean Corpuscular Hemoglobin Concent 31L, Red Cell Distribution Width 16.8H, Platelet Count 184, Mean Platelet Volume 9.9, Immature Granulocyte % (Auto) 1, Neutrophils (%) (Auto) 62, Lymphocytes (%) (Auto) 24, Monocytes (%) (Auto) 8, Eosinophils (%) (Auto) 5, Basophils (%) (Auto) 1, Neutrophils # (Auto) 3.3, Lymphocytes # (Auto) 1.3, Monocytes # (Auto) 0.4, Eosinophils # (Auto) 0.2, Basophils # (Auto) 0.1, Immature Granulocyte # (Auto) 0.0, Sodium Level 138, Potassium Level 4.8, Chloride Level 110H, Carbon Dioxide Level 21, Anion Gap 7, Blood Urea Nitrogen 23H, Creatinine 1.77H, Estimat Glomerular Filtration Rate 30, BUN/Creatinine Ratio 13, Glucose Level 89, Calcium Level 8.8, Corrected Calcium 9.4, Magnesium Level 2.2, Total Bilirubin 0.2, Aspartate Amino Transf (AST/SGOT) 42H, Alanine Aminotransferase (ALT/SGPT) 31, Alkaline Phosphatase 98, Total Protein 6.0L, Albumin 3.3 Microbiology 03/18/23 MRSA Screen - Final, Complete 03/18/23 Urine Culture - Final, Complete Escherichia coli Laboratory Tests 03/19/23 05:00 03/20/23 05:45 A/P: Assessment: 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 Grade 1 diastolic dysfunction. PASP 30-35 mmHg Carotid u/s of 03-19-23: Mild bilateral carotid atherosclerotic disease without ultrasound evidence of hemodynamically significant stenosis. Incidental note is made of an approximately 1 cm nodule in the right lobe of the thyroid gland. Hypertension Quit smoking in December 2022 Elevated TSH - indicative of hypothyroidism - management per medical services Plan: * Dr Solano managing stroke * BP not well controlled - adjust regimen - not suitable candidate of BB d/t bradycardia (albeit asymptomatic) * Advised to continue to refrain from tobacco use * Discussed ILR implant with her at length on 03-10-23; she verbalizes understanding of our recs, but declines * Monitor labs Clinical Quality Measures Stroke: Symptoms onset unknown: Yes CLEMENT LORA MD FACP FAC CCDS Mar 20, 2023 18:30
[2023-03-20 19:50] VITALS: BP 144/68
[2023-03-20] MEDS: traZODone 100 MG (DESYREL) TAB PO SCH (20:18)
[2023-03-20] MEDS: doxAzosin 4 MG (CARDURA) TAB PO SCH (20:18)
[2023-03-20 23:32] VITALS: BP 146/76
[2023-03-21 03:27] VITALS: BP 129/71
[2023-03-21 05:32] LABS: BASOPHILS % (AUTO) 1 % (0-10); EOSINOPHILS # (AUTO) 0.2 10^3/uL (0.0-0.3); EOSINOPHILS % (AUTO) 4 % (0-10); HEMATOCRIT 27 % (35-52); HEMOGLOBIN 8.3 g/dL (11.5-16.0); LYMPHOCYTES # (AUTO) 1.2 10^3/uL (1.0-4.0); LYMPHOCYTES % (AUTO) 28 % (12-44); MEAN CORPUSCULAR HEMOGLOBIN 28 pg (25-34); MEAN CORPUSCULAR HGB CONC 31 g/dL (32-36); MEAN CORPUSCULAR VOLUME 92 fL (80-99); MEAN PLATELET VOLUME 10.1 fL (9.0-12.2); MONOCYTES # (AUTO) 0.4 10^3/uL (0.0-1.0); MONOCYTES % (AUTO) 10 % (0-12); NEUTROPHILS # (AUTO) 2.4 10^3/uL (1.8-7.8); NEUTROPHILS % (AUTO) 56 % (42-75); PLATELET COUNT 185 10^3/uL (130-400); WHITE BLOOD COUNT 4.2 10^3/uL (4.3-11.0)
[2023-03-21 05:50] LABS: ALBUMIN 3.1 GM/DL (3.2-4.5); BILIRUBIN,TOTAL 0.2 MG/DL (0.1-1.0); CALCIUM 8.8 MG/DL (8.5-10.1); CREATININE SERUM 1.87 MG/DL (0.60-1.30); MAGNESIUM 2.1 MG/DL (1.6-2.4); TOTAL PROTEIN 5.6 GM/DL (6.4-8.2)
[2023-03-21] MEDS: lisINopril 10 MG (PRINIVIL) TABLET PO SCH (08:40)
[2023-03-21] MEDS: GABAPENTIN 400 MG (NEURONTIN) CAP PO SCH ×4 (08:40→20:52)
[2023-03-21] MEDS: ASPIRIN 81 MG CHEW (CHILDREN'S ASA) PO SCH (08:40)
[2023-03-21] MEDS: amLODIPine 10 MG (NORVASC) TAB PO SCH (08:41)
[2023-03-21] MEDS: SENNOSIDES 8.6 MG (SENOKOT) TAB PO SCH ×2 (08:41→20:52)
[2023-03-21] MEDS: CLOPIDOGREL 75 MG (PLAVIX) TABLET PO SCH (08:41)
[2023-03-21] MEDS: DOCUSATE SODIUM 100 MG (COLACE) CAP PO SCH ×2 (08:42→20:52)
[2023-03-21] MEDS: ENOXAPARIN 80 MG/0.8 ML (LOVENOX) SYR SC SCH (08:42)
[2023-03-21 08:47] VITALS: BP 117/50
--- NOTE | 2023-03-21 11:18 | Occupational Ther Daily Note ---
OT Current Status-Daily Note Subjective Patient just completed shower, she does not like the size of footwear socks. OT provided intervention for sitting EOB balance and reach tasks with object manipulation as patient did not want to get out of bed. Mental Status/Objective Patient Orientation: Person, Place ADL-Treatment change out of XXL sock to L socks to reduce fall risk w/ ambulation and socks slipping off at night in her sleep. PAtein opens bag unfolds socks and perform item manipulation tasks for FMC skills. Therapy Code Descriptions/Definitions Functional [place] Measure: 0=Not Assessed/NA 4=Minimal Assistance 1=Total Assistance 5=Supervision or Setup 2=Maximal Assistance 6=Modified [place] 3=Moderate Assistance 7=Complete IndependenceSCALE: Activities may be completed with or without assistive devices. 6-Oqzelcmdqy-zimpvcx completes the activity by him/herself with no assistance from a helper. 5-Set-up or Clean-up Assistance-helper sets up or cleans up; patient completes activity. [place] assists only prior to or following the activity. 4-Supervision or Touching Assistance-helper provides verbal cues and/or touching/steadying and/or contact guard assistance as patient completes activity. Assistance may be provided throughout the activity or intermittently. 3-Partial/Moderate Assistance-helper does LESS THAN HALF the effort. [place] lifts, holds or supports trunk or limbs, but provides less than half the effort. 2-Substantial/Maximal Assistance-helper does MORE THAN HALF the effort. [place] lifts or holds trunk or limbs and provides more than half the effort. 3-Sjvpceqmq-qiheez does ALL the effort. Patient does none of the effort to complete the activity. Or, the assistance of 2 or more helpers is required for the patient to complete the activity. If activity was not attempted, code reason: 7-Patient Refused. 9-Not Applicable-not attempted and the patient did not perform the activity before the current illness, exacerbation or injury. 10-Not Attempted due to Environmental Limitations-(lack of equipment, weather restraints, etc.). 88-Not Attempted due to Medical Conditions or Safety Concerns. Eating (QC): 5 (continues w/ tremors. refused built up utensils) Oral Hygiene (QC): 5 Upper Body Dressing (QC): 4 Lower Body Dressing (QC): 5 On/Off Footwear: 5 Toileting Hygiene (QC): 5 Toilet Transfer (QC): 5 Education OT Patient Education: Correct positioning, Modified ADL techniques, Progress toward Goal/Update tx plan, Purpose of tx/functional activities, Reviewed precautions, Rehab process, Safety issues, Transfer techniques, Use of adapted equipment Teaching Recipient: Patient Teaching Methods: Demonstration, Discussion Response to Teaching: Reinforcement Needed OT Mcc Goals Mcc Goals Eating (QC): 6 Oral Hygiene (QC): 6 Toileting Hygiene (QC): 6 Shower/Bathe Self (QC): 4 Upper Body Dressing (QC): 5 Lower Body Dressing (QC): 5 On/Off Footwear (QC): 6 1=Demonstrate adherence to instructed precautions during ADL tasks. 2=Patient will verbalize/demonstrate understanding of assistive devices/modifications for ADL. 3=Patient will improve strength/tolerance for activity to enable patient to perform ADL's. OT Education/Plan Problem List/Assessment Assessment: Decreased Activ Tolerance, Decreased Safety Aware, Decreased UE Strength, Impaired Coordination, Impaired Self-Care Skills Discharge Recommendations Plan/Recommendations: Continue POC Treatment Plan/Plan of Care Treatment,Training & Education: Yes Patient would benefit from OT for education, treatment and training to promote independence in ADL's, mobility, safety and/or upper extremity function for ADL's. Plan of Care: ADL Retraining, Functional Mobility, Group Exercise/Act as Ind, UE Funct Exercise/Act, UE Neuromus Re-Ed/Coord Treatment Duration: Mar 23, 2023 Frequency: 3 times per week (3-5 times per week) Estimated Hrs Per Day: .25 hour per day Agreement: Yes Rehab Potential: Guarded Time Start Time: 10:10 Stop Time: 10:25 DATE: Mar 21, 2023 Total Time Billed (hr/min): 15 Billed Treatment Time ADL 15 min JEAN-PIERRE FOWLER OT Mar 21, 2023 11:18
--- NOTE | 2023-03-21 11:27 | Progress Note - Hospitalist ---
Subjective HPI/CC On Admission Date Seen by Provider: Mar 21, 2023 Time Seen by Provider: 11:00 CC: Left sided weakness c/w subacute CVA not a tPa candidate c/w extension of prior CVA residual from 12/2022 HPI: This is a 72yoWF clinic patient of [facility] who presented 9 hours after left sided weakness was noted. She has a h/o CVA 12/2022 and left sided residual has been fairly minor. She stopped smoking 12/2022. Cardiology consulted for risk factor reduction due to ASA and Plavix and statin maintained since last CVA and has apparently suffered another CVA. Patient does have a tremor of the right hand that appears to be Parkinsonism but denies this issue formally diagnosed. Subjective/Events-last exam Patient about the same We will start Sinemet due to classic signs of parkinsonism Ambulates poorly Objective Exam Vital Signs Vital Signs Date Time Temp Pulse Resp B/P (MAP) Pulse Ox O2 Delivery O2 Flow Rate FiO2 03/21/23 15:28 36.6 60 18 123/60 (81) 92 Room Air 03/21/23 08:34 0.00 03/18/23 11:58 21 Capillary Refill : General Appearance: No Apparent Distress, WD/WN, Chronically ill Respiratory: Lungs Clear Cardiovascular: Regular Rate, Rhythm Results/Procedures Lab Laboratory Tests 03/21/23 05:11 Patient resulted labs reviewed. Assessment/Plan Assessment and Plan Assess & Plan/Chief Complaint Assessment: Acute on chronic CVA not a tPa candidate Former smoker quit 12/2022 HTN Tremor right hand-Parkinsonism diagnosis by this examiner Plan: CVA protocol Cardiology consultation Monitor closely PT OT NH? Started on Sinemet Clinical Quality Measures Stroke: Symptoms onset unknown: Yes LATA WOOD DO Mar 21, 2023 11:27
[2023-03-21 11:38] VITALS: BP 148/76
[2023-03-21] MEDS: SINEMET 25/100 (CARBIDOPA/LEVODOPA) TAB PO SCH ×2 (12:56→16:57)
[2023-03-21] MEDS ORDERED: SODIUM POLYSTYRENE POWDER 15 GM BOTTLE PO NR (13:15)
--- NOTE | 2023-03-21 13:15 | Progress Note - Cardiology ---
Cardiology SOAP Progress Note Subjective: L-sided weakness has improved, but has persistent poor balance and difficulty walking because of that No shortness of breath No cp or palp or syncope No n/v/d Gen weakness and malaise present No leg swelling Objective: I&O/Vital Signs 03/21/23 03/21/23 03/21/23 03/21/23 03:27 07:00 08:00 08:34 Temp 36.6 Pulse 59 54 Resp 18 B/P (MAP) 129/71 (90) Pulse Ox 94 84 O2 Delivery Room Air Room Air Room Air O2 Flow Rate 0.00 0.00 03/21/23 03/21/23 03/21/23 08:47 11:38 12:46 Temp 36.2 36.0 Pulse 60 55 53 Resp 18 18 B/P (MAP) 117/50 (72) 148/76 (100) Pulse Ox 84 97 O2 Delivery Room Air Room Air 03/21/23 00:00 Intake Total 1980 ml Balance 1980 ml Weight (Pounds): 185 Weight (Ounces): 1.0 Weight (Calculated Kilograms): 83.902399 Constitutional: AAO x 3, well-developed, well-nourished, other (frail appearing) Respiratory: No accessory muscle use; chest expansion is symmetric, chest is bilaterally symmetric, other (fair, bilat air entry; somewhat prolong exp) Cardiovascular: regular rate-rhythm, systolic murmur (soft CLARENCE at card base) Gastrointestional: No tender; soft; No guarding, No rebound; audible bowel sounds Extremities: No clubbing, No cyanosis, No significant edema Neurologic/Psychiatric: oriented x 3, other (L - sided weakness, more in the l leg (3/5 power in the L leg)) Skin: normal color, warm/dry; No cyanosis, No cool, No diaphoresis, No rash on exposed areas, No ulcerations on exposed areas Results/Procedures: Labs Laboratory Tests 03/21/23 05:11: White Blood Count 4.2L, Red Blood Count 2.94L, Hemoglobin 8.3L, Hematocrit 27L, Mean Corpuscular Volume 92, Mean Corpuscular Hemoglobin 28, Mean Corpuscular Hemoglobin Concent 31L, Red Cell Distribution Width 17.1H, Platelet Count 185, Mean Platelet Volume 10.1, Immature Granulocyte % (Auto) 1, Neutrophils (%) (Auto) 56, Lymphocytes (%) (Auto) 28, Monocytes (%) (Auto) 10, Eosinophils (%) (Auto) 4, Basophils (%) (Auto) 1, Neutrophils # (Auto) 2.4, Lymphocytes # (Auto) 1.2, Monocytes # (Auto) 0.4, Eosinophils # (Auto) 0.2, Basophils # (Auto) 0.0, Immature Granulocyte # (Auto) 0.0, Sodium Level 139, Potassium Level 6.0H, Chloride Level 113H, Carbon Dioxide Level 21, Anion Gap 5, Blood Urea Nitrogen 25H, Creatinine 1.87H, Estimat Glomerular Filtration Rate 28, BUN/Creatinine Ratio 13, Glucose Level 86, Calcium Level 8.8, Corrected Calcium 9.5, Magnesium Level 2.1, Total Bilirubin 0.2, Aspartate Amino Transf (AST/SGOT) 103H, Alanine Aminotransferase (ALT/SGPT) 75H, Alkaline Phosphatase 98, Total Protein 5.6L, Albumin 3.1L Microbiology 03/18/23 MRSA Screen - Final, Complete 03/18/23 Urine Culture - Final, Complete Escherichia coli Laboratory Tests 03/20/23 05:45 03/21/23 05:11 A/P: Assessment: 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 Grade 1 diastolic dysfunction. PASP 30-35 mmHg Carotid u/s of 03-19-23: Mild bilateral carotid atherosclerotic disease without ultrasound evidence of hemodynamically significant stenosis. Incidental note is made of an approximately 1 cm nodule in the right lobe of the thyroid gland. Hypertension Quit smoking in December 2022 Elevated TSH - indicative of hypothyroidism - management per medical services Plan: * Dr Solano managing stroke * Treat hyperkalemia. Hospitalist service (Dr Solano) managing * Advised to continue to refrain from tobacco use * We have discussed ILR implant with her at length on 03-20-23; she verbalizes understanding of our recs, but declines * Monitor labs Clinical Quality Measures Stroke: Symptoms onset unknown: Yes CLEMENT LORA MD FACP FAC CCDS Mar 21, 2023 13:15
[2023-03-21 15:28] VITALS: BP 123/60
--- NOTE | 2023-03-21 15:31 | Physical Therapy Daily Note ---
PT Daily Note-Current Subjective Pt up sitting EOB upon arrival and agrees to PT. Says she gets dizzy when she gets up to stand. Pain Numeric Pain Scale: 0-No Pain Section J - Health Conditions 1. Rarely or not at all 2. Occasionally 3. Frequently 4. Almost constantly 8. Unable to answer Pain Effect on Sleep: 1 Pain Interference with Therapy: 1 Pain Interference w/Day-to-Day: 1 Mental Status Patient Orientation: Person, Place, Time, Normal For Age Transfers SCALE: Activities may be completed with or without assistive devices. 5-Pknnfielhc-siigzmu completes the activity by him/herself with no assistance from a helper. 5-Set-up or Clean-up Assistance-helper sets up or cleans up; patient completes activity. [place] assists only prior to or following the activity. 4-Supervision or Touching Assistance-helper provides verbal cues and/or touching/steadying and/or contact guard assistance as patient completes activity. Assistance may be provided throughout the activity or intermittently. 3-Partial/Moderate Assistance-helper does LESS THAN HALF the effort. [place] lifts, holds or supports trunk or limbs, but provides less than half the effort. 2-Substantial/Maximal Assistance-helper does MORE THAN HALF the effort. [place] lifts or holds trunk or limbs and provides more than half the effort. 9-Dubcbmtys-fancov does ALL the effort. Patient does none of the effort to complete the activity. Or, the assistance of 2 or more helpers is required for the patient to complete the activity. If activity was not attempted, code reason: 7-Patient Refused. 9-Not Applicable-not attempted and the patient did not perform the activity before the current illness, exacerbation or injury. 10-Not Attempted due to Environmental Limitations-(lack of equipment, weather restraints, etc.). 88-Not Attempted due to Medical Conditions or Safety Concerns. Weight Bearing Right Lower Extremity: Right Weight Bearing/Tolerated Left Lower Extremity: Left Weight Bearing/Tolerated Gait Training Does the Patient Walk?: Yes Distance: 25' Walk 10 feet (QC): 4 Gait Persons Needed: 1 Gait Assistive Device: FWW Exercises Seated Therapy Exercises: Ankle pumps, Long arc quads, Hip flexion, Hip abd/add Seated Reps: 20 Standing: Sit to Stand Standing Reps: 3 Treatments Pt performed seated exs at EOB. Pt then amb to door in room x 3 and TRFs back to EOB. All needs met and call light nearby as PT departs. Assessment Current Status: Good Progress Pt required verbal cues for hand and foot placement while using FWW. Required cues to stay within FWW d/t dizziness. Pt fatigued post treatment but no longer dizzy. PT Fdc Goals Appointment Specialist Goals PT Appointment Specialist Goals Time Frame: Mar 31, 2023 Roll Left & Right (QC): 5 Sit to Lying (QC): 5 Lying-Sitting on Side/Bed(QC): 5 Sit to Stand (QC): 5 Chair/Mwz-zt-Zmapa Xfer(QC): 5 Walk 10 feet (QC): 4 Walk 50ft with 2 Turns (QC): 4 Walk 150 ft (QC): 4 1 Step (curb) (QC): 3 4 Steps (QC): 3 PT Plan Problem List Problem List: Activity Tolerance, Functional Strength Treatment/Plan Treatment Plan: Continue Plan of Care Treatment Plan: Bed Mobility, Education, Functional Activity [place], Functional Strength, Gait, Safety, Therapeutic Exercise, Transfers Treatment Duration: Mar 31, 2023 Frequency: 5 times per week Estimated Hrs Per Day: .25 hour per day Safety Risks/Education Patient Education: Gait Training, Correct Positioning Teaching Recipient: Patient Teaching Methods: Discussion Response to Teaching: Return Demonstration Time Time In: 1339 Time Out: 1350 DATE: Mar 21, 2023 Total Billed Treatment Time: 11 Total Billed Treatment 1, Ex ERLINDA MEEHAN [employer] WORK[employer]PERVIS[employer] Mar 21, 2023 15:31
[2023-03-21 20:33] VITALS: BP 154/67
[2023-03-21] MEDS: doxAzosin 4 MG (CARDURA) TAB PO SCH (20:52)
[2023-03-21] MEDS: traZODone 100 MG (DESYREL) TAB PO SCH (20:52)
[2023-03-21 23:18] VITALS: BP 174/67
[2023-03-22 03:39] VITALS: BP 128/67
[2023-03-22 05:26] LABS: BASOPHILS % (AUTO) 1 % (0-10); EOSINOPHILS # (AUTO) 0.2 10^3/uL (0.0-0.3); EOSINOPHILS % (AUTO) 4 % (0-10); HEMATOCRIT 28 % (35-52); HEMOGLOBIN 8.6 g/dL (11.5-16.0); LYMPHOCYTES % (AUTO) 22 % (12-44); MEAN CORPUSCULAR HEMOGLOBIN 29 pg (25-34); MEAN CORPUSCULAR HGB CONC 31 g/dL (32-36); MEAN CORPUSCULAR VOLUME 92 fL (80-99); MEAN PLATELET VOLUME 9.7 fL (9.0-12.2); MONOCYTES # (AUTO) 0.4 10^3/uL (0.0-1.0); MONOCYTES % (AUTO) 9 % (0-12); NEUTROPHILS # (AUTO) 2.9 10^3/uL (1.8-7.8); NEUTROPHILS % (AUTO) 64 % (42-75); PLATELET COUNT 188 10^3/uL (130-400); WHITE BLOOD COUNT 4.5 10^3/uL (4.3-11.0)
[2023-03-22 05:40] LABS: ALBUMIN 3.2 GM/DL (3.2-4.5)
[2023-03-22 05:41] LABS: POTASSIUM 6.1 MMOL/L (3.6-5.0)
[2023-03-22 05:42] LABS: CALCIUM 8.7 MG/DL (8.5-10.1)
[2023-03-22 05:43] LABS: TOTAL PROTEIN 5.8 GM/DL (6.4-8.2)
[2023-03-22 05:45] LABS: BILIRUBIN,TOTAL 0.2 MG/DL (0.1-1.0)
[2023-03-22 05:47] LABS: CREATININE SERUM 1.66 MG/DL (0.60-1.30)
[2023-03-22 05:49] LABS: MAGNESIUM 2.2 MG/DL (1.6-2.4)
--- NOTE | 2023-03-22 05:55 | Progress Note - Hospitalist ---
Subjective HPI/CC On Admission Date Seen by Provider: Mar 22, 2023 Time Seen by Provider: 11:00 CC: Left sided weakness c/w subacute CVA not a tPa candidate c/w extension of prior CVA residual from 12/2022 HPI: This is a 72yoWF clinic patient of [facility] who presented 9 hours after left sided weakness was noted. She has a h/o CVA 12/2022 and left sided residual has been fairly minor. She stopped smoking 12/2022. Cardiology consulted for risk factor reduction due to ASA and Plavix and statin maintained since last CVA and has apparently suffered another CVA. Patient does have a tremor of the right hand that appears to be Parkinsonism but denies this issue formally diagnosed. Subjective/Events-last exam DC is planned for tomorrow with daughter Lynne Berger her daughter Needs HH Sinemet tolerated BP high Objective Exam Vital Signs Vital Signs Date Time Temp Pulse Resp B/P (MAP) Pulse Ox O2 Delivery O2 Flow Rate FiO2 03/22/23 19:26 36.8 68 18 175/79 (111) 93 Room Air 03/22/23 08:00 0.00 03/18/23 11:58 21 Capillary Refill : General Appearance: No Apparent Distress, WD/WN, Chronically ill Respiratory: Lungs Clear, Normal Breath Sounds Cardiovascular: Regular Rate, Rhythm Neurologic/Psychiatric: Alert, Oriented x3 Results/Procedures Lab Laboratory Tests 03/22/23 05:05 03/22/23 13:55 Patient resulted labs reviewed. Assessment/Plan Assessment and Plan Assess & Plan/Chief Complaint Assessment: Acute on chronic CVA not a tPa candidate Former smoker quit 12/2022 HTN Tremor right hand-Parkinsonism diagnosis by this examiner Plan: CVA protocol Cardiology consultation Monitor closely PT OT NH? declines so HH at DC Started on Sinemet Clinical Quality Measures Stroke: Symptoms onset unknown: Yes LATA WOOD DO Mar 22, 2023 05:55
[2023-03-22] MEDS ORDERED: SODIUM POLYSTYRENE POWDER 15 GM BOTTLE PO ONE ×2 (06:00→10:00)
[2023-03-22 07:47] LABS: CHOLESTEROL 140 MG/DL (< 200); HDL CHOLESTEROL 63 MG/DL (40-60); TRIGLYCERIDES 52 MG/DL (<150); VLDL CHOLESTEROL 10 MG/DL (5-40)
[2023-03-22 07:58] VITALS: BP 137/61
[2023-03-22] MEDS: SINEMET 25/100 (CARBIDOPA/LEVODOPA) TAB PO SCH ×3 (08:02→17:36)
[2023-03-22] MEDS: ASPIRIN 81 MG CHEW (CHILDREN'S ASA) PO SCH (08:02)
[2023-03-22] MEDS: amLODIPine 10 MG (NORVASC) TAB PO SCH (08:02)
[2023-03-22] MEDS: GABAPENTIN 400 MG (NEURONTIN) CAP PO SCH ×4 (08:02→20:41)
[2023-03-22] MEDS: CLOPIDOGREL 75 MG (PLAVIX) TABLET PO SCH (08:02)
[2023-03-22] MEDS: SENNOSIDES 8.6 MG (SENOKOT) TAB PO SCH ×2 (08:03→20:40)
[2023-03-22] MEDS: ENOXAPARIN 80 MG/0.8 ML (LOVENOX) SYR SC SCH (08:03)
[2023-03-22] MEDS: DOCUSATE SODIUM 100 MG (COLACE) CAP PO SCH ×2 (08:03→20:40)
[2023-03-22 08:08] VITALS: BP 137/61
--- NOTE | 2023-03-22 09:48 | Progress Note - Cardiology ---
Cardiology SOAP Progress Note Subjective: Sitting up in bed No c/o CP C/O gen weakness No c/o SOB Objective: I&O/Vital Signs 03/21/23 03/22/23 03/22/23 03/22/23 23:18 01:00 03:39 07:47 Temp 36.4 36.4 Pulse 75 70 77 76 Resp 18 18 B/P (MAP) 174/67 (102) 128/67 (87) Pulse Ox 94 96 O2 Delivery Room Air Room Air O2 Flow Rate 0.00 0.00 0.00 0.00 03/22/23 03/22/23 03/22/23 07:58 08:00 08:08 Temp 36.8 Pulse 75 75 Resp 18 18 B/P (MAP) 137/61 (86) 137/61 (86) Pulse Ox 93 93 O2 Delivery Room Air Room Air O2 Flow Rate 0.00 03/22/23 00:00 Intake Total 1395 ml Output Total 1200 ml Balance 195 ml Weight (Pounds): 185 Weight (Ounces): 1.0 Weight (Calculated Kilograms): 83.085424 Constitutional: AAO x 3, well-developed, well-nourished, other (frail appearing) Respiratory: No accessory muscle use; chest expansion is symmetric, chest is bilaterally symmetric, other (fair, bilat air entry; somewhat prolong exp) Cardiovascular: regular rate-rhythm, systolic murmur (soft CLARENCE at card base) Gastrointestional: No tender; soft; No guarding, No rebound; audible bowel sounds Extremities: No clubbing, No cyanosis, No significant edema Neurologic/Psychiatric: oriented x 3, other (L - sided weakness, more in the l leg (3/5 power in the L leg)) Skin: normal color, warm/dry; No cyanosis, No cool, No diaphoresis, No rash on exposed areas, No ulcerations on exposed areas Results/Procedures: Labs Laboratory Tests 03/22/23 05:05: White Blood Count 4.5, Red Blood Count 3.02L, Hemoglobin 8.6L, Hematocrit 28L, Mean Corpuscular Volume 92, Mean Corpuscular Hemoglobin 29, Mean Corpuscular Hemoglobin Concent 31L, Red Cell Distribution Width 17.2H, Platelet Count 188, Mean Platelet Volume 9.7, Immature Granulocyte % (Auto) 1, Neutrophils (%) (Auto) 64, Lymphocytes (%) (Auto) 22, Monocytes (%) (Auto) 9, Eosinophils (%) (Auto) 4, Basophils (%) (Auto) 1, Neutrophils # (Auto) 2.9, Lymphocytes # (Auto) 1.0, Monocytes # (Auto) 0.4, Eosinophils # (Auto) 0.2, Basophils # (Auto) 0.0, Immature Granulocyte # (Auto) 0.0, Sodium Level 138, Potassium Level 6.1H, Chloride Level 112H, Carbon Dioxide Level 21, Anion Gap 5, Blood Urea Nitrogen 23H, Creatinine 1.66H, Estimat Glomerular Filtration Rate 33, BUN/Creatinine Ratio 14, Glucose Level 88, Calcium Level 8.7, Corrected Calcium 9.3, Magnesium Level 2.2, Total Bilirubin 0.2, Aspartate Amino Transf (AST/SGOT) 74H, Alanine Aminotransferase (ALT/SGPT) 27, Alkaline Phosphatase 98, Total Protein 5.8L, Albumin 3.2, Triglycerides Level 52, Cholesterol Level 140, LDL Cholesterol Direct 55, VLDL Cholesterol 10, HDL Cholesterol 63H Microbiology 03/18/23 MRSA Screen - Final, Complete 03/18/23 Urine Culture - Final, Complete Escherichia coli Laboratory Tests 03/21/23 05:11 03/22/23 05:05 A/P: Assessment: 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 Grade 1 diastolic dysfunction. PASP 30-35 mmHg Carotid u/s of 03-19-23: Mild bilateral carotid atherosclerotic disease without ultrasound evidence of hemodynamically significant stenosis. Incidental note is made of an approximately 1 cm nodule in the right lobe of the thyroid gland. Hypertension Quit smoking in December 2022 Elevated TSH - indicative of hypothyroidism - management per medical services Plan: * Dr Solano managing stroke * Treat hyperkalemia. Hospitalist service (Dr Solano) managing - [place] (-) stopped - give Kayexalate today * Advised to continue to refrain from tobacco use * We have discussed ILR implant with her at length on 03-20-23; she verbalizes understanding of our recs, but declines * Monitor labs Clinical Quality Measures Stroke: Symptoms onset unknown: Yes IRWIN BREAUX [facility] Mar 22, 2023 09:48
[2023-03-22] MEDS ORDERED: SODIUM POLYSTYRENE POWDER 15 GM BOTTLE PO NR (10:00)
--- NOTE | 2023-03-22 10:32 | Occupational Ther Daily Note ---
OT Current Status-Daily Note Subjective Oh I just cant do this today , I just hurt and I cant do it. Mental Status/Objective Patient Orientation: Person, Place, Time, Situation ADL-Treatment ambulated to bathroom however unable to void, managed Clothes SBA, used fixtures and [place]. refused use of FWW. Patient educated on fall risk and reduction techniques. Therapy Code Descriptions/Definitions Functional [place] Measure: 0=Not Assessed/NA 4=Minimal Assistance 1=Total Assistance 5=Supervision or Setup 2=Maximal Assistance 6=Modified [place] 3=Moderate Assistance 7=Complete IndependenceSCALE: Activities may be completed with or without assistive devices. 9-Yfjnfbkrro-wrubdwx completes the activity by him/herself with no assistance from a helper. 5-Set-up or Clean-up Assistance-helper sets up or cleans up; patient completes activity. [place] assists only prior to or following the activity. 4-Supervision or Touching Assistance-helper provides verbal cues and/or touching/steadying and/or contact guard assistance as patient completes activity. Assistance may be provided throughout the activity or intermittently. 3-Partial/Moderate Assistance-helper does LESS THAN HALF the effort. [place] lifts, holds or supports trunk or limbs, but provides less than half the effort. 2-Substantial/Maximal Assistance-helper does MORE THAN HALF the effort. [place] lifts or holds trunk or limbs and provides more than half the effort. 9-Nkvoroaov-cjmmcc does ALL the effort. Patient does none of the effort to complete the activity. Or, the assistance of 2 or more helpers is required for the patient to complete the activity. If activity was not attempted, code reason: 7-Patient Refused. 9-Not Applicable-not attempted and the patient did not perform the activity before the current illness, exacerbation or injury. 10-Not Attempted due to Environmental Limitations-(lack of equipment, weather restraints, etc.). 88-Not Attempted due to Medical Conditions or Safety Concerns. Eating (QC): 6 Oral Hygiene (QC): 5 Upper Body Dressing (QC): 5 Lower Body Dressing (QC): 4 On/Off Footwear: 4 Toileting Hygiene (QC): 4 Toilet Transfer (QC): 4 Education OT Patient Education: Correct positioning, Exercise program, Modified ADL techniques, Progress toward Goal/Update tx plan, Purpose of tx/functional activities, Reviewed precautions, Rehab process, Safety issues, Transfer techniques, Use of adapted equipment Teaching Recipient: Patient Teaching Methods: Demonstration, Discussion Response to Teaching: Reinforcement Needed OT Alf Goals Wind Turbine Installer Goals Eating (QC): 6 Oral Hygiene (QC): 6 Toileting Hygiene (QC): 6 Shower/Bathe Self (QC): 4 Upper Body Dressing (QC): 5 Lower Body Dressing (QC): 5 On/Off Footwear (QC): 6 1=Demonstrate adherence to instructed precautions during ADL tasks. 2=Patient will verbalize/demonstrate understanding of assistive devices/modifications for ADL. 3=Patient will improve strength/tolerance for activity to enable patient to perform ADL's. OT Education/Plan Discharge Recommendations Plan/Recommendations: Continue POC Treatment Plan/Plan of Care Treatment,Training & Education: Yes Patient would benefit from OT for education, treatment and training to promote independence in ADL's, mobility, safety and/or upper extremity function for ADL's. Plan of Care: ADL Retraining, Functional Mobility, Group Exercise/Act as Ind, UE Funct Exercise/Act, UE Neuromus Re-Ed/Coord Treatment Duration: Mar 23, 2023 Frequency: 3 times per week (3-5 times per week) Estimated Hrs Per Day: .25 hour per day Agreement: Yes Rehab Potential: Guarded Time Start Time: 08:55 Stop Time: 09:06 DATE: Mar 22, 2023 Total Time Billed (hr/min): 11 Billed Treatment Time ADL 11 JEAN-PIERRE FOWLER OT Mar 22, 2023 10:32
--- NOTE | 2023-03-22 10:33 | Physical Therapy Daily Note ---
PT Daily Note-Current Subjective Patient initially declined therapy. She is adamant she can get up by herself and wants to be left alone. Agrees after therapy states that to do that we need so see her perform this activity so it can be reported to physician and SW. Patient agrees. Patient adamantly declined gait belt and FWW use. Pain Numeric Pain Scale: 10-Worst Possible Pain Location: Right, Left Location Body Site: Arm Pain Description: Ache Section J - Health Conditions 1. Rarely or not at all 2. Occasionally 3. Frequently 4. Almost constantly 8. Unable to answer Pain Effect on Sleep: 8 Pain Interference with Therapy: 8 Pain Interference w/Day-to-Day: 8 Transfers SCALE: Activities may be completed with or without assistive devices. 7-Hdzthsuloy-bpvbfvw completes the activity by him/herself with no assistance from a helper. 5-Set-up or Clean-up Assistance-helper sets up or cleans up; patient completes activity. [place] assists only prior to or following the activity. 4-Supervision or Touching Assistance-helper provides verbal cues and/or touching/steadying and/or contact guard assistance as patient completes activity. Assistance may be provided throughout the activity or intermittently. 3-Partial/Moderate Assistance-helper does LESS THAN HALF the effort. [place] lifts, holds or supports trunk or limbs, but provides less than half the effort. 2-Substantial/Maximal Assistance-helper does MORE THAN HALF the effort. [place] lifts or holds trunk or limbs and provides more than half the effort. 7-Wjpcphmjs-fsscsv does ALL the effort. Patient does none of the effort to complete the activity. Or, the assistance of 2 or more helpers is required for the patient to complete the activity. If activity was not attempted, code reason: 7-Patient Refused. 9-Not Applicable-not attempted and the patient did not perform the activity before the current illness, exacerbation or injury. 10-Not Attempted due to Environmental Limitations-(lack of equipment, weather restraints, etc.). 88-Not Attempted due to Medical Conditions or Safety Concerns. Sit to Lying (QC): 4 Lying to Sitting/Side of Bed(Q: 4 Sit to Stand (QC): 4 Toilet Transfer (QC): 4 Weight Bearing Right Lower Extremity: Right Weight Bearing/Tolerated Left Lower Extremity: Left Weight Bearing/Tolerated Assessment Patient is very unsteady with all mobility and is not safe to be up independently. This PT educated patient on findings. Patient did not agree. Patient returned to bed with bed alarm activated for patient's safety. PT Melter Operator Goals Senior Care Goals PT Senior Care Goals Time Frame: Mar 31, 2023 Roll Left & Right (QC): 5 Sit to Lying (QC): 5 Lying-Sitting on Side/Bed(QC): 5 Sit to Stand (QC): 5 Chair/Izc-yp-Arobn Xfer(QC): 5 Walk 10 feet (QC): 4 Walk 50ft with 2 Turns (QC): 4 Walk 150 ft (QC): 4 1 Step (curb) (QC): 3 4 Steps (QC): 3 PT Plan Treatment/Plan Treatment Plan: Continue Plan of Care Treatment Plan: Bed Mobility, Education, Functional Activity Delfino, Functional Strength, Gait, Safety, Therapeutic Exercise, Transfers Treatment Duration: Mar 31, 2023 Frequency: 5 times per week Estimated Hrs Per Day: .25 hour per day Time Time In: 855 Time Out: 906 DATE: Mar 22, 2023 Total Billed Treatment Time: 11 Total Billed Treatment 1 visit FA 11 min KELLY NARANJO PT Mar 22, 2023 10:33
[2023-03-22] MEDS: NS IV 1000 ML 1,000 ML IV SCH (11:44)
[2023-03-22 11:51] VITALS: BP 174/79
[2023-03-22] MEDS ORDERED: cloNIDine 0.1 MG (CATAPRES) TAB PO PRN (12:00)
[2023-03-22] MEDS ORDERED: FUROSEMIDE 40 MG/4 ML INJ (LASIX) IVP NR (12:15)
[2023-03-22] MEDS ORDERED: amLODIPine 5 MG (NORVASC) TAB PO NR (12:15)
[2023-03-22 17:00] VITALS: BP 143/71
--- NOTE | 2023-03-22 17:18 | Progress Note - Cardiology ---
Cardiology SOAP Progress Note Subjective: Gen weakness Does not report focal weakness but continues with marked dizziness and poor balance No cp or palp or syncope No shortness of breath at rest No leg swelling No n/v/d Objective: I&O/Vital Signs 03/22/23 03/22/23 03/22/23 03/22/23 07:47 07:58 08:00 08:08 Temp 36.8 Pulse 76 75 75 Resp 18 18 B/P (MAP) 137/61 (86) 137/61 (86) Pulse Ox 93 93 O2 Delivery Room Air Room Air O2 Flow Rate 0.00 03/22/23 03/22/23 03/22/23 11:51 13:11 17:00 Temp 36.7 37.0 Pulse 71 80 71 Resp 20 18 B/P (MAP) 174/79 (110) 143/71 (95) Pulse Ox 93 95 O2 Delivery Room Air Room Air 03/22/23 00:00 Intake Total 1395 ml Output Total 1200 ml Balance 195 ml Weight (Pounds): 185 Weight (Ounces): 1.0 Weight (Calculated Kilograms): 83.859743 Constitutional: AAO x 3, well-developed, well-nourished, other (frail appearing) Respiratory: No accessory muscle use; chest expansion is symmetric, chest is bilaterally symmetric, other (fair, bilat air entry; somewhat prolong exp) Cardiovascular: regular rate-rhythm, systolic murmur (soft CLARENCE at card base) Gastrointestional: No tender; soft; No guarding, No rebound; audible bowel sounds Extremities: No clubbing, No cyanosis, No significant edema Neurologic/Psychiatric: oriented x 3, other (L - sided weakness, more in the l leg (3/5 power in the L leg)) Skin: normal color, warm/dry; No cyanosis, No cool, No diaphoresis, No rash on exposed areas, No ulcerations on exposed areas Results/Procedures: Labs Laboratory Tests 03/22/23 05:05: White Blood Count 4.5, Red Blood Count 3.02L, Hemoglobin 8.6L, Hematocrit 28L, Mean Corpuscular Volume 92, Mean Corpuscular Hemoglobin 29, Mean Corpuscular Hemoglobin Concent 31L, Red Cell Distribution Width 17.2H, Platelet Count 188, Mean Platelet Volume 9.7, Immature Granulocyte % (Auto) 1, Neutrophils (%) (Auto) 64, Lymphocytes (%) (Auto) 22, Monocytes (%) (Auto) 9, Eosinophils (%) (Auto) 4, Basophils (%) (Auto) 1, Neutrophils # (Auto) 2.9, Lymphocytes # (Auto) 1.0, Monocytes # (Auto) 0.4, Eosinophils # (Auto) 0.2, Basophils # (Auto) 0.0, Immature Granulocyte # (Auto) 0.0, Sodium Level 138, Potassium Level 6.1H, Chloride Level 112H, Carbon Dioxide Level 21, Anion Gap 5, Blood Urea Nitrogen 23H, Creatinine 1.66H, Estimat Glomerular Filtration Rate 33, BUN/Creatinine Ratio 14, Glucose Level 88, Calcium Level 8.7, Corrected Calcium 9.3, Magnesium Level 2.2, Total Bilirubin 0.2, Aspartate Amino Transf (AST/SGOT) 74H, Alanine Aminotransferase (ALT/SGPT) 27, Alkaline Phosphatase 98, Total Protein 5.8L, Albumin 3.2, Triglycerides Level 52, Cholesterol Level 140, LDL Cholesterol Direct 55, VLDL Cholesterol 10, HDL Cholesterol 63H 03/22/23 13:55: Potassium Level 4.9 Microbiology 03/18/23 MRSA Screen - Final, Complete 03/18/23 Urine Culture - Final, Complete Escherichia coli Laboratory Tests 03/21/23 05:11 03/22/23 05:05 03/22/23 13:55 A/P: Assessment: 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 Grade 1 diastolic dysfunction. PASP 30-35 mmHg Carotid u/s of 03-19-23: Mild bilateral carotid atherosclerotic disease without ultrasound evidence of hemodynamically significant stenosis. Incidental note is made of an approximately 1 cm nodule in the right lobe of the thyroid gland. Hypertension Quit smoking in December 2022 Elevated TSH - indicative of hypothyroidism - management per medical services Plan: * Dr Solano managing stroke * Treat hyperkalemia. Hospitalist service (Dr Solano) managing - [place] (-) stopped - give Kayexalate today * Advised to continue to refrain from tobacco use * We have discussed ILR implant with her at length on 03-20-23; she verbalizes understanding of our recs, but declines * Monitor labs Clinical Quality Measures Stroke: Symptoms onset unknown: Yes CLEMENT LORA MD FACP FAC CCDS Mar 22, 2023 17:18
[2023-03-22 19:26] VITALS: BP 175/79
[2023-03-22] MEDS: traZODone 100 MG (DESYREL) TAB PO SCH (20:40)
[2023-03-22] MEDS: doxAzosin 4 MG (CARDURA) TAB PO SCH (20:40)
[2023-03-23 00:08] VITALS: BP 138/65
[2023-03-23] MEDS: RT-ALBUTEROL/IPRATROPIUM 3 ML (DUONEB) VIAL INH SCH (00:13)
[2023-03-23 00:21] VITALS: BP 160/73
[2023-03-23 03:42] VITALS: BP 157/79
[2023-03-23] MEDS: NS IV 1000 ML 1,000 ML IV SCH (03:45)
[2023-03-23 05:51] LABS: BASOPHILS % (AUTO) 1 % (0-10); EOSINOPHILS # (AUTO) 0.1 10^3/uL (0.0-0.3); EOSINOPHILS % (AUTO) 3 % (0-10); HEMATOCRIT 26 % (35-52); HEMOGLOBIN 8.3 g/dL (11.5-16.0); LYMPHOCYTES # (AUTO) 1.2 10^3/uL (1.0-4.0); LYMPHOCYTES % (AUTO) 27 % (12-44); MEAN CORPUSCULAR HEMOGLOBIN 29 pg (25-34); MEAN CORPUSCULAR HGB CONC 32 g/dL (32-36); MEAN CORPUSCULAR VOLUME 91 fL (80-99); MEAN PLATELET VOLUME 9.5 fL (9.0-12.2); MONOCYTES # (AUTO) 0.4 10^3/uL (0.0-1.0); MONOCYTES % (AUTO) 10 % (0-12); NEUTROPHILS # (AUTO) 2.7 10^3/uL (1.8-7.8); NEUTROPHILS % (AUTO) 59 % (42-75); PLATELET COUNT 171 10^3/uL (130-400); WHITE BLOOD COUNT 4.5 10^3/uL (4.3-11.0)
[2023-03-23 06:10] LABS: ALBUMIN 3.2 GM/DL (3.2-4.5); POTASSIUM 4.9 MMOL/L (3.6-5.0)
[2023-03-23 06:12] LABS: CALCIUM 8.4 MG/DL (8.5-10.1)
[2023-03-23 06:13] LABS: TOTAL PROTEIN 5.8 GM/DL (6.4-8.2)
[2023-03-23 06:14] LABS: BILIRUBIN,TOTAL 0.2 MG/DL (0.1-1.0)
[2023-03-23 06:16] LABS: CREATININE SERUM 1.72 MG/DL (0.60-1.30)
[2023-03-23 06:20] LABS: MAGNESIUM 1.8 MG/DL (1.6-2.4)
[2023-03-23 07:23] VITALS: BP 163/65
[2023-03-23] MEDS: CLOPIDOGREL 75 MG (PLAVIX) TABLET PO SCH (08:10)
[2023-03-23] MEDS: ASPIRIN 81 MG CHEW (CHILDREN'S ASA) PO SCH (08:10)
[2023-03-23] MEDS: DOCUSATE SODIUM 100 MG (COLACE) CAP PO SCH (08:10)
[2023-03-23] MEDS: amLODIPine 10 MG (NORVASC) TAB PO SCH (08:11)
[2023-03-23] MEDS: SENNOSIDES 8.6 MG (SENOKOT) TAB PO SCH (08:11)
[2023-03-23] MEDS: GABAPENTIN 400 MG (NEURONTIN) CAP PO SCH (08:11)
[2023-03-23] MEDS: SINEMET 25/100 (CARBIDOPA/LEVODOPA) TAB PO SCH (08:12)
[2023-03-23] MEDS: ENOXAPARIN 80 MG/0.8 ML (LOVENOX) SYR SC SCH (08:13)
[2023-03-23] MEDS ORDERED: amLODIPine 5 MG (NORVASC) TAB PO SCH (09:00)
--- NOTE | 2023-03-23 10:03 | Physical Therapy Progress Note ---
Therapy Progress Note Patient adamantly declined PT stating, "I'm not getting up." then turned her head and closed her eyes. SW notified. KELLY NARANJO PT Mar 23, 2023 10:03
--- NOTE | 2023-03-23 10:40 | Occ Therapy Progress Note ---
Therapy Progress Note Patient adamantly declined theapy stating, "I'm not getting up." then turned her head and closed her eyes. SW notified. JEAN-PIERRE FOWLER OT Mar 23, 2023 10:40
[2023-03-23 11:38] VITALS: BP 110/53
[2023-03-23] MEDS ORDERED: ATOR80TA76 PO (12:04)
[2023-03-23] MEDS ORDERED: CARB1TAB32 PO (12:04)
[2023-03-23] MEDS ORDERED: AMLO-250 PO (12:04)
[2023-03-23] MEDS ORDERED: DOXA4TAB2 PO (12:04)
--- NOTE | 2023-03-23 12:05 | D/C HH Face to Face Order ---
D/C Face to Face Orders Reconcile Patient Problems Problems Reviewed?: Yes Instructions for Patient Via [facility], Patient Instructions/FollowUp: PCP 1 week Physician to follow Patient: chc Discharge Diet for Home: No Restrictions Patient Problems: cva parkinson's Patient Data-Allergies,Ht & Wt Patient Allergies: Coded Allergies: Iodinated Contrast Media (Verified Allergy, Unknown, 09/21/17) Height (Feet): 5 Height (Inches): 0 Weight (Pounds): 185 Weight (Ounces): 1.0 Home Health Need/Face to Face Date of Face to Face: Mar 23, 2023 Clinical Findings: Generalized weakness and fatigue, Muscle weakness I have seen Pt [id number]: Yes Discharged To: Home Diagnosis/Conditions: CVA Patient is Homebound due to: Sonam fall risk due to instabilty, Muscle weakness Homebound Status Due to the above stated illness, injury or surgical procedure (medical condition or diagnosis) and associated clinical findings, the patient is homebound because of his/her inability to leave home except with aid of a supportive device and/or person AND leaving the home requires a considerable and taxing effort or is medically contraindicated. Pt req the following assistanc: Walker Home Health Nursing Orders Home Health Services Order: Nursing Services, Hydraulics Teacher-Evaluate & Treat, Physical Therapy-Evaluate & Treat Certify Stmt I certify that this patient is under my care and that I, a nurse practitioner or a physician; a dental assistant instructor working with me, had a face to face encounter that - meets the physician face to face encounter requirements with this patient as dated. LATA WOOD DO Mar 23, 2023 12:05
--- NOTE | 2023-03-23 12:06 | Discharge Summary ---
Discharge Summary Hospital Course Was the Problem List Reviewed?: Yes Problems/Dx: (1) CVA (cerebral vascular accident) Hospital Course Date of Admission: Mar 20, 2023 at 11:42 Admission Diagnosis : [facility] Physician[facility] Date of Discharge: 03/23/23 Discharge Diagnosis: [ ] Hospital Course: Patient had an uneventful but lengthy hospital course after she was admitted for suspicion of CVA. She had had a CVA earlier in the year earlier in the year new area of subacute infarct. She was not a tPA candidate. Cardiology was consulted and she refused loop recorder. She was maintained on Plavix and aspirin and statin. Parkinsonism was diagnosed placed on Sinemet to help evaluate improvement with that medication. Home health was ordered. Labs and Pending Lab Test: Laboratory Tests 03/22/23 13:55: Potassium Level 4.9 03/23/23 05:41: Potassium Level 4.9, White Blood Count 4.5, Red Blood Count 2.86L, Hemoglobin 8.3L, Hematocrit 26L, Mean Corpuscular Volume 91, Mean Corpuscular Hemoglobin 29, Mean Corpuscular Hemoglobin Concent 32, Red Cell Distribution Width 17.2H, Platelet Count 171, Mean Platelet Volume 9.5, Immature Granulocyte % (Auto) 1, Neutrophils (%) (Auto) 59, Lymphocytes (%) (Auto) 27, Monocytes (%) (Auto) 10, Eosinophils (%) (Auto) 3, Basophils (%) (Auto) 1, Neutrophils # (Auto) 2.7, Lymphocytes # (Auto) 1.2, Monocytes # (Auto) 0.4, Eosinophils # (Auto) 0.1, Basophils # (Auto) 0.0, Immature Granulocyte # (Auto) 0.0, Sodium Level 140, Chloride Level 111H, Carbon Dioxide Level 22, Anion Gap 7, Blood Urea Nitrogen 24H, Creatinine 1.72H, Estimat Glomerular Filtration Rate 31, BUN/Creatinine Ratio 14, Glucose Level 78, Calcium Level 8.4L, Corrected Calcium 9.0, Magnesium Level 1.8, Total Bilirubin 0.2, Aspartate Amino Transf (AST/SGOT) 51H, Alanine Aminotransferase (ALT/SGPT) 23, Alkaline Phosphatase 95, Total Protein 5.8L, Albumin 3.2 Microbiology 03/18/23 MRSA Screen - Final, Complete 7/9/23 Urine Culture - Final, Complete Escherichia coli Home Meds Active Atorvastatin Calcium 80 Mg Tablet 80 Mg PO DAILY Carbidopa-Levodopa 25-100 Tab (Carbidopa/Levodopa) 25 Mg-100 Mg Tablet 1 Ea PO TIDWM Amlodipine Besylate 5 Mg Tablet 5 Mg PO DAILY Doxazosin Mesylate 4 Mg Tablet 2 Mg PO HS Reported Aspirin EC (Aspirin) 81 Mg Tablet.dr 81 Mg PO DAILY Multivitamin 1 Each Tablet 1 Each PO DAILY Trazodone HCl 100 Mg Tablet 100 Mg PO HS Clopidogrel (Clopidogrel Bisulfate) 75 Mg Tablet 75 Mg PO DAILY Atenolol 100 Mg Tablet 100 Mg PO DAILY Gabapentin 800 Mg Tablet 800 Mg PO QID Lisinopril 10 Mg Tablet 10 Mg PO DAILY Atorvastatin Calcium 40 Mg Tablet 40 Mg PO DAILY Assessment/Pt Instructions PCP in 1 week Discharge Planning: <30 minutes discharge planning Discharge Instructions Discharge Diet: No Restrictions Discharge Physical Examination Vital Signs Vital Signs Date Time Temp Pulse Resp B/P (MAP) Pulse Ox O2 Delivery O2 Flow Rate FiO2 03/23/23 11:38 36.7 80 18 110/53 (72) 91 Room Air 03/23/23 08:00 0.00 03/23/23 00:08 21 General Appearance: No Apparent Distress, WD/WN, Chronically ill Allergies: Coded Allergies: Iodinated Contrast Media (Verified Allergy, Unknown, 09/21/17) Discharge Summary Date of Admission Mar 20, 2023 at 11:42 Date of Discharge Discharge Date: Mar 23, 2023 Admission Diagnosis Assessment: Acute on chronic CVA not a tPa candidate Former smoker quit 12/2022 HTN Tremor right hand Plan: CVA protocol Cardiology consultation Monitor closely PT OT Discharge Diagnosis Assessment: Acute on chronic CVA not a tPa candidate Former smoker quit 12/2022 HTN Tremor right hand-Parkinsonism diagnosis by this examiner Plan: CVA protocol Cardiology consultation Monitor closely PT OT [facility]? declines so HH [facility] [place] Started on Sinemet Clinical Quality Measures Stroke: Symptoms onset unknown: Yes LATA WOOD DO Mar 23, 2023 12:06
[2023-03-23 12:19] VITALS: BP 110/53
--- NOTE | 2023-03-23 15:14 | Progress Note - Cardiology ---
Cardiology SOAP Progress Note Subjective: No cp or palp or syncope No shortness of breath at rest No n/v/d Gen weakness Persistent dizziness and poor balance Objective: I&O/Vital Signs 03/23/23 03/23/23 03/23/23 03/23/23 03:42 07:00 07:23 08:00 Temp 37.4 36.5 Pulse 79 77 67 Resp 18 18 B/P (MAP) 157/79 (105) 163/65 (97) Pulse Ox 91 93 93 O2 Delivery Room Air Room Air Room Air O2 Flow Rate 0.00 03/23/23 03/23/23 03/23/23 11:38 12:19 12:27 Temp 36.7 36.7 Pulse 80 80 78 Resp 18 18 B/P (MAP) 110/53 (72) 110/53 Pulse Ox 91 91 O2 Delivery Room Air Room Air O2 Flow Rate 0.00 03/23/23 00:00 Intake Total 1312 ml Output Total 2200 ml Balance -888 ml Weight (Pounds): 185 Weight (Ounces): 1.0 Weight (Calculated Kilograms): 83.757747 Constitutional: AAO x 3, well-developed, well-nourished, other (frail appearing) Respiratory: No accessory muscle use; chest expansion is symmetric, chest is bilaterally symmetric, other (fair, bilat air entry; somewhat prolong exp) Cardiovascular: regular rate-rhythm, systolic murmur (soft CLARENCE at card base) Gastrointestional: No tender; soft; No guarding, No rebound; audible bowel sounds Extremities: No clubbing, No cyanosis, No significant edema Neurologic/Psychiatric: oriented x 3, other (L - sided weakness, more in the l leg (3/5 power in the L leg)) Skin: normal color, warm/dry; No cyanosis, No cool, No diaphoresis, No rash on exposed areas, No ulcerations on exposed areas Results/Procedures: Labs Laboratory Tests 03/23/23 05:41: White Blood Count 4.5, Red Blood Count 2.86L, Hemoglobin 8.3L, Hematocrit 26L, Mean Corpuscular Volume 91, Mean Corpuscular Hemoglobin 29, Mean Corpuscular Hemoglobin Concent 32, Red Cell Distribution Width 17.2H, Platelet Count 171, Mean Platelet Volume 9.5, Immature Granulocyte % (Auto) 1, Neutrophils (%) (Auto) 59, Lymphocytes (%) (Auto) 27, Monocytes (%) (Auto) 10, Eosinophils (%) (Auto) 3, Basophils (%) (Auto) 1, Neutrophils # (Auto) 2.7, Lymphocytes # (Auto) 1.2, Monocytes # (Auto) 0.4, Eosinophils # (Auto) 0.1, Basophils # (Auto) 0.0, Immature Granulocyte # (Auto) 0.0, Sodium Level 140, Potassium Level 4.9, Chloride Level 111H, Carbon Dioxide Level 22, Anion Gap 7, Blood Urea Nitrogen 24H, Creatinine 1.72H, Estimat Glomerular Filtration Rate 31, BUN/Creatinine R atio 14, Glucose Level 78, Calcium Level 8.4L, Corrected Calcium 9.0, Magnesium Level 1.8, Total Bilirubin 0.2, Aspartate Amino Transf (AST/SGOT) 51H, Alanine Aminotransferase (ALT/SGPT) 23, Alkaline Phosphatase 95, Total Protein 5.8L, A lbumin 3.2 Microbiology 03/18/23 MRSA Screen - Final, Complete 03/18/23 Urine Culture - Final, Complete Escherichia coli Laboratory Tests 03/22/23 05:05 03/22/23 13:55 03/23/23 05:41 A/P: Assessment: 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 Grade 1 diastolic dysfunction. PASP 30-35 mmHg Carotid u/s of 03-19-23: Mild bilateral carotid atherosclerotic disease without ultrasound evidence of hemodynamically significant stenosis. Incidental note is made of an approximately 1 cm nodule in the right lobe of the thyroid gland. Hypertension Quit smoking in December 2022 Elevated TSH - indicative of hypothyroidism - management per medical services Plan: * Dr Solano managing stroke and renal issues * Treat hyperkalemia. Hospitalist service (Dr Solano) managing - [place] (-) stopped - give Kayexalate today * Advised to continue to refrain from tobacco use * We have discussed ILR implant with her at length on 03-20-23; she verbalizes understanding of our recs, but declines * Monitor labs Clinical Quality Measures Stroke: Symptoms onset unknown: Yes CLEMENT LORA MD FACP FAC CCDS Mar 23, 2023 15:14
== END 2023-03-23 13:29 | disposition home health service (06) | DRG 65 ==
LOC: EDUNIT# 03:24 → ER 03:26 → ICU 08:03 → INTOOBSV 08:03 → 4TH 17:00 → OBSVTOIN 03-20 11:42
PROVIDERS: ADMIT Internal Medicine; ATTEND Internal Medicine
DX: I63.9 Cerebral infarction, unspecified (principal); G81.94 Hemiplegia, unspecified affecting left nondominant side; N39.0 Urinary tract infection, site not specified; N17.9 Acute kidney failure, unspecified; G20 Parkinson's disease; R29.705 NIHSS score 5; R29.810 Facial weakness; Z79.82 Long term (current) use of aspirin; Z79.899 Other long term (current) drug therapy; Z87.891 Personal history of nicotine dependence; G43.909 Migraine, unspecified, not intractable, without status migrainosus; G40.909 Epilepsy, unspecified, not intractable, without status epilepticus; K21.9 Gastro-esophageal reflux disease without esophagitis; M19.90 Unspecified osteoarthritis, unspecified site; E87.5 Hyperkalemia; G89.29 Other chronic pain; Z66 Do not resuscitate; M54.9 Dorsalgia, unspecified; F41.9 Anxiety disorder, unspecified; F32.A Depression, unspecified; J44.9 Chronic obstructive pulmonary disease, unspecified; I12.9 Hypertensive chronic kidney disease with stage 1 through stage 4 chronic kidney disease, or unspecified chronic kidney disease; N18.32 Chronic kidney disease, stage 3b; D64.9 Anemia, unspecified; E03.9 Hypothyroidism, unspecified; I77.9 Disorder of arteries and arterioles, unspecified; E04.1 Nontoxic single thyroid nodule
CPT/HCPCS: 36415; 51702; 70450; 70551; 71045; 80053; 80061; 80306; 80320; 80329; 81000; 82947; 83735; 83874; 84132; 84439; 84443; 84484; 85025; 85379; 85610; 85730; 87077; 87081; 87088; 87186; 93005; 93041; 93306; 93880; 94640; 94664; 94760; G0378